=== PATIENT | male | born 1960 | race Caucasian/White ===

== ENCOUNTER 2018-09-23 07:35 | Emergency (ER) | payer OTHER ==
[2018-09-23 07:51] VITALS: BP 189/83
--- NOTE | 2018-09-23 08:10 | EDM.PDOC ---
ED HPI GENERAL MEDICAL PROBLEM - General Chief Complaint: General Stated Complaint: withdrawl s/s Time Seen by Provider: 09/23/18 08:00 - History of Present Illness INITIAL COMMENTS - FREE TEXT/NARRATIVE: Jose is a 57 year old male who presents to the ED with c/o malfunctioning pain pump. He has had an implanted pain pump for a number of years. He reports this is followed by [facility]. He reports normally he goes there every 3 months to have it refilled. He is due for this middle of September he believes. He does report that he knows the battery is due to be changed in the next future, but he is hoping to have it removed before then. He reports that around 3 am it started beeping. He reports that they have advised him that when it starts beeping, he has 1 hour to get to his nearest facility. He reports that as the night went on he started to feel more anxious and wonders if he is "withdrawing." He denies any increase in his pain, but just reports he feels "lousy." Lower Back Pain Score (Numeric/FACES): 4 - Related Data Allergies Allergy/AdvReac Type Severity Reaction Status Date / Time penicillin Allergy Other Verified 09/23/18 08:06 shellfish derived Allergy Swelling Verified 09/23/18 08:06 Home Meds: Home Meds Tamsulosin HCl 0.4 mg PO DAILY 06/07/15 [History] oxyCODONE HCl [Oxycontin] 40 mg PO TID 08/30/15 [History] oxyCODONE 10 mg PO TID PRN 09/23/18 [History] Past Medical History Respiratory History: Reports: Pneumonia, Recurrent Gastrointestinal History: Reports: None Genitourinary History: Reports: None Musculoskeletal History: Reports: Back Pain, Chronic - Past Surgical History Other Musculoskeletal Surgeries/Procedures:: original back injury 07-07-06. Lifting accident at work. disc removed. 5 total back surgeries. rods, screws, pins in back, fusions. Social & Family History - Family History Family Medical History: Noncontributory - Tobacco Use Smoking Status *Q: Current Every Day Smoker Years of Tobacco use: 45 Packs/Tins Daily: 2 ED ROS GENERAL - Review of Systems Review Of Systems: ROS reveals no pertinent complaints other than HPI. ED EXAM, GENERAL - Physical Exam Exam: See Below Exam Limited By: No Limitations General Appearance: Alert, WD/WN, Anxious Eye Exam: Bilateral Eye: EOMI, Normal Fundi, Normal Inspection, PERRL Throat/Mouth: Normal Inspection, Normal Lips, Normal Teeth, Normal Gums, Normal Oropharynx, Normal Voice, No Airway Compromise Head: Atraumatic, Normocephalic Neck: Normal Inspection, Supple, Non-Tender, Full Range of Motion Respiratory/Chest: No Respiratory Distress, Lungs Clear, Normal Breath Sounds, No Accessory Muscle Use, Chest Non-Tender Cardiovascular: Normal Peripheral Pulses, Regular Rate, Rhythm, No Edema, No Gallop, No JVD, No Murmur, No Rub GI/Abdominal: Normal Bowel Sounds, Soft, Non-Tender, No Organomegaly, No Distention, No Abnormal Bruit, No Mass Back Exam: Normal Inspection, Decreased Range of Motion Extremities: Normal Inspection, Normal Range of Motion, Non-Tender, Normal Capillary Refill, No Pedal Edema Neurological: Alert, Oriented, CN II-XII Intact, Normal Cognition, Normal Gait, Normal Reflexes, No Motor/Sensory Deficits Psychiatric: Anxious Skin Exam: Warm, Dry, Intact, Normal Color, No Rash Course - Vital Signs Last Recorded V/S: Last Vital Signs Temp 98.9 F 09/23/18 07:38 Pulse 81 09/23/18 07:38 Resp 18 09/23/18 07:38 BP 189/83 H 09/23/18 07:38 Pulse Ox 98 09/23/18 07:38 - Orders/Labs/Meds Meds: Medications Discontinued Medications Generic Name Dose Route Start Last Admin Trade Name Yolande PRN Reason Stop Dose Admin Morphine Sulfate 20 mg 09/23/18 09:20 09/23/18 09:53 Morphine 20 Mg/Ml Soln PO 09/23/18 09:21 1 ml ONETIME ONE Administration - Re-Assessments/Exams Free Text/Narrative Re-Assessment/Exam: 09/23/2018 08:34 Consulted with patient pain management [employer] who reports he only receives 1 mg/24 hours through the pump. He does take Oxycontin as well so reassured that he is not withdrawing. She wishes him to come to [place], as this is the only way they can assess what is malfunctioning with his pump. This was discussed with patient. 09/23/18 08:57 Patient reports he's "pissed off and just wants to go home." Offered to attempt to arrange a ride to [facility], but he refuses. He is scheduled to f/u with pain management on Wednesday at 11:30 am. Patient voiced understanding and said he will go there Wednesday. Did discuss that the pump will likely continue to beep every 10 minutes throughout the weekend. Patient reports he will just stay home all weekend and does not care as he refuses to go to [facility] today. Departure - Departure Time of Disposition: 08:57 Disposition: Home, Self-Care 01 Condition: Good Clinical Impression: Anxiety Chronic pain Qualifiers: Chronic pain type: chronic pain syndrome Qualified Code(s): G89.4 - Chronic pain syndrome - Discharge Information *PRESCRIPTION DRUG MONITORING PROGRAM REVIEWED*: Not Applicable *COPY OF PRESCRIPTION DRUG MONITORING REPORT IN PATIENT REEMA: Not Applicable Instructions: Chronic Pain, Adult Referrals: Speedy Sidhu PA-C [Primary Care Provider] - Forms: ED Department Discharge Additional Instructions: Recommend follow up with Pain Clinic on Wednesday Continue oral oxycontin as directed. Will give patient PO morphine to use as needed for breakthrough pain. 0.25 mL every 24 hours as needed for breakthrough pain. Follow up for any emergent needs
[2018-09-23] MEDS ORDERED: Morphine Oral Concentrate 20 MG/ML 30 ML Bottle PO ONE (09:20)
== END 2018-09-23 09:54 | disposition home or self-care (01) ==
LOC: CC.ED 07:35
DX: G89.4 Chronic pain syndrome (principal); F41.9 Anxiety disorder, unspecified; F17.210 Nicotine dependence, cigarettes, uncomplicated; Z88.0 Allergy status to penicillin; Z91.013 Allergy to seafood; Z79.899 Other long term (current) drug therapy
CPT/HCPCS: 99282; A9270

== ENCOUNTER 2020-02-19 18:03 | Emergency (ER) | payer OTHER ==
[2020-02-19 18:05] VITALS: BP 140/86; PULSE 118
[2020-02-19] MEDS ORDERED: Apixaban 5 MG Tab PO ONE (18:56)
--- NOTE | 2020-02-19 18:58 | EDM.PDOC ---
ED HPI GENERAL MEDICAL PROBLEM - General Chief Complaint: General Stated Complaint: L leg swelling Time Seen by Provider: 02/19/20 18:24 Source of Information: Reports: Patient History Limitations: Reports: No Limitations - History of Present Illness INITIAL COMMENTS - FREE TEXT/NARRATIVE: Patient presents to ER with complaints of left leg discomfort and swelling. Was down to [place] today for immunotherapy and on the way home, leg started to feel tight. He notes pain in his calf, feels it is mildly swollen. History lung cancer in remission. No history of blood clots. Has not had any open sores, no fevers. Onset: Today, Gradual Duration: Hour(s): Location: Reports: Lower Extremity, Left Quality: Reports: Ache Severity: Mild Associated Symptoms: Reports: Cough. Denies: Chest Pain, Fever/Chills, Nausea/ Vomiting, Shortness of Breath Left Leg Pain Score (Numeric/FACES): 6 - Related Data Allergies Allergy/AdvReac Type Severity Reaction Status Date / Time penicillin Allergy Other Verified 02/19/20 18:22 shellfish derived Allergy Swelling Verified 02/19/20 18:22 Home Meds: Home Meds Tamsulosin HCl 0.4 mg PO DAILY 06/07/15 [History] Buprenorphine HCl/Naloxone HCl [Buprenorphin-Naloxon 8-2 mg Sl] 8 mg PO DAILY [History] Past Medical History Respiratory History: Reports: Pneumonia, Recurrent Gastrointestinal History: Reports: None Genitourinary History: Reports: None Musculoskeletal History: Reports: Back Pain, Chronic Neurological History: Reports: Neuropathy, Peripheral Oncologic (Cancer) History: Reports: Lung - Past Surgical History HEENT Surgical History: Reports: Tonsillectomy GI Surgical History: Reports: Appendectomy Other Musculoskeletal Surgeries/Procedures:: original back injury 07-07-06. Lifting accident at work. disc removed. 5 total back surgeries. rods, screws, pins in back, fusions. Social & Family History - Family History Family Medical History: Noncontributory - Tobacco Use Smoking Status *Q: Current Every Day Smoker Years of Tobacco use: 40 Packs/Tins Daily: 1 - Caffeine Use Caffeine Use: Reports: None - Recreational Drug Use Recreational Drug Use: No ED ROS GENERAL - Review of Systems Review Of Systems: See Below Constitutional: Reports: Weakness, Fatigue. Denies: Fever, Chills, Malaise, Decreased Appetite HEENT: Reports: No Symptoms Respiratory: Reports: Cough. Denies: Shortness of Breath Cardiovascular: Reports: Edema. Denies: Chest Pain, Lightheadedness Endocrine: Reports: Fatigue GI/Abdominal: Denies: Abdominal Pain, Constipation, Diarrhea, Nausea, Vomiting : Reports: No Symptoms Musculoskeletal: Reports: Leg Pain Skin: Denies: Erythema ED EXAM, GENERAL - Physical Exam Exam: See Below Exam Limited By: No Limitations General Appearance: Alert, WD/WN, No Apparent Distress Ears: Normal External Exam, Normal TMs Nose: Normal Inspection, Normal Mucosa, No Blood Throat/Mouth: Normal Inspection, Normal Oropharynx Head: Normocephalic Neck: Normal Inspection, Supple, Non-Tender Respiratory/Chest: Lungs Clear, Decreased Breath Sounds Cardiovascular: Regular Rate, Rhythm GI/Abdominal: Normal Bowel Sounds, Soft, Non-Tender Extremities: Pedal Edema (1+ edema in left lower leg, tender in calf to palpation. Positive Asim's sign), Asim's Sign, Leg Pain Neurological: Alert, Oriented Skin Exam: Warm, Dry Course - Vital Signs Last Recorded V/S: Last Vital Signs Temp 97.1 F 02/19/20 18:03 Pulse 118 H 02/19/20 18:03 Resp 18 02/19/20 18:03 BP 140/86 02/19/20 18:03 Pulse Ox 96 02/19/20 18:03 - Orders/Labs/Meds Orders: Active Orders 24 hr Category Date Time Status D Dimer [D-DIMER QUANTITATIVE] [COAG] Stat Lab 02/19/20 18:09 Ordered Labs: Laboratory Tests 02/19/20 02/19/20 Range/Units 18:09 18:09 WBC 6.8 (5.0-10.0) 10^3/uL RBC 4.22 L (4.50-6.00) 10^6/uL Hgb 13.8 L (14.0-18.0) g/dL Hct 40.8 (40.0-54.0) % MCV 96.7 H (82.0-94.0) fL MCH 32.7 H (27.0-32.0) pg MCHC 33.8 (33.0-38.0) g/dL RDW Coeff of Marquis 13.8 (11.0-15.0) % Plt Count 212 (150-400) 10^3/uL Neut % (Auto) 69.0 (35-85) % Lymph % (Auto) 20.9 (10-55) % Randall % (Auto) 8.8 (0-16) % Eos % (Auto) 1.0 (0-5) % Baso % (Auto) 0.3 (0-3) % Neut # (Auto) 4.72 (1.80-7.00) 10^3/uL Lymph # (Auto) 1.43 (1.00-4.80) 10^3/uL Randall # (Auto) 0.60 (0.00-0.80) 10^3/uL Eos # (Auto) 0.07 (0.00-0.45) 10^3/uL Baso # (Auto) 0.02 10^3/uL C-Reactive Protein 1.4 H (0.2-0.8) mg/dL - Re-Assessments/Exams Free Text/Narrative Re-Assessment/Exam: 02/19/20 19:01 d-dimer is positive. Discussed use of Eliquis with patient tonight and tomorrow until able to obtain ultrasound of leg for confirmation. He is agreeable to coming to [facility] for ultrasound. Departure - Departure Time of Disposition: 19:02 Disposition: Home, Self-Care 01 Condition: Fair Clinical Impression: DVT (deep venous thrombosis) - Discharge Information *PRESCRIPTION DRUG MONITORING PROGRAM REVIEWED*: No *COPY OF PRESCRIPTION DRUG MONITORING REPORT IN PATIENT REEMA: No Referrals: Speedy Sidhu PA-C [Primary Care Provider] - Additional Instructions: 1. Rest 2. Elevate leg tonight 3. Eliquis 10 mg twice a day for 7 days then start 5 mg twice a day thereafter. 4. Please present to [facility] for ultrasound. They will call you with a time. This will confirm if diagnosis of blood clot. 5. Call with any questions Sepsis Event Note - Evaluation Sepsis Screening Result: No Definite Risk - Focused Exam Vital Signs: Vital Signs Temp Pulse Resp BP Pulse Ox 02/19/20 18:03 97.1 F 118 H 18 140/86 96 Date Exam was Performed: 02/19/20 Time Exam was Performed: 18:52 - My Orders Last 24 Hours: My Active Orders 02/19/20 18:09 D Dimer [D-DIMER QUANTITATIVE] [COAG] Stat - Assessment/Plan Last 24 Hours: My Active Orders 02/19/20 18:09 D Dimer [D-DIMER QUANTITATIVE] [COAG] Stat
== END 2020-02-19 19:10 | disposition home or self-care (01) ==
LOC: CC.ED 18:03
DX: I82.402 Acute embolism and thrombosis of unspecified deep veins of left lower extremity (principal); F17.210 Nicotine dependence, cigarettes, uncomplicated; Z88.0 Allergy status to penicillin; Z91.013 Allergy to seafood
CPT/HCPCS: 36415; 85025; 85379; 86140; 99283; A9270

== ENCOUNTER 2021-01-01 07:01 | Inpatient (IN) | payer OTHER ==
[2021-01-01 07:45] LABS: CHLORIDE,CL 82 mEq/L (98-106)
[2021-01-01 07:56] LABS: SODIUM,NA 122 mEq/L (136-145)
[2021-01-01] MEDS ORDERED: Iopamidol 755 Mg/ML 100 ML Bottle IVPUSH ONE (08:15)
[2021-01-01] MEDS ORDERED: Sodium Chloride 0.9% 1,000 ML IV SCH (09:52)
[2021-01-01] MEDS: Sodium Chloride 0.9% 1,000 ML IV SCH ×3 (10:00→23:51)
[2021-01-01] MEDS ORDERED: Levofloxacin/Dextrose 5%-Water 500 MG in Premix Bag 1 BAG IV SCH (10:30)
[2021-01-01] MEDS ORDERED: Cefepime 2 GM Vial IVPUSH SCH (10:45)
[2021-01-01] MEDS ORDERED: metroNIDAZOLE/Normal Saline 500 MG in Premix Bag 1 BAG IV ONE (11:00)
[2021-01-01] MEDS: Acetaminophen 325 MG Tab PO PRN (11:10)
[2021-01-01] MEDS: Apixaban 5 MG Tab PO SCH ×2 (11:10→19:23)
[2021-01-01] MEDS: Ondansetron 4 MG/2 ML SDV IV PRN (14:55)
[2021-01-01] MEDS: metroNIDAZOLE/Normal Saline 500 MG in Premix Bag 1 BAG IV SCH ×2 (16:39→23:55)
[2021-01-01] MEDS: Cefepime 2 GM Vial IVPUSH SCH ×2 (16:39→23:55)
[2021-01-01] MEDS: BUPRENORPHINE HCL PO SCH (19:22)
[2021-01-01] MEDS: NALOXONE HCL PO SCH (19:22)
[2021-01-01] MEDS: Nicotine 14 MG/24 Hr Patch TRDERM SCH (19:43)
--- NOTE | 2021-01-01 21:51 | EDM.PDOC ---
ED HPI GENERAL MEDICAL PROBLEM - General Chief Complaint: General Stated Complaint: sob Time Seen by Provider: 01/01/21 07:25 Source of Information: Reports: Patient History Limitations: Reports: No Limitations - History of Present Illness INITIAL COMMENTS - FREE TEXT/NARRATIVE: Jose is a 60 yo male who presents to the ED via [facility] with complaints of not feeling well. Has multiple complaints. Admits to shortness of breath, which has been ongoing since last chemotherapy treatment. Patient has history of lung cancer and recently started a new round of chemotherapy. He feels he hasn't been getting better. Has been really weak. States he started vomiting the last few days and hasn't' been able to eat. States he has been trying to drink fluids. Patient has history of DVT and currently on Eliquis. He admits he hasn't been exposed to Covid and was tested a little over a week ago and was negative. Has received both Covid vaccines. He does admit to discomfort in his rib cage when he takes in a deep breath. Bilateral Chest Pain Score (Numeric/FACES): 7 - Related Data Allergies Allergy/AdvReac Type Severity Reaction Status Date / Time penicillin Allergy Other Verified 01/01/21 07:10 shellfish derived Allergy Swelling Verified 01/01/21 07:10 Home Meds: Home Meds Tamsulosin HCl 0.4 mg PO DAILY 06/07/15 [History] Buprenorphine HCl/Naloxone HCl [Buprenorphin-Naloxon 8-2 mg Sl] 8 mg PO DAILY 02/19/20 [History] Apixaban [Eliquis] 5 mg PO DAILY 01/01/21 [History] Past Medical History Respiratory History: Reports: Pneumonia, Recurrent Gastrointestinal History: Reports: None Genitourinary History: Reports: None Musculoskeletal History: Reports: Back Pain, Chronic Neurological History: Reports: Neuropathy, Peripheral Oncologic (Cancer) History: Reports: Lung - Past Surgical History HEENT Surgical History: Reports: Tonsillectomy GI Surgical History: Reports: Appendectomy Other Musculoskeletal Surgeries/Procedures:: original back injury 07-07-06. Lifting accident at work. disc removed. 5 total back surgeries. rods, screws, pins in back, fusions. Social & Family History - Family History Family Medical History: No Pertinent Family History - Tobacco Use Tobacco Use Status *Q: Current Every Day Tobacco User Years of Tobacco use: 47 Packs/Tins Daily: 0.3 - Caffeine Use Caffeine Use: Reports: None - Recreational Drug Use Recreational Drug Use: No ED ROS GENERAL - Review of Systems Review Of Systems: See Below Constitutional: Reports: Weakness, Fatigue, Decreased Appetite. Denies: Fever HEENT: Reports: No Symptoms Respiratory: Reports: Shortness of Breath, Pleuritic Chest Pain, Cough. Denies: Hemoptysis Cardiovascular: Reports: Dyspnea on Exertion. Denies: Chest Pain, Palpitations GI/Abdominal: Reports: Abdominal Pain, Nausea, Vomiting. Denies: Black Stool, Bloody Stool, Constipation, Diarrhea, Hematemesis, Hematochezia, Melena : Reports: No Symptoms Musculoskeletal: Reports: Back Pain (chronic) Skin: Reports: No Symptoms Neurological: Reports: No Symptoms ED EXAM, GENERAL - Physical Exam Exam: See Below Exam Limited By: No Limitations General Appearance: Alert, Mild Distress, Thin Ears: Normal External Exam, Hearing Grossly Normal Nose: Normal Inspection, No Blood Throat/Mouth: Normal Inspection, Normal Voice, No Airway Compromise Head: Atraumatic, Normocephalic Neck: Normal Inspection, Supple Respiratory/Chest: No Respiratory Distress, No Accessory Muscle Use, Decreased Breath Sounds, Rhonchi. No: Crackles, Stridor Cardiovascular: Regular Rate, Rhythm, No Edema, No Murmur GI/Abdominal: Normal Bowel Sounds, Soft, No Organomegaly, No Mass, Tender Extremities: Normal Inspection, No Pedal Edema Neurological: Alert, Oriented, Normal Cognition Psychiatric: Normal Affect, Normal Mood Skin Exam: Warm, Dry, Intact, Normal Color, No Rash Course - Vital Signs Last Recorded V/S: Last Vital Signs Temp 97.7 F 01/01/21 19:29 Pulse 99 01/01/21 19:29 Resp 18 01/01/21 19:29 BP 113/75 01/01/21 19:29 Pulse Ox 95 01/01/21 19:29 - Orders/Labs/Meds Orders: Active Orders 24 hr Category Date Time Status Abdomen Pelvis w Cont [CT] Stat Exams 01/01/21 07:39 Taken Chest w Cont [CT] Stat Exams 01/01/21 07:39 Taken Medication Orders Acetaminophen (Tylenol) 650 mg PO Q4H PRN PRN Reason: Pain (Mild 1-3)/fever Last Admin: 01/01/21 11:10 Dose: 650 mg Documented by: BELIMIC Apixaban (Eliquis) 5 mg PO BID [facility] Last Admin: 01/01/21 19:23 Dose: 5 mg Documented by: Admin: 01/01/21 11:10 Dose: 5 mg Documented by: LAUREL Cefepime HCl (Maxipime) 2 gm IVPUSH Q8H [facility] Last Admin: 01/01/21 16:39 Dose: 2 gm Documented by: LAUREL Sodium Chloride (Normal Saline) 1,000 mls @ 150 mls/hr IV ASDIRECTED [facility] Last Admin: 01/01/21 16:39 Dose: 150 mls/hr Documented by: Infusion: 01/01/21 16:39 Dose: 150 mls/hr Documented by: Admin: 01/01/21 10:00 Dose: 150 mls/hr Documented by: LAUREL Metronidazole 500 mg/ Premix 100 mls @ 100 mls/hr IV Q8H [facility] Last Admin: 01/01/21 16:39 Dose: 100 mls/hr Documented by: LAUREL Nicotine (Habitrol) 14 mg TRDERM DAILY [facility] Last Admin: 01/01/21 19:43 Dose: 14 mg Documented by: GENO Buprenorphine Hcl/Naloxone Hcl 8-2mg * *Ptom 0 mg PO DAILY@1999 [facility] Last Admin: 01/01/21 19:22 Dose: 8 mg Documented by: LAUREL Ondansetron HCl (Zofran) 4 mg IV Q4H PRN PRN Reason: Nausea/Vomiting Last Admin: 01/01/21 14:55 Dose: 4 mg Documented by: LAUREL Tamsulosin HCl (Flomax) 0.4 mg PO DAILY [facility] Labs: Laboratory Tests 01/01/21 01/01/21 01/01/21 Range/Units 07:25 07:25 07:44 WBC 0.6 L* (5.0-10.0) 10^3/uL RBC 4.42 L (4.50-6.00) 10^6/uL Hgb 13.7 L (14.0-18.0) g/dL Hct 38.3 L (40.0-54.0) % MCV 86.7 (82.0-94.0) fL MCH 31.0 (27.0-32.0) pg MCHC 35.8 (33.0-38.0) g/dL RDW Coeff of Marquis 13.0 (11.0-15.0) % Plt Count 97 L (150-400) 10^3/uL Add Manual Diff Yes Neutrophils % (Manual) 10 L (35-85) % Band Neutrophils % 4 (0-5) % Lymphocytes % (Manual) 40 (21-55) % Monocytes % (Manual) 46 H (2-12) % Absolute Neutrophils 0.08 L (1.80-7.00) 10^3/uL Lymphocytes # (Manual) 0.24 L (1.00-4.80) 10^3/uL Monocytes # (Manual) 0.28 (0.00-0.80) 10^3/uL Sodium 122 L* (136-145) mEq/L Potassium 3.5 D (3.5-5.0) mEq/L Chloride 82 L (98-106) mEq/L Carbon Dioxide 28 (21-32) mmol/L BUN 27 H D (7-18) mg/dL Creatinine 1.4 H D (0.7-1.3) mg/dL Est Cr Clr Drug Dosing 50.40 mL/min Estimated GFR (MDRD) 52 L (>=60) mL/min Glucose 459 H* D (75-99) mg/dL Calcium 9.8 (8.4-10.1) mg/dL Total Bilirubin 1.1 H (0.0-1.0) mg/dL AST 18 (15-37) U/L ALT 33 (12-78) U/L Alkaline Phosphatase 116 (46-116) U/L Creatine Kinase 22 L (35-232) U/L Troponin I < 0.017 (0.00-0.06) ng/mL C-Reactive Protein 43.4 H (0.2-0.8) mg/dL Total Protein 7.0 (6.4-8.2) g/dL Albumin 2.3 L (3.4-5.0) g/dL Amylase 19 L (25-115) U/L Lipase 67 L (73-393) U/L SARS-CoV-2 RNA (SHUN) (NEGATIVE) 01/01/21 Range/Units 08:09 WBC (5.0-10.0) 10^3/uL RBC (4.50-6.00) 10^6/uL Hgb (14.0-18.0) g/dL Hct (40.0-54.0) % MCV (82.0-94.0) fL MCH (27.0-32.0) pg MCHC (33.0-38.0) g/dL RDW Coeff of Marquis (11.0-15.0) % Plt Count (150-400) 10^3/uL Add Manual Diff Neutrophils % (Manual) (35-85) % Band Neutrophils % (0-5) % Lymphocytes % (Manual) (21-55) % Monocytes % (Manual) (2-12) % Absolute Neutrophils (1.80-7.00) 10^3/uL Lymphocytes # (Manual) (1.00-4.80) 10^3/uL Monocytes # (Manual) (0.00-0.80) 10^3/uL Sodium (136-145) mEq/L Potassium (3.5-5.0) mEq/L Chloride (98-106) mEq/L Carbon Dioxide (21-32) mmol/L BUN (7-18) mg/dL Creatinine (0.7-1.3) mg/dL Est Cr Clr Drug Dosing mL/min Estimated GFR (MDRD) (>=60) mL/min Glucose (75-99) mg/dL Calcium (8.4-10.1) mg/dL Total Bilirubin (0.0-1.0) mg/dL AST (15-37) U/L ALT (12-78) U/L Alkaline Phosphatase (46-116) U/L Creatine Kinase (35-232) U/L Troponin I (0.00-0.06) ng/mL C-Reactive Protein (0.2-0.8) mg/dL Total Protein (6.4-8.2) g/dL Albumin (3.4-5.0) g/dL Amylase (25-115) U/L Lipase (73-393) U/L SARS-CoV-2 RNA (SHUN) Negative (NEGATIVE) Meds: Medications Generic Name Dose Route Start Last Admin Trade Name Freq PRN Reason Stop Dose Admin Acetaminophen 650 mg 01/01/21 09:52 01/01/21 11:10 Tylenol PO 650 mg Q4H PRN Administration Pain (Mild 1-3)/fever Apixaban 5 mg 01/01/21 10:30 01/01/21 19:23 Eliquis PO 5 mg BID LEIF Administration Cefepime HCl 2 gm 01/01/21 16:00 01/01/21 16:39 Maxipime IVPUSH 2 gm Q8H LEIF Administration Sodium Chloride 1,000 mls @ 150 mls/hr 01/01/21 09:30 01/01/21 16:39 Normal Saline IV 150 mls/hr ASDIRECTED LEIF Administration Metronidazole 500 mg/ Premix 100 mls @ 100 mls/hr 01/01/21 16:00 01/01/21 16:39 IV 100 mls/hr Q8H LEIF Administration Nicotine 14 mg 01/01/21 19:30 01/01/21 19:43 Habitrol TRDERM 14 mg DAILY LEIF Administration Buprenorphine Hcl/ 0 mg 01/01/21 20:00 01/01/21 19:22 Naloxone Hcl 8-2mg * PO 8 mg *Ptom DAILY@1999 LEIF Administration Ondansetron HCl 4 mg 01/01/21 09:52 01/01/21 14:55 Zofran IV 4 mg Q4H PRN Administration Nausea/Vomiting Tamsulosin HCl 0.4 mg 01/02/21 08:00 Flomax PO DAILY [facility] Discontinued Medications Generic Name Dose Route Start Last Admin Trade Name Freq PRN Reason Stop Dose Admin Cefepime HCl 2 gm 01/01/21 10:45 01/01/21 11:09 Maxipime IVPUSH 2 gm Q8H LEIF Administration Sodium Chloride 1,000 mls @ 150 mls/hr 01/01/21 09:52 Normal Saline IV ASDIRECTED LEIF Levofloxacin/Dextrose 500 mg/ 100 mls @ 100 mls/hr 01/01/21 10:30 01/01/21 17:24 Premix IV Not Given Q24H LEIF Metronidazole 500 mg/ Premix 100 mls @ 100 mls/hr 01/01/21 11:00 01/01/21 11:09 IV 01/01/21 11:59 100 mls/hr ONETIME ONE Administration Iopamidol 100 ml 01/01/21 08:15 01/01/21 08:38 Isovue-370 (76%) IVPUSH 01/01/21 08:16 100 ml ONETIME ONE Administration Departure - Departure Time of Disposition: 09:00 Disposition: Admitted As Inpatient 66 Condition: Serious Clinical Impression: Hyponatremia, Neutropenic colitis, Dehydration Neutropenia Qualifiers: Neutropenia type: secondary to cancer chemotherapy Qualified Code(s): D70.1 - Agranulocytosis secondary to cancer chemotherapy; T45.1X5A - Adverse effect of antineoplastic and immunosuppressive drugs, initial encounter - Discharge Information Sepsis Event Note (ED) - Evaluation Sepsis Screening Result: No Definite Risk - Problem List & Annotations (1) Dehydration SNOMED Code(s): 11700238 Code(s): E86.0 - DEHYDRATION Status: Acute Current Visit: Yes (2) Hyponatremia SNOMED Code(s): 22063612 Code(s): E87.1 - HYPO-OSMOLALITY AND HYPONATREMIA Status: Acute Current Visit: Yes (3) Neutropenia SNOMED Code(s): 148711877 Code(s): D70.9 - NEUTROPENIA, UNSPECIFIED Status: Acute Current Visit: Yes Qualifiers: Neutropenia type: secondary to cancer chemotherapy Qualified Code(s): D70.1 - Agranulocytosis secondary to cancer chemotherapy; T45.1X5A - Adverse effect of antineoplastic and immunosuppressive drugs, initial encounter (4) Neutropenic colitis SNOMED Code(s): 828907644 Code(s): D70.9 - NEUTROPENIA, UNSPECIFIED; K52.89 - OTHER SPECIFIED NONINFECTIVE GASTROENTERITIS AND COLITIS Status: Acute Current Visit: Yes - My Orders Last 24 Hours: My Active Orders 01/01/21 07:39 Abdomen Pelvis w Cont [CT] Stat Chest w Cont [CT] Stat - Assessment/Plan Admission H&P: Please use this note as an admission H&P Last 24 Hours: My Active Orders 01/01/21 07:39 Abdomen Pelvis w Cont [CT] Stat Chest w Cont [CT] Stat Plan: Patient's laboratory work did show hyponatremia, neutropenia and significantly elevated CRP. CT of the chest/abdomen/pelvis completed. CT scan discussed with radiologist who felt there was a gastroenteritis. CT chest was negative for any acute findings, did feel lung masses had increased in size since prior with mass noted in rib cage as well. Consulted with Dr. Richmond, oncologist, at [facility]. Advised giving Neupogen and continuing until WBC is > 100, which we do not have available and will not be able to get till tomorrow. Dr. Richmond aware and felt was acceptable. Advised starting IV antibiotics with concerns of neutropenic colitis. Patient will be direct admit for acute care. Blood cultures obtained. Will give IV fluids. Telemetry and closely monitor.
[2021-01-02 07:19] LABS: CHLORIDE,CL 95 mEq/L (98-106); SODIUM,NA 128 mEq/L (136-145)
[2021-01-02] MEDS: metroNIDAZOLE/Normal Saline 500 MG in Premix Bag 1 BAG IV SCH ×3 (07:38→23:50)
[2021-01-02] MEDS: Tamsulosin 0.4 MG Cap.ER PO SCH (07:38)
[2021-01-02] MEDS: Apixaban 5 MG Tab PO SCH ×2 (07:38→19:51)
[2021-01-02] MEDS: Nicotine 14 MG/24 Hr Patch TRDERM SCH (07:38)
[2021-01-02] MEDS: Sodium Chloride 0.9% 1,000 ML IV SCH ×3 (07:39→23:43)
[2021-01-02] MEDS: Cefepime 2 GM Vial IVPUSH SCH ×3 (07:40→23:44)
[2021-01-02] MEDS ORDERED: Potassium Chloride Riders 40 MEQ in Premix Bag 1 BAG IV ONE (07:51)
[2021-01-02] MEDS ORDERED: Docusate Sodium 100 MG Cap PO PRN (08:11)
[2021-01-02] MEDS: Docusate Sodium 100 MG Cap PO SCH (08:59)
[2021-01-02] MEDS ORDERED: Pantoprazole 40 MG Vial IVPUSH ONE (12:00)
[2021-01-02 16:02] LABS: CHLORIDE,CL 98 mEq/L (98-106); SODIUM,NA 130 mEq/L (136-145)
[2021-01-02] MEDS: BUPRENORPHINE HCL PO SCH (19:51)
[2021-01-02] MEDS: NALOXONE HCL PO SCH (19:51)
[2021-01-02] MEDS: Ondansetron 4 MG/2 ML SDV IV PRN (19:53)
--- NOTE | 2021-01-02 22:20 | PCM.PN ---
- General Info Date of Service: 01/02/21 Subjective Update: Te is a 60 yo male who was admitted to the hospital yesterday with hyponatremia, weakness, dehydration and neutropenia. Patient recently started new chemotherapy in regards to lung cancer. He started to have vomiting the last few days and was unable keep anything down. Appetite has been poor and failure to thrive. Significant amount of weight loss since restarting new chemotherapy. Ct scan did show gastroenteritis. Consulted with Dr. Richmond who felt he needed treatment for neutropenic colitis via antibiotics and Neupogen to improve WBC >1000. Today he states he is feeling a lot better. Denies any vomiting since admission. Continues to feel weak. No fevers through out the night. States he on admission he was short of breath but has subsided. - Review of Systems General: Reports: Weakness, Fatigue. Denies: Fever, Appetite HEENT: Reports: No Symptoms Pulmonary: Reports: Cough. Denies: Shortness of Breath, Hemoptysis Cardiovascular: Reports: No Symptoms. Denies: Chest Pain Gastrointestinal: Reports: Abdominal Pain, Decreased Appetite. Denies: Melena, Nausea, Vomiting Genitourinary: Reports: No Symptoms Musculoskeletal: Reports: Back Pain (chronic) Skin: Reports: No Symptoms Neurological: Reports: No Symptoms - Patient Data Vitals - Most Recent: Last Vital Signs Temp 98 F 01/02/21 20:00 Pulse 88 01/02/21 20:00 Resp 18 01/02/21 20:00 BP 112/61 01/02/21 20:00 Pulse Ox 96 01/02/21 21:22 Weight - Most Recent: 129 lb 11.2 oz I&O - Last 24 Hours: Intake & Output 01/02/21 01/02/21 01/02/21 06:59 14:59 22:59 Intake Total 2100 1190 Balance 2100 1190 Lab Results Last 24 Hours: Laboratory Results - last 24 hr 01/02/21 01/02/21 01/02/21 Range/Units 07:05 07:05 11:51 WBC 1.5 L* (5.0-10.0) 10^3/uL RBC 3.39 L (4.50-6.00) 10^6/uL Hgb 10.6 L (14.0-18.0) g/dL Hct 29.9 L (40.0-54.0) % MCV 88.2 (82.0-94.0) fL MCH 31.3 (27.0-32.0) pg MCHC 35.5 (33.0-38.0) g/dL RDW Coeff of Marquis 12.8 (11.0-15.0) % Plt Count 91 L (150-400) 10^3/uL Add Manual Diff Yes Neutrophils % (Manual) 42 (35-85) % Band Neutrophils % 3 (0-5) % Lymphocytes % (Manual) 25 (21-55) % Monocytes % (Manual) 25 H (2-12) % Eosinophils % (Manual) 5 (0-5) % Sodium 128 L (136-145) mEq/L Potassium 2.5 L* D (3.5-5.0) mEq/L Chloride 95 L (98-106) mEq/L Carbon Dioxide 25 (21-32) mmol/L BUN 21 H (7-18) mg/dL Creatinine 0.9 (0.7-1.3) mg/dL Est Cr Clr Drug Dosing 72.63 mL/min Estimated GFR (MDRD) > 60 (>=60) mL/min Glucose 283 H D (75-99) mg/dL POC Glucose 289 H (75-105) mg/dl Calcium 8.2 L (8.4-10.1) mg/dL Magnesium 1.5 L (1.8-2.4) mg/dL C-Reactive Protein 26.7 H (0.2-0.8) mg/dL 01/02/21 01/02/21 Range/Units 15:52 21:00 WBC (5.0-10.0) 10^3/uL RBC (4.50-6.00) 10^6/uL Hgb (14.0-18.0) g/dL Hct (40.0-54.0) % MCV (82.0-94.0) fL MCH (27.0-32.0) pg MCHC (33.0-38.0) g/dL RDW Coeff of Marquis (11.0-15.0) % Plt Count (150-400) 10^3/uL Add Manual Diff Neutrophils % (Manual) (35-85) % Band Neutrophils % (0-5) % Lymphocytes % (Manual) (21-55) % Monocytes % (Manual) (2-12) % Eosinophils % (Manual) (0-5) % Sodium 130 L (136-145) mEq/L Potassium 3.9 D (3.5-5.0) mEq/L Chloride 98 (98-106) mEq/L Carbon Dioxide 28 (21-32) mmol/L BUN 19 H (7-18) mg/dL Creatinine 0.9 (0.7-1.3) mg/dL Est Cr Clr Drug Dosing 72.63 mL/min Estimated GFR (MDRD) > 60 (>=60) mL/min Glucose 282 H (75-99) mg/dL POC Glucose 236 H (75-105) mg/dl Calcium 8.6 (8.4-10.1) mg/dL Magnesium (1.8-2.4) mg/dL C-Reactive Protein (0.2-0.8) mg/dL [facility] Results Last 24 Hours: Microbiology 01/01/21 10:40 Aerobic Blood Culture - Preliminary Blood - Venous - Lab Draw NO GROWTH AFTER 1 DAY Anaerobic Blood Culture - Preliminary NO GROWTH AFTER 1 DAY 01/01/21 10:40 Aerobic Blood Culture - Preliminary Blood - Venous NO GROWTH AFTER 1 DAY Anaerobic Blood Culture - Preliminary NO GROWTH AFTER 1 DAY Med Orders - Current: Current Medications Acetaminophen (Tylenol) 650 mg PO Q4H PRN PRN Reason: Pain (Mild 1-3)/fever Last Admin: 01/01/21 11:10 Dose: 650 mg Documented by: Apixaban (Eliquis) 5 mg PO BID [facility] Last Admin: 01/02/21 19:51 Dose: 5 mg Documented by: Cefepime HCl (Maxipime) 2 gm IVPUSH Q8H [facility] Last Admin: 01/02/21 16:11 Dose: 2 gm Documented by: Docusate Sodium (Colace) 100 mg PO DAILY [facility] Last Admin: 01/02/21 08:59 Dose: 100 mg Documented by: Metronidazole 500 mg/ Premix 100 mls @ 100 mls/hr IV Q8H [facility] Last Admin: 01/02/21 16:11 Dose: 100 mls/hr Documented by: Sodium Chloride (Normal Saline) 1,000 mls @ 100 mls/hr IV ASDIRECTED [facility] Nicotine (Habitrol) 14 mg TRDERM DAILY [facility] Last Admin: 01/02/21 07:38 Dose: 14 mg Documented by: Buprenorphine Hcl/Naloxone Hcl 8-2mg * *Ptom 0 mg PO DAILY@1999 [facility] Last Admin: 01/02/21 19:51 Dose: 8 mg Documented by: Ondansetron HCl (Zofran) 4 mg IV Q4H PRN PRN Reason: Nausea/Vomiting Last Admin: 01/02/21 19:53 Dose: 4 mg Documented by: Pantoprazole Sodium (Protonix Iv) 40 mg IVPUSH Q24H [facility] Tamsulosin HCl (Flomax) 0.4 mg PO DAILY [facility] Last Admin: 01/02/21 07:38 Dose: 0.4 mg Documented by: Discontinued Medications Cefepime HCl (Maxipime) 2 gm IVPUSH Q8H [facility] Last Admin: 01/01/21 11:09 Dose: 2 gm Documented by: Docusate Sodium (Colace) 100 mg PO DAILY PRN PRN Reason: Constipation Sodium Chloride (Normal Saline) 1,000 mls @ 150 mls/hr IV ASDIRECTED [facility] Last Admin: 01/02/21 12:12 Dose: 100 mls/hr Documented by: Sodium Chloride (Normal Saline) 1,000 mls @ 150 mls/hr IV ASDIRECTED [facility] Levofloxacin/Dextrose 500 mg/ (Premix) 100 mls @ 100 mls/hr IV Q24H [facility] Last Admin: 01/01/21 17:24 Dose: Not Given Documented by: Metronidazole 500 mg/ Premix 100 mls @ 100 mls/hr IV ONETIME ONE Stop: 01/01/21 11:59 Last Admin: 01/01/21 11:09 Dose: 100 mls/hr Documented by: Magnesium Sulfate/Dextrose 1 (gm/ Premix) 100 mls @ 100 mls/hr IV Q1H [facility] Stop: 01/02/21 09:44 Last Admin: 01/02/21 08:59 Dose: 100 mls/hr Documented by: Potassium Chloride 40 meq/ (Premix) 100 mls @ 25 mls/hr IV ONETIME ONE Stop: 01/02/21 11:50 Last Admin: 01/02/21 08:05 Dose: 25 mls/hr Documented by: Iopamidol (Isovue-370 (76%)) 100 ml IVPUSH ONETIME ONE Stop: 01/01/21 08:16 Last Admin: 01/01/21 08:38 Dose: 100 ml Documented by: Pantoprazole Sodium (Protonix Iv) 40 mg IVPUSH ONETIME ONE Stop: 01/02/21 12:01 Last Admin: 01/02/21 12:12 Dose: 40 mg Documented by: - Exam General: Alert, Oriented, Cooperative, No Acute Distress Lungs: Decreased Breath Sounds, Rhonchi Cardiovascular: Regular Rate, Regular Rhythm, No Murmurs GI/Abdominal Exam: Normal Bowel Sounds, Soft, Non-Tender Extremities: Normal Inspection, No Pedal Edema Skin: Warm, Dry, Intact Psy/Mental Status: Alert, Normal Affect, Normal Mood Sepsis Event Note - Evaluation Sepsis Screening Result: No Definite Risk - Focused Exam Vital Signs: Vital Signs Temp Pulse Resp BP Pulse Ox 01/02/21 21:22 96 01/02/21 20:00 98 F 88 18 112/61 92 L 01/02/21 16:00 96.3 F L 89 18 126/70 96 01/02/21 11:57 96.4 F L 86 18 103/67 95 - Problem List & Annotations (1) Dehydration SNOMED Code(s): 43163413 Code(s): E86.0 - DEHYDRATION Status: Acute Current Visit: Yes (2) Hyponatremia SNOMED Code(s): 55057451 Code(s): E87.1 - HYPO-OSMOLALITY AND HYPONATREMIA Status: Acute Current Visit: Yes (3) Neutropenia SNOMED Code(s): 341795191 Code(s): D70.9 - NEUTROPENIA, UNSPECIFIED Status: Acute Current Visit: Yes Qualifiers: Neutropenia type: secondary to cancer chemotherapy Qualified Code(s): D70.1 - Agranulocytosis secondary to cancer chemotherapy; T45.1X5A - Adverse effect of antineoplastic and immunosuppressive drugs, initial encounter (4) Neutropenic colitis SNOMED Code(s): 928436808 Code(s): D70.9 - NEUTROPENIA, UNSPECIFIED; K52.89 - OTHER SPECIFIED NONINFECTIVE GASTROENTERITIS AND COLITIS Status: Acute Current Visit: Yes (5) Hypokalemia SNOMED Code(s): 42042746 Code(s): E87.6 - HYPOKALEMIA Status: Acute Current Visit: Yes - Problem List Review Problem List Initiated/Reviewed/Updated: Yes - My Orders Last 24 Hours: My Active Orders 01/02/21 08:00 Tamsulosin [Flomax] 0.4 mg PO DAILY 01/02/21 08:10 MARYSOL Hose [Antiembolic Hose] [OM.PC] Routine 01/02/21 08:45 Docusate Sodium [Colace] 100 mg PO DAILY 01/02/21 10:00 Antiembolic Devices [RC] 1000,2200 01/02/21 12:12 Sodium Chloride 0.9% [Normal Saline] 1,000 ml IV ASDIRECTED 01/03/21 05:11 BASIC METABOLIC PANEL,BMP [CHEM] AM C-REACTIVE PROTEIN [CHEM] AM CBC WITH AUTO DIFF [HEME] AM GLYCOSYLATED HEMOGLOBIN,HGBA1C [CHEM] AM MAGNESIUM [CHEM] AM 01/03/21 08:00 Pantoprazole [ProTONIX IV] 40 mg IVPUSH Q24H 01/04/21 05:11 BASIC METABOLIC PANEL,BMP [CHEM] AM C-REACTIVE PROTEIN [CHEM] AM CBC WITH AUTO DIFF [HEME] AM MAGNESIUM [CHEM] AM 01/08/21 08:00 Communication Order [RC] Q7D - Plan Plan:: 01/02/2021 Bill has shown significant improvement since admission. Laboratory work reviewed and sodium is now 128 from 122. Potassium did drop to 2.5. Magnesium low at 1.4. Will initiate 40mEq of Potassium and 2 grams of Magnesium intravenously. Repeat Potassium this afternoon was 3.9. Will repeat BMP and magnesium in am. Patient has continued to be afebrile. Will continue IV fluids until am after repeating labs. Continue IV antibiotics. WBC has improved to 1500 today from 600 yesterday, which will not require Neupogen at this time. Will continue close cardiac monitoring.
[2021-01-03 07:34] LABS: CHLORIDE,CL 101 mEq/L (98-106); SODIUM,NA 133 mEq/L (136-145)
[2021-01-03 07:38] LABS: HEMOGLOBIN A1C 9.5 % (4.8-5.6)
[2021-01-03] MEDS: Tamsulosin 0.4 MG Cap.ER PO SCH (07:49)
[2021-01-03] MEDS: Apixaban 5 MG Tab PO SCH ×2 (07:49→20:47)
[2021-01-03] MEDS: Docusate Sodium 100 MG Cap PO SCH (07:51)
[2021-01-03] MEDS: Pantoprazole 40 MG Vial IVPUSH SCH (07:54)
[2021-01-03] MEDS: Nicotine 14 MG/24 Hr Patch TRDERM SCH (08:06)
[2021-01-03] MEDS: metroNIDAZOLE/Normal Saline 500 MG in Premix Bag 1 BAG IV SCH ×2 (08:08→17:02)
[2021-01-03] MEDS: Cefepime 2 GM Vial IVPUSH SCH ×2 (08:11→17:13)
[2021-01-03] MEDS ORDERED: Magnesium Sulfate/D5W 2 GM in Premix Bag 1 BAG IV ONE (09:00)
[2021-01-03] MEDS ORDERED: Potassium Chloride Riders 40 MEQ in Premix Bag 1 BAG IV ONE (11:00)
--- NOTE | 2021-01-03 13:46 | PCM.PN ---
- General Info Date of Service: 01/03/21 Subjective Update: Te is a 60 yo male who was admitted to the hospital yesterday with hyponatremia, weakness, dehydration and neutropenia. Patient recently started new chemotherapy in regards to lung cancer. He started to have vomiting the last few days and was unable keep anything down. Appetite has been poor and failure to thrive. Significant amount of weight loss since restarting new chemotherapy. Ct scan did show gastroenteritis. Consulted with Dr. Richmond who felt he needed treatment for neutropenic colitis via antibiotics and Neupogen to improve WBC >1000. 01/02/2021 Today he states he is feeling a lot better. Denies any vomiting since admission. Continues to feel weak. No fevers through out the night. States he on admission he was short of breath but has subsided. 01/03/2021 Te continues to improve daily and states he is 150% better than when he was admitted. No further vomiting. Admits he would like to get home by Wednesday as he has his children coming who he hasn't seen in awhile. Functional Status: Reports: Pain Controlled, Tolerating Diet, Ambulating. Denies: New Symptoms - Review of Systems General: Reports: Weakness, Fatigue. Denies: Fever, Appetite HEENT: Reports: No Symptoms Pulmonary: Reports: Cough, Sputum. Denies: Shortness of Breath Cardiovascular: Denies: Chest Pain, Palpitations Gastrointestinal: Reports: Constipation, Flatus. Denies: Decreased Appetite, Nausea, Vomiting Genitourinary: Reports: No Symptoms Musculoskeletal: Reports: Back Pain (chronic) Skin: Reports: No Symptoms Neurological: Reports: No Symptoms Psychiatric: Reports: No Symptoms - Patient Data Vitals - Most Recent: Last Vital Signs Temp 97.4 F 01/03/21 12:00 Pulse 95 01/03/21 12:00 Resp 18 01/03/21 12:00 BP 116/55 L 01/03/21 12:00 Pulse Ox 94 L 01/03/21 12:00 Weight - Most Recent: 129 lb 11.2 oz I&O - Last 24 Hours: Intake & Output 01/02/21 01/03/21 01/03/21 22:59 06:59 14:59 Intake Total 100 100 Balance 100 100 Lab Results Last 24 Hours: Laboratory Results - last 24 hr 01/02/21 01/02/21 01/03/21 Range/Units 15:52 21:00 05:11 WBC 3.4 L (5.0-10.0) 10^3/uL RBC 3.28 L (4.50-6.00) 10^6/uL Hgb 10.2 L (14.0-18.0) g/dL Hct 29.3 L (40.0-54.0) % MCV 89.3 (82.0-94.0) fL MCH 31.1 (27.0-32.0) pg MCHC 34.8 (33.0-38.0) g/dL RDW Coeff of Marquis 13.0 (11.0-15.0) % Plt Count 98 L (150-400) 10^3/uL Add Manual Diff Yes Neutrophils % (Manual) 38 (35-85) % Band Neutrophils % 4 (0-5) % Lymphocytes % (Manual) 32 (21-55) % Monocytes % (Manual) 24 H (2-12) % Eosinophils % (Manual) 2 (0-5) % Absolute Neutrophils 1.43 L (1.80-7.00) 10^3/uL Lymphocytes # (Manual) 1.09 (1.00-4.80) 10^3/uL Monocytes # (Manual) 0.82 H (0.00-0.80) 10^3/uL Eosinophils # (Manual) 0.07 (0.00-0.45) 10^3/uL Nucleated RBCs 1 (0-5) /100WBC Sodium 130 L (136-145) mEq/L Potassium 3.9 D (3.5-5.0) mEq/L Chloride 98 (98-106) mEq/L Carbon Dioxide 28 (21-32) mmol/L BUN 19 H (7-18) mg/dL Creatinine 0.9 (0.7-1.3) mg/dL Est Cr Clr Drug Dosing 72.63 mL/min Estimated GFR (MDRD) > 60 (>=60) mL/min Glucose 282 H (75-99) mg/dL POC Glucose 236 H (75-105) mg/dl Hemoglobin A1c (4.8-5.6) % Calcium 8.6 (8.4-10.1) mg/dL Magnesium (1.8-2.4) mg/dL C-Reactive Protein (0.2-0.8) mg/dL 01/03/21 01/03/21 01/03/21 Range/Units 05:11 05:11 08:16 WBC (5.0-10.0) 10^3/uL RBC (4.50-6.00) 10^6/uL Hgb (14.0-18.0) g/dL Hct (40.0-54.0) % MCV (82.0-94.0) fL MCH (27.0-32.0) pg MCHC (33.0-38.0) g/dL RDW Coeff of Marquis (11.0-15.0) % Plt Count (150-400) 10^3/uL Add Manual Diff Neutrophils % (Manual) (35-85) % Band Neutrophils % (0-5) % Lymphocytes % (Manual) (21-55) % Monocytes % (Manual) (2-12) % Eosinophils % (Manual) (0-5) % Absolute Neutrophils (1.80-7.00) 10^3/uL Lymphocytes # (Manual) (1.00-4.80) 10^3/uL Monocytes # (Manual) (0.00-0.80) 10^3/uL Eosinophils # (Manual) (0.00-0.45) 10^3/uL Nucleated RBCs (0-5) /100WBC Sodium 133 L (136-145) mEq/L Potassium 2.4 L* D (3.5-5.0) mEq/L Chloride 101 (98-106) mEq/L Carbon Dioxide 24 (21-32) mmol/L BUN 14 (7-18) mg/dL Creatinine 0.8 (0.7-1.3) mg/dL Est Cr Clr Drug Dosing 81.71 mL/min Estimated GFR (MDRD) > 60 (>=60) mL/min Glucose 185 H D (75-99) mg/dL POC Glucose 170 H (75-105) mg/dl Hemoglobin A1c 9.5 H (4.8-5.6) % Calcium 8.1 L (8.4-10.1) mg/dL Magnesium 1.5 L (1.8-2.4) mg/dL C-Reactive Protein 12.7 H (0.2-0.8) mg/dL [facility] Results Last 24 Hours: Microbiology 01/01/21 10:40 Aerobic Blood Culture - Preliminary Blood - Venous - Lab Draw NO GROWTH AFTER 2 DAYS Anaerobic Blood Culture - Preliminary NO GROWTH AFTER 2 DAYS 01/01/21 10:40 Aerobic Blood Culture - Preliminary Blood - Venous NO GROWTH AFTER 2 DAYS Anaerobic Blood Culture - Preliminary NO GROWTH AFTER 2 DAYS Med Orders - Current: Current Medications Acetaminophen (Tylenol) 650 mg PO Q4H PRN PRN Reason: Pain (Mild 1-3)/fever Last Admin: 01/01/21 11:10 Dose: 650 mg Documented by: Apixaban (Eliquis) 5 mg PO BID [facility] Last Admin: 01/03/21 07:49 Dose: 5 mg Documented by: Cefepime HCl (Maxipime) 2 gm IVPUSH Q8H [facility] Last Admin: 01/03/21 08:11 Dose: 2 gm Documented by: Docusate Sodium (Colace) 100 mg PO DAILY [facility] Last Admin: 01/03/21 07:51 Dose: 100 mg Documented by: Metronidazole 500 mg/ Premix 100 mls @ 100 mls/hr IV Q8H [facility] Last Admin: 01/03/21 08:08 Dose: 100 mls/hr Documented by: Sodium Chloride (Normal Saline) 1,000 mls @ 100 mls/hr IV ASDIRECTED [facility] Last Admin: 01/02/21 23:43 Dose: 100 mls/hr Documented by: Potassium Chloride 40 meq/ (Premix) 100 mls @ 25 mls/hr IV ONETIME ONE Stop: 01/03/21 14:59 Last Admin: 01/03/21 12:13 Dose: 25 mls/hr Documented by: Magnesium Chloride (Mag-64) 64 mg PO BIDMEALS [facility] Nicotine (Habitrol) 14 mg TRDERM DAILY [facility] Last Admin: 01/03/21 08:06 Dose: 14 mg Documented by: Buprenorphine Hcl/Naloxone Hcl 8-2mg * *Ptom 0 mg PO DAILY@1999 [facility] Last Admin: 01/02/21 19:51 Dose: 8 mg Documented by: Ondansetron HCl (Zofran) 4 mg IV Q4H PRN PRN Reason: Nausea/Vomiting Last Admin: 01/02/21 19:53 Dose: 4 mg Documented by: Pantoprazole Sodium (Protonix Iv) 40 mg IVPUSH Q24H [facility] Last Admin: 01/03/21 07:54 Dose: 40 mg Documented by: Potassium Chloride (Klor-Con 10) 20 meq PO BIDMEALS [facility] Tamsulosin HCl (Flomax) 0.4 mg PO DAILY [facility] Last Admin: 01/03/21 07:49 Dose: 0.4 mg Documented by: Discontinued Medications Cefepime HCl (Maxipime) 2 gm IVPUSH Q8H [facility] Last Admin: 01/01/21 11:09 Dose: 2 gm Documented by: Docusate Sodium (Colace) 100 mg PO DAILY PRN PRN Reason: Constipation Sodium Chloride (Normal Saline) 1,000 mls @ 150 mls/hr IV ASDIRECTED [facility] Last Admin: 01/02/21 12:12 Dose: 100 mls/hr Documented by: Sodium Chloride (Normal Saline) 1,000 mls @ 150 mls/hr IV ASDIRECTED [facility] Levofloxacin/Dextrose 500 mg/ (Premix) 100 mls @ 100 mls/hr IV Q24H [facility] Last Admin: 01/01/21 17:24 Dose: Not Given Documented by: Metronidazole 500 mg/ Premix 100 mls @ 100 mls/hr IV ONETIME ONE Stop: 01/01/21 11:59 Last Admin: 01/01/21 11:09 Dose: 100 mls/hr Documented by: Magnesium Sulfate/Dextrose 1 (gm/ Premix) 100 mls @ 100 mls/hr IV Q1H [facility] Stop: 01/02/21 09:44 Last Admin: 01/02/21 08:59 Dose: 100 mls/hr Documented by: Potassium Chloride 40 meq/ (Premix) 100 mls @ 25 mls/hr IV ONETIME ONE Stop: 01/02/21 11:50 Last Admin: 01/02/21 08:05 Dose: 25 mls/hr Documented by: Magnesium Sulfate/Dextrose 2 (gm/ Premix) 200 mls @ 100 mls/hr IV ONETIME ONE Stop: 01/03/21 10:59 Last Admin: 01/03/21 09:59 Dose: 100 mls/hr Documented by: Iopamidol (Isovue-370 (76%)) 100 ml IVPUSH ONETIME ONE Stop: 01/01/21 08:16 Last Admin: 01/01/21 08:38 Dose: 100 ml Documented by: Pantoprazole Sodium (Protonix Iv) 40 mg IVPUSH ONETIME ONE Stop: 01/02/21 12:01 Last Admin: 01/02/21 12:12 Dose: 40 mg Documented by: - Exam General: Alert, Oriented, Cooperative, No Acute Distress Neck: Supple Lungs: Normal Respiratory Effort, Decreased Breath Sounds Cardiovascular: Regular Rate, Regular Rhythm, No Murmurs GI/Abdominal Exam: Normal Bowel Sounds, Soft, Non-Tender, No Distention Extremities: Normal Inspection, No Pedal Edema Peripheral Pulses: 2+: Dorsalis Pedis (L), Dorsalis Pedis (R) Skin: Warm, Dry, Intact Psy/Mental Status: Alert, Normal Affect, Normal Mood Sepsis Event Note - Evaluation Sepsis Screening Result: No Definite Risk - Focused Exam Vital Signs: Vital Signs Temp Pulse Resp BP Pulse Ox 01/03/21 12:00 97.4 F 95 18 116/55 L 94 L 01/03/21 08:00 97.2 F 75 18 98/45 L 94 L 01/03/21 04:00 97.1 F 86 15 108/64 95 - Problem List & Annotations (1) Dehydration SNOMED Code(s): 17313771 Code(s): E86.0 - DEHYDRATION Status: Acute Current Visit: Yes (2) Hyponatremia SNOMED Code(s): 71880881 Code(s): E87.1 - HYPO-OSMOLALITY AND HYPONATREMIA Status: Acute Current Visit: Yes (3) Neutropenia SNOMED Code(s): 599812414 Code(s): D70.9 - NEUTROPENIA, UNSPECIFIED Status: Acute Current Visit: Yes Qualifiers: Neutropenia type: secondary to cancer chemotherapy Qualified Code(s): D70.1 - Agranulocytosis secondary to cancer chemotherapy; T45.1X5A - Adverse effect of antineoplastic and immunosuppressive drugs, initial encounter (4) Neutropenic colitis SNOMED Code(s): 191861411 Code(s): D70.9 - NEUTROPENIA, UNSPECIFIED; K52.89 - OTHER SPECIFIED NONINFECTIVE GASTROENTERITIS AND COLITIS Status: Acute Current Visit: Yes (5) Hypokalemia SNOMED Code(s): 29858340 Code(s): E87.6 - HYPOKALEMIA Status: Acute Current Visit: Yes - Problem List Review Problem List Initiated/Reviewed/Updated: Yes - My Orders Last 24 Hours: My Active Orders 01/03/21 08:00 Pantoprazole [ProTONIX IV] 40 mg IVPUSH Q24H 01/03/21 11:00 Potassium Chloride Riders [KCL in Water 40 MEQ/100 ML] 40 meq Premix Bag 1 bag IV ONETIME 01/03/21 17:30 Magnesium Chloride [Mag-64] 64 mg PO BIDMEALS Potassium Chloride [Klor-Con 10] 20 meq PO BIDMEALS 01/04/21 05:11 BASIC METABOLIC PANEL,BMP [CHEM] AM C-REACTIVE PROTEIN [CHEM] AM CBC WITH AUTO DIFF [HEME] AM MAGNESIUM [CHEM] AM 01/08/21 08:00 Communication Order [RC] Q7D - Plan Plan:: 01/02/2021 Bill has shown significant improvement since admission. Laboratory work reviewed and sodium is now 128 from 122. Potassium did drop to 2.5. Magnesium low at 1.4. Will initiate 40mEq of Potassium and 2 grams of Magnesium intravenously. Repeat Potassium this afternoon was 3.9. Will repeat BMP and magnesium in am. Patient has continued to be afebrile. Will continue IV fluids until am after repeating labs. Continue IV antibiotics. WBC has improved to 1500 today from 600 yesterday, which will not require Neupogen at this time. Will continue close cardiac monitoring. 01/03/2021 Laboratory work this morning does show decrease in potassium and magnesium again today. Will give IV KCl and magnesium again today and start oral replacement therapy. IV fluids currently running at 100ml/hr. WBC has significantly improved to 3500 today. Continue cardiac monitoring. If labs stable, may discharge in am.
[2021-01-03] MEDS: Sodium Chloride 0.9% 1,000 ML IV SCH (14:20)
[2021-01-03] MEDS: Potassium Chloride 10 MEQ Tab.ER PO SCH (17:11)
[2021-01-03] MEDS: Magnesium Chloride 64 MG Tab.ER PO SCH (17:12)
[2021-01-03] MEDS: BUPRENORPHINE HCL PO SCH (20:49)
[2021-01-03] MEDS: NALOXONE HCL PO SCH (20:49)
[2021-01-04] MEDS: Cefepime 2 GM Vial IVPUSH SCH ×3 (00:16→15:53)
[2021-01-04] MEDS: metroNIDAZOLE/Normal Saline 500 MG in Premix Bag 1 BAG IV SCH ×3 (00:16→15:52)
[2021-01-04] MEDS: Sodium Chloride 0.9% 1,000 ML IV SCH ×2 (01:39→12:09)
[2021-01-04 07:14] LABS: CHLORIDE,CL 102 mEq/L (98-106); SODIUM,NA 133 mEq/L (136-145)
[2021-01-04] MEDS: Apixaban 5 MG Tab PO SCH ×2 (07:42→20:42)
[2021-01-04] MEDS: Tamsulosin 0.4 MG Cap.ER PO SCH (07:42)
[2021-01-04] MEDS: Pantoprazole 40 MG Vial IVPUSH SCH (07:42)
[2021-01-04] MEDS: Docusate Sodium 100 MG Cap PO SCH (07:42)
[2021-01-04] MEDS: Potassium Chloride 10 MEQ Tab.ER PO SCH ×2 (07:42→16:57)
[2021-01-04] MEDS: Magnesium Chloride 64 MG Tab.ER PO SCH ×2 (07:42→16:57)
[2021-01-04] MEDS: Nicotine 14 MG/24 Hr Patch TRDERM SCH (07:43)
[2021-01-04] MEDS ORDERED: Glucagon,Human Recombinant 1 MG Vial IM PRN (10:17)
[2021-01-04] MEDS ORDERED: 50% Dextrose in Water 50 ML Syringe IV PRN (10:17)
[2021-01-04] MEDS ORDERED: Potassium Chloride 20 MEQ in Premix Bag 1 BAG IV ONE ×2 (10:30→14:30)
--- NOTE | 2021-01-04 10:44 | PCM.PN ---
- General Info Date of Service: 01/04/21 Admission Dx/Problem (Free Text): Hyponatremia Neutropenia Subjective Update: Te is a 60 yo male who was admitted to the hospital yesterday with hyponatremia, weakness, dehydration and neutropenia. Patient recently started new chemotherapy in regards to lung cancer. He started to have vomiting the last few days and was unable keep anything down. Appetite has been poor and failure to thrive. Significant amount of weight loss since restarting new chemotherapy. Ct scan did show gastroenteritis. Consulted with Dr. Richmond who felt he needed treatment for neutropenic colitis via antibiotics and Neupogen to improve WBC >1000. 01/02/2021 Today he states he is feeling a lot better. Denies any vomiting since admission. Continues to feel weak. No fevers through out the night. States he on admission he was short of breath but has subsided. 01/03/2021 Te continues to improve daily and states he is 150% better than when he was admitted. No further vomiting. Admits he would like to get home by Wednesday as he has his children coming who he hasn't seen in awhile. 01-04-2021 Patient admits to feeling better. Does still have twinges of abdominal pain at times, feels weak. No further diarrhea or vomiting. Appetite poor. Remains afebrile. Denies shortness of breath. Functional Status: Reports: Pain Controlled, Ambulating, Urinating. Denies: Tolerating Diet - Review of Systems General: Reports: Weakness, Fatigue, Malaise. Denies: Fever HEENT: Denies: Headaches, Sinus Congestion, Sore Throat Pulmonary: Reports: Cough. Denies: Shortness of Breath Cardiovascular: Denies: Chest Pain, Edema, Lightheadedness Gastrointestinal: Reports: Abdominal Pain. Denies: Diarrhea, Nausea, Vomiting Genitourinary: Reports: No Symptoms Musculoskeletal: Reports: No Symptoms Skin: Reports: No Symptoms Neurological: Reports: Weakness - Patient Data Vitals - Most Recent: Last Vital Signs Temp 97.2 F 01/04/21 07:45 Pulse 74 01/04/21 07:45 Resp 20 01/04/21 07:45 BP 112/65 01/04/21 07:45 Pulse Ox 95 01/04/21 07:45 Weight - Most Recent: 129 lb 11.2 oz I&O - Last 24 Hours: Intake & Output 01/03/21 01/04/21 01/04/21 22:59 06:59 14:59 Intake Total 100 1100 Balance 100 1100 Lab Results Last 24 Hours: Laboratory Results - last 24 hr 01/03/21 01/03/21 01/04/21 Range/Units 17:15 20:43 06:55 WBC 3.7 L (5.0-10.0) 10^3/uL RBC 3.06 L (4.50-6.00) 10^6/uL Hgb 9.5 L (14.0-18.0) g/dL Hct 27.0 L (40.0-54.0) % MCV 88.2 (82.0-94.0) fL MCH 31.0 (27.0-32.0) pg MCHC 35.2 (33.0-38.0) g/dL RDW Coeff of Marquis 13.0 (11.0-15.0) % Plt Count 98 L (150-400) 10^3/uL Neut % (Auto) 65.5 (35-85) % Lymph % (Auto) 14.8 (10-55) % Gaines % (Auto) 16.7 H (0-16) % Eos % (Auto) 3.0 (0-5) % Baso % (Auto) 0 (0-3) % Neut # (Auto) 2.43 (1.80-7.00) 10^3/uL Lymph # (Auto) 0.55 L (1.00-4.80) 10^3/uL Gaines # (Auto) 0.62 (0.00-0.80) 10^3/uL Eos # (Auto) 0.11 (0.00-0.45) 10^3/uL Baso # (Auto) 0.00 10^3/uL Sodium (136-145) mEq/L Potassium (3.5-5.0) mEq/L Chloride (98-106) mEq/L Carbon Dioxide (21-32) mmol/L BUN (7-18) mg/dL Creatinine (0.7-1.3) mg/dL Est Cr Clr Drug Dosing mL/min Estimated GFR (MDRD) (>=60) mL/min Glucose (75-99) mg/dL POC Glucose 341 H 364 H (75-105) mg/dl Calcium (8.4-10.1) mg/dL Magnesium (1.8-2.4) mg/dL C-Reactive Protein (0.2-0.8) mg/dL 01/04/21 Range/Units 06:55 WBC (5.0-10.0) 10^3/uL RBC (4.50-6.00) 10^6/uL Hgb (14.0-18.0) g/dL Hct (40.0-54.0) % MCV (82.0-94.0) fL MCH (27.0-32.0) pg MCHC (33.0-38.0) g/dL RDW Coeff of Marquis (11.0-15.0) % Plt Count (150-400) 10^3/uL Neut % (Auto) (35-85) % Lymph % (Auto) (10-55) % Gaines % (Auto) (0-16) % Eos % (Auto) (0-5) % Baso % (Auto) (0-3) % Neut # (Auto) (1.80-7.00) 10^3/uL Lymph # (Auto) (1.00-4.80) 10^3/uL Gaines # (Auto) (0.00-0.80) 10^3/uL Eos # (Auto) (0.00-0.45) 10^3/uL Baso # (Auto) 10^3/uL Sodium 133 L (136-145) mEq/L Potassium 2.2 L* (3.5-5.0) mEq/L Chloride 102 (98-106) mEq/L Carbon Dioxide 24 (21-32) mmol/L BUN 10 (7-18) mg/dL Creatinine 0.8 (0.7-1.3) mg/dL Est Cr Clr Drug Dosing 81.71 mL/min Estimated GFR (MDRD) > 60 (>=60) mL/min Glucose 249 H D (75-99) mg/dL POC Glucose (75-105) mg/dl Calcium 7.5 L (8.4-10.1) mg/dL Magnesium 1.5 L (1.8-2.4) mg/dL C-Reactive Protein 7.2 H (0.2-0.8) mg/dL [place]reras Results Last 24 Hours: Microbiology 01/01/21 10:40 Aerobic Blood Culture - Preliminary Blood - Venous - Lab Draw NO GROWTH AFTER 2 DAYS Anaerobic Blood Culture - Preliminary NO GROWTH AFTER 2 DAYS 01/01/21 10:40 Aerobic Blood Culture - Preliminary Blood - Venous NO GROWTH AFTER 2 DAYS Anaerobic Blood Culture - Preliminary NO GROWTH AFTER 2 DAYS Med Orders - Current: Current Medications Acetaminophen (Tylenol) 650 mg PO Q4H PRN PRN Reason: Pain (Mild 1-3)/fever Last Admin: 01/01/21 11:10 Dose: 650 mg Documented by: Apixaban (Eliquis) 5 mg PO BID [facility] Last Admin: 01/04/21 07:42 Dose: 5 mg Documented by: Cefepime HCl (Maxipime) 2 gm IVPUSH Q8H [facility] Last Admin: 01/04/21 07:42 Dose: 2 gm Documented by: Dextrose/Water (Dextrose 50% In Water) 50 ml IV ASDIRECTED PRN PRN Reason: Hypoglycemia Docusate Sodium (Colace) 100 mg PO DAILY [facility] Last Admin: 01/04/21 07:42 Dose: 100 mg Documented by: Glucagon (Glucagen) 1 mg IM ASDIRECTED PRN PRN Reason: Hypoglycemia Metronidazole 500 mg/ Premix 100 mls @ 100 mls/hr IV Q8H [facility] Last Admin: 01/04/21 07:42 Dose: 100 mls/hr Documented by: Sodium Chloride (Normal Saline) 1,000 mls @ 100 mls/hr IV ASDIRECTED [facility] Last Admin: 01/04/21 01:39 Dose: 100 mls/hr Documented by: Magnesium Sulfate/Dextrose 1 (gm/ Premix) 100 mls @ 100 mls/hr IV Q1H [facility] Stop: 01/04/21 12:29 Potassium Chloride 20 meq/ (Premix) 100 mls @ 25 mls/hr IV ONETIME ONE Stop: 01/04/21 14:29 Potassium Chloride 20 meq/ (Premix) 100 mls @ 25 mls/hr IV ONETIME ONE Stop: 01/04/21 18:29 Insulin Glargine (Lantus) 10 unit SUBCUT BEDTIME [facility] Insulin Human Lispro (Humalog) 0 unit SUBCUT WITHMEALSANDBED [facility]; Protocol Magnesium Chloride (Mag-64) 64 mg PO BIDMEALS [facility] Last Admin: 01/04/21 07:42 Dose: 64 mg Documented by: Nicotine (Habitrol) 14 mg TRDERM DAILY [facility] Last Admin: 01/04/21 07:43 Dose: 14 mg Documented by: Buprenorphine Hcl/Naloxone Hcl 8-2mg * *Ptom 0 mg PO DAILY@1999 [facility] Last Admin: 01/03/21 20:49 Dose: 2 mg Documented by: Ondansetron HCl (Zofran) 4 mg IV Q4H PRN PRN Reason: Nausea/Vomiting Last Admin: 01/02/21 19:53 Dose: 4 mg Documented by: Pantoprazole Sodium (Protonix Iv) 40 mg IVPUSH Q24H [facility] Last Admin: 01/04/21 07:42 Dose: 40 mg Documented by: Potassium Chloride (Klor-Con 10) 20 meq PO BIDMEALS [facility] Last Admin: 01/04/21 07:42 Dose: 20 meq Documented by: Tamsulosin HCl (Flomax) 0.4 mg PO DAILY [facility] Last Admin: 01/04/21 07:42 Dose: 0.4 mg Documented by: Discontinued Medications Cefepime HCl (Maxipime) 2 gm IVPUSH Q8H [facility] Last Admin: 01/01/21 11:09 Dose: 2 gm Documented by: Docusate Sodium (Colace) 100 mg PO DAILY PRN PRN Reason: Constipation Sodium Chloride (Normal Saline) 1,000 mls @ 150 mls/hr IV ASDIRECTED [facility] Last Admin: 01/02/21 12:12 Dose: 100 mls/hr Documented by: Sodium Chloride (Normal Saline) 1,000 mls @ 150 [facility]ls[facility] [place] Levofloxacin/Dextrose 500 mg/ (Premix) 100 mls @ 100 mls/hr IV Q24H [facility] Last Admin: 01/01/21 17:24 Dose: Not Given Documented by: Metronidazole 500 mg/ Premix 100 mls @ 100 mls/hr IV ONETIME ONE Stop: 01/01/21 11:59 Last Admin: 01/01/21 11:09 Dose: 100 mls/hr Documented by: Magnesium Sulfate/Dextrose 1 (gm/ Premix) 100 mls @ 100 mls/hr IV Q1H [facility] Stop: 01/02/21 09:44 Last Admin: 01/02/21 08:59 Dose: 100 mls/hr Documented by: Potassium Chloride 40 meq/ (Premix) 100 mls @ 25 mls/hr IV ONETIME ONE Stop: 01/02/21 11:50 Last Admin: 01/02/21 08:05 Dose: 25 mls/hr Documented by: Magnesium Sulfate/Dextrose 2 (gm/ Premix) 200 mls @ 100 mls/hr IV ONETIME ONE Stop: 01/03/21 10:59 Last Admin: 01/03/21 09:59 Dose: 100 mls/hr Documented by: Potassium Chloride 40 meq/ (Premix) 100 mls @ 25 mls/hr IV ONETIME ONE Stop: 01/03/21 14:59 Last Admin: 01/03/21 12:13 Dose: 25 mls/hr Documented by: Iopamidol (Isovue-370 (76%)) 100 ml IVPUSH ONETIME ONE Stop: 01/01/21 08:16 Last Admin: 01/01/21 08:38 Dose: 100 ml Documented by: Pantoprazole Sodium (Protonix Iv) 40 mg IVPUSH ONETIME ONE Stop: 01/02/21 12:01 Last Admin: 01/02/21 12:12 Dose: 40 mg Documented by: - Exam General: Alert, Oriented HEENT: Mucous Membr. Moist/[place] Neck: Supple Lungs: Decreased Breath Sounds Cardiovascular: Regular Rate, Regular Rhythm GI/Abdominal Exam: Normal Bowel Sounds, Soft, Non-Tender Extremities: Normal Inspection, No Pedal Edema Skin: Warm, Dry Neurological: No New Focal Deficit Sepsis Event Note - Evaluation Sepsis Screening Result: No Definite Risk - Focused Exam Vital Signs: Vital Signs Temp Pulse Resp BP Pulse Ox 01/04/21 07:45 97.2 F 74 20 112/65 95 01/04/21 04:00 97.2 F 71 18 102/76 98 01/04/21 00:00 98 F 94 18 111/73 96 - Problem List & Annotations (1) Dehydration SNOMED Code(s): 43846489 Code(s): E86.0 - DEHYDRATION Status: Acute Priority: High Current Visit: Yes (2) Hypokalemia SNOMED Code(s): 61929776 Code(s): E87.6 - HYPOKALEMIA Status: Acute Priority: High Current Visit: Yes (3) Hyponatremia SNOMED Code(s): 55129729 Code(s): E87.1 - HYPO-OSMOLALITY AND HYPONATREMIA Status: Acute Priority: High Current Visit: Yes (4) Hyperglycemia SNOMED Code(s): 64499840 Code(s): R73.9 - HYPERGLYCEMIA, UNSPECIFIED Status: Acute Priority: High Current Visit: Yes (5) Medication reaction SNOMED Code(s): 31104027 Code(s): T50.905A - ADVERSE EFFECT OF UNSP DRUG/MEDS/BIOL SUBST, INIT Status: Acute Priority: High Current Visit: Yes Qualifiers: Encounter type: initial encounter Qualified Code(s): T50.905A - Adverse effect of unspecified drugs, medicaments and biological substances, initial encounter - Problem List Review Problem List Initiated/Reviewed/Updated: Yes - My Orders Last 24 Hours: My Active Orders 01/04/21 10:15 AMYLASE [CHEM] Routine LIPASE [CHEM] Routine UA RFX CONTRERAS AND CULT IF INDIC [URIN] Routine 01/04/21 10:17 Blood Glucose Check, Bedside [RC] QIDACANDBED LACTIC ACID [CHEM] Routine WBC, STOOL [OP] Routine Dextrose 50% in Water 50 ml IV ASDIRECTED PRN Glucagon,Human Recombinant [GlucaGen] 1 mg IM ASDIRECTED PRN Magnesium Sulfate/D5W [Magnesium Sulfate in D5W 1 GM/100 ML] 2 gm Premix Bag 1 bag IV ONETIME Potassium Chloride [KCL in Water 20 MEQ/100 ML] 20 meq Premix Bag 1 bag IV ONETIME 01/04/21 10:21 Potassium Chloride [KCL in Water 20 MEQ/100 ML] 20 meq Premix Bag 1 bag IV ONETIME 01/04/21 12:00 Insulin Lispro [HumaLOG] See Protocol SUBCUT WITHMEALSANDBED 01/04/21 20:00 Insulin Glarg,Human.Rec.Analog [LantUS] 10 unit SUBCUT BEDTIME - Assessment Assessment:: Hypokalemia Hyponatremia Hyperglycemia Reaction to immune modulator - Plan Plan:: 01/02/2021 Bill has shown significant improvement since admission. Laboratory work reviewed and sodium is now 128 from 122. Potassium did drop to 2.5. Magnesium low at 1.4. Will initiate 40mEq of Potassium and 2 grams of Magnesium intravenously. Repeat Potassium this afternoon was 3.9. Will repeat BMP and magnesium in am. Patient has continued to be afebrile. Will continue IV fluids until am after repeating labs. Continue IV antibiotics. WBC has improved to 1500 today from 600 yesterday, which will not require Neupogen at this time. Will continue close cardiac monitoring. 01/03/2021 Laboratory work this morning does show decrease in potassium and magnesium again today. Will give IV KCl and magnesium again today and start oral replacement therapy. IV fluids currently running at 100ml/hr. WBC has significantly improved to 3500 today. Continue cardiac monitoring. If labs stable, may discharge in am. 01-04-2021 Lab work is again a concern, magnesium 1.5, potassium 2.2 despite IV and oral replacement. Dr. Scott here, did contact Dr. Lomas, oncologist at [facility] who has also been involved in his care. Advised that all issues that patient is having is likely response to a Keytruda immune modulator he received on the 24 of December. Relates medicine can cause "organ shut down". Advised to repeat UA, amylase, lipase and lactic acid as well as stool studies. Advised to treat each abnormality accordingly. Magnesium, potassium IV replacements ordered. Will start Lantus and sliding scale insulin. Discussed steroids if does not respond. Lipase and amylase are significantly higher than on the 3rd. Will switch back to clear liquids. Start IV NS with potassium. Repeat labs in am. Patient aware of plan.
[2021-01-04] MEDS ORDERED: Potassium Chloride Riders 40 MEQ in Premix Bag 1 BAG IV ONE (11:01)
[2021-01-04] MEDS ORDERED: NS + KCl 20mEq/L 1,000 ML IV SCH (11:15)
[2021-01-04] MEDS: Insulin Lispro 100 Units/ML 3 ML Vial SUBCUT SCH ×3 (11:53→20:41)
[2021-01-04] MEDS: NS + KCl 20mEq/L 1,000 ML IV SCH (16:57)
[2021-01-04] MEDS: Insulin Glarg,Human.Rec.Analog 100 Unit/ML SUBCUT SCH (20:47)
[2021-01-04] MEDS: NALOXONE HCL PO SCH (20:47)
[2021-01-04] MEDS: BUPRENORPHINE HCL PO SCH (20:47)
[2021-01-05] MEDS: metroNIDAZOLE/Normal Saline 500 MG in Premix Bag 1 BAG IV SCH ×3 (00:04→15:29)
[2021-01-05] MEDS: Cefepime 2 GM Vial IVPUSH SCH ×3 (00:04→15:29)
[2021-01-05] MEDS: NS + KCl 20mEq/L 1,000 ML IV SCH ×3 (00:05→18:35)
[2021-01-05 07:19] LABS: CHLORIDE,CL 105 mEq/L (98-106); SODIUM,NA 137 mEq/L (136-145)
[2021-01-05] MEDS: Potassium Chloride 10 MEQ Tab.ER PO SCH ×2 (07:55→18:22)
[2021-01-05] MEDS: Pantoprazole 40 MG Vial IVPUSH SCH (07:55)
[2021-01-05] MEDS: Docusate Sodium 100 MG Cap PO SCH (07:55)
[2021-01-05] MEDS: Apixaban 5 MG Tab PO SCH ×2 (07:56→20:36)
[2021-01-05] MEDS: Magnesium Chloride 64 MG Tab.ER PO SCH ×2 (07:56→18:22)
[2021-01-05] MEDS: Tamsulosin 0.4 MG Cap.ER PO SCH (07:56)
[2021-01-05] MEDS: Insulin Lispro 100 Units/ML 3 ML Vial SUBCUT SCH ×4 (08:01→20:36)
[2021-01-05] MEDS: Nicotine 14 MG/24 Hr Patch TRDERM SCH (08:11)
--- NOTE | 2021-01-05 10:30 | PCM.PN ---
- General Info Date of Service: 01/05/21 Admission Dx/Problem (Free Text): Hyponatremia Neutropenia Subjective Update: Te is a 60 yo male who was admitted to the hospital yesterday with hyponatremia, weakness, dehydration and neutropenia. Patient recently started new chemotherapy in regards to lung cancer. He started to have vomiting the last few days and was unable keep anything down. Appetite has been poor and failure to thrive. Significant amount of weight loss since restarting new chemotherapy. Ct scan did show gastroenteritis. Consulted with Dr. Richmond who felt he needed treatment for neutropenic colitis via antibiotics and Neupogen to improve WBC >1000. 01/02/2021 Today he states he is feeling a lot better. Denies any vomiting since admission. Continues to feel weak. No fevers through out the night. States he on admission he was short of breath but has subsided. 01/03/2021 Bill continues to improve daily and states he is 150% better than when he was admitted. No further vomiting. Admits he would like to get home by Wednesday as he has his children coming who he hasn't seen in awhile. 01-04-2021 Patient admits to feeling better. Does still have twinges of abdominal pain at times, feels weak. No further diarrhea or vomiting. Appetite poor. Remains afebrile. Denies shortness of breath. 01-05-2021 Patient is feeling good today. States abdominal pain is gone now, likely since switching back to clear liquids. Does still have issues with activity intolerance and short spells of shortness of breath. No further nausea or vomiting. Afebrile. Functional Status: Reports: Pain Controlled, Tolerating Diet (clear liquids), Ambulating, Urinating - Review of Systems General: Reports: Weakness, Fatigue, Malaise. Denies: Fever HEENT: Denies: Ear Pain, Sinus Congestion, Rhinitis Pulmonary: Denies: Shortness of Breath, Cough Cardiovascular: Denies: Chest Pain, Edema, Lightheadedness Gastrointestinal: Denies: Abdominal Pain, Nausea, Vomiting Genitourinary: Reports: No Symptoms Musculoskeletal: Reports: No Symptoms Skin: Reports: No Symptoms Neurological: Reports: No Symptoms - Patient Data Vitals - Most Recent: Last Vital Signs Temp 97.7 F 01/05/21 08:00 Pulse 83 01/05/21 08:00 Resp 18 01/05/21 08:00 BP 126/75 01/05/21 08:00 Pulse Ox 96 01/05/21 08:00 Weight - Most Recent: 129 lb 11.2 oz I&O - Last 24 Hours: Intake & Output 01/04/21 01/05/21 01/05/21 22:59 06:59 14:59 Intake Total 1575 1100 Balance 1575 1100 Lab Results Last 24 Hours: Laboratory Results - last 24 hr 01/04/21 01/04/21 01/04/21 Range/Units 10:15 10:30 10:30 WBC (5.0-10.0) 10^3/uL RBC (4.50-6.00) 10^6/uL Hgb (14.0-18.0) g/dL Hct (40.0-54.0) % MCV (82.0-94.0) fL MCH (27.0-32.0) pg MCHC (33.0-38.0) g/dL RDW Coeff of [place] (11.0-15.0) % Plt Count (150-400) 10^3/uL Neut % (Auto) (35-85) % Lymph % (Auto) (10-55) % [place] % (Auto) (0-16) % Eos % (Auto) (0-5) % Baso % (Auto) (0-3) % Neut # (Auto) (1.80-7.00) 10^3/uL Lymph # (Auto) (1.00-4.80) 10^3/uL [place] # (Auto) (0.00-0.80) 10^3/uL Eos # (Auto) (0.00-0.45) 10^3/uL Baso # (Auto) 10^3/uL Sodium (136-145) mEq/L Potassium (3.5-5.0) mEq/L Chloride (98-106) mEq/L Carbon Dioxide (21-32) mmol/L BUN (7-18) mg/dL Creatinine (0.7-1.3) mg/dL Est Cr Clr Drug Dosing mL/min Estimated GFR (MDRD) (>=60) mL/min Glucose (75-99) mg/dL POC Glucose (75-105) mg/dl Lactic Acid 1.1 (0.4-2.0) mmol/L Calcium (8.4-10.1) mg/dL Magnesium (1.8-2.4) mg/dL Total Bilirubin (0.0-1.0) mg/dL AST (15-37) U/L ALT (12-78) U/L Alkaline Phosphatase (46-116) U/L Total Protein (6.4-8.2) g/dL Albumin (3.4-5.0) g/dL Amylase 172 H (25-115) U/L Lipase 1457 H (73-393) U/L Urine Color Yellow (YELLOW) Urine Appearance Clear (CLEAR) Urine pH 5.5 (4.5-8.0) Ur Specific [place] 1.015 (1.003-1.020) Urine Protein Negative (NEGATIVE) mg/dL Urine Glucose (UA) 500 H (NEGATIVE) mg/dL Urine Ketones Negative (NEGATIVE) mg/dL Urine Occult Blood Moderate H (NEGATIVE) Urine Nitrite Negative (NEGATIVE) Urine Bilirubin Negative (NEGATIVE) Urine Urobilinogen 0.2 (0.2-1.0) EU/dL Ur Leukocyte Esterase Negative (NEGATIVE) Urine RBC 5-10 H (0-5) /HPF Urine WBC Not seen (0-5) /HPF Ur Epithelial Cells Occasional H (NOT SEEN) /HPF 01/04/21 01/04/21 01/04/21 Range/Units 11:51 17:00 20:39 WBC (5.0-10.0) 10^3/uL RBC (4.50-6.00) 10^6/uL Hgb (14.0-18.0) g/dL Hct (40.0-54.0) % MCV (82.0-94.0) fL MCH (27.0-32.0) pg MCHC (33.0-38.0) g/dL RDW Coeff of [place] (11.0-15.0) % Plt Count (150-400) 10^3/uL Neut % (Auto) (35-85) % Lymph % (Auto) (10-55) % [place] % (Auto) (0-16) % Eos % (Auto) (0-5) % Baso % (Auto) (0-3) % Neut # (Auto) (1.80-7.00) 10^3/uL Lymph # (Auto) (1.00-4.80) 10^3/uL [place] # (Auto) (0.00-0.80) 10^3/uL Eos # (Auto) (0.00-0.45) 10^3/uL Baso # (Auto) 10^3/uL Sodium (136-145) mEq/L Potassium (3.5-5.0) mEq/L Chloride (98-106) mEq/L Carbon Dioxide (21-32) mmol/L BUN (7-18) mg/dL Creatinine (0.7-1.3) mg/dL Est Cr Clr Drug Dosing mL/min Estimated GFR (MDRD) (>=60) mL/min Glucose (75-99) mg/dL POC Glucose 320 H 164 H 147 H (75-105) mg/dl Lactic Acid (0.4-2.0) mmol/L Calcium (8.4-10.1) mg/dL Magnesium (1.8-2.4) mg/dL Total Bilirubin (0.0-1.0) mg/dL AST (15-37) U/L ALT (12-78) U/L Alkaline Phosphatase (46-116) U/L Total Protein (6.4-8.2) g/dL Albumin (3.4-5.0) g/dL Amylase (25-115) U/L Lipase (73-393) U/L Urine Color (YELLOW) Urine Appearance (CLEAR) Urine pH (4.5-8.0) Ur Specific [place] (1.003-1.020) Urine Protein (NEGATIVE) mg/dL Urine Glucose (UA) (NEGATIVE) mg/dL Urine Ketones (NEGATIVE) mg/dL Urine Occult Blood (NEGATIVE) Urine Nitrite (NEGATIVE) Urine Bilirubin (NEGATIVE) Urine Urobilinogen (0.2-1.0) EU/dL Ur Leukocyte Esterase (NEGATIVE) Urine RBC (0-5) /HPF Urine WBC (0-5) /HPF Ur Epithelial Cells (NOT SEEN) /HPF 01/05/21 01/05/21 Range/Units 06:45 06:45 WBC 4.3 L (5.0-10.0) 10^3/uL RBC 2.97 L (4.50-6.00) 10^6/uL Hgb 9.3 L (14.0-18.0) g/dL Hct 26.6 L (40.0-54.0) % MCV 89.6 (82.0-94.0) fL MCH 31.3 (27.0-32.0) pg MCHC 35.0 (33.0-38.0) g/dL RDW Coeff of [place] 13.6 (11.0-15.0) % Plt Count 95 L (150-400) 10^3/uL Neut % (Auto) 71.7 (35-85) % Lymph % (Auto) 13.4 (10-55) % [place] % (Auto) 13.1 (0-16) % Eos % (Auto) 1.6 (0-5) % Baso % (Auto) 0.2 (0-3) % Neut # (Auto) 3.11 (1.80-7.00) 10^3/uL Lymph # (Auto) 0.58 L (1.00-4.80) 10^3/uL [place] # (Auto) 0.57 (0.00-0.80) 10^3/uL Eos # (Auto) 0.07 (0.00-0.45) 10^3/uL Baso # (Auto) 0.01 10^3/uL Sodium 137 (136-145) mEq/L Potassium 3.1 L D (3.5-5.0) mEq/L Chloride 105 (98-106) mEq/L Carbon Dioxide 25 (21-32) mmol/L BUN 6 L (7-18) mg/dL Creatinine 0.8 (0.7-1.3) mg/dL Est Cr Clr Drug Dosing 81.71 mL/min Estimated GFR (MDRD) > 60 (>=60) mL/min Glucose 165 H D (75-99) mg/dL POC Glucose (75-105) mg/dl Lactic Acid (0.4-2.0) mmol/L Calcium 7.4 L (8.4-10.1) mg/dL Magnesium 1.5 L (1.8-2.4) mg/dL Total Bilirubin 0.3 (0.0-1.0) mg/dL AST 48 H (15-37) U/L ALT 47 (12-78) U/L Alkaline Phosphatase 136 H (46-116) U/L Total Protein 4.6 L (6.4-8.2) g/dL Albumin 1.5 L (3.4-5.0) g/dL Amylase 130 H (25-115) U/L Lipase 748 H (73-393) U/L Urine Color (YELLOW) Urine Appearance (CLEAR) Urine pH (4.5-8.0) Ur Specific [place] (1.003-1.020) Urine Protein (NEGATIVE) mg/dL Urine Glucose (UA) (NEGATIVE) mg/dL Urine Ketones (NEGATIVE) mg/dL Urine Occult Blood (NEGATIVE) Urine Nitrite (NEGATIVE) Urine Bilirubin (NEGATIVE) Urine Urobilinogen (0.2-1.0) EU/dL Ur Leukocyte Esterase (NEGATIVE) Urine RBC (0-5) /HPF Urine WBC (0-5) /HPF Ur Epithelial Cells (NOT SEEN) /HPF [facility] Results Last 24 Hours: Microbiology 01/04/21 10:17 Stool for WBCs - Final Stool / Feces NO WBC SEEN REFERENCE RANGE: NO WBC SEEN 01/01/21 10:40 Aerobic Blood Culture - Preliminary Blood - Venous - Lab Draw NO GROWTH AFTER 3 DAYS Anaerobic Blood Culture - Preliminary NO GROWTH AFTER 3 DAYS 01/01/21 10:40 Aerobic Blood Culture - Preliminary Blood - Venous NO GROWTH AFTER 3 DAYS Anaerobic Blood Culture - Preliminary NO GROWTH AFTER 3 DAYS Med Orders - Current: Current Medications Acetaminophen (Tylenol) 650 mg PO Q4H PRN PRN Reason: Pain (Mild 1-3)/fever Last Admin: 01/01/21 11:10 Dose: 650 mg Documented by: Apixaban (Eliquis) 5 mg PO BID [facility] Last Admin: 01/05/21 07:56 Dose: 5 mg Documented by: Cefepime HCl (Maxipime) 2 gm IVPUSH Q8H [facility] Last Admin: 01/05/21 07:55 Dose: 2 gm Documented by: Dextrose/Water (Dextrose 50% In Water) 50 ml IV ASDIRECTED PRN PRN Reason: Hypoglycemia Docusate Sodium (Colace) 100 mg PO DAILY [facility] Last Admin: 01/05/21 07:55 Dose: 100 mg Documented by: Glucagon (Glucagen) 1 mg IM ASDIRECTED PRN PRN Reason: Hypoglycemia Metronidazole 500 mg/ Premix 100 mls @ 100 mls/hr IV Q8H [facility] Last Admin: 01/05/21 07:55 Dose: 100 mls/hr Documented by: Potassium Chloride/Sodium Chloride (Normal Saline With 20 Meq Kcl) 1,000 mls @ 150 mls/hr IV ASDIRECTED [facility] Last Admin: 01/05/21 00:05 Dose: 150 mls/hr Documented by: Magnesium Sulfate/Dextrose 1 (gm/ Premix) 100 mls @ 100 mls/hr IV Q1H [facility] Stop: 01/05/21 11:38 Last Admin: 01/05/21 10:20 Dose: 100 mls/hr Documented by: Insulin Glargine (Lantus) 10 unit SUBCUT BEDTIME [facility] Last Admin: 01/04/21 20:47 Dose: 10 units Documented by: Insulin Human Lispro (Humalog) 0 unit SUBCUT WITHMEALSANDBED [facility]; Protocol Last Admin: 01/05/21 08:01 Dose: 2 units Documented by: Magnesium Chloride (Mag-64) 64 mg PO BIDMEALS [facility] Last Admin: 01/05/21 07:56 Dose: 64 mg Documented by: Nicotine (Habitrol) 14 mg TRDERM DAILY [facility] Last Admin: 01/05/21 08:11 Dose: 14 mg Documented by: Buprenorphine Hcl/Naloxone Hcl 8-2mg * *Ptom 0 mg PO DAILY@1999 [facility] Last Admin: 01/04/21 20:47 Dose: 8 mg Documented by: Ondansetron HCl (Zofran) 4 mg IV Q4H PRN PRN Reason: Nausea/Vomiting Last Admin: 01/02/21 19:53 Dose: 4 mg Documented by: Pantoprazole Sodium (Protonix Iv) 40 mg IVPUSH Q24H [facility] Last Admin: 01/05/21 07:55 Dose: 40 mg Documented by: Potassium Chloride (Klor-Con 10) 20 meq PO BIDMEALS [facility] Last Admin: 01/05/21 07:55 Dose: 20 meq Documented by: Tamsulosin HCl (Flomax) 0.4 mg PO DAILY [facility] Last Admin: 01/05/21 07:56 Dose: 0.4 mg Documented by: Discontinued Medications Cefepime HCl (Maxipime) 2 gm IVPUSH Q8H [facility] Last Admin: 01/01/21 11:09 Dose: 2 gm Documented by: Docusate Sodium (Colace) 100 mg PO DAILY PRN PRN Reason: Constipation Sodium Chloride (Normal Saline) 1,000 mls @ 150 mls/hr IV ASDIRECTED [facility] Last Admin: 01/02/21 12:12 Dose: 100 mls/hr Documented by: Sodium Chloride (Normal Saline) 1,000 mls @ 150 mls/hr IV ASDIRECTED [facility] Levofloxacin/Dextrose 500 mg/ (Premix) 100 mls @ 100 mls/hr IV Q24H [facility] Last Admin: 01/01/21 17:24 Dose: Not Given Documented by: Metronidazole 500 mg/ Premix 100 mls @ 100 mls/hr IV ONETIME ONE Stop: 01/01/21 11:59 Last Admin: 01/01/21 11:09 Dose: 100 mls/hr Documented by: Magnesium Sulfate/Dextrose 1 (gm/ Premix) 100 mls @ 100 mls/hr IV Q1H [facility] Stop: 01/02/21 09:44 Last Admin: 01/02/21 08:59 Dose: 100 mls/hr Documented by: Potassium Chloride 40 meq/ (Premix) 100 mls @ 25 mls/hr IV ONETIME ONE Stop: 01/02/21 11:50 Last Admin: 01/02/21 08:05 Dose: 25 mls/hr Documented by: Sodium Chloride (Normal Saline) 1,000 mls [facility]: 01/04/21 15:15 Dose: 100 mls/hr Documented by: Magnesium Sulfate/Dextrose 2 (gm/ Premix) 200 mls @ 100 mls/hr IV ONETIME ONE Stop: 01/03/21 10:59 Last Admin: 01/03/21 09:59 Dose: 100 mls/hr Documented by: Potassium Chloride 40 meq/ (Premix) 100 mls @ 25 mls/hr IV ONETIME ONE Stop: 01/03/21 14:59 Last Admin: 01/03/21 12:13 Dose: 25 mls/hr Documented by: Magnesium Sulfate/Dextrose 1 (gm/ Premix) 100 mls @ 100 mls/hr IV Q1H [facility] Stop: 01/04/21 12:29 Last Admin: 01/04/21 11:55 Dose: 100 mls/hr Documented by: Potassium Chloride 20 meq/ (Premix) 100 mls @ 25 mls/hr IV ONETIME ONE Stop: 01/04/21 14:29 Last Admin: 01/04/21 11:06 Dose: Not Given Documented by: Potassium Chloride 20 meq/ (Premix) 100 mls @ 25 mls/hr IV ONETIME ONE Stop: 01/04/21 18:29 Potassium Chloride 40 meq/ (Premix) 100 mls @ 25 mls/hr IV ONETIME ONE Stop: 01/04/21 15:00 Last Admin: 01/04/21 11:14 Dose: 25 mls/hr Documented by: Potassium Chloride/Sodium Chloride (Normal Saline With 20 Meq Kcl) 1,000 mls @ 150 mls/hr IV ASDIRECTED [facility] Iopamidol (Isovue-370 (76%)) 100 ml IVPUSH ONETIME ONE Stop: 01/01/21 08:16 Last Admin: 01/01/21 08:38 Dose: 100 ml Documented by: Pantoprazole Sodium (Protonix Iv) 40 mg IVPUSH ONETIME ONE Stop: 01/02/21 12:01 Last Admin: 01/02/21 12:12 Dose: 40 mg Documented by: - Exam General: Alert, Oriented, Cooperative HEENT: Mucous Membr. Moist/[place] Neck: Supple Lungs: Decreased Breath Sounds Cardiovascular: Regular Rate, Regular Rhythm GI/Abdominal Exam: Normal Bowel Sounds, Soft, Non-Tender Extremities: Normal Inspection, No Pedal Edema Skin: Warm, Dry Neurological: No New Focal Deficit Sepsis Event Note - Evaluation Sepsis Screening Result: No Definite Risk - Focused Exam Vital Signs: Vital Signs Temp Pulse Resp BP Pulse Ox 01/05/21 08:00 97.7 F 83 18 126/75 96 01/05/21 04:00 97.1 F 88 18 137/72 97 01/05/21 00:00 98 F 81 18 123/67 95 - Problem List & Annotations (1) Dehydration SNOMED Code(s): 32789220 Code(s): E86.0 - DEHYDRATION Status: Acute Priority: High Current Visit: Yes (2) Hypokalemia SNOMED Code(s): 14245285 Code(s): E87.6 - HYPOKALEMIA Status: Acute Priority: High Current Visit: Yes (3) Hyponatremia SNOMED Code(s): 29047869 Code(s): E87.1 - HYPO-OSMOLALITY AND HYPONATREMIA Status: Acute Priority: High Current Visit: Yes (4) Hyperglycemia SNOMED Code(s): 74803779 Code(s): R73.9 - HYPERGLYCEMIA, UNSPECIFIED Status: Acute Priority: High Current Visit: Yes (5) Medication reaction SNOMED Code(s): 32565706 Code(s): T50.905A - ADVERSE EFFECT OF UNSP DRUG/MEDS/BIOL SUBST, INIT Status: Acute Priority: High Current Visit: Yes Qualifiers: Encounter type: initial encounter Qualified Code(s): T50.905A - Adverse effect of unspecified drugs, medicaments and biological substances, initial encounter - Problem List Review Problem List Initiated/Reviewed/Updated: Yes - My Orders Last 24 Hours: My Active Orders 01/04/21 10:17 Dextrose 50% in Water 50 ml IV ASDIRECTED PRN Glucagon,Human Recombinant [GlucaGen] 1 mg IM ASDIRECTED PRN 01/04/21 12:00 Insulin Lispro [HumaLOG] See Protocol SUBCUT WITHMEALSANDBED 01/04/21 17:00 NS + KCl 20mEq/L [Normal Saline with 20 mEq KCl] 1,000 ml IV ASDIRECTED 01/04/21 20:00 Insulin Glarg,Human.Rec.Analog [LantUS] 10 unit SUBCUT BEDTIME 01/05/21 09:39 Magnesium Sulfate/D5W [Magnesium Sulfate in D5W 1 GM/100 ML] 1 gm Premix Bag 1 bag IV Q1H 01/06/21 05:11 AMYLASE [CHEM] AM C-REACTIVE PROTEIN [CHEM] AM CBC WITH AUTO DIFF [HEME] AM COMPREHENSIVE METABOLIC PN,CMP [CHEM] AM LIPASE [CHEM] AM MAGNESIUM [CHEM] AM - Assessment Assessment:: Hypokalemia Hyponatremia Hyperglycemia Reaction to immune modulator - Plan Plan:: 01/02/2021 Bill has shown significant improvement since admission. Laboratory work reviewed and sodium is now 128 from 122. Potassium did drop to 2.5. Magnesium low at 1.4. Will initiate 40mEq of Potassium and 2 grams of Magnesium intravenously. Repeat Potassium this afternoon was 3.9. Will repeat BMP and magnesium in am. Patient has continued to be afebrile. Will continue IV fluids until am after repeating labs. Continue IV antibiotics. WBC has improved to 1500 today from 600 yesterday, which will not require Neupogen at this time. Will continue close cardiac monitoring. 01/03/2021 Laboratory work this morning does show decrease in potassium and magnesium again today. Will give IV KCl and magnesium again today and start oral replacement therapy. IV fluids currently running at 100ml/hr. WBC has significantly improved to 3500 today. Continue cardiac monitoring. If labs stable, may discharge in am. 01-04-2021 Lab work is again a concern, magnesium 1.5, potassium 2.2 despite IV and oral replacement. Dr. Scott here, did contact Dr. Lomas, oncologist at [facility] who has also been involved in his care. Advised that all issues that patient is having is likely response to a Keytruda immune modulator he received on the 24 of December. Relates medicine can cause "organ shut down". Advised to repeat UA, amylase, lipase and lactic acid as well as stool studies. Advised to treat each abnormality accordingly. Magnesium, potassium IV replacements ordered. Will start Lantus and sliding scale insulin. Discussed steroids if does not respond. Lipase and amylase are significantly higher than on the 3rd. Will switch back to clear liquids. Start IV NS with potassium. Repeat labs in am. Patient aware of plan. 01-05-2021 Lab work does show improvement today, potassium is 3.1, WBC 4.3, hemoglobin 9.3. Magnesium is still low at 1.5. Amylase and lipase have improved to 130 and 748. Blood sugars high but much better control. Stool yesterday negative for WBC. Will need to follow this until stabilized. Vitals are normal. Will given magnesium 2 gm again IV today, repeat labs again tomorrow. Hopefully if stable, can advance diet. Inappropriate for swing bed admit due to high acuity, interventions and close following of electrolytes/labs.
[2021-01-05] MEDS: NALOXONE HCL PO SCH (20:35)
[2021-01-05] MEDS: BUPRENORPHINE HCL PO SCH (20:35)
[2021-01-05] MEDS: Insulin Glarg,Human.Rec.Analog 100 Unit/ML SUBCUT SCH (20:36)
[2021-01-06] MEDS: metroNIDAZOLE/Normal Saline 500 MG in Premix Bag 1 BAG IV SCH ×4 (00:12→23:27)
[2021-01-06] MEDS: Cefepime 2 GM Vial IVPUSH SCH ×4 (00:12→23:27)
[2021-01-06 07:33] LABS: CHLORIDE,CL 104 mEq/L (98-106); SODIUM,NA 136 mEq/L (136-145)
[2021-01-06] MEDS: Nicotine 14 MG/24 Hr Patch TRDERM SCH (07:44)
[2021-01-06] MEDS: Pantoprazole 40 MG Vial IVPUSH SCH (07:45)
[2021-01-06] MEDS: Tamsulosin 0.4 MG Cap.ER PO SCH (07:46)
[2021-01-06] MEDS: Potassium Chloride 10 MEQ Tab.ER PO SCH ×2 (07:46→17:11)
[2021-01-06] MEDS: Magnesium Chloride 64 MG Tab.ER PO SCH ×2 (07:46→17:11)
[2021-01-06] MEDS: Apixaban 5 MG Tab PO SCH ×2 (07:46→20:07)
[2021-01-06] MEDS: Docusate Sodium 100 MG Cap PO SCH (07:53)
[2021-01-06] MEDS: Insulin Lispro 100 Units/ML 3 ML Vial SUBCUT SCH ×4 (07:54→20:34)
[2021-01-06] MEDS: NS + KCl 20mEq/L 1,000 ML IV SCH ×2 (08:01→20:08)
[2021-01-06] MEDS ORDERED: Magnesium Sulfate/D5W 2 GM in Premix Bag 1 BAG IV ONE (08:27)
--- NOTE | 2021-01-06 08:34 | PCM.PN ---
- General Info Date of Service: 01/06/21 Admission Dx/Problem (Free Text): Hyponatremia Neutropenia Subjective Update: Te is a 60 yo male who was admitted to the hospital yesterday with hyponatremia, weakness, dehydration and neutropenia. Patient recently started new chemotherapy in regards to lung cancer. He started to have vomiting the last few days and was unable keep anything down. Appetite has been poor and failure to thrive. Significant amount of weight loss since restarting new chemotherapy. Ct scan did show gastroenteritis. Consulted with Dr. Richmond who felt he needed treatment for neutropenic colitis via antibiotics and Neupogen to improve WBC >1000. 01/02/2021 Today he states he is feeling a lot better. Denies any vomiting since admission. Continues to feel weak. No fevers through out the night. States he on admission he was short of breath but has subsided. 01/03/2021 Bill continues to improve daily and states he is 150% better than when he was admitted. No further vomiting. Admits he would like to get home by Wednesday as he has his children coming who he hasn't seen in awhile. 01-04-2021 Patient admits to feeling better. Does still have twinges of abdominal pain at times, feels weak. No further diarrhea or vomiting. Appetite poor. Remains afebrile. Denies shortness of breath. 01-05-2021 Patient is feeling good today. States abdominal pain is gone now, likely since switching back to clear liquids. Does still have issues with activity intolerance and short spells of shortness of breath. No further nausea or vomiting. Afebrile. 01-06-2021 Patient continues to feel a lot better today. Intermittent abdominal discomfort and loose stools. Denies any significant discomfort. Admits shortness of breath at times seems to be a lot better. Has been up ambulating over the weekend and states is able to walk around the nurses station. Patient is frustrated as he is unable to leave; however, wants to make sure he doesn't get sick like he was ever again. States he never wants that chemotherapy again. Patient has not had any nausea or vomiting. Functional Status: Reports: Pain Controlled, Ambulating, Urinating. Denies: New Symptoms - Review of Systems General: Reports: Weakness, Appetite. Denies: Fever HEENT: Reports: No Symptoms Pulmonary: Reports: No Symptoms Cardiovascular: Reports: No Symptoms Gastrointestinal: Reports: Abdominal Pain (intermittent, minimal), Flatus. Denies: Constipation, Decreased Appetite, Hematochezia, Melena, Nausea, Vomiting Genitourinary: Reports: No Symptoms Musculoskeletal: Reports: Back Pain (chronic) Skin: Reports: No Symptoms Neurological: Reports: No Symptoms Psychiatric: Reports: No Symptoms - Patient Data Vitals - Most Recent: Last Vital Signs Temp 97.8 F 01/06/21 07:41 Pulse 89 01/06/21 07:41 Resp 18 01/06/21 07:41 BP 123/79 01/06/21 07:41 Pulse Ox 95 01/06/21 07:41 Weight - Most Recent: 129 lb 11.2 oz I&O - Last 24 Hours: Intake & Output 01/05/21 01/06/21 01/06/21 22:59 06:59 14:59 Intake Total 1258 1100 Balance 1258 1100 Lab Results Last 24 Hours: Laboratory Results - last 24 hr 01/05/21 01/05/21 01/05/21 Range/Units 12:20 17:44 20:33 WBC (5.0-10.0) 10^3/uL RBC (4.50-6.00) 10^6/uL Hgb (14.0-18.0) g/dL Hct (40.0-54.0) % MCV (82.0-94.0) fL MCH (27.0-32.0) pg MCHC (33.0-38.0) g/dL RDW Coeff of [place]quis (11.0-15.0) % Plt Count (150-400) 10^3/uL Neut % (Auto) (35-85) % Lymph % (Auto) (10-55) % [place] % (Auto) (0-16) % Eos % (Auto) (0-5) % Baso % (Auto) (0-3) % Neut # (Auto) (1.80-7.00) 10^3/uL Lymph # (Auto) (1.00-4.80) 10^3/uL [place] # (Auto) (0.00-0.80) 10^3/uL Eos # (Auto) (0.00-0.45) 10^3/uL Baso # (Auto) 10^3/uL Sodium (136-145) mEq/L Potassium (3.5-5.0) mEq/L Chloride (98-106) mEq/L Carbon Dioxide (21-32) mmol/L BUN (7-18) mg/dL Creatinine (0.7-1.3) mg/dL Est Cr Clr Drug Dosing mL/min Estimated GFR (MDRD) (>=60) mL/min Glucose (75-99) mg/dL POC Glucose 106 H 198 H 190 H (75-105) mg/dl Calcium (8.4-10.1) mg/dL Magnesium (1.8-2.4) mg/dL Total Bilirubin (0.0-1.0) mg/dL AST (15-37) U/L ALT (12-78) U/L Alkaline Phosphatase (46-116) U/L C-Reactive Protein (0.2-0.8) mg/dL Total Protein (6.4-8.2) g/dL Albumin (3.4-5.0) g/dL Amylase (25-115) U/L Lipase (73-393) U/L 01/06/21 01/06/21 Range/Units 06:55 06:55 WBC 5.5 (5.0-10.0) 10^3/uL RBC 2.95 L (4.50-6.00) 10^6/uL Hgb 9.1 L (14.0-18.0) g/dL Hct 26.3 L (40.0-54.0) % MCV 89.2 (82.0-94.0) fL MCH 30.8 (27.0-32.0) pg MCHC 34.6 (33.0-38.0) g/dL RDW Coeff of [place]quis 13.7 (11.0-15.0) % Plt Count 112 L (150-400) 10^3/uL Neut % (Auto) 70.2 (35-85) % Lymph % (Auto) 16.9 (10-55) % [place] % (Auto) 11.2 (0-16) % Eos % (Auto) 1.3 (0-5) % Baso % (Auto) 0.4 (0-3) % Neut # (Auto) 3.83 (1.80-7.00) 10^3/uL Lymph # (Auto) 0.92 L (1.00-4.80) 10^3/uL [place] # (Auto) 0.61 (0.00-0.80) 10^3/uL Eos # (Auto) 0.07 (0.00-0.45) 10^3/uL Baso # (Auto) 0.02 10^3/uL Sodium 136 (136-145) mEq/L Potassium 2.7 L* (3.5-5.0) mEq/L Chloride 104 (98-106) mEq/L Carbon Dioxide 24 (21-32) mmol/L BUN 4 L (7-18) mg/dL Creatinine 0.7 (0.7-1.3) mg/dL Est Cr Clr Drug Dosing 93.38 mL/min Estimated GFR (MDRD) > 60 (>=60) mL/min Glucose 119 H D (75-99) mg/dL POC Glucose (75-105) mg/dl Calcium 7.4 L (8.4-10.1) mg/dL Magnesium 1.4 L (1.8-2.4) mg/dL Total Bilirubin 0.4 (0.0-1.0) mg/dL AST 49 H (15-37) U/L ALT 48 (12-78) U/L Alkaline Phosphatase 134 H (46-116) U/L C-Reactive Protein 5.3 H (0.2-0.8) mg/dL Total Protein 4.5 L (6.4-8.2) g/dL Albumin 1.5 L (3.4-5.0) g/dL Amylase 103 (25-115) U/L Lipase 459 H (73-393) U/L Contreras Results Last 24 Hours: Microbiology 01/01/21 10:40 Aerobic Blood Culture - Preliminary Blood - Venous - Lab Draw NO GROWTH AFTER 4 DAYS Anaerobic Blood Culture - Preliminary NO GROWTH AFTER 4 DAYS 01/01/21 10:40 Aerobic Blood Culture - Preliminary Blood - Venous NO GROWTH AFTER 4 DAYS Anaerobic Blood Culture - Preliminary NO GROWTH AFTER 4 DAYS Med Orders - Current: Current Medications Acetaminophen (Tylenol) 650 mg PO Q4H PRN PRN Reason: Pain (Mild 1-3)/fever Last Admin: 01/01/21 11:10 Dose: 650 mg Documented by: Apixaban (Eliquis) 5 mg PO BID [facility] Last Admin: 01/06/21 07:46 Dose: 5 mg Documented by: Cefepime HCl (Maxipime) 2 gm IVPUSH Q8H [facility] Last Admin: 01/06/21 07:46 Dose: 2 gm Documented by: Dextrose/Water (Dextrose 50% In Water) 50 ml IV ASDIRECTED PRN PRN Reason: Hypoglycemia Docusate Sodium (Colace) 100 mg PO DAILY [facility] Last Admin: 01/06/21 07:53 Dose: 100 mg Documented by: Glucagon (Glucagen) 1 mg IM ASDIRECTED PRN PRN Reason: Hypoglycemia Metronidazole 500 mg/ Premix 100 mls @ 100 mls/hr IV Q8H [facility] Last Admin: 01/06/21 07:47 Dose: 100 mls/hr Documented by: Potassium Chloride/Sodium Chloride (Normal Saline With 20 Meq Kcl) 1,000 mls @ 100 mls/hr IV ASDIRECTED [facility] Last Admin: 01/06/21 08:01 Dose: 100 mls/hr Documented by: Magnesium Sulfate/Dextrose 2 (gm/ Premix) 200 mls @ 100 mls/hr IV ONETIME ONE Stop: 01/06/21 10:26 Insulin Glargine (Lantus) 10 unit SUBCUT BEDTIME [facility] Last Admin: 01/05/21 20:36 Dose: 10 units Documented by: Insulin Human Lispro (Humalog) [facility] Last Admin: 01/06/21 07:54 Dose: Not Given Documented by: Magnesium Chloride (Mag-64) 128 mg PO BIDMEALS [facility] Nicotine (Habitrol) 14 mg TRDERM DAILY [facility] Last Admin: 01/06/21 07:44 Dose: 14 mg Documented by: Buprenorphine Hcl/Naloxone Hcl 8-2mg * *Ptom 0 mg PO DAILY@1999 [facility] Last Admin: 01/05/21 20:35 Dose: 8 mg Documented by: Ondansetron HCl (Zofran) 4 mg IV Q4H PRN PRN Reason: Nausea/Vomiting Last Admin: 01/02/21 19:53 Dose: 4 mg Documented by: Pantoprazole Sodium (Protonix Iv) 40 mg IVPUSH Q24H [facility] Last Admin: 01/06/21 07:45 Dose: 40 mg Documented by: Potassium Chloride (Klor-Con 10) 40 meq PO BIDMEALS [facility] Tamsulosin HCl (Flomax) 0.4 mg PO DAILY [facility] Last Admin: 01/06/21 07:46 Dose: 0.4 mg Documented by: Discontinued Medications Cefepime HCl (Maxipime) 2 gm IVPUSH Q8H [facility] Last Admin: 01/01/21 11:09 Dose: 2 gm Documented by: Docusate Sodium (Colace) 100 mg PO DAILY PRN PRN Reason: Constipation Sodium Chloride (Normal Saline) 1,000 mls @ 150 mls/hr IV ASDIRECTED [facility] Last Admin: 01/02/21 12:12 Dose: 100 mls/hr Documented by: Sodium Chloride (Normal Saline) 1,000 mls @ 150 mls/hr IV ASDIRECTED [facility] Levofloxacin/Dextrose 500 mg/ (Premix) 100 mls @ 100 mls/hr IV Q24H [facility] Last Admin: 01/01/21 17:24 Dose: Not Given Documented by: Metronidazole 500 mg/ Premix 100 mls @ 100 mls/hr IV ONETIME ONE Stop: 01/01/21 11:59 Last Admin: 01/01/21 11:09 Dose: 100 mls/hr Documented by: Magnesium Sulfate/Dextrose 1 (gm/ Premix) 100 mls @ 100 mls/hr IV Q1H [facility] Stop: 01/02/21 09:44 Last Admin: 01/02/21 08:59 Dose: 100 mls/hr Documented by: Potassium Chloride 40 meq/ (Premix) 100 mls @ 25 mls/hr IV ONETIME ONE Stop: 01/02/21 11:50 Last Admin: 01/02/21 08:05 Dose: 25 mls/hr Documented by: Sodium Chloride (Normal Saline) 1,000 mls @ 100 mls/hr IV ASDIRECTED [facility] Last Infusion: 01/04/21 15:15 Dose: 100 mls/hr Documented by: Magnesium Sulfate/Dextrose 2 (gm/ Premix) 200 mls @ 100 mls/hr IV ONETIME ONE Stop: 01/03/21 10:59 Last Admin: 01/03/21 09:59 Dose: 100 mls/hr Documented by: Potassium Chloride 40 meq/ (Premix) 100 mls @ 25 mls/hr IV ONETIME ONE Stop: 01/03/21 14:59 Last Admin: 01/03/21 12:13 Dose: 25 mls/hr Documented by: Magnesium Sulfate/Dextrose 1 (gm/ Premix) 100 mls @ 100 mls/hr IV Q1H [facility] Stop: 01/04/21 12:29 Last Admin: 01/04/21 11:55 Dose: 100 mls/hr Documented by: Potassium Chloride 20 meq/ (Premix) 100 mls @ 25 mls/hr IV ONETIME ONE Stop: 01/04/21 14:29 Last Admin: 01/04/21 11:06 Dose: Not Given Documented by: Potassium Chloride 20 meq/ (Premix) 100 mls @ 25 mls/hr IV ONETIME ONE Stop: 01/04/21 18:29 Potassium Chloride 40 meq/ (Premix) 100 mls @ 25 mls/hr IV ONETIME ONE Stop: 01/04/21 15:00 Last Admin: 01/04/21 11:14 Dose: 25 mls/hr Documented by: Potassium Chloride/Sodium Chloride (Normal Saline With 20 Meq Kcl) 1,000 mls @ 150 mls/hr IV ASDIRECTED [facility] Magnesium Sulfate/Dextrose 1 (gm/ Premix) 100 mls @ 100 mls/hr IV Q1H [facility] Stop: 01/05/21 11:38 Last Admin: 01/05/21 11:14 Dose: 100 mls/hr Documented by: Iopamidol (Isovue-370 (76%)) 100 ml IVPUSH ONETIME ONE Stop: 01/01/21 08:16 Last Admin: 01/01/21 08:38 Dose: 100 ml Documented by: Magnesium Chloride (Mag-64) 64 mg PO BIDMEALS [facility] Last Admin: 01/06/21 07:46 Dose: 64 mg Documented by: Pantoprazole Sodium (Protonix Iv) 40 mg IVPUSH ONETIME ONE Stop: 01/02/21 12:01 Last Admin: 01/02/21 12:12 Dose: 40 mg Documented by: Potassium Chloride (Klor-Con 10) 20 meq PO BIDMEALS [facility] Last Admin: 01/06/21 07:46 Dose: 20 meq Documented by: - Exam General: Alert, Oriented, Cooperative, No Acute Distress Neck: Supple Lungs: Normal Respiratory Effort, Decreased Breath Sounds, Rhonchi (left base) Cardiovascular: Regular Rate, Regular Rhythm, No Murmurs Extremities: Normal Inspection, Non-Tender, No Pedal Edema Skin: Warm, Dry, Intact Psy/Mental Status: Alert, Normal Affect, Normal Mood Sepsis Event Note - Evaluation Sepsis Screening Result: No Definite Risk - Focused Exam Vital Signs: Vital Signs Temp Pulse Resp BP Pulse Ox 01/06/21 07:41 97.8 F 89 18 123/79 95 01/06/21 00:35 98.1 F 100 18 131/71 96 01/06/21 00:00 98.8 F 95 18 138/76 97 - Problem List & Annotations (1) Dehydration SNOMED Code(s): 58733362 Code(s): E86.0 - DEHYDRATION Status: Acute Priority: High Current Vis it: Yes (2) Hyponatremia SNOMED Code(s): 24439793 Code(s): E87.1 - HYPO-OSMOLALITY AND HYPONATREMIA Status: Acute Priority: High Current Visit: Yes (3) Neutropenia SNOMED Code(s): 263082356 Code(s): D70.9 - NEUTROPENIA, UNSPECIFIED Status: Resolved Current Visit: Yes Qualifiers: Neutropenia type: secondary to cancer chemotherapy Qualified Code(s): D70.1 - Agranulocytosis secondary to cancer chemotherapy; T45.1X5A - Adverse effect of antineoplastic and immunosuppressive drugs, initial encounter (4) Neutropenic colitis SNOMED Code(s): 045646128 Code(s): D70.9 - NEUTROPENIA, UNSPECIFIED; K52.89 - OTHER SPECIFIED NONINFECTIVE GASTROENTERITIS AND COLITIS Status: Resolved Current Visit: Yes (5) Hypokalemia SNOMED Code(s): 58881520 Code(s): E87.6 - HYPOKALEMIA Status: Acute Priority: High Current Visit: Yes (6) Pancreatitis SNOMED Code(s): 75381948 Code(s): K85.90 - ACUTE PANCREATITIS WITHOUT NECROSIS OR INFECTION, UNSP Status: Acute Current Visit: Yes Qualifiers: Pancreatitis type: drug induced Acute pancreatitis complication: unspecified (7) Hyperglycemia SNOMED Code(s): 01878831 Code(s): R73.9 - HYPERGLYCEMIA, UNSPECIFIED Status: Acute Priority: High Current Visit: Yes - Problem List Review Problem List Initiated/Reviewed/Updated: Yes - My Orders Last 24 Hours: My Active Orders 01/06/21 08:27 Magnesium Sulfate/D5W [Magnesium Sulfate in D5W 1 GM/100 ML] 2 gm Premix Bag 1 bag IV ONETIME 01/06/21 17:30 Magnesium Chloride [Mag-64] 128 mg PO BIDMEALS Potassium Chloride [Klor-Con 10] 40 meq PO BIDMEALS 01/07/21 05:11 AMYLASE [CHEM] AM C-REACTIVE PROTEIN [CHEM] AM CBC WITH AUTO DIFF [HEME] AM COMPREHENSIVE METABOLIC PN,CMP [CHEM] AM LIPASE [CHEM] AM 01/08/21 08:00 Communication Order [RC] Q7D - Assessment Assessment:: Hypokalemia Hyponatremia Hyperglycemia Reaction to immune modulator - Plan Plan:: 01/02/2021 Bill has shown significant improvement since admission. Laboratory work reviewed and sodium is now 128 from 122. Potassium did drop to 2.5. Magnesium low at 1.4. Will initiate 40mEq of Potassium and 2 grams of Magnesium intravenously. Repeat Potassium this afternoon was 3.9. Will repeat BMP and magnesium in am. Patient has continued to be afebrile. Will continue IV fluids until am after repeating labs. Continue IV antibiotics. WBC has improved to 1500 today from 600 yesterday, which will not require Neupogen at this time. Will continue close cardiac monitoring. 01/03/2021 Laboratory work this morning does show decrease in potassium and magnesium again today. Will give IV KCl and magnesium again today and start oral replacement therapy. IV fluids currently running at 100ml/hr. WBC has significantly improved to 3500 today. Continue cardiac monitoring. If labs stable, may discharge in am. 01-04-2021 Lab work is again a concern, magnesium 1.5, potassium 2.2 despite IV and oral replacement. Dr. Scott here, did contact Dr. Lomas, oncologist at [facility] who has also been involved in his care. Advised that all issues that patient is having is likely response to a Keytruda immune modulator he received on the 24 of December. Relates medicine can cause "organ shut down". Advised to repeat UA, amylase, lipase and lactic acid as well as stool studies. Advised to treat each abnormality accordingly. Magnesium, potassium IV replacements ordered. Will start Lantus and sliding scale insulin. Discussed steroids if does not respond. Lipase and amylase are significantly higher than on the 3rd. Will switch back t o clear liquids. Start IV NS with potassium. Repeat labs in am. Patient aware of plan. 01-05-2021 Lab work does show improvement today, potassium is 3.1, WBC 4.3, hemoglobin 9.3. Magnesium is still low at 1.5. Amylase and lipase have improved to 130 and 748. Blood sugars high but much better control. Stool yesterday negative for WBC. Will need to follow this until stabilized. Vitals are normal. Will given magnesium 2 gm again IV today, repeat labs again tomorrow. Hopefully if stable, can advance diet. Inappropriate for swing bed admit due to high acuity, interventions and close following of electrolytes/labs. 01-06-2021 WBC has improved to normal limits to 5500. Potassium 2.7, Magnesium 1.4, Hgb 9.1 continue to be low. Amylase back to normal limits. Lipase slightly elevated at 459 but much improved from yesterday. Blood sugars stable. Discussed with Bill will need to continue to monitor until electrolytes have corrected. Patient continues to need acute care for close monitoring.
[2021-01-06] MEDS ORDERED: Magnesium Sulfate/Water 2 GM/50 ML BAG IV ONE (09:15)
[2021-01-06] MEDS: NALOXONE HCL PO SCH (20:07)
[2021-01-06] MEDS: BUPRENORPHINE HCL PO SCH (20:07)
[2021-01-06] MEDS: Insulin Glarg,Human.Rec.Analog 100 Unit/ML SUBCUT SCH (20:33)
[2021-01-07] MEDS: NS + KCl 20mEq/L 1,000 ML IV SCH (07:39)
[2021-01-07] MEDS: Magnesium Chloride 64 MG Tab.ER PO SCH ×2 (07:40→18:03)
[2021-01-07] MEDS: Docusate Sodium 100 MG Cap PO SCH (07:40)
[2021-01-07] MEDS: Apixaban 5 MG Tab PO SCH ×2 (07:41→19:25)
[2021-01-07] MEDS: Tamsulosin 0.4 MG Cap.ER PO SCH (07:41)
[2021-01-07] MEDS: Potassium Chloride 10 MEQ Tab.ER PO SCH ×2 (07:41→18:03)
[2021-01-07] MEDS: Nicotine 14 MG/24 Hr Patch TRDERM SCH (07:41)
[2021-01-07 07:46] LABS: CHLORIDE,CL 105 mEq/L (98-106); SODIUM,NA 136 mEq/L (136-145)
[2021-01-07] MEDS: Pantoprazole 40 MG Vial IVPUSH SCH (07:46)
[2021-01-07] MEDS: Insulin Lispro 100 Units/ML 3 ML Vial SUBCUT SCH ×4 (07:46→20:35)
[2021-01-07] MEDS: Cefepime 2 GM Vial IVPUSH SCH ×2 (07:51→16:27)
[2021-01-07] MEDS: metroNIDAZOLE/Normal Saline 500 MG in Premix Bag 1 BAG IV SCH ×2 (07:55→16:33)
[2021-01-07] MEDS ORDERED: Magnesium Sulfate/Water 50 ML IV ONE (09:30)
[2021-01-07] MEDS ORDERED: NS + KCl 20mEq/L 1,000 ML IV SCH (09:30)
--- NOTE | 2021-01-07 09:32 | PCM.PN ---
- General Info Date of Service: 01/07/21 Admission Dx/Problem (Free Text): Hyponatremia Neutropenia Subjective Update: Te is a 60 yo male who was admitted to the hospital yesterday with hyponatremia, weakness, dehydration and neutropenia. Patient recently started new chemotherapy in regards to lung cancer. He started to have vomiting the last few days and was unable keep anything down. Appetite has been poor and failure to thrive. Significant amount of weight loss since restarting new chemotherapy. Ct scan did show gastroenteritis. Consulted with Dr. Richmond who felt he needed treatment for neutropenic colitis via antibiotics and Neupogen to improve WBC >1000. 01/02/2021 Today he states he is feeling a lot better. Denies any vomiting since admission. Continues to feel weak. No fevers through out the night. States he on admission he was short of breath but has subsided. 01/03/2021 Bill continues to improve daily and states he is 150% better than when he was admitted. No further vomiting. Admits he would like to get home by Wednesday as he has his children coming who he hasn't seen in awhile. 01-04-2021 Patient admits to feeling better. Does still have twinges of abdominal pain at times, feels weak. No further diarrhea or vomiting. Appetite poor. Remains afebrile. Denies shortness of breath. 01-05-2021 Patient is feeling good today. States abdominal pain is gone now, likely since switching back to clear liquids. Does still have issues with activity intolerance and short spells of shortness of breath. No further nausea or vomiting. Afebrile. 01-06-2021 Patient continues to feel a lot better today. Intermittent abdominal discomfort and loose stools. Denies any significant discomfort. Admits shortness of breath at times seems to be a lot better. Has been up ambulating over the weekend and states is able to walk around the nurses station. Patient is frustrated as he is unable to leave; however, wants to make sure he doesn't get sick like he was ever again. States he never wants that chemotherapy again. Patient has not had any nausea or vomiting. 01-07-2021 Patient admits to diarrhea all night and now has a sore bottom. Declines anything for it though this morning. Patient Denies any abdominal pain. Upset as he didn't get much sleep as he was up d/t the diarrhea. He otherwise denies any new onset of symptoms. Functional Status: Reports: Pain Controlled. Denies: Tolerating Diet - Review of Systems General: Reports: No Symptoms HEENT: Reports: No Symptoms Pulmonary: Reports: No Symptoms Cardiovascular: Reports: No Symptoms Gastrointestinal: Reports: Diarrhea. Denies: Abdominal Pain, Hematochezia, Melena, Nausea, Vomiting Genitourinary: Reports: No Symptoms Musculoskeletal: Reports: Back Pain (chronic) Skin: Reports: No Symptoms Neurological: Reports: No Symptoms - Patient Data Vitals - Most Recent: Last Vital Signs Temp 98.5 F 01/07/21 08:00 Pulse 81 01/07/21 08:00 Resp 20 01/07/21 08:00 BP 100/55 L 01/07/21 08:00 Pulse Ox 94 L 01/07/21 08:00 Weight - Most Recent: 129 lb 11.2 oz I&O - Last 24 Hours: Intake & Output 01/06/21 01/07/21 01/07/21 22:59 06:59 14:59 Intake Total 1100 1100 Balance 1100 1100 Lab Results Last 24 Hours: Laboratory Results - last 24 hr 01/07/21 01/07/21 Range/Units 07:18 07:18 WBC 5.0 (5.0-10.0) 10^3/uL RBC 2.85 L (4.50-6.00) 10^6/uL Hgb 8.9 L (14.0-18.0) g/dL Hct 25.5 L (40.0-54.0) % MCV 89.5 (82.0-94.0) fL MCH 31.2 (27.0-32.0) pg MCHC 34.9 (33.0-38.0) g/dL RDW Coeff of Marquis 13.9 (11.0-15.0) % Plt Count 118 L (150-400) 10^3/uL Add Manual Diff Yes Neutrophils % (Manual) 76 (35-85) % Lymphocytes % (Manual) 17 L (21-55) % Monocytes % (Manual) 7 (2-12) % Absolute Neutrophils 3.80 (1.80-7.00) 10^3/uL Lymphocytes # (Manual) 0.85 L (1.00-4.80) 10^3/uL Monocytes # (Manual) 0.35 (0.00-0.80) 10^3/uL Sodium 136 (136-145) mEq/L Potassium 3.4 L D (3.5-5.0) mEq/L Chloride 105 (98-106) mEq/L Carbon Dioxide 25 (21-32) mmol/L BUN 4 L (7-18) mg/dL Creatinine 0.8 (0.7-1.3) mg/dL Est Cr Clr Drug Dosing 81.71 mL/min Estimated GFR (MDRD) > 60 (>=60) mL/min Glucose 146 H (75-99) mg/dL Calcium 7.5 L (8.4-10.1) mg/dL Magnesium 1.3 L (1.8-2.4) mg/dL Total Bilirubin 0.5 (0.0-1.0) mg/dL AST 42 H (15-37) U/L ALT 49 (12-78) U/L Alkaline Phosphatase 131 H (46-116) U/L C-Reactive Protein 5.9 H (0.2-0.8) mg/dL Total Protein 4.8 L (6.4-8.2) g/dL Albumin 1.6 L (3.4-5.0) g/dL Amylase 89 (25-115) U/L Lipase 490 H (73-393) U/L Contreras Results Last 24 Hours: Microbiology 01/01/21 10:40 Aerobic Blood Culture - Final Blood - Venous - Lab Draw NO GROWTH AFTER 5 DAYS Anaerobic Blood Culture - Final NO GROWTH AFTER 5 DAYS 01/01/21 10:40 Aerobic Blood Culture - Final Blood - Venous NO GROWTH AFTER 5 DAYS Anaerobic Blood Culture - Final NO GROWTH AFTER 5 DAYS Med Orders - Current: Current Medications Acetaminophen (Tylenol) 650 mg PO Q4H PRN PRN Reason: Pain (Mild 1-3)/fever Last Admin: 01/01/21 11:10 Dose: 650 mg Documented by: Apixaban (Eliquis) 5 mg PO BID [facility] Last Admin: 01/07/21 07:41 Dose: 5 mg Documented by: Cefepime HCl (Maxipime) 2 gm IVPUSH Q8H [facility] Last Admin: 01/07/21 07:51 Dose: 2 gm Documented by: Dextrose/Water (Dextrose 50% In Water) 50 ml IV ASDIRECTED PRN PRN Reason: Hypoglycemia Docusate Sodium (Colace) 100 mg PO DAILY [facility] Last Admin: 01/07/21 07:40 Dose: 100 mg Documented by: Glucagon (Glucagen) 1 mg IM ASDIRECTED PRN PRN Reason: Hypoglycemia Metronidazole 500 mg/ Premix 100 mls @ 100 mls/hr IV Q8H [facility] Last Admin: 01/07/21 07:55 Dose: 100 mls/hr Documented by: Potassium Chloride/Sodium Chloride (Normal Saline With 20 Meq Kcl) 1,000 mls @ 100 mls/hr IV ASDIRECTED [facility] Last Admin: 01/07/21 07:39 Dose: 100 mls/hr Documented by: Magnesium Sulfate (Magnesium Sulfate In Water 2 Gm/50 Ml) 50 mls @ 50 mls/hr IV ONETIME ONE Stop: 01/07/21 10:29 Potassium Chloride/Sodium Chloride (Normal Saline With 20 Meq Kcl) 1,000 mls @ 75 mls/hr IV ASDIRECTED [facility] Insulin Glargine (Lantus) 10 unit SUBCUT BEDTIME [facility] Last Admin: 01/06/21 20:33 Dose: Not Given Documented by: Insulin Human Lispro (Humalog) 0 unit SUBCUT WITHMEALSANDBED [facility]; Protocol Last Admin: 01/07/21 07:46 Dose: Not Given Documented by: Magnesium Chloride (Mag-64) 128 mg PO BIDMEALS [facility] Last Admin: 01/07/21 07:40 Dose: 128 mg Documented by: Nicotine (Habitrol) 14 mg TRDERM DAILY [facility] Last Admin: 01/07/21 07:41 Dose: 14 mg Documented by: Buprenorphine Hcl/Naloxone Hcl 8-2mg * *Ptom 0 mg PO DAILY@1999 [facility] Last Admin: 01/06/21 20:07 Dose: 8 mg Documented by: Ondansetron HCl (Zofran) 4 mg IV Q4H PRN PRN Reason: Nausea/Vomiting Last Admin: 01/02/21 19:53 Dose: 4 mg Documented by: Pantoprazole Sodium (Protonix Iv) 40 mg IVPUSH Q24H [facility] Last Admin: 01/07/21 07:46 Dose: 40 mg Documented by: Potassium Chloride (Klor-Con 10) 40 meq PO BIDMEALS [facility] Last Admin: 01/07/21 07:41 Dose: 40 meq Documented by: Tamsulosin HCl (Flomax) 0.4 mg PO DAILY [facility] Last Admin: 01/07/21 07:41 Dose: 0.4 mg Documented by: Discontinued Medications Cefepime HCl (Maxipime) 2 gm IVPUSH Q8H [facility] Last Admin: 01/01/21 11:09 Dose: 2 gm Documented by: Docusate Sodium (Colace) 100 mg PO DAILY PRN PRN Reason: Constipation Sodium Chloride (Normal Saline) 1,000 mls @ 150 mls/hr IV ASDIRECTED [facility] Last Admin: 01/02/21 12:12 Dose: 100 mls/hr Documented by: Sodium Chloride (Normal Saline) 1,000 mls @ 150 mls/hr IV ASDIRECTED [facility] Levofloxacin/Dextrose 500 mg/ (Premix) 100 mls @ 100 mls/hr IV Q24H [facility] Last Admin: 01/01/21 17:24 Dose: Not Given Documented by: Metronidazole 500 mg/ Premix 100 mls @ 100 mls/hr IV ONETIME ONE Stop: 01/01/21 11:59 Last Admin: 01/01/21 11:09 Dose: 100 mls/hr Documented by: Magnesium Sulfate/Dextrose 1 (gm/ Premix) 100 mls @ 100 mls/hr IV Q1H [facility] Stop: 01/02/21 09:44 Last Admin: 01/02/21 08:59 Dose: 100 mls/hr Documented by: Potassium Chloride 40 meq/ (Premix) 100 mls @ 25 mls/hr IV ONETIME ONE Stop: 01/02/21 11:50 Last Admin: 01/02/21 08:05 Dose: 25 mls/hr Documented by: Sodium Chloride (Normal Saline) 1,000 mls @ 100 mls/hr IV ASDIRECTED [facility] Last Infusion: 01/04/21 15:15 Dose: 100 mls/hr Documented by: Magnesium Sulfate/Dextrose 2 (gm/ Premix) 200 mls @ 100 mls/hr IV ONETIME ONE Stop: 01/03/21 10:59 Last Admin: 01/03/21 09:59 Dose: 100 mls/hr Documented by: Potassium Chloride 40 meq/ (Premix) 100 mls @ 25 mls/hr IV ONETIME ONE Stop: 01/03/21 14:59 Last Admin: 01/03/21 12:13 Dose: 25 mls/hr Documented by: Magnesium Sulfate/Dextrose 1 (gm/ Premix) 100 mls @ 100 mls/hr IV Q1H [facility] Stop: 01/04/21 12:29 Last Admin: 01/04/21 11:55 Dose: 100 mls/hr Documented by: Potassium Chloride 20 meq/ (Premix) 100 mls @ 25 mls/hr IV ONETIME ONE Stop: 01/04/21 14:29 Last Admin: 01/04/21 11:06 Dose: Not Given Documented by: Potassium Chloride 20 meq/ (Premix) 100 mls @ 25 mls/hr IV ONETIME ONE Stop: 01/04/21 18:29 Potassium Chloride 40 meq/ (Premix) 100 mls @ 25 mls/hr IV ONETIME ONE Stop: 01/04/21 15:00 Last Admin: 01/04/21 11:14 Dose: 25 mls/hr Documented by: Potassium Chloride/Sodium Chloride (Normal Saline With 20 Meq Kcl) 1,000 mls @ 150 mls/hr IV ASDIRECTED [facility] Magnesium Sulfate/Dextrose 1 (gm/ Premix) 100 mls @ 100 mls/hr IV Q1H [facility] Stop: 01/05/21 11:38 Last Admin: 01/05/21 11:14 Dose: 100 mls/hr Documented by: Magnesium Sulfate (Magnesium Sulfate In Water 2 Gm/50 Ml) 2 gm in 50 mls @ 50 mls/hr IV ONETIME ONE Stop: 01/06/21 10:14 Last Admin: 01/06/21 09:00 Dose: 50 mls/hr Documented by: Iopamidol (Isovue-370 (76%)) 100 ml IVPUSH ONETIME ONE Stop: 01/01/21 08:16 Last Admin: 01/01/21 08:38 Dose: 100 ml Documented by: Magnesium Chloride (Mag-64) 64 mg PO BIDMEALS [facility] Last Admin: 01/06/21 07:46 Dose: 64 mg Documented by: Pantoprazole Sodium (Protonix Iv) 40 mg IVPUSH ONETIME ONE Stop: 01/02/21 12:01 Last Admin: 01/02/21 12:12 Dose: 40 mg Documented by: Potassium Chloride (Klor-Con 10) 20 meq PO BIDMEALS [facility] Last Admin: 01/06/21 07:46 Dose: 20 meq Documented by: - Exam General: Alert, Oriented, Cooperative Lungs: Clear to Auscultation, Normal Respiratory Effort Cardiovascular: Regular Rate, Regular Rhythm, No Murmurs GI/Abdominal Exam: Normal Bowel Sounds, Soft, Non-Tender, No Distention Extremities: Normal Inspection, No Pedal Edema Skin: Warm, Dry, Intact Neurological: No New Focal Deficit Psy/Mental Status: Alert, Normal Affect, Normal Mood Sepsis Event Note - Evaluation Sepsis Screening Result: No Definite Risk - Focused Exam Vital Signs: Vital Signs Temp Pulse Resp BP Pulse Ox 01/07/21 08:00 98.5 F 81 20 100/55 L 94 L 01/07/21 04:00 97.2 F 82 18 127/62 96 01/06/21 23:26 99.3 F 104 H 18 114/61 95 - Problem List & Annotations (1) Dehydration SNOMED Code(s): 88652957 Code(s): E86.0 - DEHYDRATION Status: Acute Priority: High Current Visit: Yes (2) Hyponatremia SNOMED Code(s): 67616923 Code(s): E87.1 - HYPO-OSMOLALITY AND HYPONATREMIA Status: Resolved Priority: High Current Visit: Yes (3) Neutropenic colitis SNOMED Code(s): 701369177 Code(s): D70.9 - NEUTROPENIA, UNSPECIFIED; K52.89 - OTHER SPECIFIED NONINFECTIVE GASTROENTERITIS AND COLITIS Status: Resolved Current Visit: Yes (4) Hypokalemia SNOMED Code(s): 30312164 Code(s): E87.6 - HYPOKALEMIA Status: Acute Priority: High Current Visit: Yes (5) Pancreatitis SNOMED Code(s): 37412886 Code(s): K85.90 - ACUTE PANCREATITIS WITHOUT NECROSIS OR INFECTION, UNSP Status: Acute Current Visit: Yes Qualifiers: Pancreatitis type: drug induced Acute pancreatitis complication: unspecified (6) Hyperglycemia SNOMED Code(s): 66762435 Code(s): R73.9 - HYPERGLYCEMIA, UNSPECIFIED Status: Acute Priority: High Current Visit: Yes - Problem List Review Problem List Initiated/Reviewed/Updated: Yes - My Orders Last 24 Hours: My Active Orders 01/06/21 17:30 Magnesium Chloride [Mag-64] 128 mg PO BIDMEALS Potassium Chloride [Klor-Con 10] 40 meq PO BIDMEALS 01/07/21 09:30 Magnesium Sulfate/Water [Magnesium Sulfate in Water 2 GM/50 ML] 50 ml IV ONETIME Sodium Chloride 0.9% with KCl 20 mEq @ 75 mL/Hr (1000 mL) NS + KCl 20mEq/L [Normal Saline with 20 mEq KCl] 1,000 ml IV ASDIRECTED 01/07/21 Lunch Clear Liquid Diet [DIET] 01/08/21 05:11 MAGNESIUM [CHEM] AM 01/08/21 08:00 Communication Order [RC] Q7D - Assessment Assessment:: Hypokalemia Hyponatremia Hyperglycemia Reaction to immune modulator - Plan Plan:: 01/02/2021 Bill has shown significant improvement since admission. Laboratory work reviewed and sodium is now 128 from 122. Potassium did drop to 2.5. Magnesium low at 1.4. Will initiate 40mEq of Potassium and 2 grams of Magnesium intravenously. Repeat Potassium this afternoon was 3.9. Will repeat BMP and magnesium in am. Patient has continued to be afebrile. Will continue IV fluids until am after repeating labs. Continue IV antibiotics. WBC has improved to 1500 today from 600 yesterday, which will not require Neupogen at this time. Will continue close cardiac monitoring. 01/03/2021 Laboratory work this morning does show decrease in potassium and magnesium again today. Will give IV KCl and magnesium again today and start oral replacement therapy. IV fluids currently running at 100ml/hr. WBC has significantly improved to 3500 today. Continue cardiac monitoring. If labs stable, may discharge in am. 01-04-2021 Lab work is again a concern, magnesium 1.5, potassium 2.2 despite IV and oral replacement. Dr. Scott here, did contact Dr. Lomas, oncologist at [facility] who has also been involved in his care. Advised that all issues that patient is having is likely response to a Keytruda immune modulator he received on the November. Relates medicine can cause "organ shut down". Advised to repeat UA, amylase, lipase and lactic acid as well as stool studies. Advised to treat each abnormality accordingly. Magnesium, potassium IV replacements ordered. Will start Lantus and sliding scale insulin. Discussed steroids if does not respond. Lipase and amylase are significantly higher than on the 3rd. Will switch back to clear liquids. Start IV NS with potassium. Repeat labs in am. Patient aware of plan. 01-05-2021 Lab work does show improvement today, potassium is 3.1, WBC 4.3, hemoglobin 9.3. Magnesium is still low at 1.5. Amylase and lipase have improved to 130 and 748. Blood sugars high but much better control. Stool yesterday negative for WBC. Will need to follow this until stabilized. Vitals are normal. Will given magnesium 2 gm again IV today, repeat labs again tomorrow. Hopefully if stable, can advance diet. Inappropriate for swing bed admit due to high acuity, interventions and close following of electrolytes/labs. 01-06-2021 WBC has improved to normal limits to 5500. Potassium 2.7, Magnesium 1.4, Hgb 9.1 continue to be low. Amylase back to normal limits. Lipase slightly elevated at 459 but much improved from yesterday. Blood sugars stable. Discussed with Bill will need to continue to monitor until electrolytes have corrected. Patient continues to need acute care for close monitoring. 01-07-2021 Patient's WBC is currently 5000, which has been stable now. Potassium improved to 3.4 today. Magnesium is 1.3 which patient has been up all night with diarrhea. Repeat 2gm magnesium this morning. Hgb continues to be low at 8.9, which is likely secondary to ongoing IV fluids. Amylase continues to improve but lipase is slightly elevated again from yesterday. Attempted to consult with Dr. Rihcmond, which she was out of the office today. Will discuss with Dr. Scott whether starting steroids would be of benefit for colitis. Patient will remain clear liquid as this is the second time we have tried advancing diet.
[2021-01-07] MEDS ORDERED: Zolpidem 5 MG Tab PO PRN (17:28)
[2021-01-07] MEDS: BUPRENORPHINE HCL PO SCH (19:35)
[2021-01-07] MEDS: NALOXONE HCL PO SCH (19:35)
[2021-01-07] MEDS: Insulin Glarg,Human.Rec.Analog 100 Unit/ML SUBCUT SCH (20:33)
[2021-01-08] MEDS: metroNIDAZOLE/Normal Saline 500 MG in Premix Bag 1 BAG IV SCH ×3 (00:40→15:52)
[2021-01-08] MEDS: Cefepime 2 GM Vial IVPUSH SCH ×3 (00:41→15:49)
[2021-01-08] MEDS: Nicotine 14 MG/24 Hr Patch TRDERM SCH (07:46)
[2021-01-08 07:47] LABS: CHLORIDE,CL 104 mEq/L (98-106); SODIUM,NA 135 mEq/L (136-145)
[2021-01-08] MEDS: Pantoprazole 40 MG Vial IVPUSH SCH (07:47)
[2021-01-08] MEDS: Apixaban 5 MG Tab PO SCH ×2 (07:56→19:39)
[2021-01-08] MEDS: Potassium Chloride 10 MEQ Tab.ER PO SCH ×2 (07:56→17:06)
[2021-01-08] MEDS: Magnesium Chloride 64 MG Tab.ER PO SCH ×2 (07:56→17:04)
[2021-01-08] MEDS: Tamsulosin 0.4 MG Cap.ER PO SCH (07:56)
[2021-01-08] MEDS: Docusate Sodium 100 MG Cap PO SCH (07:57)
[2021-01-08] MEDS: Insulin Lispro 100 Units/ML 3 ML Vial SUBCUT SCH ×4 (07:58→21:04)
--- NOTE | 2021-01-08 09:14 | PCM.PN ---
- General Info Date of Service: 01/08/21 Admission Dx/Problem (Free Text): Hyponatremia Neutropenia Subjective Update: Te is a 60 yo male who was admitted to the hospital yesterday with hyponatremia, weakness, dehydration and neutropenia. Patient recently started new chemotherapy in regards to lung cancer. He started to have vomiting the last few days and was unable keep anything down. Appetite has been poor and failure to thrive. Significant amount of weight loss since restarting new chemotherapy. Ct scan did show gastroenteritis. Consulted with Dr. Richmond who felt he needed treatment for neutropenic colitis via antibiotics and Neupogen to improve WBC >1000. 01/02/2021 Today he states he is feeling a lot better. Denies any vomiting since admission. Continues to feel weak. No fevers through out the night. States he on admission he was short of breath but has subsided. 01/03/2021 Bill continues to improve daily and states he is 150% better than when he was admitted. No further vomiting. Admits he would like to get home by Wednesday as he has his children coming who he hasn't seen in awhile. 01-04-2021 Patient admits to feeling better. Does still have twinges of abdominal pain at times, feels weak. No further diarrhea or vomiting. Appetite poor. Remains afebrile. Denies shortness of breath. 01-05-2021 Patient is feeling good today. States abdominal pain is gone now, likely since switching back to clear liquids. Does still have issues with activity intolerance and short spells of shortness of breath. No further nausea or vomiting. Afebrile. 01-06-2021 Patient continues to feel a lot better today. Intermittent abdominal discomfort and loose stools. Denies any significant discomfort. Admits shortness of breath at times seems to be a lot better. Has been up ambulating over the weekend and states is able to walk around the nurses station. Patient is frustrated as he is unable to leave; however, wants to make sure he doesn't get sick like he was ever again. States he never wants that chemotherapy again. Patient has not had any nausea or vomiting. 01-07-2021 Patient admits to diarrhea all night and now has a sore bottom. Declines anything for it though this morning. Patient Denies any abdominal pain. Upset as he didn't get much sleep as he was up d/t the diarrhea. He otherwise denies any new onset of symptoms. 01/08/2021 Patient continues to have diarrhea stating roughly 4 episodes in 24 hrs. Denies any significant abdominal pain. States he feels he is ready to try and eat something. Denies any further shortness of breath. Admits his hair has started to fall out. States he continues to feel weak. Functional Status: Reports: Pain Controlled, Tolerating Diet, Ambulating - Review of Systems General: Reports: Weakness, Fatigue HEENT: Reports: No Symptoms Pulmonary: Reports: No Symptoms Cardiovascular: Reports: No Symptoms Gastrointestinal: Reports: Diarrhea. Denies: Abdominal Pain, Constipation, Hematochezia, Melena, Nausea, Vomiting Genitourinary: Reports: No Symptoms Musculoskeletal: Reports: No Symptoms Skin: Reports: No Symptoms Neurological: Reports: No Symptoms - Patient Data Vitals - Most Recent: Last Vital Signs Temp 97.3 F 01/08/21 08:00 Pulse 80 01/08/21 08:00 Resp 18 01/08/21 08:00 BP 125/67 01/08/21 08:00 Pulse Ox 97 01/08/21 08:00 Weight - Most Recent: 134 lb 12.8 oz I&O - Last 24 Hours: Intake & Output 01/07/21 01/08/21 01/08/21 22:59 06:59 14:59 Intake Total 100 100 Balance 100 100 Lab Results Last 24 Hours: Laboratory Results - last 24 hr 01/06/21 01/06/21 01/06/21 Range/Units 12:00 16:37 20:15 WBC (5.0-10.0) 10^3/uL RBC (4.50-6.00) 10^6/uL Hgb (14.0-18.0) g/dL Hct (40.0-54.0) % MCV (82.0-94.0) fL MCH (27.0-32.0) pg MCHC (33.0-38.0) g/dL RDW Coeff of Marquis (11.0-15.0) % Plt Count (150-400) 10^3/uL Neut % (Auto) (35-85) % Lymph % (Auto) (10-55) % [place] % (Auto) (0-16) % Eos % (Auto) (0-5) % Baso % (Auto) (0-3) % Neut # (Auto) (1.80-7.00) 10^3/uL Lymph # (Auto) (1.00-4.80) 10^3/uL [place] # (Auto) (0.00-0.80) 10^3/uL Eos # (Auto) (0.00-0.45) 10^3/uL Baso # (Auto) 10^3/uL Sodium (136-145) mEq/L Potassium (3.5-5.0) mEq/L Chloride (98-106) mEq/L Carbon Dioxide (21-32) mmol/L BUN (7-18) mg/dL Creatinine (0.7-1.3) mg/dL Est Cr Clr Drug Dosing mL/min Estimated GFR (MDRD) (>=60) mL/min Glucose (75-99) mg/dL POC Glucose 146 H 238 H 120 H (75-105) mg/dl Lactic Acid (0.4-2.0) mmol/L Calcium (8.4-10.1) mg/dL Magnesium (1.8-2.4) mg/dL Total Bilirubin (0.0-1.0) mg/dL AST (15-37) U/L ALT (12-78) U/L Alkaline Phosphatase (46-116) U/L C-Reactive Protein (0.2-0.8) mg/dL Total Protein (6.4-8.2) g/dL Albumin (3.4-5.0) g/dL Lipase (73-393) U/L 01/07/21 01/07/21 01/07/21 Range/Units 07:45 11:35 17:22 WBC (5.0-10.0) 10^3/uL RBC (4.50-6.00) 10^6/uL Hgb (14.0-18.0) g/dL Hct (40.0-54.0) % MCV (82.0-94.0) fL MCH (27.0-32.0) pg MCHC (33.0-38.0) g/dL RDW Coeff of Marquis (11.0-15.0) % Plt Count (150-400) 10^3/uL Neut % (Auto) (35-85) % Lymph % (Auto) (10-55) % [place] % (Auto) (0-16) % Eos % (Auto) (0-5) % Baso % (Auto) (0-3) % Neut # (Auto) (1.80-7.00) 10^3/uL Lymph # (Auto) (1.00-4.80) 10^3/uL [place] # (Auto) (0.00-0.80) 10^3/uL Eos # (Auto) (0.00-0.45) 10^3/uL Baso # (Auto) 10^3/uL Sodium (136-145) mEq/L Potassium (3.5-5.0) mEq/L Chloride (98-106) mEq/L Carbon Dioxide (21-32) mmol/L BUN (7-18) mg/dL Creatinine (0.7-1.3) mg/dL Est Cr Clr Drug Dosing mL/min Estimated GFR (MDRD) (>=60) mL/min Glucose (75-99) mg/dL POC Glucose 127 H 129 H 119 H (75-105) mg/dl Lactic Acid (0.4-2.0) mmol/L Calcium (8.4-10.1) mg/dL Magnesium (1.8-2.4) mg/dL Total Bilirubin (0.0-1.0) mg/dL AST (15-37) U/L ALT (12-78) U/L Alkaline Phosphatase (46-116) U/L C-Reactive Protein (0.2-0.8) mg/dL Total Protein (6.4-8.2) g/dL Albumin (3.4-5.0) g/dL Lipase (73-393) U/L 01/07/21 01/08/21 01/08/21 Range/Units 20:28 05:11 05:11 WBC 5.2 (5.0-10.0) 10^3/uL RBC 2.93 L (4.50-6.00) 10^6/uL Hgb 9.0 L (14.0-18.0) g/dL Hct 26.5 L (40.0-54.0) % MCV 90.4 (82.0-94.0) fL MCH 30.7 (27.0-32.0) pg MCHC 34.0 (33.0-38.0) g/dL RDW Coeff of Marquis 14.1 (11.0-15.0) % Plt Count 142 L (150-400) 10^3/uL Neut % (Auto) 69.1 (35-85) % Lymph % (Auto) 17.9 (10-55) % [place] % (Auto) 11.3 (0-16) % Eos % (Auto) 1.1 (0-5) % Baso % (Auto) 0.6 (0-3) % Neut # (Auto) 3.62 (1.80-7.00) 10^3/uL Lymph # (Auto) 0.94 L (1.00-4.80) 10^3/uL [place] # (Auto) 0.59 (0.00-0.80) 10^3/uL Eos # (Auto) 0.06 (0.00-0.45) 10^3/uL Baso # (Auto) 0.03 10^3/uL Sodium 135 L (136-145) mEq/L Potassium 4.0 (3.5-5.0) mEq/L Chloride 104 (98-106) mEq/L Carbon Dioxide 25 (21-32) mmol/L BUN 4 L (7-18) mg/dL Creatinine 0.8 (0.7-1.3) mg/dL Est Cr Clr Drug Dosing 81.71 mL/min Estimated GFR (MDRD) > 60 (>=60) mL/min Glucose 86 D (75-99) mg/dL POC Glucose 210 H (75-105) mg/dl Lactic Acid (0.4-2.0) mmol/L Calcium 8.1 L (8.4-10.1) mg/dL Magnesium 1.4 L (1.8-2.4) mg/dL Total Bilirubin 0.6 (0.0-1.0) mg/dL AST 39 H (15-37) U/L ALT 43 (12-78) U/L Alkaline Phosphatase 128 H (46-116) U/L C-Reactive Protein 5.8 H (0.2-0.8) mg/dL Total Protein 5.0 L (6.4-8.2) g/dL Albumin 1.7 L (3.4-5.0) g/dL Lipase (73-393) U/L 01/08/21 01/08/21 01/08/21 Range/Units 05:11 07:34 07:59 WBC (5.0-10.0) 10^3/uL RBC (4.50-6.00) 10^6/uL Hgb (14.0-18.0) g/dL Hct (40.0-54.0) % MCV (82.0-94.0) fL MCH (27.0-32.0) pg MCHC (33.0-38.0) g/dL RDW Coeff of Marquis (11.0-15.0) % Plt Count (150-400) 10^3/uL Neut % (Auto) (35-85) % Lymph % (Auto) (10-55) % [place] % (Auto) (0-16) % Eos % (Auto) (0-5) % Baso % (Auto) (0-3) % Neut # (Auto) (1.80-7.00) 10^3/uL Lymph # (Auto) (1.00-4.80) 10^3/uL [place] # (Auto) (0.00-0.80) 10^3/uL Eos # (Auto) (0.00-0.45) 10^3/uL Baso # (Auto) 10^3/uL Sodium (136-145) mEq/L Potassium (3.5-5.0) mEq/L Chloride (98-106) mEq/L Carbon Dioxide (21-32) mmol/L BUN (7-18) mg/dL Creatinine (0.7-1.3) mg/dL Est Cr Clr Drug Dosing mL/min Estimated GFR (MDRD) (>=60) mL/min Glucose (75-99) mg/dL POC Glucose 79 (75-105) mg/dl Lactic Acid 0.6 (0.4-2.0) mmol/L Calcium (8.4-10.1) mg/dL Magnesium (1.8-2.4) mg/dL Total Bilirubin (0.0-1.0) mg/dL AST (15-37) U/L ALT (12-78) U/L Alkaline Phosphatase (46-116) U/L C-Reactive Protein (0.2-0.8) mg/dL Total Protein (6.4-8.2) g/dL Albumin (3.4-5.0) g/dL Lipase 513 H (73-393) U/L Med Orders - Current: Current Medications Acetaminophen (Tylenol) 650 mg PO Q4H PRN PRN Reason: Pain (Mild 1-3)/fever Last Admin: 01/01/21 11:10 Dose: 650 mg Documented by: Apixaban (Eliquis) 5 mg PO BID [facility] Last Admin: 01/08/21 07:56 Dose: 5 mg Documented by: Cefepime HCl (Maxipime) 2 gm IVPUSH Q8H [facility] Last Admin: 01/08/21 07:55 Dose: 2 gm Documented by: Dextrose/Water (Dextrose 50% In Water) 50 ml IV ASDIRECTED PRN PRN Reason: Hypoglycemia Docusate Sodium (Colace) 100 mg PO DAILY [facility] Last Admin: 01/08/21 07:57 Dose: Not Given Documented by: Glucagon (Glucagen) 1 mg IM ASDIRECTED PRN PRN Reason: Hypoglycemia Metronidazole 500 mg/ Premix 100 mls @ 100 mls/hr IV Q8H [facility] Last Admin: 01/08/21 08:00 Dose: 100 mls/hr Documented by: Magnesium Sulfate (Magnesium Sulfate In Water 2 Gm/50 Ml) 4 gm in 100 mls @ 50 mls/hr IV ONETIME ONE Stop: 01/08/21 11:01 Insulin Glargine (Lantus) 10 unit SUBCUT BEDTIME [facility] Last Admin: 01/07/21 20:33 Dose: 10 units Documented by: Insulin Human Lispro (Humalog) 0 unit SUBCUT WITHMEALSANDBED [facility]; Protocol Last Admin: 01/08/21 07:58 Dose: Not Given Documented by: Magnesium Chloride (Mag-64) 128 mg PO BIDMEALS [facility] Last Admin: 01/08/21 07:56 Dose: 128 mg Documented by: Nicotine (Habitrol) 14 mg TRDERM DAILY [facility] Last Admin: 01/08/21 07:46 Dose: 14 mg Documented by: Buprenorphine Hcl/Naloxone Hcl 8-2mg * *Ptom 0 mg PO DAILY@1999 [facility] Last Admin: 01/07/21 19:35 Dose: 8 mg Documented by: Ondansetron HCl (Zofran) 4 mg IV Q4H PRN PRN Reason: Nausea/Vomiting Last Admin: 01/02/21 19:53 Dose: 4 mg Documented by: Pantoprazole Sodium (Protonix Iv) 40 mg IVPUSH Q24H [facility] Last Admin: 01/08/21 07:47 Dose: 40 mg Documented by: Potassium Chloride (Klor-Con 10) 40 meq PO BIDMEALS [facility] Last Admin: 01/08/21 07:56 Dose: 40 meq Documented by: Tamsulosin HCl (Flomax) 0.4 mg PO DAILY [facility] Last Admin: 01/08/21 07:56 Dose: 0.4 mg Documented by: Zolpidem Tartrate (Ambien) 10 mg PO BEDTIME PRN PRN Reason: Insomnia Last Admin: 01/07/21 19:25 Dose: 10 mg Documented by: Discontinued Medications Cefepime HCl (Maxipime) 2 gm IVPUSH Q8H [facility] Last Admin: 01/01/21 11:09 Dose: 2 gm Documented by: Docusate Sodium (Colace) 100 mg PO DAILY PRN PRN Reason: Constipation Sodium Chloride (Normal Saline) 1,000 mls @ 150 mls/hr IV ASDIRECTED [facility] Last Admin: 01/02/21 12:12 Dose: 100 mls/hr Documented by: Sodium Chloride (Normal Saline) 1,000 mls @ 150 mls/hr IV ASDIRECTED [facility] Levofloxacin/Dextrose 500 mg/ (Premix) 100 mls @ 100 mls/hr IV Q24H [facility] Last Admin: 01/01/21 17:24 Dose: Not Given Documented by: Metronidazole 500 mg/ Premix 100 mls @ 100 mls/hr IV ONETIME ONE Stop: 01/01/21 11:59 Last Admin: 01/01/21 11:09 Dose: 100 mls/hr Documented by: Magnesium Sulfate/Dextrose 1 (gm/ Premix) 100 mls @ 100 mls/hr IV Q1H [facility] Stop: 01/02/21 09:44 Last Admin: 01/02/21 08:59 Dose: 100 mls/hr Documented by: Potassium Chloride 40 meq/ (Premix) 100 mls @ 25 mls/hr IV ONETIME ONE Stop: 01/02/21 11:50 Last Admin: 01/02/21 08:05 Dose: 25 mls/hr Documented by: Sodium Chloride (Normal Saline) 1,000 mls @ 100 mls/hr IV ASDIRECTED [facility] Last Infusion: 01/04/21 15:15 Dose: 100 mls/hr Documented by: Magnesium Sulfate/Dextrose 2 (gm/ Premix) 200 mls @ 100 mls/hr IV ONETIME ONE Stop: 01/03/21 10:59 Last Admin: 01/03/21 09:59 Dose: 100 mls/hr Documented by: Potassium Chloride 40 meq/ (Premix) 100 mls @ 25 mls/hr IV ONETIME ONE Stop: 01/03/21 14:59 Last Admin: 01/03/21 12:13 Dose: 25 mls/hr Documented by: Magnesium Sulfate/Dextrose 1 (gm/ Premix) 100 mls @ 100 mls/hr IV Q1H [facility] Stop: 01/04/21 12:29 Last Admin: 01/04/21 11:55 Dose: 100 mls/hr Documented by: Potassium Chloride 20 meq/ (Premix) 100 mls @ 25 mls/hr IV ONETIME ONE Stop: 01/04/21 14:29 Last Admin: 01/04/21 11:06 Dose: Not Given Documented by: Potassium Chloride 20 meq/ (Premix) 100 mls @ 25 mls/hr IV ONETIME ONE Stop: 01/04/21 18:29 Potassium Chloride 40 meq/ (Premix) 100 mls @ 25 mls/hr IV ONETIME ONE Stop: 01/04/21 15:00 Last Admin: 01/04/21 11:14 Dose: 25 mls/hr Documented by: Potassium Chloride/Sodium Chloride (Normal Saline With 20 Meq Kcl) 1,000 mls @ 150 mls/hr IV ASDIRECTED [facility] Potassium Chloride/Sodium Chloride (Normal Saline With 20 Meq Kcl) 1,000 mls @ 100 mls/hr IV ASDIRECTED [facility] Last Infusion: 01/07/21 09:30 Dose: 75 mls/hr Documented by: Magnesium Sulfate/Dextrose 1 (gm/ Premix) 100 mls @ 100 mls/hr IV Q1H [facility] Stop: 01/05/21 11:38 Last Admin: 01/05/21 11:14 Dose: 100 mls/hr Documented by: Magnesium Sulfate (Magnesium Sulfate In Water 2 Gm/50 Ml) 2 gm in 50 mls @ 50 mls/hr IV ONETIME ONE Stop: 01/06/21 10:14 Last Admin: 01/06/21 09:00 Dose: 50 mls/hr Documented by: Magnesium Sulfate (Magnesium Sulfate In Water 2 Gm/50 Ml) 50 mls @ 50 mls/hr IV ONETIME ONE Stop: 01/07/21 10:29 Last Admin: 01/07/21 10:34 Dose: 50 mls/hr Documented by: Potassium Chloride/Sodium Chloride (Normal Saline With 20 Meq Kcl) 1,000 mls @ 75 mls/hr IV ASDIRECTED [facility] Last Admin: 01/07/21 22:08 Dose: 75 mls/hr Documented by: Iopamidol (Isovue-370 (76%)) 100 ml IVPUSH ONETIME ONE Stop: 01/01/21 08:16 Last Admin: 01/01/21 08:38 Dose: 100 ml Documented by: Magnesium Chloride (Mag-64) 64 mg PO BIDMEALS [facility] Last Admin: 01/06/21 07:46 Dose: 64 mg Documented by: Pantoprazole Sodium (Protonix Iv) 40 mg IVPUSH ONETIME ONE Stop: 01/02/21 12:01 Last Admin: 01/02/21 12:12 Dose: 40 mg Documented by: Potassium Chloride (Klor-Con 10) 20 meq PO BIDMEALS [facility] Last Admin: 01/06/21 07:46 Dose: 20 meq Documented by: - Exam General: Alert, Oriented, Cooperative Lungs: Normal Respiratory Effort, Decreased Breath Sounds Cardiovascular: Regular Rate, Regular Rhythm, No Murmurs GI/Abdominal Exam: Normal Bowel Sounds, Soft, Non-Tender, No Distention Extremities: Normal Inspection, No Pedal Edema Peripheral Pulses: 2+: Dorsalis Pedis (L), Dorsalis Pedis (R) Skin: Warm, Dry, Intact Psy/Mental Status: Alert, Normal Mood Sepsis Event Note - Evaluation Sepsis Screening Result: No Definite Risk - Focused Exam Vital Signs: Vital Signs Temp Pulse Resp BP Pulse Ox 01/08/21 08:00 97.3 F 80 18 125/67 97 01/08/21 04:00 97.8 F 95 18 107/69 96 01/07/21 23:53 98.7 F 97 20 105/67 96 - Problem List & Annotations (1) Dehydration SNOMED Code(s): 69143732 Code(s): E86.0 - DEHYDRATION Status: Resolved Priority: High Current Visit: Yes (2) Hyponatremia SNOMED Code(s): 25962535 Code(s): E87.1 - HYPO-OSMOLALITY AND HYPONATREMIA Status: Resolved Priority: High Current Visit: Yes (3) Neutropenic colitis SNOMED Code(s): 090041110 Code(s): D70.9 - NEUTROPENIA, UNSPECIFIED; K52.89 - OTHER SPECIFIED NONINFECTIVE GASTROENTERITIS AND COLITIS Status: Resolved Current Visit: Yes (4) Hypokalemia SNOMED Code(s): 74073382 Code(s): E87.6 - HYPOKALEMIA Status: Acute Priority: High Current Visit: Yes (5) Pancreatitis SNOMED Code(s): 33614224 Code(s): K85.90 - ACUTE PANCREATITIS WITHOUT NECROSIS OR INFECTION, UNSP Status: Acute Current Visit: Yes Qualifiers: Pancreatitis type: drug induced Acute pancreatitis complication: unspecified (6) Hyperglycemia SNOMED Code(s): 62336828 Code(s): R73.9 - HYPERGLYCEMIA, UNSPECIFIED Status: Resolved Priority: High Current Visit: Yes (7) Hypomagnesemia SNOMED Code(s): 758149108 Code(s): E83.42 - HYPOMAGNESEMIA Status: Acute Current Visit: Yes (8) Diarrhea SNOMED Code(s): 85774273 Code(s): R19.7 - DIARRHEA, UNSPECIFIED Status: Acute Current Visit: Yes Qualifiers: Diarrhea type: presumed infectious Qualified Code(s): R19.7 - Diarrhea, unspecified - Problem List Review Problem List Initiated/Reviewed/Updated: Yes - My Orders Last 24 Hours: My Active Orders 01/07/21 Lunch Clear Liquid Diet [DIET] 01/07/21 17:28 Zolpidem [Ambien] 10 mg PO BEDTIME PRN 01/08/21 08:00 Communication Order [RC] Q7D 01/08/21 09:00 C DIFFICILE BY DNA [RM] Routine STOOL CULTURE [MREF] Routine Isolation [COMM] Stat 01/08/21 09:02 Magnesium Sulfate/Water 4 GM @ 50 MLS/HR (100ml) Magnesium Sulfate/Water [Magnesium Sulfate in Water 2 GM/50 ML] 4 gm in 100 ml IV ONETIME 01/08/21 Lunch Soft Diet [DIET] 01/09/21 05:11 AMYLASE [CHEM] AM CBC WITH AUTO DIFF [HEME] AM COMPREHENSIVE METABOLIC PN,CMP [CHEM] AM CRP [C-REACTIVE PROTEIN] [CHEM] AM LIPASE [CHEM] AM - Assessment Assessment:: Hypokalemia - corrected Hyponatremia - corrected Hyperglycemia - corrected Reaction to immune modulator Hypomagnesemia - acute Colitis - acute - Plan Plan:: 01/02/2021 Bill has shown significant improvement since admission. Laboratory work reviewed and sodium is now 128 from 122. Potassium did drop to 2.5. Magnesium low at 1.4. Will initiate 40mEq of Potassium and 2 grams of Magnesium intravenously. Repeat Potassium this afternoon was 3.9. Will repeat BMP and magnesium in am. Patient has continued to be afebrile. Will continue IV fluids until am after repeating labs. Continue IV antibiotics. WBC has improved to 1500 today from 600 yesterday, which will not require Neupogen at this time. Will continue close cardiac monitoring. 01/03/2021 Laboratory work this morning does show decrease in potassium and magnesium again today. Will give IV KCl and magnesium again today and start oral replacement therapy. IV fluids currently running at 100ml/hr. WBC has significantly improved to 3500 today. Continue cardiac monitoring. If labs stable, may discharge in am. 01-04-2021 Lab work is again a concern, magnesium 1.5, potassium 2.2 despite IV and oral replacement. Dr. Scott here, did contact Dr. Lomas, oncologist at [facility] who has also been involved in his care. Advised that all issues that patient is having is likely response to a Keytruda immune modulator he received on the 24 of December. Relates medicine can cause "organ shut down". Advised to repeat UA, amylase, lipase and lactic acid as well as stool studies. Advised to treat each abnormality accordingly. Magnesium, potassium IV replacements ordered. Will start Lantus and sliding scale insulin. Discussed steroids if does not respond. Lipase and amylase are significantly higher than on the 3rd. Will switch back to clear liquids. Start IV NS with potassium. Repeat labs in am. Patient aware of plan. 01-05-2021 Lab work does show improvement today, potassium is 3.1, WBC 4.3, hemoglobin 9.3. Magnesium is still low at 1.5. Amylase and lipase have improved to 130 and 748. Blood sugars high but much better control. Stool yesterday negative for WBC. Will need to follow this until stabilized. Vitals are normal. Will given magnesium 2 gm again IV today, repeat labs again tomorrow. Hopefully if stable, can advance diet. Inappropriate for swing bed admit due to high acuity, interventions and close following of electrolytes/labs. 01-06-2021 WBC has improved to normal limits to 5500. Potassium 2.7, Magnesium 1.4, Hgb 9.1 continue to be low. Amylase back to normal limits. Lipase slightly elevated at 459 but much improved from yesterday. Blood sugars stable. Discussed with Te will need to continue to monitor until electrolytes have corrected. Patient continues to need acute care for close monitoring. 01-07-2021 Patient's WBC is currently 5000, which has been stable now. Potassium improved to 3.4 today. Magnesium is 1.3 which patient has been up all night with diarrhea. Repeat 2gm magnesium this morning. Hgb continues to be low at 8.9, which is likely secondary to ongoing IV fluids. Amylase continues to improve but lipase is slightly elevated again from yesterday. Attempted to consult with Dr. Richmond, which she was out of the office today. Will discuss with Dr. Scott whether starting steroids would be of benefit for colitis. Patient will remain clear liquid as this is the second time we have tried advancing diet. 01-08-2021 Laboratory work shows today stable Hgb, WBC, Potassium and sodium. Magnesium continues to be low at will give 4gm IV today. Will d/c IV fluids. Stool culture and C-diff ordered. Lipase stable but still slightly elevated. Will advance diet to soft today and see how he tolerates it. Physical therapy for strengthening. Discussed with Te plan is for discharge tomorrow or possibly Wednesday if patient is eating, diarrhea subsides and labs are stable. Patient has multiple complications likely secondary to Keytruda but gradually slowing improvement. If any further setbacks will discuss with Dr. Lomas or Dr. Garduno further treatment options.
[2021-01-08] MEDS ORDERED: Magnesium Sulfate/Water 4 GM/100 ML BAG IV ONE (09:30)
[2021-01-08] MEDS ORDERED: Sodium Chloride 0.9% 20 ML SDV FLUSH PRN (11:28)
[2021-01-08] MEDS: Sodium Chloride 0.9% 10 ML Syringe FLUSH PRN ×2 (11:36→15:52)
[2021-01-08] MEDS: Acetaminophen 325 MG Tab PO PRN (19:39)
[2021-01-08] MEDS: BUPRENORPHINE HCL PO SCH (19:40)
[2021-01-08] MEDS: NALOXONE HCL PO SCH (19:40)
[2021-01-08 20:35] LABS: CHLORIDE,CL 101 mEq/L (98-106); SODIUM,NA 134 mEq/L (136-145)
[2021-01-08] MEDS: Sodium Chloride 0.9% 1,000 ML IV SCH (21:01)
[2021-01-08] MEDS: Insulin Glarg,Human.Rec.Analog 100 Unit/ML SUBCUT SCH (21:03)
[2021-01-09] MEDS: Cefepime 2 GM Vial IVPUSH SCH ×2 (00:55→07:34)
[2021-01-09] MEDS: metroNIDAZOLE/Normal Saline 500 MG in Premix Bag 1 BAG IV SCH ×2 (00:55→07:34)
[2021-01-09] MEDS: Sodium Chloride 0.9% 1,000 ML IV SCH ×2 (06:06→17:14)
[2021-01-09 07:28] LABS: CHLORIDE,CL 104 mEq/L (98-106); SODIUM,NA 135 mEq/L (136-145)
[2021-01-09] MEDS: Apixaban 5 MG Tab PO SCH ×2 (07:34→19:52)
[2021-01-09] MEDS: Magnesium Chloride 64 MG Tab.ER PO SCH ×2 (07:34→17:14)
[2021-01-09] MEDS: Potassium Chloride 10 MEQ Tab.ER PO SCH ×2 (07:34→17:14)
[2021-01-09] MEDS: Tamsulosin 0.4 MG Cap.ER PO SCH (07:34)
[2021-01-09] MEDS: Docusate Sodium 100 MG Cap PO SCH (07:34)
[2021-01-09] MEDS: Pantoprazole 40 MG Vial IVPUSH SCH (07:34)
[2021-01-09] MEDS: Nicotine 14 MG/24 Hr Patch TRDERM SCH (07:40)
[2021-01-09] MEDS: Insulin Lispro 100 Units/ML 3 ML Vial SUBCUT SCH ×4 (07:43→20:02)
[2021-01-09] MEDS ORDERED: Magnesium Sulfate/Water 2 GM/50 ML BAG IV ONE ×2 (13:30→18:00)
[2021-01-09] MEDS: Acetaminophen 325 MG Tab PO PRN (17:17)
--- NOTE | 2021-01-09 18:32 | PCM.PN ---
- General Info Date of Service: 01/09/21 Admission Dx/Problem (Free Text): Hyponatremia Neutropenia Subjective Update: Te is a 60 yo male who was admitted to the hospital yesterday with hyponatremia, weakness, dehydration and neutropenia. Patient recently started new chemotherapy in regards to lung cancer. He started to have vomiting the last few days and was unable keep anything down. Appetite has been poor and failure to thrive. Significant amount of weight loss since restarting new chemotherapy. Ct scan did show gastroenteritis. Consulted with Dr. Richmond who felt he needed treatment for neutropenic colitis via antibiotics and Neupogen to improve WBC >1000. 01/02/2021 Today he states he is feeling a lot better. Denies any vomiting since admission. Continues to feel weak. No fevers through out the night. States he on admission he was short of breath but has subsided. 01/03/2021 Bill continues to improve daily and states he is 150% better than when he was admitted. No further vomiting. Admits he would like to get home by Wednesday as he has his children coming who he hasn't seen in awhile. 01-04-2021 Patient admits to feeling better. Does still have twinges of abdominal pain at times, feels weak. No further diarrhea or vomiting. Appetite poor. Remains afebrile. Denies shortness of breath. 01-05-2021 Patient is feeling good today. States abdominal pain is gone now, likely since switching back to clear liquids. Does still have issues with activity intolerance and short spells of shortness of breath. No further nausea or vomiting. Afebrile. 01-06-2021 Patient continues to feel a lot better today. Intermittent abdominal discomfort and loose stools. Denies any significant discomfort. Admits shortness of breath at times seems to be a lot better. Has been up ambulating over the weekend and states is able to walk around the nurses station. Patient is frustrated as he is unable to leave; however, wants to make sure he doesn't get sick like he was ever again. States he never wants that chemotherapy again. Patient has not had any nausea or vomiting. 01-07-2021 Patient admits to diarrhea all night and now has a sore bottom. Declines anything for it though this morning. Patient Denies any abdominal pain. Upset as he didn't get much sleep as he was up d/t the diarrhea. He otherwise denies any new onset of symptoms. 01/08/2021 Patient continues to have diarrhea stating roughly 4 episodes in 24 hrs. Denies any significant abdominal pain. States he feels he is ready to try and eat something. Denies any further shortness of breath. Admits his hair has started to fall out. States he continues to feel weak. 01/09/2021 Patient is in better spirits this morning and states he is feeling a lot better. Denies any diarrhea since yesterday. No abdominal pain. Had been switched to clear liquid diet yesterday as when his diet was advanced Lipase did elevate. He requests a haircut today as his hair keeps falling out. He admits he continues to feel weak though but does state this morning is better than yesterday. Denies any new onset of symptoms. - Patient Data Vitals - Most Recent: Last Vital Signs Temp 99.9 F 01/09/21 17:20 Pulse 95 01/09/21 11:55 Resp 18 01/09/21 16:00 BP 127/60 01/09/21 16:00 Pulse Ox 97 01/09/21 16:00 Weight - Most Recent: 134 lb 12.8 oz I&O - Last 24 Hours: Intake & Output 01/09/21 01/09/21 01/09/21 06:59 14:59 22:59 Intake Total 1100 1000 Balance 1100 1000 Lab Results Last 24 Hours: Laboratory Results - last 24 hr 01/08/21 01/08/21 01/08/21 Range/Units 20:18 20:18 20:18 WBC 5.4 (5.0-10.0) 10^3/uL RBC 3.20 L (4.50-6.00) 10^6/uL Hgb 9.9 L (14.0-18.0) g/dL Hct 28.5 L (40.0-54.0) % MCV 89.1 (82.0-94.0) fL MCH 30.9 (27.0-32.0) pg MCHC 34.7 (33.0-38.0) g/dL RDW Coeff of Marquis 14.5 (11.0-15.0) % Plt Count 171 (150-400) 10^3/uL Neut % (Auto) 75.1 (35-85) % Lymph % (Auto) 14.0 (10-55) % Waldo % (Auto) 9.9 (0-16) % Eos % (Auto) 0.6 (0-5) % Baso % (Auto) 0.4 (0-3) % Neut # (Auto) 4.09 (1.80-7.00) 10^3/uL Lymph # (Auto) 0.76 L (1.00-4.80) 10^3/uL Waldo # (Auto) 0.54 (0.00-0.80) 10^3/uL Eos # (Auto) 0.03 (0.00-0.45) 10^3/uL Baso # (Auto) 0.02 10^3/uL Sodium 134 L (136-145) mEq/L Potassium 4.6 (3.5-5.0) mEq/L Chloride 101 (98-106) mEq/L Carbon Dioxide 23 (21-32) mmol/L BUN 5 L (7-18) mg/dL Creatinine 0.7 (0.7-1.3) mg/dL Est Cr Clr Drug Dosing 97.05 mL/min Estimated GFR (MDRD) > 60 (>=60) mL/min Glucose 163 H D (75-99) mg/dL POC Glucose (75-105) mg/dl Lactic Acid 0.7 (0.4-2.0) mmol/L Calcium 8.0 L (8.4-10.1) mg/dL Magnesium (1.8-2.4) mg/dL Total Bilirubin 0.5 (0.0-1.0) mg/dL AST 42 H (15-37) U/L ALT 44 (12-78) U/L Alkaline Phosphatase 153 H (46-116) U/L C-Reactive Protein 6.1 H (0.2-0.8) mg/dL Total Protein 5.5 L (6.4-8.2) g/dL Albumin 1.8 L (3.4-5.0) g/dL Amylase 116 H (25-115) U/L Lipase 834 H (73-393) U/L 01/08/21 01/08/21 01/09/21 Range/Units 20:18 20:52 07:00 WBC 4.9 L (5.0-10.0) 10^3/uL RBC 2.93 L (4.50-6.00) 10^6/uL Hgb 8.9 L (14.0-18.0) g/dL Hct 26.9 L (40.0-54.0) % MCV 91.8 (82.0-94.0) fL MCH 30.4 (27.0-32.0) pg MCHC 33.1 (33.0-38.0) g/dL RDW Coeff of Marquis 14.8 (11.0-15.0) % Plt Count 182 (150-400) 10^3/uL Neut % (Auto) 73.3 (35-85) % Lymph % (Auto) 14.7 (10-55) % Waldo % (Auto) 9.8 (0-16) % Eos % (Auto) 1.2 (0-5) % Baso % (Auto) 1.0 (0-3) % Neut # (Auto) 3.59 (1.80-7.00) 10^3/uL Lymph # (Auto) 0.72 L (1.00-4.80) 10^3/uL Waldo # (Auto) 0.48 (0.00-0.80) 10^3/uL Eos # (Auto) 0.06 (0.00-0.45) 10^3/uL Baso # (Auto) 0.05 10^3/uL Sodium (136-145) mEq/L Potassium (3.5-5.0) mEq/L Chloride (98-106) mEq/L Carbon Dioxide (21-32) mmol/L BUN (7-18) mg/dL Creatinine (0.7-1.3) mg/dL Est Cr Clr Drug Dosing mL/min Estimated GFR (MDRD) (>=60) mL/min Glucose (75-99) mg/dL POC Glucose 162 H (75-105) mg/dl Lactic Acid (0.4-2.0) mmol/L Calcium (8.4-10.1) mg/dL Magnesium 1.8 (1.8-2.4) mg/dL Total Bilirubin (0.0-1.0) mg/dL AST (15-37) U/L ALT (12-78) U/L Alkaline Phosphatase (46-116) U/L C-Reactive Protein (0.2-0.8) mg/dL Total Protein (6.4-8.2) g/dL Albumin (3.4-5.0) g/dL Amylase (25-115) U/L Lipase (73-393) U/L 01/09/21 01/09/21 01/09/21 Range/Units 07:00 11:55 17:13 WBC (5.0-10.0) 10^3/uL RBC (4.50-6.00) 10^6/uL Hgb (14.0-18.0) g/dL Hct (40.0-54.0) % MCV (82.0-94.0) fL MCH (27.0-32.0) pg MCHC (33.0-38.0) g/dL RDW Coeff of Marquis (11.0-15.0) % Plt Count (150-400) 10^3/uL Neut % (Auto) (35-85) % Lymph % (Auto) (10-55) % Waldo % (Auto) (0-16) % Eos % (Auto) (0-5) % Baso % (Auto) (0-3) % Neut # (Auto) (1.80-7.00) 10^3/uL Lymph # (Auto) (1.00-4.80) 10^3/uL Waldo # (Auto) (0.00-0.80) 10^3/uL Eos # (Auto) (0.00-0.45) 10^3/uL Baso # (Auto) 10^3/uL Sodium 135 L (136-145) mEq/L Potassium 4.3 (3.5-5.0) mEq/L Chloride 104 (98-106) mEq/L Carbon Dioxide 25 (21-32) mmol/L BUN 5 L (7-18) mg/dL Creatinine 0.7 (0.7-1.3) mg/dL Est Cr Clr Drug Dosing 97.05 mL/min Estimated GFR (MDRD) > 60 (>=60) mL/min Glucose 130 H (75-99) mg/dL POC Glucose 147 H 160 H (75-105) mg/dl Lactic Acid (0.4-2.0) mmol/L Calcium 8.1 L (8.4-10.1) mg/dL Magnesium 1.5 L (1.8-2.4) mg/dL Total Bilirubin 0.5 (0.0-1.0) mg/dL AST 37 (15-37) U/L ALT 38 (12-78) U/L Alkaline Phosphatase 133 H (46-116) U/L C-Reactive Protein 5.3 H (0.2-0.8) mg/dL Total Protein 5.1 L (6.4-8.2) g/dL Albumin 1.6 L (3.4-5.0) g/dL Amylase 108 (25-115) U/L Lipase 609 H (73-393) U/L Contreras Results Last 24 Hours: Microbiology 01/08/21 11:00 Stool Aerobic Culture - Preliminary Stool / Feces 01/08/21 09:00 C. difficile DNA Amplification - Final Stool / Feces NEGATIVE CDIFF BY DNA REFERENCE RANGE: NEGATIVE Med Orders - Current: Current Medications Acetaminophen (Tylenol) 650 mg PO Q4H PRN PRN Reason: Pain (Mild 1-3)/fever Last Admin: 01/09/21 17:17 Dose: 650 mg Documented by: Apixaban (Eliquis) 5 mg PO BID [facility] Last Admin: 01/09/21 07:34 Dose: 5 mg Documented by: Dextrose/Water (Dextrose 50% In Water) 50 ml IV ASDIRECTED PRN PRN Reason: Hypoglycemia Docusate Sodium (Colace) 100 mg PO DAILY [facility] Last Admin: 01/09/21 07:34 Dose: 100 mg Documented by: Glucagon (Glucagen) 1 mg IM ASDIRECTED PRN PRN Reason: Hypoglycemia Heparin Sodium (Porcine) (Heparin Lock Flush 100 Units/Ml) 500 units FLUSH ASDIRECTED PRN PRN Reason: Keep Vein Open Last Admin: 01/08/21 15:52 Dose: 500 units Documented by: Sodium Chloride (Normal Saline) 1,000 mls @ 125 mls/hr IV ASDIRECTED [facility] Last Admin: 01/09/21 17:14 Dose: 125 mls/hr Documented by: Magnesium Sulfate (Magnesium Sulfate In Water 2 Gm/50 Ml) 2 gm in 50 mls @ 50 mls/hr IV ONETIME ONE Stop: 01/09/21 18:59 Last Admin: 01/09/21 17:17 Dose: 50 mls/hr Documented by: Insulin Glargine (Lantus) 10 unit SUBCUT BEDTIME [facility] Last Admin: 01/08/21 21:03 Dose: Not Given Documented by: Insulin Human Lispro (Humalog) 0 unit SUBCUT WITHMEALSANDBED [facility]; Protocol Last Admin: 01/09/21 17:14 Dose: 2 units Documented by: Magnesium Chloride (Mag-64) 128 mg PO BIDMEALS [facility] Last Admin: 01/09/21 17:14 Dose: 128 mg Documented by: Nicotine (Habitrol) 14 mg TRDERM DAILY [facility] Last Admin: 01/09/21 07:40 Dose: 14 mg Documented by: Buprenorphine Hcl/Naloxone Hcl 8-2mg * *Ptom 0 mg PO DAILY@1999 [facility] Last Admin: 01/08/21 19:40 Dose: 8 mg Documented by: Ondansetron HCl (Zofran) 4 mg IV Q4H PRN PRN Reason: Nausea/Vomiting Last Admin: 01/02/21 19:53 Dose: 4 mg Documented by: Pantoprazole Sodium (Protonix Iv) 40 mg IVPUSH Q24H [facility] Last Admin: 01/09/21 07:34 Dose: 40 mg Documented by: Potassium Chloride (Klor-Con 10) 20 meq PO BIDMEALS [facility] Last Admin: 01/09/21 17:14 Dose: 20 meq Documented by: Sodium Chloride (Saline Flush) 20 ml FLUSH ASDIRECTED PRN PRN Reason: Keep Vein Open Last Admin: 01/08/21 15:52 Dose: 20 ml Documented by: Tamsulosin HCl (Flomax) 0.4 mg PO DAILY [facility] Last Admin: 01/09/21 07:34 Dose: 0.4 mg Documented by: Zolpidem Tartrate (Ambien) 10 mg PO BEDTIME PRN PRN Reason: Insomnia Last Admin: 01/07/21 19:25 Dose: 10 mg Documented by: Discontinued Medications Cefepime HCl (Maxipime) 2 gm IVPUSH Q8H [facility] Last Admin: 01/01/21 11:09 Dose: 2 gm Documented by: Cefepime HCl (Maxipime) 2 gm IVPUSH Q8H [facility] Last Admin: 01/09/21 07:34 Dose: 2 gm Documented by: Docusate Sodium (Colace) 100 mg PO DAILY PRN PRN Reason: Constipation Sodium Chloride (Normal Saline) 1,000 mls @ 150 mls/hr IV ASDIRECTED [facility] Last Admin: 01/02/21 12:12 Dose: 100 mls/hr Documented by: Sodium Chloride (Normal Saline) 1,000 mls @ 150 mls/hr IV ASDIRECTED [facility] Levofloxacin/Dextrose 500 mg/ (Premix) 100 mls @ 100 mls/hr IV Q24H [facility] Last Admin: 01/01/21 17:24 Dose: Not Given Documented by: Metronidazole 500 mg/ Premix 100 mls @ 100 mls/hr IV ONETIME ONE Stop: 01/01/21 11:59 Last Admin: 01/01/21 11:09 Dose: 100 mls/hr Documented by: Metronidazole 500 mg/ Premix 100 mls @ 100 mls/hr IV Q8H [facility] Last Admin: 01/09/21 07:34 Dose: 100 mls/hr Documented by: Magnesium Sulfate/Dextrose 1 (gm/ Premix) 100 mls @ 100 mls/hr IV Q1H [facility] Stop: 01/02/21 09:44 Last Admin: 01/02/21 08:59 Dose: 100 mls/hr Documented by: Potassium Chloride 40 meq/ (Premix) 100 mls @ 25 mls/hr IV ONETIME ONE Stop: 01/02/21 11:50 Last Admin: 01/02/21 08:05 Dose: 25 mls/hr Documented by: Sodium Chloride (Normal Saline) 1,000 [facility]ls [facility]: 01/04/21 15:15 Dose: 100 mls/hr Documented by: Magnesium Sulfate/Dextrose 2 (gm/ Premix) 200 mls @ 100 mls/hr IV ONETIME ONE Stop: 01/03/21 10:59 Last Admin: 01/03/21 09:59 Dose: 100 mls/hr Documented by: Potassium Chloride 40 meq/ (Premix) 100 mls @ 25 mls/hr IV ONETIME ONE Stop: 01/03/21 14:59 Last Admin: 01/03/21 12:13 Dose: 25 mls/hr Documented by: Magnesium Sulfate/Dextrose 1 (gm/ Premix) 100 mls @ 100 mls/hr IV Q1H [facility] Stop: 01/04/21 12:29 Last Admin: 01/04/21 11:55 Dose: 100 mls/hr Documented by: Potassium Chloride 20 meq/ (Premix) 100 mls @ 25 mls/hr IV ONETIME ONE Stop: 01/04/21 14:29 Last Admin: 01/04/21 11:06 Dose: Not Given Documented by: Potassium Chloride 20 meq/ (Premix) 100 mls @ 25 mls/hr IV ONETIME ONE Stop: 01/04/21 18:29 Potassium Chloride 40 meq/ (Premix) 100 mls @ 25 mls/hr IV ONETIME ONE Stop: 01/04/21 15:00 Last Admin: 01/04/21 11:14 Dose: 25 mls/hr Documented by: Potassium Chloride/Sodium Chloride (Normal Saline With 20 Meq Kcl) 1,000 mls @ 150 mls/hr IV ASDIRECTED [facility] Potassium Chloride/Sodium Chloride (Normal Saline With 20 Meq Kcl) 1,000 mls @ 100 mls/hr IV ASDIRECTED [facility] Last Infusion: 01/07/21 09:30 Dose: 75 mls/hr Documented by: Magnesium Sulfate/Dextrose 1 (gm/ Premix) 100 mls @ 100 mls/hr IV Q1H [facility] Stop: 01/05/21 11:38 Last Admin: 01/05/21 11:14 Dose: 100 mls/hr Documented by: Magnesium Sulfate (Magnesium Sulfate In Water 2 Gm/50 Ml) 2 gm in 50 mls @ 50 mls/hr IV ONETIME ONE Stop: 01/06/21 10:14 Last Admin: 01/06/21 09:00 Dose: 50 mls/hr Documented by: Magnesium Sulfate (Magnesium Sulfate In Water 2 Gm/50 Ml) 50 mls @ 50 mls/hr IV ONETIME ONE Stop: 01/07/21 10:29 Last Admin: 01/07/21 10:34 Dose: 50 mls/hr Documented by: Potassium Chloride/Sodium Chloride (Normal Saline With 20 Meq Kcl) 1,000 mls @ 75 mls/hr IV ASDIRECTED [facility] Last Admin: 01/07/21 22:08 Dose: 75 mls/hr Documented by: Magnesium Sulfate (Magnesium Sulfate In Water 2 Gm/50 Ml) 4 gm in 100 mls @ 50 mls/hr IV ONETIME ONE Stop: 01/08/21 11:29 Last Admin: 01/08/21 09:40 Dose: 50 mls/hr Documented by: Magnesium Sulfate (Magnesium Sulfate In Water 2 Gm/50 Ml) 2 gm in 50 mls @ 50 mls/hr IV ONETIME ONE Stop: 01/09/21 14:29 Last Admin: 01/09/21 13:48 Dose: 50 mls/hr Documented by: Iopamidol (Isovue-370 (76%)) 100 ml IVPUSH ONETIME ONE Stop: 01/01/21 08:16 Last Admin: 01/01/21 08:38 Dose: 100 ml Documented by: Magnesium Chloride (Mag-64) 64 mg PO BIDMEALS [facility] Last Admin: 01/06/21 07:46 Dose: 64 mg Documented by: Pantoprazole Sodium (Protonix Iv) 40 mg IVPUSH ONETIME ONE Stop: 01/02/21 12:01 Last Admin: 01/02/21 12:12 Dose: 40 mg Documented by: Potassium Chloride (Klor-Con 10) 20 meq PO BIDMEALS [facility] Last Admin: 01/06/21 07:46 Dose: 20 meq Documented by: Potassium Chloride (Klor-Con 10) 40 meq PO BIDMEALS [facility] Last Admin: 01/08/21 17:06 Dose: 40 meq Documented by: - Exam General: Alert, Oriented, Cooperative, No Acute Distress Lungs: Clear to Auscultation, Normal Respiratory Effort Cardiovascular: Regular Rate, Regular Rhythm, No Murmurs GI/Abdominal Exam: Normal Bowel Sounds, Soft, Non-Tender, No Distention, No Mass Extremities: Normal Inspection, No Pedal Edema Skin: Warm, Dry, Intact, Other (hair is falling out) Psy/Mental Status: Alert, Normal Affect, Normal Mood Sepsis Event Note - Evaluation Sepsis Screening Result: No Definite Risk - Focused Exam Vital Signs: Vital Signs Temp Pulse Resp BP BP Pulse Ox 01/09/21 17:20 99.9 F 01/09/21 16:00 99.3 F 18 127/60 97 01/09/21 11:55 99.3 F 95 18 109/71 95 01/09/21 07:36 98.5 F 92 18 116/63 95 - Problem List & Annotations (1) Dehydration SNOMED Code(s): 27561086 Code(s): E86.0 - DEHYDRATION Status: Resolved Priority: High Current Visit: Yes (2) Hyponatremia SNOMED Code(s): 44895003 Code(s): E87.1 - HYPO-OSMOLALITY AND HYPONATREMIA Status: Resolved Priority: High Current Visit: Yes (3) Neutropenic colitis SNOMED Code(s): 965969505 Code(s): D70.9 - NEUTROPENIA, UNSPECIFIED; K52.89 - OTHER SPECIFIED NONINFECTIVE GASTROENTERITIS AND COLITIS Status: Resolved Current Visit: Yes (4) Hypokalemia SNOMED Code(s): 52371771 Code(s): E87.6 - HYPOKALEMIA Status: Resolved Priority: High Current Visit: Yes (5) Pancreatitis SNOMED Code(s): 74448021 Code(s): K85.90 - ACUTE PANCREATITIS WITHOUT NECROSIS OR INFECTION, UNSP Status: Acute Current Visit: Yes Qualifiers: Pancreatitis type: drug induced Acute pancreatitis complication: unspecified (6) Hyperglycemia SNOMED Code(s): 52600044 Code(s): R73.9 - HYPERGLYCEMIA, UNSPECIFIED Status: Resolved Priority: High Current Visit: Yes (7) Hypomagnesemia SNOMED Code(s): 717210070 Code(s): E83.42 - HYPOMAGNESEMIA Status: Acute Current Visit: Yes (8) Diarrhea SNOMED Code(s): 67025373 Code(s): R19.7 - DIARRHEA, UNSPECIFIED Status: Resolved Current Visit: Yes Qualifiers: Diarrhea type: presumed infectious Qualified Code(s): R19.7 - Diarrhea, unspecified - Problem List Review Problem List Initiated/Reviewed/Updated: Yes - My Orders Last 24 Hours: My Active Orders 01/08/21 20:45 Sodium Chloride 0.9% [Normal Saline] 1,000 ml IV ASDIRECTED 01/09/21 08:00 Potassium Chloride [Klor-Con 10] 20 meq PO BIDMEALS 01/09/21 Dinner Full Liquid Diet [DIET] Magnesium Sulfate/Water [Magnesium Sulfate in Water 2 GM/50 ML] 2 gm in 50 ml IV ONETIME 01/10/21 05:11 AMYLASE [CHEM] AM C-REACTIVE PROTEIN [CHEM] AM CBC WITH AUTO DIFF [HEME] AM COMPREHENSIVE METABOLIC PN,CMP [CHEM] AM LIPASE [CHEM] AM MAGNESIUM [CHEM] AM - Assessment Assessment:: Hypokalemia - corrected Hyponatremia - corrected Hyperglycemia - corrected Reaction to immune modulator Hypomagnesemia - acute Colitis - acute - Plan Plan:: 01/02/2021 Bill has shown significant improvement since admission. Laboratory work reviewed and sodium is now 128 from 122. Potassium did drop to 2.5. Magnesium low at 1.4. Will initiate 40mEq of Potassium and 2 grams of Magnesium intravenously. Repeat Potassium this afternoon was 3.9. Will repeat BMP and magnesium in am. Patient has continued to be afebrile. Will continue IV fluids until am after repeating labs. Continue IV antibiotics. WBC has improved to 1500 today from 600 yesterday, which will not require Neupogen at this time. Will continue close cardiac monitoring. 01/03/2021 Laboratory work this morning does show decrease in potassium and magnesium again today. Will give IV KCl and magnesium again today and start oral replacement therapy. IV fluids currently running at 100ml/hr. WBC has significantly improved to 3500 today. Continue cardiac monitoring. If labs stable, may discharge in am. 01-04-2021 Lab work is again a concern, magnesium 1.5, potassium 2.2 despite IV and oral replacement. Dr. Scott here, did contact Dr. Lomas, oncologist at [facility] who has also been involved in his care. Advised that all issues that patient is having is likely response to a Keytruda immune modulator he received on the 24 of December. Relates medicine can cause "organ shut down". Advised to repeat UA, amylase, lipase and lactic acid as well as stool studies. Advised to treat each abnormality accordingly. Magnesium, potassium IV replacements ordered. Will start Lantus and sliding scale insulin. Discussed steroids if does not respond. Lipase and amylase are significantly higher than on the 3rd. Will switch back to clear liquids. Start IV NS with potassium. Repeat labs in am. Patient aware of plan. 01-05-2021 Lab work does show improvement today, potassium is 3.1, WBC 4.3, hemoglobin 9.3. Magnesium is still low at 1.5. Amylase and lipase have improved to 130 and 748. Blood sugars high but much better control. Stool yesterday negative for WBC. Will need to follow this until stabilized. Vitals are normal. Will given magnesium 2 gm again IV today, repeat labs again tomorrow. Hopefully if stable, can advance diet. Inappropriate for swing bed admit due to high acuity, interventions and close following of electrolytes/labs. 01-06-2021 WBC has improved to normal limits to 5500. Potassium 2.7, Magnesium 1.4, Hgb 9.1 continue to be low. Amylase back to normal limits. Lipase slightly elevated at 459 but much improved from yesterday. Blood sugars stable. Discussed with Te will need to continue to monitor until electrolytes have corrected. Patient continues to need acute care for close monitoring. 01-07-2021 Patient's WBC is currently 5000, which has been stable now. Potassium improved to 3.4 today. Magnesium is 1.3 which patient has been up all night with diarrhea. Repeat 2gm magnesium this morning. Hgb continues to be low at 8.9, which is likely secondary to ongoing IV fluids. Amylase continues to improve but lipase is slightly elevated again from yesterday. Attempted to consult with Dr. Richmond, which she was out of the office today. Will discuss with Dr. Scott whether starting steroids would be of benefit for colitis. Patient will remain clear liquid as this is the second time we have tried advancing diet. 01-08-2021 Laboratory work shows today stable Hgb, WBC, Potassium and sodium. Magnesium continues to be low at will give 4gm IV today. Will d/c IV fluids. Stool culture and C-diff ordered. Lipase stable but still slightly elevated. Will advance diet to soft today and see how he tolerates it. Physical therapy for strengthening. Discussed with Te plan is for discharge tomorrow or possibly Wednesday if patient is eating, diarrhea subsides and labs are stable. Patient has multiple complications likely secondary to Keytruda but gradually slowing improvement. If any further setbacks will discuss with Dr. Lomas or Dr. Garduno further treatment options. 01/09/2021 Patient appears to be doing a lot better this morning. Laboratory work does show Lipase to decrease. Will plan to advance diet to full liquids. Magnesium continues to be low and will give 2gm magnesium BID IV today. Repeat labs in am. Reached out to Dr. Lomas's office today and unable to speak with him as he was out of the office. Dr. Richmond has been on vacation. Will speak with Dr. Lomas in am. Discussed with Te we will help him shave his hair today per his request. Repeat labs tomorrow as we need to be able to advance his diet prior to discharge. Lipase needs to remain stable. Consulted with Dr. Scott and he is in agreement with current plan.
[2021-01-09] MEDS: Insulin Glarg,Human.Rec.Analog 100 Unit/ML SUBCUT SCH (19:54)
[2021-01-09] MEDS: NALOXONE HCL PO SCH (20:01)
[2021-01-09] MEDS: BUPRENORPHINE HCL PO SCH (20:01)
[2021-01-10] MEDS: Sodium Chloride 0.9% 1,000 ML IV SCH ×2 (02:37→10:38)
[2021-01-10 07:38] LABS: CHLORIDE,CL 102 mEq/L (98-106); SODIUM,NA 136 mEq/L (136-145)
[2021-01-10] MEDS: Tamsulosin 0.4 MG Cap.ER PO SCH (08:04)
[2021-01-10] MEDS: Apixaban 5 MG Tab PO SCH ×2 (08:04→20:00)
[2021-01-10] MEDS: Potassium Chloride 10 MEQ Tab.ER PO SCH ×2 (08:04→17:09)
[2021-01-10] MEDS: Magnesium Chloride 64 MG Tab.ER PO SCH ×2 (08:04→17:09)
[2021-01-10] MEDS: Pantoprazole 40 MG Vial IVPUSH SCH (08:04)
[2021-01-10] MEDS: Docusate Sodium 100 MG Cap PO SCH (08:04)
[2021-01-10] MEDS: Nicotine 14 MG/24 Hr Patch TRDERM SCH (08:04)
[2021-01-10] MEDS: Insulin Lispro 100 Units/ML 3 ML Vial SUBCUT SCH ×4 (08:07→20:18)
[2021-01-10] MEDS ORDERED: Magnesium Sulfate/Water 2 GM/50 ML BAG IV ONE (09:00)
--- NOTE | 2021-01-10 09:41 | PCM.PN ---
- General Info Date of Service: 01/10/21 Admission Dx/Problem (Free Text): Hyponatremia Neutropenia Subjective Update: Te is a 60 yo male who was admitted to the hospital yesterday with hyponatremia, weakness, dehydration and neutropenia. Patient recently started new chemotherapy in regards to lung cancer. He started to have vomiting the last few days and was unable keep anything down. Appetite has been poor and failure to thrive. Significant amount of weight loss since restarting new chemotherapy. Ct scan did show gastroenteritis. Consulted with Dr. Richmond who felt he needed treatment for neutropenic colitis via antibiotics and Neupogen to improve WBC >1000. 01/02/2021 Today he states he is feeling a lot better. Denies any vomiting since admission. Continues to feel weak. No fevers through out the night. States he on admission he was short of breath but has subsided. 01/03/2021 Bill continues to improve daily and states he is 150% better than when he was admitted. No further vomiting. Admits he would like to get home by Wednesday as he has his children coming who he hasn't seen in awhile. 01-04-2021 Patient admits to feeling better. Does still have twinges of abdominal pain at times, feels weak. No further diarrhea or vomiting. Appetite poor. Remains afebrile. Denies shortness of breath. 01-05-2021 Patient is feeling good today. States abdominal pain is gone now, likely since switching back to clear liquids. Does still have issues with activity intolerance and short spells of shortness of breath. No further nausea or vomiting. Afebrile. 01-06-2021 Patient continues to feel a lot better today. Intermittent abdominal discomfort and loose stools. Denies any significant discomfort. Admits shortness of breath at times seems to be a lot better. Has been up ambulating over the weekend and states is able to walk around the nurses station. Patient is frustrated as he is unable to leave; however, wants to make sure he doesn't get sick like he was ever again. States he never wants that chemotherapy again. Patient has not had any nausea or vomiting. 01-07-2021 Patient admits to diarrhea all night and now has a sore bottom. Declines anything for it though this morning. Patient Denies any abdominal pain. Upset as he didn't get much sleep as he was up d/t the diarrhea. He otherwise denies any new onset of symptoms. 01/08/2021 Patient continues to have diarrhea stating roughly 4 episodes in 24 hrs. Denies any significant abdominal pain. States he feels he is ready to try and eat something. Denies any further shortness of breath. Admits his hair has started to fall out. States he continues to feel weak. 01/09/2021 Patient is in better spirits this morning and states he is feeling a lot better. Denies any diarrhea since yesterday. No abdominal pain. Had been switched to clear liquid diet yesterday as when his diet was advanced Lipase did elevate. He requests a haircut today as his hair keeps falling out. He admits he continues to feel weak though but does state this morning is better than yesterday. Denies any new onset of symptoms. 01/10/2021 Bill continues to feel a lot better over the last 24 hours. Has not had any further episodes of abdominal discomfort, diarrhea or nausea. Tolerated full liquid diet yesterday. States he continues to feel weak but is able to get back and forth to the bathroom with no difficulty. Denies any shortness of breath. States he was suppose to follow up in clinic on Wednesday in [place] but doesn't know why and when they called he canceled his appointment as he isn't due for chemotherapy until later. States he isn't sure if he will still be in the hospital at that time. - Review of Systems General: Reports: Weakness, Appetite. Denies: Fever, Chills HEENT: Reports: No Symptoms Pulmonary: Reports: No Symptoms Cardiovascular: Reports: No Symptoms Gastrointestinal: Reports: No Symptoms. Denies: Abdominal Pain, Diarrhea, Nausea, Vomiting Genitourinary: Reports: No Symptoms Musculoskeletal: Reports: Back Pain (chronic) Neurological: Reports: No Symptoms Psychiatric: Reports: No Symptoms - Patient Data Vitals - Most Recent: Last Vital Signs Temp 97.3 F 01/10/21 08:00 Pulse 95 01/10/21 08:00 Resp 18 01/10/21 08:00 BP 125/69 01/10/21 08:00 Pulse Ox 98 01/10/21 08:00 Weight - Most Recent: 134 lb 12.8 oz I&O - Last 24 Hours: Intake & Output 01/09/21 01/10/21 01/10/21 22:59 06:59 14:59 Intake Total 1000 Balance 1000 Lab Results Last 24 Hours: Laboratory Results - last 24 hr 01/09/21 01/09/21 01/09/21 Range/Units 11:55 17:13 19:52 WBC (5.0-10.0) 10^3/uL RBC (4.50-6.00) 10^6/uL Hgb (14.0-18.0) g/dL Hct (40.0-54.0) % MCV (82.0-94.0) fL MCH (27.0-32.0) pg MCHC (33.0-38.0) g/dL RDW Coeff of Marquis (11.0-15.0) % Plt Count (150-400) 10^3/uL Neut % (Auto) (35-85) % Lymph % (Auto) (10-55) % [place] % (Auto) (0-16) % Eos % (Auto) (0-5) % Baso % (Auto) (0-3) % Neut # (Auto) (1.80-7.00) 10^3/uL Lymph # (Auto) (1.00-4.80) 10^3/uL [place] # (Auto) (0.00-0.80) 10^3/uL Eos # (Auto) (0.00-0.45) 10^3/uL Baso # (Auto) 10^3/uL Sodium (136-145) mEq/L Potassium (3.5-5.0) mEq/L Chloride (98-106) mEq/L Carbon Dioxide (21-32) mmol/L BUN (7-18) mg/dL Creatinine (0.7-1.3) mg/dL Est Cr Clr Drug Dosing mL/min Estimated GFR (MDRD) (>=60) mL/min Glucose (75-99) mg/dL POC Glucose 147 H 160 H 171 H (75-105) mg/dl Calcium (8.4-10.1) mg/dL Magnesium (1.8-2.4) mg/dL Total Bilirubin (0.0-1.0) mg/dL AST (15-37) U/L ALT (12-78) U/L Alkaline Phosphatase (46-116) U/L C-Reactive Protein (0.2-0.8) mg/dL Total Protein (6.4-8.2) g/dL Albumin (3.4-5.0) g/dL Amylase (25-115) U/L Lipase (73-393) U/L 01/10/21 01/10/21 Range/Units 07:00 07:00 WBC 4.2 L (5.0-10.0) 10^3/uL RBC 2.84 L (4.50-6.00) 10^6/uL Hgb 8.7 L (14.0-18.0) g/dL Hct 25.9 L (40.0-54.0) % MCV 91.2 (82.0-94.0) fL MCH 30.6 (27.0-32.0) pg MCHC 33.6 (33.0-38.0) g/dL RDW Coeff of Marquis 14.4 (11.0-15.0) % Plt Count 218 (150-400) 10^3/uL Neut % (Auto) 70.8 (35-85) % Lymph % (Auto) 15.3 (10-55) % [place] % (Auto) 11.0 (0-16) % Eos % (Auto) 1.7 (0-5) % Baso % (Auto) 1.2 (0-3) % Neut # (Auto) 2.96 (1.80-7.00) 10^3/uL Lymph # (Auto) 0.64 L (1.00-4.80) 10^3/uL [place] # (Auto) 0.46 (0.00-0.80) 10^3/uL Eos # (Auto) 0.07 (0.00-0.45) 10^3/uL Baso # (Auto) 0.05 10^3/uL Sodium 136 (136-145) mEq/L Potassium 3.9 (3.5-5.0) mEq/L Chloride 102 (98-106) mEq/L Carbon Dioxide 24 (21-32) mmol/L BUN 5 L (7-18) mg/dL Creatinine 0.7 (0.7-1.3) mg/dL Est Cr Clr Drug Dosing 97.05 mL/min Estimated GFR (MDRD) > 60 (>=60) mL/min Glucose 175 H D (75-99) mg/dL POC Glucose (75-105) mg/dl Calcium 7.7 L (8.4-10.1) mg/dL Magnesium 1.6 L (1.8-2.4) mg/dL Total Bilirubin 0.4 (0.0-1.0) mg/dL AST 39 H (15-37) U/L ALT 36 (12-78) U/L Alkaline Phosphatase 130 H (46-116) U/L C-Reactive Protein 4.2 H (0.2-0.8) mg/dL Total Protein 5.0 L (6.4-8.2) g/dL Albumin 1.6 L (3.4-5.0) g/dL Amylase 101 (25-115) U/L Lipase 602 H (73-393) U/L Contreras Results Last 24 Hours: Microbiology 01/08/21 11:00 Stool Aerobic Culture - Preliminary Stool / Feces Med Orders - Current: Current Medications Acetaminophen (Tylenol) 650 mg PO Q4H PRN PRN Reason: Pain (Mild 1-3)/fever Last Admin: 01/09/21 17:17 Dose: 650 mg Documented by: Apixaban (Eliquis) 5 mg PO BID [facility] Last Admin: 01/10/21 08:04 Dose: 5 mg Documented by: Dextrose/Water (Dextrose 50% In Water) 50 ml IV ASDIRECTED PRN PRN Reason: Hypoglycemia Docusate Sodium (Colace) 100 mg PO DAILY [facility] Last Admin: 01/10/21 08:04 Dose: 100 mg Documented by: Glucagon (Glucagen) 1 mg IM ASDIRECTED PRN PRN Reason: Hypoglycemia Heparin Sodium (Porcine) (Heparin Lock Flush 100 Units/Ml) 500 units FLUSH ASDIRECTED PRN PRN Reason: Keep Vein Open Last Admin: 01/08/21 15:52 Dose: 500 units Documented by: Sodium Chloride (Normal Saline) 1,000 mls @ 75 mls/hr IV ASDIRECTED [facility] Last Admin: 01/10/21 02:37 Dose: 125 mls/hr Documented by: Magnesium Sulfate (Magnesium Sulfate In Water 2 Gm/50 Ml) 2 gm in 50 mls @ 50 mls/hr IV ONETIME ONE Stop: 01/10/21 09:59 Insulin Glargine (Lantus) 10 unit SUBCUT BEDTIME [facility] Last Admin: 01/09/21 19:54 Dose: 10 units Documented by: Insulin Human Lispro (Humalog) 0 unit SUBCUT WITHMEALSANDBED [facility]; Protocol Last Admin: 01/10/21 08:07 Dose: Not Given Documented by: Magnesium Chloride (Mag-64) 128 mg PO BIDMEALS [facility] Last Admin: 01/10/21 08:04 Dose: 128 mg Documented by: Nicotine (Habitrol) 14 mg TRDERM DAILY [facility] Last Admin: 01/10/21 08:04 Dose: 14 mg Documented by: Buprenorphine Hcl/Naloxone Hcl 8-2mg * *Ptom 0 mg PO DAILY@1999 [facility] Last Admin: 01/09/21 20:01 Dose: 8 mg Documented by: Ondansetron HCl (Zofran) 4 mg IV Q4H PRN PRN Reason: Nausea/Vomiting Last Admin: 01/02/21 19:53 Dose: 4 mg Documented by: Pantoprazole Sodium (Protonix Iv) 40 mg IVPUSH Q24H [facility] Last Admin: 01/10/21 08:04 Dose: 40 mg Documented by: Potassium Chloride (Klor-Con 10) 20 meq PO BIDMEALS [facility] Last Admin: 01/10/21 08:04 Dose: 20 meq Documented by: Sodium Chloride (Saline Flush) 20 ml FLUSH ASDIRECTED PRN PRN Reason: Keep Vein Open Last Admin: 01/08/21 15:52 Dose: 20 ml Documented by: Tamsulosin HCl (Flomax) 0.4 mg PO DAILY [facility] Last Admin: 01/10/21 08:04 Dose: 0.4 mg Documented by: Zolpidem Tartrate (Ambien) 10 mg PO BEDTIME PRN PRN Reason: Insomnia Last Admin: 01/07/21 19:25 Dose: 10 mg Documented by: Discontinued Medications Cefepime HCl (Maxipime) 2 gm IVPUSH Q8H [facility] Last Admin: 01/01/21 11:09 Dose: 2 gm Documented by: Cefepime HCl (Maxipime) 2 gm IVPUSH Q8H [facility] Last Admin: 01/09/21 07:34 Dose: 2 gm Documented by: Docusate Sodium (Colace) 100 mg PO DAILY PRN PRN Reason: Constipation Sodium Chloride (Normal Saline) 1,000 mls @ 150 mls/hr IV ASDIRECTED [facility] Last Admin: 01/02/21 12:12 Dose: 100 mls/hr Documented by: Sodium Chloride (Normal Saline) 1,000 mls @ 150 mls/hr IV ASDIRECTED [facility] Levofloxacin/Dextrose 500 mg/ (Premix) 100 mls @ 100 mls/hr IV Q24H [facility] Last Admin: 01/01/21 17:24 Dose: Not Given Documented by: Metronidazole 500 mg/ Premix 100 mls @ 100 mls/hr IV ONETIME ONE Stop: 01/01/21 11:59 Last Admin: 01/01/21 11:09 Dose: 100 mls/hr Documented by: Metronidazole 500 mg/ Premix 100 mls @ 100 mls/hr IV Q8H [facility] Last Admin: 01/09/21 07:34 Dose: 100 mls/hr Documented by: Magnesium Sulfate/Dextrose 1 (gm/ Premix) 100 mls @ 100 mls/hr IV Q1H [facility] Stop: 01/02/21 09:44 Last Admin: 01/02/21 08:59 Dose: 100 mls/hr Documented by: Potassium Chloride 40 meq/ (Premix) 100 mls @ 25 mls/hr IV ONETIME ONE Stop: 01/02/21 11:50 Last Admin: 01/02/21 08:05 Dose: 25 mls/hr Documented by: Sodium Chloride (Normal Saline) 1,000 mls @ 100 mls/hr IV ASDIRECTED [facility] Last Infusion: 01/04/21 15:15 Dose: 100 mls/hr Documented by: Magnesium Sulfate/Dextrose 2 (gm/ Premix) 200 mls @ 100 mls/hr IV ONETIME ONE Stop: 01/03/21 10:59 Last Admin: 01/03/21 09:59 Dose: 100 mls/hr Documented by: Potassium Chloride 40 meq/ (Premix) 100 mls @ 25 mls/hr IV ONETIME ONE Stop: 01/03/21 14:59 Last Admin: 01/03/21 12:13 Dose: 25 mls/hr Documented by: Magnesium Sulfate/Dextrose 1 (gm/ Premix) 100 mls @ 100 mls/hr IV Q1H [facility] Stop: 01/04/21 12:29 Last Admin: 01/04/21 11:55 Dose: 100 mls/hr Documented by: Potassium Chloride 20 meq/ (Premix) 100 mls @ 25 mls/hr IV ONETIME ONE Stop: 01/04/21 14:29 Last Admin: 01/04/21 11:06 Dose: Not Given Documented by: Potassium Chloride 20 meq/ (Premix) 100 mls @ 25 mls/hr IV ONETIME ONE Stop: 01/04/21 18:29 Potassium Chloride 40 meq/ (Premix) 100 mls @ 25 mls/hr IV ONETIME ONE Stop: 01/04/21 15:00 Last Admin: 01/04/21 11:14 Dose: 25 mls/hr Documented by: Potassium Chloride/Sodium Chloride (Normal Saline With 20 Meq Kcl) 1,000 mls @ 150 mls/hr IV ASDIRECTED LEIF Potassium Chloride/Sodium Chloride (Normal Saline With 20 Meq Kcl) 1,000 mls @ 100 mls/hr IV ASDIRECTED [facility] Last Infusion: 01/07/21 09:30 Dose: 75 mls/hr Documented by: Magnesium Sulfate/Dextrose 1 (gm/ Premix) 100 mls @ 100 mls/hr IV Q1H [facility] Stop: 01/05/21 11:38 Last Admin: 01/05/21 11:14 Dose: 100 mls/hr Documented by: Magnesium Sulfate (Magnesium Sulfate In Water 2 Gm/50 Ml) 2 gm in 50 mls @ 50 mls/hr IV ONETIME ONE Stop: 01/06/21 10:14 Last Admin: 01/06/21 09:00 Dose: 50 mls/hr Documented by: Magnesium Sulfate (Magnesium Sulfate In Water 2 Gm/50 Ml) 50 mls @ 50 mls/hr IV ONETIME ONE Stop: 01/07/21 10:29 Last Admin: 01/07/21 10:34 Dose: 50 mls/hr Documented by: Potassium Chloride/Sodium Chloride (Normal Saline With 20 Meq Kcl) 1,000 mls @ 75 mls/hr IV ASDIRECTED [facility] Last Admin: 01/07/21 22:08 Dose: 75 mls/hr Documented by: Magnesium Sulfate (Magnesium Sulfate In Water 2 Gm/50 Ml) 4 gm in 100 mls @ 50 mls/hr IV ONETIME ONE Stop: 01/08/21 11:29 Last Admin: 01/08/21 09:40 Dose: 50 mls/hr Documented by: Magnesium Sulfate (Magnesium Sulfate In Water 2 Gm/50 Ml) 2 gm in 50 mls @ 50 mls/hr IV ONETIME ONE Stop: 01/09/21 14:29 Last Admin: 01/09/21 13:48 Dose: 50 mls/hr Documented by: Magnesium Sulfate (Magnesium Sulfate In Water 2 Gm/50 Ml) 2 gm in 50 mls @ 50 mls/hr IV ONETIME ONE Stop: 01/09/21 18:59 Last Admin: 01/09/21 17:17 Dose: 50 mls/hr Documented by: Iopamidol (Isovue-370 (76%)) 100 ml IVPUSH ONETIME ONE Stop: 01/01/21 08:16 Last Admin: 01/01/21 08:38 Dose: 100 ml Documented by: Magnesium Chloride (Mag-64) 64 mg PO BIDMEALS [facility] Last Admin: 01/06/21 07:46 Dose: 64 mg Documented by: Pantoprazole Sodium (Protonix Iv) 40 mg IVPUSH ONETIME ONE Stop: 01/02/21 12:01 Last Admin: 01/02/21 12:12 Dose: 40 mg Documented by: Potassium Chloride (Klor-Con 10) 20 meq PO BIDMEALS [facility] Last Admin: 01/06/21 07:46 Dose: 20 meq Documented by: Potassium Chloride (Klor-Con 10) 40 meq PO BIDMEALS [facility] Last Admin: 01/08/21 17:06 Dose: 40 meq Documented by: - Exam General: Alert, Oriented, Cooperative, No Acute Distress Lungs: Decreased Breath Sounds (bases, slight wheezing in bases) Cardiovascular: Regular Rate, Regular Rhythm, No Murmurs GI/Abdominal Exam: Normal Bowel Sounds, Soft, No Distention Extremities: Normal Inspection, No Pedal Edema Skin: Warm, Dry, Intact Neurological: No New Focal Deficit Psy/Mental Status: Alert, Normal Affect, Normal Mood Sepsis Event Note - Evaluation Sepsis Screening Result: No Definite Risk - Focused Exam Vital Signs: Vital Signs Temp Pulse Resp BP Pulse Ox 01/10/21 08:00 97.3 F 95 18 125/69 98 01/10/21 04:00 98.5 F 83 18 141/76 H 96 01/10/21 00:00 99 F 93 18 126/71 97 - Problem List & Annotations (1) Dehydration SNOMED Code(s): 62917395 Code(s): E86.0 - DEHYDRATION Status: Resolved Priority: High Current Visit: Yes (2) Hyponatremia SNOMED Code(s): 72917050 Code(s): E87.1 - HYPO-OSMOLALITY AND HYPONATREMIA Status: Resolved Priority: High Current Visit: Yes (3) Neutropenic colitis SNOMED Code(s): 979796609 Code(s): D70.9 - NEUTROPENIA, UNSPECIFIED; K52.89 - OTHER SPECIFIED NONINF ECTIVE GASTROENTERITIS AND COLITIS Status: Resolved Current Visit: Yes (4) Hypokalemia SNOMED Code(s): 75677975 Code(s): E87.6 - HYPOKALEMIA Status: Resolved Priority: High Current Visit: Yes (5) Pancreatitis SNOMED Code(s): 31181858 Code(s): K85.90 - ACUTE PANCREATITIS WITHOUT NECROSIS OR INFECTION, UNSP Status: Acute Current Visit: Yes Qualifiers: Pancreatitis type: drug induced Acute pancreatitis complication: unspecified (6) Hyperglycemia SNOMED Code(s): 84693371 Code(s): R73.9 - HYPERGLYCEMIA, UNSPECIFIED Status: Resolved Priority: High Current Visit: Yes (7) Hypomagnesemia SNOMED Code(s): 488805663 Code(s): E83.42 - HYPOMAGNESEMIA Status: Acute Current Visit: Yes (8) Diarrhea SNOMED Code(s): 68397287 Code(s): R19.7 - DIARRHEA, UNSPECIFIED Status: Resolved Current Visit: Yes Qualifiers: Diarrhea type: presumed infectious Qualified Code(s): R19.7 - Diarrhea, unspecified - Problem List Review Problem List Initiated/Reviewed/Updated: Yes - My Orders Last 24 Hours: My Active Orders 01/10/21 Breakfast Mechanical Soft Diet [DIET] 01/10/21 09:00 Magnesium Sulfate/Water [Magnesium Sulfate in Water 2 GM/50 ML] 2 gm in 50 ml IV ONETIME 01/10/21 09:32 AMYLASE [CHEM] Routine 01/11/21 05:11 C-REACTIVE PROTEIN [CHEM] AM CBC WITH AUTO DIFF [HEME] AM COMPREHENSIVE METABOLIC PN,CMP [CHEM] AM LIPASE [CHEM] AM MAGNESIUM [CHEM] AM 01/12/21 05:11 C-REACTIVE PROTEIN [CHEM] AM CBC WITH AUTO DIFF [HEME] AM COMPREHENSIVE METABOLIC PN,CMP [CHEM] AM LIPASE [CHEM] AM MAGNESIUM [CHEM] AM - Assessment Assessment:: Hypokalemia - corrected Hyponatremia - corrected Hyperglycemia - corrected Reaction to immune modulator Hypomagnesemia - acute Colitis - resolved Pancreatitis - acute - Plan Plan:: 01/02/2021 Bill has shown significant improvement since admission. Laboratory work reviewed and sodium is now 128 from 122. Potassium did drop to 2.5. Magnesium low at 1.4. Will initiate 40mEq of Potassium and 2 grams of Magnesium intravenously. Repeat Potassium this afternoon was 3.9. Will repeat BMP and magnesium in am. Patient has continued to be afebrile. Will continue IV fluids until am after repeating labs. Continue IV antibiotics. WBC has improved to 1500 today from 600 yesterday, which will not require Neupogen at this time. Will continue close cardiac monitoring. 01/03/2021 Laboratory work this morning does show decrease in potassium and magnesium again today. Will give IV KCl and magnesium again today and start oral replacement therapy. IV fluids currently running at 100ml/hr. WBC has significantly improved to 3500 today. Continue cardiac monitoring. If labs stable, may discharge in am. 01-04-2021 Lab work is again a concern, magnesium 1.5, potassium 2.2 despite IV and oral replacement. Dr. Scott here, did contact Dr. Lomas, oncologist at [facility] who has also been involved in his care. Advised that all issues that patient is having is likely response to a Keytruda immune modulator he received on the 24 of December. Relates medicine can cause "organ shut down". Advised to repeat UA, amylase, lipase and lactic acid as well as stool studies. Advised to treat each abnormality accordingly. Magnesium, potassium IV replacements ordered. Will start Lantus and sliding scale insulin. Discussed steroids if does not respond. Lipase and amylase are significantly higher than on the 3rd. Will switch back to clear liquids. Start IV NS with potassium. Repeat labs in am. Patient aware of plan. 01-05-2021 Lab work does show improvement today, potassium is 3.1, WBC 4.3, hemoglobin 9.3. Magnesium is still low at 1.5. Amylase and lipase have improved to 130 and 748. Blood sugars high but much better control. Stool yesterday negative for WBC. Will need to follow this until stabilized. Vitals are normal. Will given magnesium 2 gm again IV today, repeat labs again tomorrow. Hopefully if stable, can advance diet. Inappropriate for swing bed admit due to high acuity, interventions and close following of electrolytes/labs. 01-06-2021 WBC has improved to normal limits to 5500. Potassium 2.7, Magnesium 1.4, Hgb 9.1 continue to be low. Amylase back to normal limits. Lipase slightly elevated at 459 but much improved from yesterday. Blood sugars stable. Discussed with Te will need to continue to monitor until electrolytes have corrected. Patient continues to need acute care for close monitoring. 01-07-2021 Patient's WBC is currently 5000, which has been stable now. Potassium improved to 3.4 today. Magnesium is 1.3 which patient has been up all night with diarrhea. Repeat 2gm magnesium this morning. Hgb continues to be low at 8.9, which is likely secondary to ongoing IV fluids. Amylase continues to improve but lipase is slightly elevated again from yesterday. Attempted to consult with Dr. Richmond, which she was out of the office today. Will discuss with Dr. Scott whether starting steroids would be of benefit for colitis. Patient will remain clear liquid as this is the second time we have tried advancing diet. 01-08-2021 Laboratory work shows today stable Hgb, WBC, Potassium and sodium. Magnesium continues to be low at will give 4gm IV today. Will d/c IV fluids. Stool culture and C-diff ordered. Lipase stable but still slightly elevated. Will advance diet to soft today and see how he tolerates it. Physical therapy for strengthening. Discussed with Te plan is for discharge tomorrow or possibly Wednesday if patient is eating, diarrhea subsides and labs are stable. Patient has multiple complications likely secondary to Keytruda but gradually slowing improvement. If any further setbacks will discuss with Dr. Lomas or Dr. Garduno further treatment options. 01/09/2021 Patient appears to be doing a lot better this morning. Laboratory work does show Lipase to decrease. Will plan to advance diet to full liquids. Magnesium continues to be low and will give 2gm magnesium BID IV today. Repeat labs in am. Reached out to Dr. Lomas's office today and unable to speak with him as he was out of the office. Dr. Richmond has been on vacation. Will speak with Dr. Lomas in am. Discussed with Bill we will help him shave his hair today per his request. Repeat labs tomorrow as we need to be able to advance his diet prior to discharge. Lipase needs to remain stable. Consulted with Dr. Scott and he is in agreement with current plan. 01/10/2021 Te continues to be in good spirits this morning and feels ready to try and advance diet again. Will switch to mechanically soft today. IV fluids decreased to 75ml's/hr. Magnesium is improved this morning but continues to be low at 1.6. Will given 2gm via IV today as well. Potassium is stable. Lipase is still high but consistent with yesterdays value. Plan to hear from Dr. Lomas today as well. Overall, discussed with patient as long as we can continue to advance his diet and laboratory work continues to improve may be able to discharge this weekend. Patient verbalized understanding. Discussed laboratory work with Dr. Scott this morning as well and in agreement.
[2021-01-10] MEDS: Acetaminophen 325 MG Tab PO PRN (12:51)
[2021-01-10] MEDS ORDERED: Fluconazole 100 MG Tab PO SCH (17:00)
[2021-01-10] MEDS: NALOXONE HCL PO SCH (19:59)
[2021-01-10] MEDS: BUPRENORPHINE HCL PO SCH (19:59)
[2021-01-10] MEDS: Insulin Glarg,Human.Rec.Analog 100 Unit/ML SUBCUT SCH (20:16)
[2021-01-11] MEDS: Acetaminophen 325 MG Tab PO PRN (00:07)
[2021-01-11] MEDS: Sodium Chloride 0.9% 1,000 ML IV SCH (00:32)
[2021-01-11 07:40] LABS: CHLORIDE,CL 104 mEq/L (98-106); SODIUM,NA 139 mEq/L (136-145)
[2021-01-11] MEDS: Magnesium Chloride 64 MG Tab.ER PO SCH (07:51)
[2021-01-11 07:52] VITALS: BP 109/72; PULSE 87
[2021-01-11] MEDS: Apixaban 5 MG Tab PO SCH (07:52)
[2021-01-11] MEDS: Tamsulosin 0.4 MG Cap.ER PO SCH (07:52)
[2021-01-11] MEDS: Docusate Sodium 100 MG Cap PO SCH (07:52)
[2021-01-11] MEDS: Nicotine 14 MG/24 Hr Patch TRDERM SCH (07:52)
[2021-01-11] MEDS: Potassium Chloride 10 MEQ Tab.ER PO SCH (07:52)
[2021-01-11] MEDS: Insulin Lispro 100 Units/ML 3 ML Vial SUBCUT SCH (07:53)
[2021-01-11] MEDS: Pantoprazole 40 MG Vial IVPUSH SCH (07:53)
--- NOTE | 2021-01-11 10:59 | PCM.DCSUM1 ---
Discharge Summary - Hospital Course HPI Initial Comments: This patient is a 60 year old male that was admitted to the hospital and has been here for nearly 10 days. Patient has cancer and undergone chemo tx and new medication. Patient during his admit had pancreatitis, hypokalemia, hypomagnesium. 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 His lipase levels have been decreasing. Patient reports he has no pain, n, v, d, abd pain, jaundice. Patient potassium level is wnl. Yesterday labs wbc 4.2, glucose 175, magnesium 1.6, AST 39, CRP 4.2, Lipase 602. Labs today are wbc 3.8, glucose 114, magnesium 1.6, AST 70, CRP 3.2, Lipase 444. THe patient last night was frustrated and being argumentative with the nursing staff per staff. Staff reported to me the patient was telling staff he is leaving today no matter what. I spoke to patient today. He reports he is pissed off and frustrated. He states "I am ready to get the Fuc*, out of this place." He reports he has been here to long and just wants to go home. The patient reports he has no headache, n, v, d, f, abd pain, chest pain, or any pain complaints. No dizzy, lightheadedness, weaknesses. He has been ambulating the halls in hospital. He reports he is ready to go home. I called and spoke to his oncologist Dr. Lopez about this patient. She reports to discharge the patient home, continue his PO Magnesium. She will send orders for lab to be done on Wednesday. Patient reports he is now very happy and ready to go home. - Discharge Data Discharge Date: 01/11/21 Discharge Disposition: Home, Self-Care 01 Condition: Fair - Referral to Home Health Primary Care Physician: Speedy Sidhu PA-C - Patient Instructions Diet: Mechanical Soft (May advance diet as tolerate. If abdominal pain, nausea, vomiting; regress diet to clear liquid. May return to PCP for Lipase lab levels. ) Activity: As Tolerated Showering/Bathing: May Shower Notify Provider of: Fever, Increased Pain, Nausea and/or Vomiting Other/Special Instructions: Followup with your primary care provider/Clinic this week for recheck. Have labs drawn Wednesday, being ordered by Dr. Lopez. Followup with Dr. Lopez. Mechanical Soft diet, advance as tolerated, but if abdominal pain, nausea, vomiting, diarrhea then regress to clear liquid, see PCP for recheck. Return to ER for fever, abdominal pain, vomiting, or other concerns. Medications as prescribed sent to pharmacy - Discharge Plan *PRESCRIPTION DRUG MONITORING PROGRAM REVIEWED*: Not Applicable *COPY OF PRESCRIPTION DRUG MONITORING REPORT IN PATIENT REEMA: Not Applicable Prescriptions/Med Rec: Fluconazole [Diflucan] 150 mg PO DAILY 14 Days #14 tablet Nicotine [Habitrol] 14 mg TRDERM DAILY #30 patch Potassium Chloride [Klor-Con 10] 20 meq PO BIDMEALS #60 tab.er Magnesium Chloride [Mag-64] 128 mg PO BIDMEALS #60 tab.er Tobacco Cessation Medication: Prescription Given Home Medications: Home Meds Tamsulosin HCl 0.4 mg PO DAILY 06/07/15 [History] Buprenorphine HCl/Naloxone HCl [Buprenorphin-Naloxon 8-2 mg Sl] 8 mg PO DAILY 02/19/20 [History] Apixaban [Eliquis] 5 mg PO DAILY 01/01/21 [History] Fluconazole [Diflucan] 150 mg PO DAILY 14 Days #14 tablet 01/11/21 [Rx] Magnesium Chloride [Mag-64] 128 mg PO BIDMEALS #60 tab.er 01/11/21 [Rx] Nicotine [Habitrol] 14 mg TRDERM DAILY #30 patch 01/11/21 [Rx] Potassium Chloride [Klor-Con 10] 20 meq PO BIDMEALS #60 tab.er 01/11/21 [Rx] Patient Handouts: Hypomagnesemia, Acute Pancreatitis, [id number]-py-Ndym, Chronic Pancreatitis, Pancreatitis Eating Plan, Hypokalemia Forms: ED Department Discharge Referrals: Speedy Sidhu PA-C [Primary Care Provider] - - Discharge Summary/Plan Comment DC Time >30 min.: No - General Info Date of Service: 01/11/21 Functional Status: Reports: Pain Controlled, Tolerating Diet, Ambulating, Urinating - Review of Systems General: Reports: No Symptoms. Denies: Fever HEENT: Reports: No Symptoms Pulmonary: Reports: No Symptoms. Denies: Shortness of Breath, Hemoptysis Cardiovascular: Reports: No Symptoms. Denies: Chest Pain, Palpitations, Dyspnea on Exertion, Lightheadedness Gastrointestinal: Reports: No Symptoms. Denies: Abdominal Pain, Diarrhea, Nausea, Vomiting Genitourinary: Reports: No Symptoms Musculoskeletal: Reports: No Symptoms Skin: Reports: No Symptoms Neurological: Reports: No Symptoms Psychiatric: Reports: No Symptoms - Patient Data Vitals - Most Recent: Last Vital Signs Temp 98.8 F 01/11/21 07:51 Pulse 87 01/11/21 07:51 Resp 18 01/11/21 07:51 BP 109/72 01/11/21 07:51 Pulse Ox 96 01/11/21 07:51 Weight - Most Recent: 134 lb 12.8 oz I&O - Last 24 hours: Intake & Output 01/10/21 01/11/21 01/11/21 22:59 06:59 14:59 Intake Total 996 Balance 996 Lab Results - Last 24 hrs: Laboratory Results - last 24 hr 01/11/21 01/11/21 Range/Units 07:17 07:17 WBC 3.8 L (5.0-10.0) 10^3/uL RBC 2.84 L (4.50-6.00) 10^6/uL Hgb 8.7 L (14.0-18.0) g/dL Hct 26.2 L (40.0-54.0) % MCV 92.3 (82.0-94.0) fL MCH 30.6 (27.0-32.0) pg MCHC 33.2 (33.0-38.0) g/dL RDW Coeff of Marquis 14.8 (11.0-15.0) % Plt Count 299 (150-400) 10^3/uL Neut % (Auto) 64.4 (35-85) % Lymph % (Auto) 19.2 (10-55) % [place] % (Auto) 13.2 (0-16) % Eos % (Auto) 1.6 (0-5) % Baso % (Auto) 1.6 (0-3) % Neut # (Auto) 2.45 (1.80-7.00) 10^3/uL Lymph # (Auto) 0.73 L (1.00-4.80) 10^3/uL [place] # (Auto) 0.50 (0.00-0.80) 10^3/uL Eos # (Auto) 0.06 (0.00-0.45) 10^3/uL Baso # (Auto) 0.06 10^3/uL Sodium 139 (136-145) mEq/L Potassium 4.3 (3.5-5.0) mEq/L Chloride 104 (98-106) mEq/L Carbon Dioxide 26 (21-32) mmol/L BUN 4 L (7-18) mg/dL Creatinine 0.6 L (0.7-1.3) mg/dL Est Cr Clr Drug Dosing 113.23 mL/min Estimated GFR (MDRD) > 60 (>=60) mL/min Glucose 114 H D (75-99) mg/dL Calcium 8.4 (8.4-10.1) mg/dL Magnesium 1.6 L (1.8-2.4) mg/dL Total Bilirubin 0.4 (0.0-1.0) mg/dL AST 70 H (15-37) U/L ALT 52 (12-78) U/L Alkaline Phosphatase 158 H (46-116) U/L C-Reactive Protein 3.2 H (0.2-0.8) mg/dL Total Protein 5.3 L (6.4-8.2) g/dL Albumin 1.7 L (3.4-5.0) g/dL Lipase 444 H (73-393) U/L RICH Results - Last 24 hrs: Microbiology 01/08/21 11:00 Stool Aerobic Culture - Preliminary Stool / Feces YEAST Med Orders - Current: Current Medications Acetaminophen (Tylenol) 650 mg PO Q4H PRN PRN Reason: Pain (Mild 1-3)/fever Last Admin: 01/11/21 00:07 Dose: 650 mg Documented by: Apixaban (Eliquis) 5 mg PO BID [facility] Last Admin: 01/11/21 07:52 Dose: 5 mg Documented by: Dextrose/Water (Dextrose 50% In Water) 50 ml IV ASDIRECTED PRN PRN Reason: Hypoglycemia Docusate Sodium (Colace) 100 mg PO DAILY [facility] Last Admin: 01/11/21 07:52 Dose: 100 mg Documented by: Fluconazole (Diflucan) 150 mg PO DAILY@1700 [facility] Stop: 01/16/21 17:01 Last Admin: 01/10/21 17:08 Dose: 150 mg Documented by: Glucagon (Glucagen) 1 mg IM ASDIRECTED PRN PRN Reason: Hypoglycemia Heparin Sodium (Porcine) (Heparin Lock Flush 100 Units/Ml) 500 units FLUSH ASDIRECTED PRN PRN Reason: Keep Vein Open Last Admin: 01/08/21 15:52 Dose: 500 units Documented by: Sodium Chloride (Normal Saline) 1,000 mls @ 75 mls/hr IV ASDIRECTED [facility] Last Admin: 01/11/21 00:32 Dose: 75 mls/hr Documented by: Insulin Glargine (Lantus) 10 unit SUBCUT BEDTIME [facility] Last Admin: 01/10/21 20:16 Dose: Not Given Documented by: Insulin Human Lispro (Humalog) 0 unit SUBCUT WITHMEALSANDBED [facility]; Protocol Last Admin: 01/11/21 07:53 Dose: Not Given Documented by: Magnesium Chloride (Mag-64) 128 mg PO BIDMEALS [facility] Last Admin: 01/11/21 07:51 Dose: 128 mg Documented by: Nicotine (Habitrol) 14 mg TRDERM DAILY [facility] Last Admin: 01/11/21 07:52 Dose: 14 mg Documented by: Buprenorphine Hcl/Naloxone Hcl 8-2mg * *Ptom 0 mg PO DAILY@1999 [facility] Last Admin: 01/10/21 19:59 Dose: 8 mg Documented by: Ondansetron HCl (Zofran) 4 mg IV Q4H PRN PRN Reason: Nausea/Vomiting Last Admin: 01/02/21 19:53 Dose: 4 mg Documented by: Pantoprazole Sodium (Protonix Iv) 40 mg IVPUSH Q24H [facility] Last Admin: 01/11/21 07:53 Dose: 40 mg Documented by: Potassium Chloride (Klor-Con 10) 20 meq PO BIDMEALS [facility] Last Admin: 01/11/21 07:52 Dose: 20 meq Documented by: Sodium Chloride (Saline Flush) 20 ml FLUSH ASDIRECTED PRN PRN Reason: Keep Vein Open Last Admin: 01/08/21 15:52 Dose: 20 ml Documented by: Tamsulosin HCl (Flomax) 0.4 mg PO DAILY [facility] Last Admin: 01/11/21 07:52 Dose: 0.4 mg Documented by: Zolpidem Tartrate (Ambien) 10 mg PO BEDTIME PRN PRN Reason: Insomnia Last Admin: 01/07/21 19:25 Dose: 10 mg Documented by: Discontinued Medications Cefepime HCl (Maxipime) 2 gm IVPUSH Q8H [facility] Last Admin: 01/01/21 11:09 Dose: 2 gm Documented by: Cefepime HCl (Maxipime) 2 gm IVPUSH Q8H [facility] Last Admin: 01/09/21 07:34 Dose: 2 gm Documented by: Docusate Sodium (Colace) 100 mg PO DAILY PRN PRN Reason: Constipation Sodium Chloride (Normal Saline) 1,000 mls @ 150 mls/hr IV ASDIRECTED [facility] Last Admin: 01/02/21 12:12 Dose: 100 mls/hr Documented by: Sodium Chloride (Normal Saline) 1,000 mls @ 150 mls/hr IV ASDIRECTED [facility] Levofloxacin/Dextrose 500 mg/ (Premix) 100 mls @ 100 mls/hr IV Q24H [facility] Last Admin: 01/01/21 17:24 Dose: Not Given Documented by: Metronidazole 500 mg/ Premix 100 mls @ 100 mls/hr IV ONETIME ONE Stop: 01/01/21 11:59 Last Admin: 01/01/21 11:09 Dose: 100 mls/hr Documented by: Metronidazole 500 mg/ Premix 100 mls @ 100 mls/hr IV Q8H [facility] Last Admin: 01/09/21 07:34 Dose: 100 mls/hr Documented by: Magnesium Sulfate/Dextrose 1 (gm/ Premix) 100 mls @ 100 mls/hr IV Q1H [facility] Stop: 01/02/21 09:44 Last Admin: 01/02/21 08:59 Dose: 100 mls/hr Documented by: Potassium Chloride 40 meq/ (Premix) 100 mls @ 25 mls/hr IV ONETIME ONE Stop: 01/02/21 11:50 Last Admin: 01/02/21 08:05 Dose: 25 mls/hr Documented by: Sodium Chloride (Normal Saline) 1,000 mls @ 100 mls/hr IV ASDIRECTED [facility] Last Infusion: 01/04/21 15:15 Dose: 100 mls/hr Documented by: Magnesium Sulfate/Dextrose 2 (gm/ Premix) 200 mls @ 100 mls/hr IV ONETIME ONE Stop: 01/03/21 10:59 Last Admin: 01/03/21 09:59 Dose: 100 mls/hr Documented by: Potassium Chloride 40 meq/ (Premix) 100 mls @ 25 mls/hr IV ONETIME ONE Stop: 01/03/21 14:59 Last Admin: 01/03/21 12:13 Dose: 25 mls/hr Documented by: Magnesium Sulfate/Dextrose 1 (gm/ Premix) 100 mls @ 100 mls/hr IV Q1H [facility] Stop: 01/04/21 12:29 Last Admin: 01/04/21 11:55 Dose: 100 mls/hr Documented by: Potassium Chloride 20 meq/ (Premix) 100 mls @ 25 mls/hr IV ONETIME ONE Stop: 01/04/21 14:29 Last Admin: 01/04/21 11:06 Dose: Not Given Documented by: Potassium Chloride 20 meq/ (Premix) 100 mls @ 25 mls/hr IV ONETIME ONE Stop: 01/04/21 18:29 Potassium Chloride 40 meq/ (Premix) 100 mls @ 25 mls/hr IV ONETIME ONE Stop: 01/04/21 15:00 Last Admin: 01/04/21 11:14 Dose: 25 mls/hr Documented by: Potassium Chloride/Sodium Chloride (Normal Saline With 20 Meq Kcl) 1,000 mls @ 150 mls/hr IV ASDIRECTED [facility] Potassium Chloride/Sodium Chloride (Normal Saline With 20 Meq Kcl) 1,000 mls @ 100 mls/hr IV ASDIRECTED [facility] Last Infusion: 01/07/21 09:30 Dose: 75 mls/hr Documented by: Magnesium Sulfate/Dextrose 1 (gm/ Premix) 100 mls @ 100 mls/hr IV Q1H [facility] Stop: 01/05/21 11:38 Last Admin: 01/05/21 11:14 Dose: 100 mls/hr Documented by: Magnesium Sulfate (Magnesium Sulfate In Water 2 Gm/50 Ml) 2 gm in 50 mls @ 50 mls/hr IV ONETIME ONE Stop: 01/06/21 10:14 Last Admin: 01/06/21 09:00 Dose: 50 mls/hr Documented by: Magnesium Sulfate (Magnesium Sulfate In Water 2 Gm/50 Ml) 50 mls @ 50 mls/hr IV ONETIME ONE Stop: 01/07/21 10:29 Last Admin: 01/07/21 10:34 Dose: 50 mls/hr Documented by: Potassium Chloride/Sodium Chloride (Normal Saline With 20 Meq Kcl) 1,000 mls @ 75 mls/hr IV ASDIRECTED [facility] Last Admin: 01/07/21 22:08 Dose: 75 mls/hr Documented by: Magnesium Sulfate (Magnesium Sulfate In Water 2 Gm/50 Ml) 4 gm in 100 mls @ 50 mls/hr IV ONETIME ONE Stop: 01/08/21 11:29 Last Admin: 01/08/21 09:40 Dose: 50 mls/hr Documented by: Magnesium Sulfate (Magnesium Sulfate In Water 2 Gm/50 Ml) 2 gm in 50 mls @ 50 mls/hr IV ONETIME ONE Stop: 01/09/21 14:29 Last Admin: 01/09/21 13:48 Dose: 50 mls/hr Documented by: Magnesium Sulfate (Magnesium Sulfate In Water 2 Gm/50 Ml) 2 gm in 50 mls @ 50 mls/hr IV ONETIME ONE Stop: 01/09/21 18:59 Last Admin: 01/09/21 17:17 Dose: 50 mls/hr Documented by: Magnesium Sulfate (Magnesium Sulfate In Water 2 Gm/50 Ml) 2 gm in 50 mls @ 50 mls/hr IV ONETIME ONE Stop: 01/10/21 09:59 Last Admin: 01/10/21 10:52 Dose: 50 mls/hr Documented by: Iopamidol (Isovue-370 (76%)) 100 ml IVPUSH ONETIME ONE Stop: 01/01/21 08:16 Last Admin: 01/01/21 08:38 Dose: 100 ml Documented by: Magnesium Chloride (Mag-64) 64 mg PO BIDMEALS [facility] Last Admin: 01/06/21 07:46 Dose: 64 mg Documented by: Pantoprazole Sodium (Protonix Iv) 40 mg IVPUSH ONETIME ONE Stop: 01/02/21 12:01 Last Admin: 01/02/21 12:12 Dose: 40 mg Documented by: Potassium Chloride (Klor-Con 10) 20 meq PO BIDMEALS [facility] Last Admin: 01/06/21 07:46 Dose: 20 meq Documented by: Potassium Chloride (Klor-Con 10) 40 meq PO BIDMEALS [facility] Last Admin: 01/08/21 17:06 Dose: 40 meq Documented by: - Exam General: Reports: Alert, Oriented, Cooperative Neck: Reports: Supple, Trachea Midline Lungs: Reports: Clear to Auscultation, Normal Respiratory Effort Cardiovascular: Reports: Regular Rate, Regular Rhythm GI/Abdominal Exam: Normal Bowel Sounds, Soft, Non-Tender, No Organomegaly, No Distention, No Abnormal Bruit, No Mass, Pelvis Stable Back Exam: Reports: Normal Inspection, Full Range of Motion Extremities: Normal Inspection, Normal Range of Motion, Non-Tender, No Pedal Edema, Normal Capillary Refill Skin: Reports: Warm, Dry, Intact, Other (mildly pallor. ) Neurological: Reports: No New Focal Deficit, Normal Gait, Normal Speech Psy/Mental Status: Reports: Alert, Normal Affect, Normal Mood
== END 2021-01-11 12:59 | disposition home or self-care (01) | DRG 808 ==
LOC: CC.ED 07:01 → UNDOADMIN 08:44 → CC.MS 08:44
PROVIDERS: ADMIT Physician Assistant Medical; ATTEND Family Medicine
DX: D70.1 Agranulocytosis secondary to cancer chemotherapy (principal); K85.30 Drug induced acute pancreatitis without necrosis or infection; E87.1 Hypo-osmolality and hyponatremia; C34.90 Malignant neoplasm of unspecified part of unspecified bronchus or lung; T45.1X5A Adverse effect of antineoplastic and immunosuppressive drugs, initial encounter; E86.0 Dehydration; K52.89 Other specified noninfective gastroenteritis and colitis; D70.2 Other drug-induced agranulocytosis; K52.9 Noninfective gastroenteritis and colitis, unspecified; E83.42 Hypomagnesemia; R73.9 Hyperglycemia, unspecified; E87.6 Hypokalemia; F17.200 Nicotine dependence, unspecified, uncomplicated; M54.9 Dorsalgia, unspecified; G89.29 Other chronic pain; G62.9 Polyneuropathy, unspecified; R53.1 Weakness; Z20.822 Contact with and (suspected) exposure to COVID-19; Z88.0 Allergy status to penicillin; Z91.013 Allergy to seafood; Z87.01 Personal history of pneumonia (recurrent); Z90.49 Acquired absence of other specified parts of digestive tract
CPT/HCPCS: 36415; 71260; 74177; 80048; 80053; 81001; 82150; 82550; 82962; 83036; 83605; 83690; 83735; 84484; 85025; 86140; 87040; 87045; 87046; 87493; 89055; 93005; 96374; 99285-25; A9270-GY; C9113; J0692; J1642; J1815-GY; J2405; J3475; J3480; J3490; J7030; Q9967; U0002

== ENCOUNTER 2021-02-24 10:37 | Inpatient (IN) | payer OTHER ==
[2021-02-24 12:22] LABS: CHLORIDE,CL 89 mEq/L (98-106); SODIUM,NA 130 mEq/L (136-145)
[2021-02-24] MEDS ORDERED: Sodium Chloride 0.9% 10 ML Syringe FLUSH PRN (15:44)
[2021-02-24] MEDS ORDERED: Ondansetron 4 MG/2 ML SDV IVPUSH PRN (15:44)
[2021-02-24] MEDS ORDERED: Sodium Chloride 0.9% 1,000 ML IV SCH ×2 (17:00→17:15)
[2021-02-24] MEDS ORDERED: POTASSIUM CHLORIDE RIDERS IV ONE (17:00)
[2021-02-24] MEDS ORDERED: Magnesium Sulfate/Water 4 GM/100 ML BAG IV ONE (17:15)
[2021-02-24] MEDS ORDERED: Ondansetron 4 MG Tab.DIS PO PRN (17:31)
[2021-02-24] MEDS ORDERED: Temazepam 15 MG Cap PO PRN (20:00)
[2021-02-24] MEDS: Insulin Glarg,Human.Rec.Analog 100 Unit/ML SUBCUT SCH (21:18)
[2021-02-24] MEDS: APIXABAN 5 MG PO SCH (21:18)
[2021-02-24] MEDS ORDERED: Potassium Chloride Riders 100 ML ONE (21:40)
[2021-02-25] MEDS: APIXABAN 5 MG PO SCH ×2 (07:45→20:20)
[2021-02-25 07:47] LABS: CHLORIDE,CL 92 mEq/L (98-106); SODIUM,NA 128 mEq/L (136-145)
[2021-02-25] MEDS: Magnesium Chloride 64 MG Tab.ER PO SCH ×2 (08:51→17:36)
[2021-02-25] MEDS: Nicotine 14 MG/24 Hr Patch TRDERM SCH (08:51)
[2021-02-25] MEDS: Potassium Gluconate (99 MG) 2 MEQ Tab PO SCH ×2 (08:51→20:19)
[2021-02-25] MEDS ORDERED: Acetaminophen 325 MG Tab PO PRN (10:21)
[2021-02-25] MEDS ORDERED: Sodium Chloride 0.9% 250 ML ONE (11:09)
[2021-02-25] MEDS: Sodium Chloride 0.9% 250 ML IV SCH (11:43)
[2021-02-25] MEDS: Potassium Chloride Riders 40 MEQ in Premix Bag 1 BAG IV SCH ×2 (11:44→20:20)
[2021-02-25] MEDS: Acetaminophen 325 MG Tab PO PRN (17:42)
[2021-02-25] MEDS: Insulin Glarg,Human.Rec.Analog 100 Unit/ML SUBCUT SCH (20:20)
--- NOTE | 2021-02-25 20:27 | PCM.PN ---
- General Info Date of Service: 02/25/21 Admission Dx/Problem (Free Text): Anemia Hypokalemia Hypomagnesemia Subjective Update: Jose is a 60 yo male who was admitted to the hospital via direct admit from the clinic. Patient has known lung cancer and has been getting chemotherapy. Last chemo infusion was last week and up until about 3 days ago he was doing okay. States he started to get really weak and had difficulty with ambulation. States every time he has chemotherapy it seems to really set him back. Laboratory work showed Te to be anemic with a Hgb of 7. Potassium and magnesium were also quite low. He states today he is feeling a little bit better but has a long way to go. Noreen ent received 1 unit of pRBC's yesterday. He had a large bowel movement today. Occult stool X 3 was ordered yesterday, results are still pending. Te admits he hasn't had much of an appetite. States he can't have this type of chemo anymore. Functional Status: Reports: Pain Controlled - Review of Systems General: Reports: Weakness, Fatigue. Denies: Appetite HEENT: Reports: No Symptoms Pulmonary: Reports: Cough. Denies: Pleuritic Chest Pain, Sputum, Hemoptysis, Wheezing Cardiovascular: Reports: No Symptoms Gastrointestinal: Reports: Decreased Appetite, Diarrhea, Hematochezia, Nausea. Denies: Abdominal Pain, Melena, Vomiting Genitourinary: Reports: No Symptoms Musculoskeletal: Reports: No Symptoms Skin: Reports: No Symptoms Neurological: Reports: Headache - Patient Data Vitals - Most Recent: Last Vital Signs Temp 97.7 F 02/25/21 20:00 Pulse 94 02/25/21 20:00 Resp 18 02/25/21 20:00 BP 100/56 L 02/25/21 20:00 Pulse Ox 98 02/25/21 20:00 Weight - Most Recent: 123 lb I&O - Last 24 Hours: Intake & Output 02/25/21 02/25/21 02/25/21 06:59 14:59 22:59 Intake Total 200 0 600 Balance 200 0 600 Lab Results Last 24 Hours: Laboratory Results - last 24 hr 02/24/21 02/25/21 02/25/21 Range/Units 12:06 06:59 06:59 WBC 3.4 L (5.0-10.0) 10^3/uL RBC 2.59 L (4.50-6.00) 10^6/uL Hgb 7.5 L* (14.0-18.0) g/dL Hct 22.2 L (40.0-54.0) % MCV 85.7 (82.0-94.0) fL MCH 29.0 (27.0-32.0) pg MCHC 33.8 (33.0-38.0) g/dL RDW Coeff of Marquis 15.1 H (11.0-15.0) % Plt Count 192 (150-400) 10^3/uL Neut % (Auto) 73.6 (35-85) % Lymph % (Auto) 10.7 (10-55) % Maverick % (Auto) 14.8 (0-16) % Eos % (Auto) 0.6 (0-5) % Baso % (Auto) 0.3 (0-3) % Neut # (Auto) 2.49 (1.80-7.00) 10^3/uL Lymph # (Auto) 0.36 L (1.00-4.80) 10^3/uL Maverick # (Auto) 0.50 (0.00-0.80) 10^3/uL Eos # (Auto) 0.02 (0.00-0.45) 10^3/uL Baso # (Auto) 0.01 10^3/uL Sodium 128 L (136-145) mEq/L Potassium 2.6 L* (3.5-5.0) mEq/L Chloride 92 L (98-106) mEq/L Carbon Dioxide 28 (21-32) mmol/L BUN 12 (7-18) mg/dL Creatinine 0.8 (0.7-1.3) mg/dL Est Cr Clr Drug Dosing 77.49 mL/min Estimated GFR (MDRD) > 60 (>=60) mL/min Glucose 217 H (75-99) mg/dL POC Glucose (75-105) mg/dl Calcium 8.8 (8.4-10.1) mg/dL Magnesium 2.1 (1.8-2.4) mg/dL Crossmatch See Detail 02/25/21 02/25/21 Range/Units 07:45 17:36 WBC (5.0-10.0) 10^3/uL RBC (4.50-6.00) 10^6/uL Hgb (14.0-18.0) g/dL Hct (40.0-54.0) % MCV (82.0-94.0) fL MCH (27.0-32.0) pg MCHC (33.0-38.0) g/dL RDW Coeff of Marquis (11.0-15.0) % Plt Count (150-400) 10^3/uL Neut % (Auto) (35-85) % Lymph % (Auto) (10-55) % Maverick % (Auto) (0-16) % Eos % (Auto) (0-5) % Baso % (Auto) (0-3) % Neut # (Auto) (1.80-7.00) 10^3/uL Lymph # (Auto) (1.00-4.80) 10^3/uL Maverick # (Auto) (0.00-0.80) 10^3/uL Eos # (Auto) (0.00-0.45) 10^3/uL Baso # (Auto) 10^3/uL Sodium (136-145) mEq/L Potassium (3.5-5.0) mEq/L Chloride (98-106) mEq/L Carbon Dioxide (21-32) mmol/L BUN (7-18) mg/dL Creatinine (0.7-1.3) mg/dL Est Cr Clr Drug Dosing mL/min Estimated GFR (MDRD) (>=60) mL/min Glucose (75-99) mg/dL POC Glucose 220 H 167 H (75-105) mg/dl Calcium (8.4-10.1) mg/dL Magnesium (1.8-2.4) mg/dL Crossmatch [facility] Results Last 24 Hours: Microbiology 02/24/21 16:11 Occult Blood - Preliminary Stool / Feces Med Orders - Current: Current Medications Acetaminophen (Acetaminophen 325 Mg Tab) 650 mg PO Q4H PRN PRN Reason: Fever Last Admin: 02/25/21 17:42 Dose: 650 mg Documented by: Apixaban (Apixaban 5 Mg Tab Pt Own) 5 mg PO BID LEIF Last Admin: 02/25/21 20:20 Dose: 5 mg Documented by: Heparin Sodium (Porcine) (Heparin Sodium 100 Units/Ml 5 Ml Syringe) 500 units FLUSH ASDIRECTED PRN PRN Reason: Other Last Admin: 02/25/21 17:36 Dose: 500 units Documented by: Sodium Chloride (Normal Saline) 250 mls @ 50 mls/hr IV ASDIRECTED [facility] Last Admin: 02/25/21 11:43 Dose: 50 mls/hr Documented by: Potassium Chloride 40 meq/ (Premix) 100 mls @ 25 mls/hr IV BID [facility] Last Admin: 02/25/21 20:20 Dose: 25 mls/hr Documented by: Insulin Glargine (Insulin Glarg,Human.Rec.Analog 100 Unit/Ml) 15 unit SUBCUT BEDTIME [facility] Last Admin: 02/25/21 20:20 Dose: 15 units Documented by: Magnesium Chloride (Magnesium Chloride 64 Mg Tab.Er) 128 mg PO BIDMEALS [facility] Last Admin: 02/25/21 17:36 Dose: 128 mg Documented by: Nicotine (Nicotine 14 Mg/24 Hr Patch) 14 mg TRDERM DAILY [facility] Last Admin: 02/25/21 08:51 Dose: 14 mg Documented by: Ondansetron HCl (Ondansetron 4 Mg/2 Ml Sdv) 4 mg IVPUSH Q6H PRN PRN Reason: Nausea/Vomiting Ondansetron HCl (Ondansetron 4 Mg Tab.Dis) 8 mg PO Q8H PRN PRN Reason: Nausea Potassium (Potassium Gluconate (99 Mg) 2 Meq Tab) 2 meq PO BID [facility] Last Admin: 02/25/21 20:19 Dose: 2 meq Documented by: Sodium Chloride (Sodium Chloride 0.9% 10 Ml Syringe) 10 ml FLUSH ASDIRECTED PRN PRN Reason: Keep Vein Open Tamsulosin HCl (Tamsulosin 0.4 Mg Cap.Er Pt Own) 0.4 mg PO BEDTIME [facility] Temazepam (Temazepam 15 Mg Cap) 15 mg PO BEDTIME PRN PRN Reason: Sleep Discontinued Medications Acetaminophen (Acetaminophen 325 Mg Tab) 350 mg PO Q4H PRN PRN Reason: Fever Magnesium Sulfate (Magnesium Sulfate In Water 2 Gm/50 Ml) 4 gm in 100 mls @ 25 mls/hr IV ONETIME ONE Stop: 02/24/21 21:14 Last Admin: 02/24/21 17:26 Dose: 25 mls/hr Documented by: Potassium Chloride 40 meq/ (Premix) 0 mls @ 25 mls/hr IV ONETIME ONE Stop: 02/24/21 17:01 Last Admin: 02/24/21 21:24 Dose: 25 mls/hr Documented by: Sodium Chloride (Normal Saline) 1,000 mls @ 250 mls/hr IV ASDIRECTED [facility] Stop: 02/24/21 20:59 Sodium Chloride (Normal Saline) 1,000 mls @ 50 mls/hr IV ASDIRECTED [facility] Stop: 02/25/21 13:14 Last Admin: 02/24/21 17:20 Dose: 50 mls/hr Documented by: Potassium Chloride (Kcl In Water 40 Meq/100 Ml) Confirm Administered Dose 100 mls @ as directed .ROUTE .STK-MED ONE Stop: 02/24/21 21:41 Last Admin: 02/24/21 21:24 Dose: Not Given Documented by: Sodium Chloride (Normal Saline) Confirm Administered Dose 250 mls @ as directed .ROUTE .STK-MED ONE Stop: 02/25/21 11:10 Last Admin: 02/25/21 11:39 Dose: Not Given Documented by: - Exam General: Alert, Oriented, Other (chronically ill) Neck: Supple Lungs: Clear to Auscultation, Normal Respiratory Effort Cardiovascular: Regular Rate, Regular Rhythm, No Murmurs GI/Abdominal Exam: Normal Bowel Sounds, Soft, Non-Tender, No Organomegaly, No Mass Extremities: Normal Inspection, Non-Tender, No Pedal Edema Peripheral Pulses: 1+: Dorsalis Pedis (L), Dorsalis Pedis (R) Skin: Warm, Dry, Intact Neurological: No New Focal Deficit Psy/Mental Status: Alert, Normal Affect, Normal Mood - Patient Data Lab Results Last 24 hrs: Laboratory Results - last 24 hr 02/24/21 02/25/21 02/25/21 Range/Units 12:06 06:59 06:59 WBC 3.4 L (5.0-10.0) 10^3/uL RBC 2.59 L (4.50-6.00) 10^6/uL Hgb 7.5 L* (14.0-18.0) g/dL Hct 22.2 L (40.0-54.0) % MCV 85.7 (82.0-94.0) fL MCH 29.0 (27.0-32.0) pg MCHC 33.8 (33.0-38.0) g/dL RDW Coeff of Marquis 15.1 H (11.0-15.0) % Plt Count 192 (150-400) 10^3/uL Neut % (Auto) 73.6 (35-85) % Lymph % (Auto) 10.7 (10-55) % Maverick % (Auto) 14.8 (0-16) % Eos % (Auto) 0.6 (0-5) % Baso % (Auto) 0.3 (0-3) % Neut # (Auto) 2.49 (1.80-7.00) 10^3/uL Lymph # (Auto) 0.36 L (1.00-4.80) 10^3/uL Maverick # (Auto) 0.50 (0.00-0.80) 10^3/uL Eos # (Auto) 0.02 (0.00-0.45) 10^3/uL Baso # (Auto) 0.01 10^3/uL Sodium 128 L (136-145) mEq/L Potassium 2.6 L* (3.5-5.0) mEq/L Chloride 92 L (98-106) mEq/L Carbon Dioxide 28 (21-32) mmol/L BUN 12 (7-18) mg/dL Creatinine 0.8 (0.7-1.3) mg/dL Est Cr Clr Drug Dosing 77.49 mL/min Estimated GFR (MDRD) > 60 (>=60) mL/min Glucose 217 H (75-99) mg/dL POC Glucose (75-105) mg/dl Calcium 8.8 (8.4-10.1) mg/dL Magnesium 2.1 (1.8-2.4) mg/dL Crossmatch See Detail 02/25/21 02/25/21 Range/Units 07:45 17:36 WBC (5.0-10.0) 10^3/uL RBC (4.50-6.00) 10^6/uL Hgb (14.0-18.0) g/dL Hct (40.0-54.0) % MCV (82.0-94.0) fL MCH (27.0-32.0) pg MCHC (33.0-38.0) g/dL RDW Coeff of Marquis (11.0-15.0) % Plt Count (150-400) 10^3/uL Neut % (Auto) (35-85) % Lymph % (Auto) (10-55) % Maverick % (Auto) (0-16) % Eos % (Auto) (0-5) % Baso % (Auto) (0-3) % Neut # (Auto) (1.80-7.00) 10^3/uL Lymph # (Auto) (1.00-4.80) 10^3/uL Maverick # (Auto) (0.00-0.80) 10^3/uL Eos # (Auto) (0.00-0.45) 10^3/uL Baso # (Auto) 10^3/uL Sodium (136-145) mEq/L Potassium (3.5-5.0) mEq/L Chloride (98-106) mEq/L Carbon Dioxide (21-32) mmol/L BUN (7-18) mg/dL Creatinine (0.7-1.3) mg/dL Est Cr Clr Drug Dosing mL/min Estimated GFR (MDRD) (>=60) mL/min Glucose (75-99) mg/dL POC Glucose 220 H 167 H (75-105) mg/dl Calcium (8.4-10.1) mg/dL Magnesium (1.8-2.4) mg/dL Crossmatch Result Diagrams: 02/25/21 06:59 02/25/21 06:59 [facility] Results Last 24 hrs: Microbiology 02/24/21 16:11 Occult Blood - Preliminary Stool / Feces Sepsis Event Note - Evaluation Sepsis Screening Result: No Definite Risk - Focused Exam Vital Signs: Vital Signs Temp Temp Pulse Resp BP Pulse Ox 02/25/21 20:00 97.7 F 94 18 100/56 L 98 02/25/21 16:00 100.0 F 99 20 105/57 L 96 02/25/21 14:19 97.9 F 102 H 18 104/61 02/25/21 13:30 97.7 F 104 H 20 117/67 98 02/25/21 12:30 97.5 F 103 H 18 111/68 99 02/25/21 12:00 97.5 F 103 H 18 111/68 99 02/25/21 11:30 97.8 F 98 20 102/66 97 02/25/21 11:15 97.8 F 99 20 108/62 02/25/21 11:00 98.0 F 101 H 18 103/64 98 - Problem List & Annotations (1) Anemia SNOMED Code(s): 561988794 Code(s): D64.9 - ANEMIA, UNSPECIFIED Status: Acute Current Visit: Yes Qualifiers: Anemia type: other cause Other causes of anemia: antineoplastic chemotherapy Qualified Code(s): D64.81 - Anemia due to antineoplastic chemotherapy; T45.1X5A - Adverse effect of antineoplastic and immunosuppressive drugs, initial encounter (2) Hypomagnesemia SNOMED Code(s): 333724776 Code(s): E83.42 - HYPOMAGNESEMIA Status: Resolved Current Visit: No (3) Hypokalemia SNOMED Code(s): 26412412 Code(s): E87.6 - HYPOKALEMIA Status: Acute Priority: High Current Visit: No - Problem List Review Problem List Initiated/Reviewed/Updated: Yes - My Orders Last 24 Hours: My Active Orders 02/25/21 11:24 Acetaminophen [TylenoL] 650 mg PO Q4H PRN 02/25/21 11:40 Potassium Chloride Riders [KCL in Water 40 MEQ/100 ML] 40 meq Premix Bag 1 bag IV BID 02/26/21 05:11 AMYLASE [CHEM] AM CBC WITH AUTO DIFF [HEME] AM COMPREHENSIVE METABOLIC PN,CMP [CHEM] AM LIPASE [CHEM] AM MAGNESIUM [CHEM] AM 02/27/21 05:11 CBC WITH AUTO DIFF [HEME] AM COMPREHENSIVE METABOLIC PN,CMP [CHEM] AM MAGNESIUM [CHEM] AM - Assessment Assessment:: Anemia secondary to chemotherapy Hypokalemia Hypomagnesemia - corrected - Plan Plan:: Hgb has slightly improved to 7.5 today from 7 yesterday. Potassium continues to be quite low at 2.6 today, down from 2.9 yesterday. Magnesium is normal. Consulted with Dr. Scott who did evaluate Bill as well. O neg blood was ordered as only 1 available yesterday. 1 unit available today, which we will initiate. Plan to order 2 more units, which should be here tomorrow. Potassium supplementation 40mEq to be given IV BID today. Repeat labs in am. Dr. Scott did discuss current chemotherapy treatment and patient's worsening condition.
[2021-02-26 07:28] LABS: CHLORIDE,CL 96 mEq/L (98-106); SODIUM,NA 132 mEq/L (136-145)
[2021-02-26] MEDS: Nicotine 14 MG/24 Hr Patch TRDERM SCH (07:52)
[2021-02-26] MEDS: Potassium Gluconate (99 MG) 2 MEQ Tab PO SCH ×2 (07:52→19:39)
[2021-02-26] MEDS: Magnesium Chloride 64 MG Tab.ER PO SCH ×2 (07:52→17:17)
[2021-02-26] MEDS: APIXABAN 5 MG PO SCH (07:53)
[2021-02-26] MEDS ORDERED: Magnesium Sulfate/Water 4 GM/100 ML BAG IV ONE (09:30)
--- NOTE | 2021-02-26 09:41 | PCM.PN ---
- General Info Date of Service: 02/26/21 Admission Dx/Problem (Free Text): Anemia Hypokalemia Hypomagnesemia Subjective Update: Jose is a 60 yo male who was admitted to the hospital via direct admit from the clinic. Patient has known lung cancer and has been getting chemotherapy. Last chemo infusion was last week and up until about 3 days ago he was doing okay. States he started to get really weak and had difficulty with ambulation. States every time he has chemotherapy it seems to really set him back. Laboratory work showed Te to be anemic with a Hgb of 7. Potassium and magnesium were also quite low. He states today he is feeling a little bit better but has a long way to go. Noreen ent received 1 unit of pRBC's yesterday. He had a large bowel movement today. Occult stool X 3 was ordered yesterday, results are still pending. Te admits he hasn't had much of an appetite. States he can't have this type of chemo anymore. 02/26/2021 Jose continues to be in guarded condition but states he is feeling about 40% better since admit. He did receive another 1 unit of pRBC's yesterday. No bowel movements since yesterday. States his appetite is about the same. Denies any new onset of symptoms. - Review of Systems General: Reports: Weakness, Fatigue HEENT: Reports: No Symptoms Pulmonary: Reports: No Symptoms Cardiovascular: Reports: No Symptoms Gastrointestinal: Reports: No Symptoms Genitourinary: Reports: No Symptoms Musculoskeletal: Reports: No Symptoms Skin: Reports: No Symptoms Neurological: Reports: No Symptoms - Patient Data Vitals - Most Recent: Last Vital Signs Temp 98.9 F 02/26/21 07:51 Pulse 114 H 02/26/21 07:51 Resp 18 02/26/21 07:51 BP 98/54 L 02/26/21 07:51 Pulse Ox 94 L 02/26/21 07:51 Weight - Most Recent: 123 lb I&O - Last 24 Hours: Intake & Output 02/25/21 02/26/21 02/26/21 22:59 06:59 14:59 Intake Total 600 200 Output Total 600 Balance 600 -400 Lab Results Last 24 Hours: Laboratory Results - last 24 hr 02/24/21 02/25/21 02/26/21 Range/Units 12:06 17:36 07:08 WBC 2.2 L (5.0-10.0) 10^3/uL RBC 3.20 L (4.50-6.00) 10^6/uL Hgb 9.4 L (14.0-18.0) g/dL Hct 27.9 L (40.0-54.0) % MCV 87.2 (82.0-94.0) fL MCH 29.4 (27.0-32.0) pg MCHC 33.7 (33.0-38.0) g/dL RDW Coeff of Marquis 15.1 H (11.0-15.0) % Plt Count 204 (150-400) 10^3/uL Add Manual Diff Yes Neutrophils % (Manual) 56 (35-85) % Band Neutrophils % 3 (0-5) % Lymphocytes % (Manual) 22 (21-55) % Monocytes % (Manual) 18 H (2-12) % Eosinophils % (Manual) 1 (0-5) % Sodium (136-145) mEq/L Potassium (3.5-5.0) mEq/L Chloride (98-106) mEq/L Carbon Dioxide (21-32) mmol/L BUN (7-18) mg/dL Creatinine (0.7-1.3) mg/dL Est Cr Clr Drug Dosing mL/min Estimated GFR (MDRD) (>=60) mL/min Glucose (75-99) mg/dL POC Glucose 167 H (75-105) mg/dl Calcium (8.4-10.1) mg/dL Magnesium (1.8-2.4) mg/dL Total Bilirubin (0.0-1.0) mg/dL AST (15-37) U/L ALT (12-78) U/L Alkaline Phosphatase (46-116) U/L Total Protein (6.4-8.2) g/dL Albumin (3.4-5.0) g/dL Amylase (25-115) U/L Lipase (73-393) U/L Crossmatch See Detail 02/26/21 Range/Units 07:08 WBC (5.0-10.0) 10^3/uL RBC (4.50-6.00) 10^6/uL Hgb (14.0-18.0) g/dL Hct (40.0-54.0) % MCV (82.0-94.0) fL MCH (27.0-32.0) pg MCHC (33.0-38.0) g/dL RDW Coeff of Marquis (11.0-15.0) % Plt Count (150-400) 10^3/uL Add Manual Diff Neutrophils % (Manual) (35-85) % Band Neutrophils % (0-5) % Lymphocytes % (Manual) (21-55) % Monocytes % (Manual) (2-12) % Eosinophils % (Manual) (0-5) % Sodium 132 L (136-145) mEq/L Potassium 3.3 L D (3.5-5.0) mEq/L Chloride 96 L (98-106) mEq/L Carbon Dioxide 27 (21-32) mmol/L BUN 9 (7-18) mg/dL Creatinine 0.7 (0.7-1.3) mg/dL Est Cr Clr Drug Dosing 88.56 mL/min Estimated GFR (MDRD) > 60 (>=60) mL/min Glucose 190 H (75-99) mg/dL POC Glucose (75-105) mg/dl Calcium 9.4 (8.4-10.1) mg/dL Magnesium 1.4 L (1.8-2.4) mg/dL Total Bilirubin 1.1 H (0.0-1.0) mg/dL AST 117 H (15-37) U/L ALT 128 H (12-78) U/L Alkaline Phosphatase 343 H (46-116) U/L Total Protein 6.3 L (6.4-8.2) g/dL Albumin 1.9 L (3.4-5.0) g/dL Amylase 23 L (25-115) U/L Lipase 78 (73-393) U/L Crossmatch [facility] Results Last 24 Hours: Microbiology 02/24/21 16:11 Occult Blood - Preliminary Stool / Feces Med Orders - Current: Current Medications Acetaminophen (Acetaminophen 325 Mg Tab) 650 mg PO Q4H PRN PRN Reason: Fever Last Admin: 02/25/21 17:42 Dose: 650 mg Documented by: Apixaban (Apixaban 5 Mg Tab Pt Own) 5 mg PO BID [facility] Last Admin: 02/26/21 07:53 Dose: 5 mg Documented by: Heparin Sodium (Porcine) (Heparin Sodium 100 Units/Ml 5 Ml Syringe) 500 units FLUSH ASDIRECTED PRN PRN Reason: Other Last Admin: 02/25/21 17:36 Dose: 500 units Documented by: Sodium Chloride (Normal Saline) 250 mls @ 50 mls/hr IV ASDIRECTED [facility] Last Admin: 02/25/21 11:43 Dose: 50 mls/hr Documented by: Potassium Chloride 40 meq/ (Premix) 100 mls @ 25 mls/hr IV BID [facility] Last Admin: 02/25/21 20:20 Dose: 25 mls/hr Documented by: Magnesium Sulfate (Magnesium Sulfate In Water 2 Gm/50 Ml) 4 gm in 100 mls @ 50 mls/hr IV ONETIME ONE Stop: 02/26/21 10:59 Insulin Glargine (Insulin Glarg,Human.Rec.Analog 100 Unit/Ml) 15 unit SUBCUT BEDTIME [facility] Last Admin: 02/25/21 20:20 Dose: 15 units Documented by: Magnesium Chloride (Magnesium Chloride 64 Mg Tab.Er) 128 mg PO BIDMEALS [facility] Last Admin: 02/26/21 07:52 Dose: 128 mg Documented by: Nicotine (Nicotine 14 Mg/24 Hr Patch) 14 mg TRDERM DAILY [facility] Last Admin: 02/26/21 07:52 Dose: 14 mg Documented by: Ondansetron HCl (Ondansetron 4 Mg/2 Ml Sdv) 4 mg IVPUSH Q6H PRN PRN Reason: Nausea/Vomiting Ondansetron HCl (Ondansetron 4 Mg Tab.Dis) 8 mg PO Q8H PRN PRN Reason: Nausea Potassium (Potassium Gluconate (99 Mg) 2 Meq Tab) 2 meq PO BID [facility] Last Admin: 02/26/21 07:52 Dose: 2 meq Documented by: Sodium Chloride (Sodium Chloride 0.9% 10 Ml Syringe) 10 ml FLUSH ASDIRECTED PRN PRN Reason: Keep Vein Open Tamsulosin HCl (Tamsulosin 0.4 Mg Cap.Er Pt Own) 0.4 mg PO BEDTIME [facility] Temazepam (Temazepam 15 Mg Cap) 15 mg PO BEDTIME PRN PRN Reason: Sleep Discontinued Medications Acetaminophen (Acetaminophen 325 Mg Tab) 350 mg PO Q4H PRN PRN Reason: Fever Magnesium Sulfate (Magnesium Sulfate In Water 2 Gm/50 Ml) 4 gm in 100 mls @ 25 mls/hr IV ONETIME ONE Stop: 02/24/21 21:14 Last Admin: 02/24/21 17:26 Dose: 25 mls/hr Documented by: Potassium Chloride 40 meq/ (Premix) 0 mls @ 25 mls/hr IV ONETIME ONE Stop: 02/24/21 17:01 Last Admin: 02/24/21 21:24 Dose: 25 mls/hr Documented by: Sodium Chloride (Normal Saline) 1,000 mls @ 250 mls/hr IV ASDIRECTED [facility] Stop: 02/24/21 20:59 Sodium Chloride (Normal Saline) 1,000 mls @ 50 mls/hr IV ASDIRECTED [facility] Stop: 02/25/21 13:14 Last Admin: 02/24/21 17:20 Dose: 50 mls/hr Documented by: Potassium Chloride (Kcl In Water 40 Meq/100 Ml) Confirm Administered Dose 100 mls @ as directed .ROUTE .STK-MED ONE Stop: 02/24/21 21:41 Last Admin: 02/24/21 21:24 Dose: Not Given Documented by: Sodium Chloride (Normal Saline) Confirm Administered Dose 250 mls @ as directed .ROUTE .STK-MED ONE Stop: 02/25/21 11:10 Last Admin: 02/25/21 11:39 Dose: Not Given Documented by: - Exam General: Alert, Oriented, Cooperative, No Acute Distress Lungs: Clear to Auscultation, Normal Respiratory Effort Cardiovascular: Regular Rate, Regular Rhythm, No Murmurs GI/Abdominal Exam: Normal Bowel Sounds, Soft, Non-Tender, No Organomegaly, No D istention Extremities: Normal Inspection, No Pedal Edema Peripheral Pulses: 1+: Dorsalis Pedis (L), Dorsalis Pedis (R) Skin: Warm, Dry, Intact Neurological: No New Focal Deficit Psy/Mental Status: Alert, Normal Affect, Normal Mood - Patient Data Lab Results Last 24 hrs: Laboratory Results - last 24 hr 02/24/21 02/25/21 02/26/21 Range/Units 12:06 17:36 07:08 WBC 2.2 L (5.0-10.0) 10^3/uL RBC 3.20 L (4.50-6.00) 10^6/uL Hgb 9.4 L (14.0-18.0) g/dL Hct 27.9 L (40.0-54.0) % MCV 87.2 (82.0-94.0) fL MCH 29.4 (27.0-32.0) pg MCHC 33.7 (33.0-38.0) g/dL RDW Coeff of Marquis 15.1 H (11.0-15.0) % Plt Count 204 (150-400) 10^3/uL Add Manual Diff Yes Neutrophils % (Manual) 56 (35-85) % Band Neutrophils % 3 (0-5) % Lymphocytes % (Manual) 22 (21-55) % Monocytes % (Manual) 18 H (2-12) % Eosinophils % (Manual) 1 (0-5) % Sodium (136-145) mEq/L Potassium (3.5-5.0) mEq/L Chloride (98-106) mEq/L Carbon Dioxide (21-32) mmol/L BUN (7-18) mg/dL Creatinine (0.7-1.3) mg/dL Est Cr Clr Drug Dosing mL/min Estimated GFR (MDRD) (>=60) mL/min Glucose (75-99) mg/dL POC Glucose 167 H (75-105) mg/dl Calcium (8.4-10.1) mg/dL Magnesium (1.8-2.4) mg/dL Total Bilirubin (0.0-1.0) mg/dL AST (15-37) U/L ALT (12-78) U/L Alkaline Phosphatase (46-116) U/L Total Protein (6.4-8.2) g/dL Albumin (3.4-5.0) g/dL Amylase (25-115) U/L Lipase (73-393) U/L Crossmatch See Detail 02/26/21 Range/Units 07:08 WBC (5.0-10.0) 10^3/uL RBC (4.50-6.00) 10^6/uL Hgb (14.0-18.0) g/dL Hct (40.0-54.0) % MCV (82.0-94.0) fL MCH (27.0-32.0) pg MCHC (33.0-38.0) g/dL RDW Coeff of Marquis (11.0-15.0) % Plt Count (150-400) 10^3/uL Add Manual Diff Neutrophils % (Manual) (35-85) % Band Neutrophils % (0-5) % Lymphocytes % (Manual) (21-55) % Monocytes % (Manual) (2-12) % Eosinophils % (Manual) (0-5) % Sodium 132 L (136-145) mEq/L Potassium 3.3 L D (3.5-5.0) mEq/L Chloride 96 L (98-106) mEq/L Carbon Dioxide 27 (21-32) mmol/L BUN 9 (7-18) mg/dL Creatinine 0.7 (0.7-1.3) mg/dL Est Cr Clr Drug Dosing 88.56 mL/min Estimated GFR (MDRD) > 60 (>=60) mL/min Glucose 190 H (75-99) mg/dL POC Glucose (75-105) mg/dl Calcium 9.4 (8.4-10.1) mg/dL Magnesium 1.4 L (1.8-2.4) mg/dL Total Bilirubin 1.1 H (0.0-1.0) mg/dL AST 117 H (15-37) U/L ALT 128 H (12-78) U/L Alkaline Phosphatase 343 H (46-116) U/L Total Protein 6.3 L (6.4-8.2) g/dL Albumin 1.9 L (3.4-5.0) g/dL Amylase 23 L (25-115) U/L Lipase 78 (73-393) U/L Crossmatch Result Diagrams: 02/26/21 07:08 02/26/21 07:08 [place]ras Results Last 24 hrs: Microbiology 02/24/21 16:11 Occult Blood - Preliminary Stool / Feces Sepsis Event Note - Evaluation Sepsis Screening Result: No Definite Risk - Focused Exam Vital Signs: Vital Signs Temp Pulse Resp BP Pulse Ox 02/26/21 07:51 98.9 F 114 H 18 98/54 L 94 L 02/26/21 00:00 99.9 F 98 18 111/58 L 99 - Problem List & Annotations (1) Anemia SNOMED Code(s): 938488491 Code(s): D64.9 - ANEMIA, UNSPECIFIED Status: Acute Current Visit: Yes Qualifiers: Anemia type: other cause Other causes of anemia: antineoplastic chemotherapy Qualified Code(s): D64.81 - Anemia due to antineoplastic chemotherapy; T45.1X5A - Adverse effect of antineoplastic and immunosuppressive drugs, initial encounter (2) Hypomagnesemia SNOMED Code(s): 334222759 Code(s): E83.42 - HYPOMAGNESEMIA Status: Acute Current Visit: No (3) Hypokalemia SNOMED Code(s): 61082081 Code(s): E87.6 - HYPOKALEMIA Status: Acute Priority: High Current Visit: No - Problem List Review Problem List Initiated/Reviewed/Updated: Yes - My Orders Last 24 Hours: My Active Orders 02/25/21 11:24 Acetaminophen [TylenoL] 650 mg PO Q4H PRN 02/25/21 11:40 Potassium Chloride Riders [KCL in Water 40 MEQ/100 ML] 40 meq Premix Bag 1 bag IV BID 02/26/21 09:00 Magnesium Sulfate/Water [Magnesium Sulfate in Water 2 GM/50 ML] 4 gm in 100 ml IV ONETIME 02/26/21 09:16 Telemetry Monitoring [Cardiac Monitoring] [RC] . DIRECTED 02/26/21 09:19 Patient Status [ADT] Routine 02/27/21 05:11 CBC WITH AUTO DIFF [HEME] AM COMPREHENSIVE METABOLIC PN,CMP [CHEM] AM MAGNESIUM [CHEM] AM - Assessment Assessment:: Anemia secondary to chemotherapy Hypokalemia Hypomagnesemia - corrected - Plan Plan:: Hgb has slightly improved to 7.5 today from 7 yesterday. Potassium continues to be quite low at 2.6 today, down from 2.9 yesterday. Magnesium is normal. Consulted with Dr. Scott who did evaluate Te as well. O neg blood was ordered as only 1 available yesterday. 1 unit available today, which we will initiate. Plan to order 2 more units, which should be here tomorrow. Potassium supplementation 40mEq to be given IV BID today. Repeat labs in am. Dr. Scott did discuss current chemotherapy treatment and patient's worsening condition. Te is in somewhat good spirits this morning. states he is tired of feeling this way. Hgb has improved after second unit of pRBC's yesterday to 9.5 today. Potassium has improved to 3.3. Magnesium is slightly low again today and will give Magnesium 4gm IV today. WBC is continuing to slightly decline. If continues to drop will consult with oncology. Patient transferred to acute care d/t guarded condition.
[2021-02-26] MEDS: Acetaminophen 325 MG Tab PO PRN ×2 (12:07→23:35)
[2021-02-26] MEDS: Potassium Chloride Riders 40 MEQ in Premix Bag 1 BAG IV SCH (13:40)
[2021-02-26] MEDS: Apixaban 5 MG Tab PO SCH (19:38)
[2021-02-26] MEDS: Insulin Glarg,Human.Rec.Analog 100 Unit/ML SUBCUT SCH (19:44)
[2021-02-26] MEDS ORDERED: Tamsulosin 0.4 MG Cap.ER PO SCH (20:00)
[2021-02-27 07:37] LABS: CHLORIDE,CL 95 mEq/L (98-106); SODIUM,NA 133 mEq/L (136-145)
[2021-02-27] MEDS ORDERED: Potassium Chloride Riders 40 MEQ in Premix Bag 1 BAG IV SCH (08:00)
[2021-02-27] MEDS: Magnesium Chloride 64 MG Tab.ER PO SCH (08:05)
[2021-02-27] MEDS: Nicotine 14 MG/24 Hr Patch TRDERM SCH (08:06)
[2021-02-27] MEDS: Potassium Gluconate (99 MG) 2 MEQ Tab PO SCH (08:06)
[2021-02-27] MEDS: Sodium Chloride 0.9% 250 ML IV SCH (08:16)
[2021-02-27] MEDS: Apixaban 5 MG Tab PO SCH (08:52)
[2021-02-27] MEDS ORDERED: NALOXONE HCL PO SCH (09:15)
[2021-02-27] MEDS ORDERED: BUPRENORPHINE HCL PO SCH (09:15)
[2021-02-27 12:56] VITALS: BP 95/69; PULSE 106
--- NOTE | 2021-02-28 07:45 | PCM.DCSUM1 ---
Discharge Summary - Hospital Course HPI Initial Comments: See subjective update for HPI - Discharge Data Discharge Date: 02/27/21 Discharge Disposition: Home, Self-Care 01 Condition: Good - Referral to Home Health Primary Care Physician: Dahlia Ren NP - Discharge Diagnosis/Problem(s) (1) Anemia SNOMED Code(s): 221867286 ICD Code: D64.9 - ANEMIA, UNSPECIFIED Status: Acute Qualifiers: Anemia type: other cause Other causes of anemia: antineoplastic chemotherapy Qualified Code(s): D64.81 - Anemia due to antineoplastic chemotherapy; T45.1X5A - Adverse effect of antineoplastic and immunosuppressive drugs, initial encounter (2) Hypomagnesemia SNOMED Code(s): 837566253 ICD Code: E83.42 - HYPOMAGNESEMIA Status: Acute (3) Hypokalemia SNOMED Code(s): 98929050 ICD Code: E87.6 - HYPOKALEMIA Status: Acute Priority: High - Patient Instructions Diet: Usual Diet as Tolerated Activity: As Tolerated Showering/Bathing: May Shower Notify Provider of: Fever, Increased Pain, Nausea and/or Vomiting - Discharge Plan *PRESCRIPTION DRUG MONITORING PROGRAM REVIEWED*: Not Applicable *COPY OF PRESCRIPTION DRUG MONITORING REPORT IN PATIENT REEMA: Not Applicable Home Medications: Home Meds Tamsulosin HCl 0.4 mg PO DAILY 06/07/15 [History] Buprenorphine HCl/Naloxone HCl [Buprenorphin-Naloxon 8-2 mg Sl] 8 mg PO DAILY 02/19/20 [History] Apixaban [Eliquis] 5 mg PO BID 01/01/21 [History] Magnesium Chloride [Mag-64] 128 mg PO BIDMEALS #60 tab.er 01/11/21 [Rx] Nicotine [Habitrol] 14 mg TRDERM DAILY #30 patch 01/11/21 [Rx] Insulin Glargine,Hum.Rec.Anlog [Lantus Solostar] 15 units SQ BEDTIME 02/24/21 [History] ondansetron HCL [Ondansetron HCl] 8 mg PO Q8H PRN 02/24/21 [History] Potassium Chloride [Klor-Con M10] 20 meq PO TID #90 tab 02/27/21 [Rx] Oxygen Therapy Mode: Room Air Patient Handouts: Hypomagnesemia, Hypokalemia Referrals: Petr Scott MD [ED Physician] - (1 week, Needs CBC and BMP prior) - Discharge Summary/Plan Comment DC Time >30 min.: Yes Discharge Summary/Plan Comment: Patient will be discharged this morning. Follow up appointment next week for recheck with primary. Will need CBC and BMP prior to appointment. Increased Potassium to TID. Continue magnesium supplementation. Patient will follow up wit h oncology as well to discuss current chemo regimen. - General Info Date of Service: 02/27/21 Admission Dx/Problem (Free Text: Anemia Hypokalemia Hypomagnesemia Subjective Update: Jose is a 60 yo male who was admitted to the hospital via direct admit from the clinic. Patient has known lung cancer and has been getting chemotherapy. Last chemo infusion was last week and up until about 3 days ago he was doing okay. States he started to get really weak and had difficulty with ambulation. States every time he has chemotherapy it seems to really set him back. Laboratory work showed Te to be anemic with a Hgb of 7. Potassium and magnesium were also quite low. He states today he is feeling a little bit better but has a long way to go. Patient received 1 unit of pRBC's yesterday. He had a large bowel movement today. Occult stool X 3 was ordered yesterday, results are still pending. Te admits he hasn't had much of an appetite. States he can't have this type of chemo anymore. 02/26/2021 Jose continues to be in guarded condition but states he is feeling about 40% better since admit. He did receive another 1 unit of pRBC's yesterday. No bowel movements since yesterday. States his appetite is about the same. Denies any new onset of symptoms. 02/27/2021 Te is feeling better today and states he feels he is ready to go home. Hgb was stable this morning at 9.2. Denies any concerns today. Functional Status: Reports: Tolerating Diet, Ambulating, Urinating - Review of Systems General: Reports: Weakness, Fatigue HEENT: Reports: No Symptoms Pulmonary: Reports: No Symptoms Cardiovascular: Reports: No Symptoms Gastrointestinal: Reports: No Symptoms Genitourinary: Reports: No Symptoms Musculoskeletal: Reports: No Symptoms Neurological: Reports: No Symptoms Psychiatric: Reports: No Symptoms - Patient Data Vitals - Most Recent: Last Vital Signs Temp 100.3 F 02/27/21 12:00 Pulse 106 H 02/27/21 12:00 Resp 18 02/27/21 12:00 BP 95/69 02/27/21 12:00 Pulse Ox 96 02/27/21 12:00 Weight - Most Recent: 123 lb Lab Results - Last 24 hrs: Laboratory Results - last 24 hr 02/27/21 02/27/21 Range/Units 07:05 08:01 Sodium 133 L (136-145) mEq/L Potassium 3.2 L (3.5-5.0) mEq/L Chloride 95 L (98-106) mEq/L Carbon Dioxide 28 (21-32) mmol/L BUN 9 (7-18) mg/dL Creatinine 0.6 L (0.7-1.3) mg/dL Est Cr Clr Drug Dosing 103.32 mL/min Estimated GFR (MDRD) > 60 (>=60) mL/min Glucose 143 H (75-99) mg/dL POC Glucose 128 H (75-105) mg/dl Calcium 9.4 (8.4-10.1) mg/dL Magnesium 1.5 L (1.8-2.4) mg/dL Total Bilirubin 0.8 (0.0-1.0) mg/dL AST 73 H (15-37) U/L ALT 108 H (12-78) U/L Alkaline Phosphatase 331 H (46-116) U/L Total Protein 6.4 (6.4-8.2) g/dL Albumin 1.8 L (3.4-5.0) g/dL Med Orders - Current: Current Medications Discontinued Medications Acetaminophen (Acetaminophen 325 Mg Tab) 350 mg PO Q4H PRN PRN Reason: Fever Acetaminophen (Acetaminophen 325 Mg Tab) 650 mg PO Q4H PRN PRN Reason: Fever Last Admin: 02/26/21 23:35 Dose: 650 mg Documented by: Apixaban (Apixaban 5 Mg Tab Pt Own) 5 mg PO BID [facility] Last Admin: 02/26/21 07:53 Dose: 5 mg Documented by: Apixaban (Apixaban 5 Mg Tab) 5 mg PO BID [facility] Last Admin: 02/27/21 08:52 Dose: 5 mg Documented by: Heparin Sodium (Porcine) (Heparin Sodium 100 Units/Ml 5 Ml Syringe) 500 units FLUSH ASDIRECTED PRN PRN Reason: Other Last Admin: 02/27/21 13:24 Dose: 500 units Documented by: Magnesium Sulfate (Magnesium Sulfate In Water 2 Gm/50 Ml) 4 gm in 100 mls @ 25 mls/hr IV ONETIME ONE Stop: 02/24/21 21:14 Last Admin: 02/24/21 17:26 Dose: 25 mls/hr Documented by: Potassium Chloride 40 meq/ (Premix) 0 mls @ 25 mls/hr IV ONETIME ONE Stop: 02/24/21 17:01 Last Admin: 02/24/21 21:24 Dose: 25 mls/hr Documented by: Sodium Chloride (Normal Saline) 1,000 mls @ 250 mls/hr IV ASDIRECTED LEIF Stop: 02/24/21 20:59 Sodium Chloride (Normal Saline) 1,000 mls @ 50 mls/hr IV ASDIRECTED LEIF Stop: 02/25/21 13:14 Last Admin: 02/24/21 17:20 Dose: 50 mls/hr Documented by: Potassium Chloride (Kcl In Water 40 Meq/100 Ml) Confirm Administered Dose 100 mls @ as directed .ROUTE .STK-MED ONE Stop: 02/24/21 21:41 Last Admin: 02/24/21 21:24 Dose: Not Given Documented by: Sodium Chloride (Normal Saline) 250 mls @ 50 mls/hr IV ASDIRECTED [facility] Last Admin: 02/27/21 08:16 Dose: 50 mls/hr Documented by: Sodium Chloride (Normal Saline) Confirm Administered Dose 250 mls @ as directed .ROUTE .STK-MED ONE Stop: 02/25/21 11:10 Last Admin: 02/25/21 11:39 Dose: Not Given Documented by: Potassium Chloride 40 meq/ (Premix) 100 mls @ 25 mls/hr IV BID LEIF Stop: 02/26/21 20:00 Last Admin: 02/26/21 13:40 Dose: 25 mls/hr Documented by: Magnesium Sulfate (Magnesium Sulfate In Water 2 Gm/50 Ml) 4 gm in 100 mls @ 25 mls/hr IV ONETIME ONE Stop: 02/26/21 13:29 Last Admin: 02/26/21 10:27 Dose: 25 mls/hr Documented by: Potassium Chloride 40 meq/ (Premix) 100 mls @ 25 mls/hr IV DAILY [facility] Last Admin: 02/27/21 08:16 Dose: 25 mls/hr Documented by: Insulin Glargine (Insulin Glarg,Human.Rec.Analog 100 Unit/Ml) 15 unit SUBCUT BEDTIME [facility] Last Admin: 02/26/21 19:44 Dose: 15 units Documented by: Magnesium Chloride (Magnesium Chloride 64 Mg Tab.Er) 128 mg PO BIDMEALS [facility] Last Admin: 02/27/21 08:05 Dose: 128 mg Documented by: Nicotine (Nicotine 14 Mg/24 Hr Patch) 14 mg TRDERM DAILY [facility] Last Admin: 02/27/21 08:06 Dose: 14 mg Documented by: Buprenorphine Hcl/Naloxone Hcl [ Buprenorphin-Naloxon 8-2mg) 8 mg PO DAILY [facility] Last Admin: 02/27/21 09:20 Dose: 8 mg Documented by: Ondansetron HCl (Ondansetron 4 Mg/2 Ml Sdv) 4 mg IVPUSH Q6H PRN PRN Reason: Nausea/Vomiting Ondansetron HCl (Ondansetron 4 Mg Tab.Dis) 8 mg PO Q8H PRN PRN Reason: Nausea Potassium (Potassium Gluconate (99 Mg) 2 Meq Tab) 2 meq PO BID [facility] Last Admin: 02/27/21 08:06 Dose: 2 meq Documented by: Sodium Chloride (Sodium Chloride 0.9% 10 Ml Syringe) 10 ml FLUSH ASDIRECTED PRN PRN Reason: Keep Vein Open Tamsulosin HCl (Tamsulosin 0.4 Mg Cap.Er) 0.4 mg PO BEDTIME [facility] Last Admin: 02/26/21 19:38 Dose: 0.4 mg Documented by: Temazepam (Temazepam 15 Mg Cap) 15 mg PO BEDTIME PRN PRN Reason: Sleep - Exam General: Reports: Alert, Oriented, Cooperative, No Acute Distress Lungs: Reports: Clear to Auscultation, Normal Respiratory Effort Cardiovascular: Reports: Regular Rate, Regular Rhythm, No Murmurs GI/Abdominal Exam: Normal Bowel Sounds, Soft, Non-Tender, No Organomegaly Extremities: Normal Inspection, No Pedal Edema Skin: Reports: Warm, Dry, Intact Neurological: Reports: No New Focal Deficit Psy/Mental Status: Reports: Alert, Normal Affect, Normal Mood
== END 2021-02-27 13:55 | disposition home or self-care (01) | DRG 812 ==
LOC: CC.CHC 10:37 → CC.MS 10:37 → UNDOADMOB 14:11 → CC.MS 14:11 → OBSVTOIN 02-26 09:19
PROVIDERS: ADMIT Nurse Practitioner Family; ATTEND Family Medicine
PROC: 30233N1 Transfusion of Nonautologous Red Blood Cells into Peripheral Vein, Percutaneous Approach (ICD-10-PCS; principal; 2021-02-26)
DX: D64.81 Anemia due to antineoplastic chemotherapy (principal); C34.90 Malignant neoplasm of unspecified part of unspecified bronchus or lung; T45.1X5A Adverse effect of antineoplastic and immunosuppressive drugs, initial encounter; E83.42 Hypomagnesemia; E87.6 Hypokalemia; E11.9 Type 2 diabetes mellitus without complications; F11.99 Opioid use, unspecified with unspecified opioid-induced disorder; Z88.0 Allergy status to penicillin; Z91.013 Allergy to seafood; Z79.4 Long term (current) use of insulin; Z79.899 Other long term (current) drug therapy
CPT/HCPCS: 36415; 36430; 80048; 80053; 82150; 82270; 82962; 83690; 83735; 85025; 86850; 86900; 86901; 86920; 86922; 96365; 96366; 96367; A9270-GY; G0378; J1642; J1815-GY; J3475; J3480; J7030; J7050; P9016

== ENCOUNTER 2021-03-17 11:20 | Inpatient (IN) | payer OTHER ==
[2021-03-17 12:15] LABS: CHLORIDE,CL 91 mEq/L (98-106); SODIUM,NA 132 mEq/L (136-145)
--- NOTE | 2021-03-17 12:23 | EDM.PDOC ---
ED HPI GENERAL MEDICAL PROBLEM - General Chief Complaint: Respiratory Problem Stated Complaint: SOB Time Seen by Provider: 03/17/21 12:00 Source of Information: Reports: Patient, RN History Limitations: Reports: No Limitations - History of Present Illness INITIAL COMMENTS - FREE TEXT/NARRATIVE: Pt states that he had his last chemo about 2 weeks ago and is waiting for a call to start radiation. He hasn't been able to eat for several days. Not drinking well. He states that he is very weak and he is more SOB than normal and that yesterday was horrible. Coughing at times productive of yellow mucus. No vomiting noted. No edema. Sats when ambulance arrived was 80% and it improved with oxygen. Onset: Gradual Duration: Day(s):, Getting Worse Worsens with: Reports: Movement Chest Pain Score (Numeric/FACES): 3 - Related Data Allergies Allergy/AdvReac Type Severity Reaction Status Date / Time fish derived Allergy Cannot Verified 03/17/21 12:22 Remember penicillin Allergy Other Verified 03/17/21 12:22 shellfish derived Allergy Swelling Verified 03/17/21 12:22 Home Meds: Home Meds Tamsulosin HCl 0.4 mg PO DAILY PRN 06/07/15 [History] Buprenorphine HCl/Naloxone HCl [Buprenorphine-Nalox 8-2 mg Tab] 1 tab PO DAILY 02/19/20 [History] Apixaban [Eliquis] 5 mg PO BID 01/01/21 [History] Magnesium Chloride [Mag-64] 128 mg PO BIDMEALS #60 tab.er 01/11/21 [Rx] Nicotine [Habitrol] 14 mg TRDERM DAILY #30 patch 01/11/21 [Rx] Insulin Glargine,Hum.Rec.Anlog [Lantus Solostar] 15 units SQ BEDTIME 02/24/21 [History] ondansetron HCL [Ondansetron HCl] 8 mg PO TID PRN 02/24/21 [History] Potassium Chloride [Klor-Con M10] 20 meq PO TID #90 tab 02/27/21 [Rx] Past Medical History Respiratory History: Reports: Pneumonia, Recurrent Gastrointestinal History: Reports: None Genitourinary History: Reports: None Musculoskeletal History: Reports: Back Pain, Chronic Neurological History: Reports: Neuropathy, Peripheral Oncologic (Cancer) History: Reports: Lung - Past Surgical History HEENT Surgical History: Reports: Tonsillectomy GI Surgical History: Reports: Appendectomy Other Musculoskeletal Surgeries/Procedures:: original back injury 07-07-06. Lifting accident at work. disc removed. 5 total back surgeries. rods, screws, pins in back, fusions. Social & Family History - Family History Family Medical History: No Pertinent Family History - Caffeine Use Caffeine Use: Reports: None - Living Situation & Occupation Living situation: Reports: Single, Alone Occupation: Retired ED ROS GENERAL - Review of Systems Review Of Systems: See Below Constitutional: Reports: Chills, Weakness, Decreased Appetite HEENT: Reports: Other (nasal congestion.) Respiratory: Reports: Shortness of Breath, Cough, Sputum Cardiovascular: Denies: Chest Pain, Edema GI/Abdominal: Reports: Abdominal Pain (above the umbilicus.) : Reports: No Symptoms Skin: Reports: No Symptoms Neurological: Reports: Weakness. Denies: Confusion, Dizziness Psychiatric: Reports: No Symptoms ED EXAM, GENERAL - Physical Exam Exam: See Below Exam Limited By: No Limitations General Appearance: Alert, WD/WN, Mild Distress Eye Exam: Bilateral Eye: PERRL Ears: Normal External Exam, Normal Canal, Normal TMs Throat/Mouth: Normal Inspection, Normal Oropharynx Head: Atraumatic, Normocephalic Neck: Normal Inspection, Supple, Non-Tender, Full Range of Motion Respiratory/Chest: Decreased Breath Sounds, Rhonchi, Other (decreased on the right side. Occasional rhonchi heard bilaterally. NO rales). No: Rales Cardiovascular: Regular Rate, Rhythm, No Edema GI/Abdominal: Normal Bowel Sounds, Soft, Other (mild tenderness to the area above the umbilicus) Back Exam: Normal Inspection, Full Range of Motion Extremities: Normal Range of Motion, No Pedal Edema, Normal Capillary Refill Neurological: Alert, Oriented, Normal Cognition Psychiatric: Flat Affect Skin Exam: Warm, Dry, Intact, No Rash Course - Vital Signs Last Recorded V/S: Last Vital Signs Temp 100.2 F 03/18/21 19:03 Pulse 108 H 03/18/21 19:03 Resp 20 03/18/21 19:03 BP 107/59 L 03/18/21 19:03 Pulse Ox 98 03/18/21 19:03 - Orders/Labs/Meds Orders: Medication Orders Acetaminophen (Acetaminophen 325 Mg Tab) 650 mg PO Q4H PRN PRN Reason: Pain (Mild 1-3)/fever Last Admin: 03/18/21 18:54 Dose: 650 mg Documented by: Admin: 03/17/21 16:17 Dose: 650 mg Documented by: GEETA Albuterol (Albuterol 0.083% 2.5 Mg/3 Ml Neb Soln) 2.5 mg NEB Q4H PRN PRN Reason: Dyspnea Last Admin: 03/18/21 08:12 Dose: 2.5 mg Documented by: GEETA Apixaban (Apixaban 5 Mg Tab) 5 mg PO BID [facility] Last Admin: 03/18/21 07:21 Dose: 5 mg Documented by: Admin: 03/17/21 19:26 Dose: 5 mg Documented by: ADALBERTO Cyanocobalamin (Cyanocobalamin (Vitamin B12) 1,000 Mcg Tab) 1,000 mcg PO DAILY [facility] Last Admin: 03/18/21 15:48 Dose: 1,000 mcg Documented by: GEETA Folic Acid (Folic Acid 1 Mg Tab) 1 mg PO DAILY [facility] Last Admin: 03/18/21 15:48 Dose: 1 mg Documented by: GEETA Lactated Ringer's (Ringers, Lactated) 1,000 mls @ 75 mls/hr IV ASDIRECTED [facility] Last Infusion: 03/18/21 12:13 Dose: 250 mls/hr Documented by: Admin: 03/18/21 10:32 Dose: 75 mls/hr Documented by: Infusion: 03/18/21 09:16 Dose: 100 mls/hr Documented by: Admin: 03/17/21 23:16 Dose: 100 mls/hr Documented by: Infusion: 03/17/21 23:13 Dose: 100 mls/hr Documented by: Admin: 03/17/21 13:13 Dose: 100 mls/hr Documented by: JELLY Levofloxacin/Dextrose 500 mg/ (Premix) 100 mls @ 100 mls/hr IV DAILY@1600 [facility] Last Admin: 03/18/21 15:47 Dose: 100 mls/hr Documented by: GEETA Insulin Glargine (Insulin Glarg,Human.Rec.Analog 100 Unit/Ml) 15 unit SUBCUT BEDTIME [facility] Magnesium Chloride (Magnesium Chloride 64 Mg Tab.Er) 128 mg PO BIDMEALS [facility] Last Admin: 03/18/21 17:20 Dose: 128 mg Documented by: Admin: 03/18/21 07:21 Dose: 128 mg Documented by: Admin: 03/17/21 17:12 Dose: 128 mg Documented by: GEETA Nicotine (Nicotine 14 Mg/24 Hr Patch) 14 mg TRDERM DAILY [facility] Last Admin: 03/18/21 07:20 Dose: 14 mg Documented by: GEETA Buprenorphine/Naloxone 8-2mg Sl Tab Pt Own 0 tab SL DAILY [facility] Last Admin: 03/18/21 07:25 Dose: 1 tab Documented by: GEETA Ondansetron HCl (Ondansetron 4 Mg Tab.Dis) 8 mg PO TID PRN PRN Reason: Nausea Pantoprazole Sodium (Pantoprazole 40 Mg Vial) 40 mg IVPUSH BID [facility] Last Admin: 03/18/21 07:21 Dose: 40 mg Documented by: Admin: 03/17/21 19:26 Dose: 40 mg Documented by: Admin: 03/17/21 14:47 Dose: Not Given Documented by: GEETA Potassium Chloride (Potassium Chloride 10 Meq Tab.Er) 20 meq PO TIDMEALS [facility] Last Admin: 03/18/21 17:21 Dose: 20 meq Documented by: Admin: 03/18/21 12:19 Dose: 20 meq Documented by: Admin: 03/18/21 07:20 Dose: 20 meq Documented by: Admin: 03/17/21 17:12 Dose: 20 meq Documented by: GEETA Promethazine HCl/Codeine (Codeine/Promethazine 10-6.25 Mg/5 Ml Syrup 5 Ml Ud Cup) 5 - 10 ml PO Q4H PRN PRN Reason: Cough Labs: Laboratory Tests 03/17/21 03/17/21 03/17/21 Range/Units 11:48 11:48 11:48 WBC 9.5 (5.0-10.0) 10^3/uL RBC 3.52 L (4.50-6.00) 10^6/uL Hgb 9.9 L (14.0-18.0) g/dL Hct 30.2 L (40.0-54.0) % MCV 85.8 (82.0-94.0) fL MCH 28.1 (27.0-32.0) pg MCHC 32.8 L (33.0-38.0) g/dL RDW Coeff of Marquis 17.2 H (11.0-15.0) % Plt Count 432 H (150-400) 10^3/uL Neut % (Auto) 85.4 H (35-85) % Lymph % (Auto) 6.8 L (10-55) % Fergus % (Auto) 7.4 (0-16) % Eos % (Auto) 0.3 (0-5) % Baso % (Auto) 0.1 (0-3) % Neut # (Auto) 8.11 H (1.80-7.00) 10^3/uL Lymph # (Auto) 0.65 L (1.00-4.80) 10^3/uL Fergus # (Auto) 0.70 (0.00-0.80) 10^3/uL Eos # (Auto) 0.03 (0.00-0.45) 10^3/uL Baso # (Auto) 0.01 10^3/uL D-Dimer, Quantitative (0.00-0.50) Sodium 132 L (136-145) mEq/L Potassium 2.7 L* (3.5-5.0) mEq/L Chloride 91 L (98-106) mEq/L Carbon Dioxide 33 H (21-32) mmol/L BUN 8 (7-18) mg/dL Creatinine 0.7 (0.7-1.3) mg/dL Est Cr Clr Drug Dosing TNP Estimated GFR (MDRD) > 60 (>=60) mL/min Glucose 139 H D (75-99) mg/dL Lactic Acid 1.1 (0.4-2.0) mmol/L Calcium 8.8 (8.4-10.1) mg/dL Magnesium 1.0 L (1.8-2.4) mg/dL Total Bilirubin 1.1 H (0.0-1.0) mg/dL AST 70 H (15-37) U/L ALT 48 (12-78) U/L Alkaline Phosphatase 218 H (46-116) U/L Lactate Dehydrogenase 108 (100-190) U/L Creatine Kinase 6 L (35-232) U/L Troponin I < 0.017 (0.00-0.06) ng/mL Total Protein 6.0 L (6.4-8.2) g/dL Albumin 1.8 L (3.4-5.0) g/dL 03/17/21 Range/Units 11:51 WBC (5.0-10.0) 10^3/uL RBC (4.50-6.00) 10^6/uL Hgb (14.0-18.0) g/dL Hct (40.0-54.0) % MCV (82.0-94.0) fL MCH (27.0-32.0) pg MCHC (33.0-38.0) g/dL RDW Coeff of Marquis (11.0-15.0) % Plt Count (150-400) 10^3/uL Neut % (Auto) (35-85) % Lymph % (Auto) (10-55) % Fergus % (Auto) (0-16) % Eos % (Auto) (0-5) % Baso % (Auto) (0-3) % Neut # (Auto) (1.80-7.00) 10^3/uL Lymph # (Auto) (1.00-4.80) 10^3/uL Fergus # (Auto) (0.00-0.80) 10^3/uL Eos # (Auto) (0.00-0.45) 10^3/uL Baso # (Auto) 10^3/uL D-Dimer, Quantitative 2.23 H (0.00-0.50) Sodium (136-145) mEq/L Potassium (3.5-5.0) mEq/L Chloride (98-106) mEq/L Carbon Dioxide (21-32) mmol/L BUN (7-18) mg/dL Creatinine (0.7-1.3) mg/dL Est Cr Clr Drug Dosing Estimated GFR (MDRD) (>=60) mL/min Glucose (75-99) mg/dL Lactic Acid (0.4-2.0) mmol/L Calcium (8.4-10.1) mg/dL Magnesium (1.8-2.4) mg/dL Total Bilirubin (0.0-1.0) mg/dL AST (15-37) U/L ALT (12-78) U/L Alkaline Phosphatase (46-116) U/L Lactate Dehydrogenase (100-190) U/L Creatine Kinase (35-232) U/L Troponin I (0.00-0.06) ng/mL Total Protein (6.4-8.2) g/dL Albumin (3.4-5.0) g/dL Meds: Medications Generic Name Dose Route Start Last Admin Trade Name Freq PRN Reason Stop Dose Admin Acetaminophen 650 mg 03/17/21 13:41 03/18/21 18:54 Acetaminophen 325 Mg Tab PO 650 mg Q4H PRN Administration Pain (Mild 1-3)/fever Albuterol 2.5 mg 03/17/21 13:49 03/18/21 08:12 Albuterol 0.083% 2.5 Mg/3 Ml Neb Soln NEB 2.5 mg Q4H PRN Administration Dyspnea Apixaban 5 mg 03/17/21 20:00 03/18/21 07:21 Apixaban 5 Mg Tab PO 5 mg BID LEIF Administration Cyanocobalamin 1,000 mcg 03/18/21 15:30 03/18/21 15:48 Cyanocobalamin (Vitamin B12) 1,000 Mcg Tab PO 1,000 mcg DAILY LEIF Administration Folic Acid 1 mg 03/18/21 15:30 03/18/21 15:48 Folic Acid 1 Mg Tab PO 1 mg DAILY LEIF Administration Lactated Ringer's 1,000 mls @ 75 mls/hr 03/17/21 13:00 03/18/21 12:13 Ringers, Lactated IV 250 mls/hr ASDIRECTED LEIF Infusion Levofloxacin/Dextrose 500 mg/ 100 mls @ 100 mls/hr 03/18/21 16:00 03/18/21 15:47 Premix IV 100 mls/hr DAILY@1600 LEIF Administration Insulin Glargine 15 unit 03/17/21 20:00 Insulin Glarg,Human.Rec.Analog 100 Unit/Ml SUBCUT BEDTIME LEIF Magnesium Chloride 128 mg 03/17/21 17:30 03/18/21 17:20 Magnesium Chloride 64 Mg Tab.Er PO 128 mg BIDMEALS LEIF Administration Nicotine 14 mg 03/18/21 08:00 03/18/21 07:20 Nicotine 14 Mg/24 Hr Patch TRDERM 14 mg DAILY LEIF Administration Buprenorphine/ 0 tab 03/18/21 08:00 03/18/21 07:25 Naloxone 8-2mg Sl SL 1 tab Tab Pt Own DAILY LEIF Administration Ondansetron HCl 8 mg 03/17/21 14:25 Ondansetron 4 Mg Tab.Dis PO TID PRN Nausea Pantoprazole Sodium 40 mg 03/17/21 13:35 03/18/21 07:21 Pantoprazole 40 Mg Vial IVPUSH 40 mg BID LEIF Administration Potassium Chloride 20 meq 03/17/21 17:30 03/18/21 17:21 Potassium Chloride 10 Meq Tab.Er PO 20 meq TIDMEALS LEIF Administration Promethazine HCl/Codeine 5 - 10 ml 03/18/21 09:56 Codeine/Promethazine 10-6.25 Mg/5 Ml Syrup 5 Ml Ud Cup PO Q4H PRN Cough Discontinued Medications Generic Name Dose Route Start Last Admin Trade Name Freq PRN Reason Stop Dose Admin Potassium Chloride 40 meq/ 100 mls @ 25 mls/hr 03/17/21 12:47 03/17/21 13:13 Premix IV 03/17/21 16:46 25 mls/hr ONETIME ONE Administration Magnesium Sulfate 2 gm in 50 mls @ 50 mls/hr 03/17/21 12:48 03/17/21 13:37 Magnesium Sulfate In Water 2 Gm/50 Ml IV 03/17/21 13:47 Not Given ONETIME ONE Magnesium Sulfate 4 gm in 100 mls @ 50 mls/hr 03/17/21 12:49 03/17/21 13:30 Magnesium Sulfate In Water 2 Gm/50 Ml IV 03/17/21 14:48 50 mls/hr ONETIME ONE Administration Magnesium Sulfate 2 gm in 50 mls @ 25 mls/hr 03/18/21 10:30 03/18/21 10:32 Magnesium Sulfate In Water 2 Gm/50 Ml IV 03/18/21 12:29 25 mls/hr ONETIME ONE Administration Potassium Chloride 20 meq/ 100 mls @ 50 mls/hr 03/18/21 12:30 03/18/21 12:19 Premix IV 03/18/21 14:29 50 mls/hr ONETIME ONE Administration Departure - Departure Time of Disposition: 14:50 Disposition: Admitted As Inpatient 66 Condition: Poor Clinical Impression: Hypomagnesemia, Hypokalemia Cancer of right lung Qualifiers: Lung location: unspecified part of lung Qualified Code(s): C34.91 - Malignant neoplasm of unspecified part of right bronchus or lung - Discharge Information *PRESCRIPTION DRUG MONITORING PROGRAM REVIEWED*: Not Applicable *COPY OF PRESCRIPTION DRUG MONITORING REPORT IN PATIENT REEMA: Not Applicable - Problem List & Annotations (1) Cancer of right lung SNOMED Code(s): 202292005 Code(s): C34.91 - MALIGNANT NEOPLASM OF UNSP PART OF RIGHT BRONCHUS OR LUNG Status: Acute Priority: High Current Visit: Yes Qualifiers: Lung location: unspecified part of lung Qualified Code(s): C34.91 - Malignant neoplasm of unspecified part of right bronchus or lung (2) Hypokalemia SNOMED Code(s): 71783087 Code(s): E87.6 - HYPOKALEMIA Status: Acute Priority: High Current Visit: Yes (3) Hypomagnesemia SNOMED Code(s): 880258469 Code(s): E83.42 - HYPOMAGNESEMIA Status: Acute Priority: High Current Visit: Yes - Problem List Review Problem List Initiated/Reviewed/Updated: Yes - Assessment/Plan Admission H&P: Please use this note as an admission H&P Plan: Will admit to acute care with IV magnesium and Potassium replacement with IV fluids until he is able to tolerate oral fluids well enough to maintain hydration Pain control as needed Will have Tahmina Bush RN contact his oncologist Dr Dillon's office to get plan of care as pt is concerned about not being contacted to start radiation therapy. oxygen to wean off as his oxygen stabilizes
[2021-03-17] MEDS ORDERED: Potassium Chloride Riders 40 MEQ in Premix Bag 1 BAG IV ONE (12:47)
[2021-03-17] MEDS ORDERED: Magnesium Sulfate/Water 2 GM/50 ML BAG IV ONE (12:48)
[2021-03-17] MEDS ORDERED: Magnesium Sulfate/Water 4 GM/100 ML BAG IV ONE (12:49)
[2021-03-17] MEDS: Lactated Ringers 1,000 ML IV SCH ×2 (13:13→23:16)
[2021-03-17] MEDS ORDERED: Ondansetron 4 MG Tab.DIS PO PRN (14:25)
[2021-03-17] MEDS: Pantoprazole 40 MG Vial IVPUSH SCH ×2 (14:47→19:26)
[2021-03-17] MEDS: Acetaminophen 325 MG Tab PO PRN (16:17)
[2021-03-17] MEDS: Potassium Chloride 10 MEQ Tab.ER PO SCH (17:12)
[2021-03-17] MEDS: Magnesium Chloride 64 MG Tab.ER PO SCH (17:12)
[2021-03-17] MEDS: Apixaban 5 MG Tab PO SCH (19:26)
[2021-03-18] MEDS: Nicotine 14 MG/24 Hr Patch TRDERM SCH (07:20)
[2021-03-18] MEDS: Potassium Chloride 10 MEQ Tab.ER PO SCH ×3 (07:20→17:21)
[2021-03-18] MEDS: Apixaban 5 MG Tab PO SCH ×2 (07:21→20:01)
[2021-03-18] MEDS: Pantoprazole 40 MG Vial IVPUSH SCH ×2 (07:21→20:01)
[2021-03-18] MEDS: Magnesium Chloride 64 MG Tab.ER PO SCH ×2 (07:21→17:20)
[2021-03-18] MEDS: NALOXONE SL SCH (07:25)
[2021-03-18] MEDS: BUPRENORPHINE SL SCH (07:25)
[2021-03-18 07:38] LABS: CHLORIDE,CL 96 mEq/L (98-106); SODIUM,NA 136 mEq/L (136-145)
[2021-03-18] MEDS: Albuterol 0.083% 2.5 MG/3 ML Neb Soln NEB PRN (08:12)
--- NOTE | 2021-03-18 09:08 | PCM.PN ---
- General Info Date of Service: 03/18/21 Subjective Update: Te is a 60 yo male who was admitted from the hospital yesterday d/t weakness, hypokalemia, hypomagnesemia. Patient has metastatic lung cancer and unable to undergo further chemotherapy. Patient is waiting to hear back from Dr. Richmond's office in regards to whether radiation is an option. Patient requests full code and wants to know his options. He states he was gradually getting worse again and not feeling well. Has known history of electrolyte imbalances. Functional Status: Reports: Pain Controlled - Review of Systems General: Reports: Weakness, Fatigue, Malaise. Denies: Appetite HEENT: Reports: No Symptoms Pulmonary: Reports: Shortness of Breath, Pleuritic Chest Pain, Cough, Wheezing Cardiovascular: Reports: No Symptoms Gastrointestinal: Reports: Nausea. Denies: Abdominal Pain, Diarrhea, Vomiting Genitourinary: Reports: No Symptoms Musculoskeletal: Reports: No Symptoms Neurological: Reports: No Symptoms Psychiatric: Reports: No Symptoms - Patient Data Vitals - Most Recent: Last Vital Signs Temp 98.9 F 03/18/21 08:00 Pulse 93 03/18/21 08:00 Resp 22 H 03/18/21 08:00 BP 90/46 L 03/18/21 08:00 Pulse Ox 94 L 03/18/21 08:05 Weight - Most Recent: 112 lb I&O - Last 24 Hours: Intake & Output 03/17/21 03/18/21 03/18/21 22:59 06:59 14:59 Intake Total 1000 Balance 1000 Lab Results Last 24 Hours: Laboratory Results - last 24 hr 03/17/21 03/17/21 03/17/21 Range/Units 11:48 11:48 11:48 WBC 9.5 (5.0-10.0) 10^3/uL RBC 3.52 L (4.50-6.00) 10^6/uL Hgb 9.9 L (14.0-18.0) g/dL Hct 30.2 L (40.0-54.0) % MCV 85.8 (82.0-94.0) fL MCH 28.1 (27.0-32.0) pg MCHC 32.8 L (33.0-38.0) g/dL RDW Coeff of [place] 17.2 H (11.0-15.0) % Plt Count 432 H (150-400) 10^3/uL Neut % (Auto) 85.4 H (35-85) % Lymph % (Auto) 6.8 L (10-55) % [place] % (Auto) 7.4 (0-16) % Eos % (Auto) 0.3 (0-5) % Baso % (Auto) 0.1 (0-3) % Neut # (Auto) 8.11 H (1.80-7.00) 10^3/uL Lymph # (Auto) 0.65 L (1.00-4.80) 10^3/uL [place] # (Auto) 0.70 (0.00-0.80) 10^3/uL Eos # (Auto) 0.03 (0.00-0.45) 10^3/uL Baso # (Auto) 0.01 10^3/uL D-Dimer, Quantitative (0.00-0.50) Sodium 132 L (136-145) mEq/L Potassium 2.7 L* (3.5-5.0) mEq/L Chloride 91 L (98-106) mEq/L Carbon Dioxide 33 H (21-32) mmol/L BUN 8 (7-18) mg/dL Creatinine 0.7 (0.7-1.3) mg/dL Est Cr Clr Drug Dosing TNP Estimated GFR (MDRD) > 60 (>=60) mL/min Glucose 139 H D (75-99) mg/dL POC Glucose (75-105) mg/dL Lactic Acid 1.1 (0.4-2.0) mmol/L Calcium 8.8 (8.4-10.1) mg/dL Magnesium 1.0 L (1.8-2.4) mg/dL Total Bilirubin 1.1 H (0.0-1.0) mg/dL AST 70 H (15-37) U/L ALT 48 (12-78) U/L Alkaline Phosphatase 218 H (46-116) U/L Lactate Dehydrogenase 108 (100-190) U/L Creatine Kinase 6 L (35-232) U/L Troponin I < 0.017 (0.00-0.06) ng/mL Total Protein 6.0 L (6.4-8.2) g/dL Albumin 1.8 L (3.4-5.0) g/dL 03/17/21 03/17/21 03/18/21 Range/Units 11:51 21:16 06:00 WBC 8.8 (5.0-10.0) 10^3/uL RBC 3.18 L (4.50-6.00) 10^6/uL Hgb 8.9 L (14.0-18.0) g/dL Hct 27.8 L (40.0-54.0) % MCV 87.4 (82.0-94.0) fL MCH 28.0 (27.0-32.0) pg MCHC 32.0 L (33.0-38.0) g/dL RDW Coeff of [place] 17.2 H (11.0-15.0) % Plt Count 365 (150-400) 10^3/uL Neut % (Auto) 85.2 H (35-85) % Lymph % (Auto) 8.8 L (10-55) % [place] % (Auto) 5.2 (0-16) % Eos % (Auto) 0.7 (0-5) % Baso % (Auto) 0.1 (0-3) % Neut # (Auto) 7.47 H (1.80-7.00) 10^3/uL Lymph # (Auto) 0.77 L (1.00-4.80) 10^3/uL [place] # (Auto) 0.46 (0.00-0.80) 10^3/uL Eos # (Auto) 0.06 (0.00-0.45) 10^3/uL Baso # (Auto) 0.01 10^3/uL D-Dimer, Quantitative 2.23 H (0.00-0.50) Sodium (136-145) mEq/L Potassium (3.5-5.0) mEq/L Chloride (98-106) mEq/L Carbon Dioxide (21-32) mmol/L BUN (7-18) mg/dL Creatinine (0.7-1.3) mg/dL Est Cr Clr Drug Dosing Estimated GFR (MDRD) (>=60) mL/min Glucose (75-99) mg/dL POC Glucose 177 H (75-105) mg/dL Lactic Acid (0.4-2.0) mmol/L Calcium (8.4-10.1) mg/dL Magnesium (1.8-2.4) mg/dL Total Bilirubin (0.0-1.0) mg/dL AST (15-37) U/L ALT (12-78) U/L Alkaline Phosphatase (46-116) U/L Lactate Dehydrogenase (100-190) U/L Creatine Kinase (35-232) U/L Troponin I (0.00-0.06) ng/mL Total Protein (6.4-8.2) g/dL Albumin (3.4-5.0) g/dL 03/18/21 Range/Units 06:00 WBC (5.0-10.0) 10^3/uL RBC (4.50-6.00) 10^6/uL Hgb (14.0-18.0) g/dL Hct (40.0-54.0) % MCV (82.0-94.0) fL MCH (27.0-32.0) pg MCHC (33.0-38.0) g/dL RDW Coeff of [place] (11.0-15.0) % Plt Count (150-400) 10^3/uL Neut % (Auto) (35-85) % Lymph % (Auto) (10-55) % [place] % (Auto) (0-16) % Eos % (Auto) (0-5) % Baso % (Auto) (0-3) % Neut # (Auto) (1.80-7.00) 10^3/uL Lymph # (Auto) (1.00-4.80) 10^3/uL [place] # (Auto) (0.00-0.80) 10^3/uL Eos # (Auto) (0.00-0.45) 10^3/uL Baso # (Auto) 10^3/uL D-Dimer, Quantitative (0.00-0.50) Sodium 136 (136-145) mEq/L Potassium 3.4 L D (3.5-5.0) mEq/L Chloride 96 L (98-106) mEq/L Carbon Dioxide 33 H (21-32) mmol/L BUN 9 (7-18) mg/dL Creatinine 0.7 (0.7-1.3) mg/dL Est Cr Clr Drug Dosing 80.64 Estimated GFR (MDRD) > 60 (>=60) mL/min Glucose 162 H (75-99) mg/dL POC Glucose (75-105) mg/dL Lactic Acid (0.4-2.0) mmol/L Calcium 8.7 (8.4-10.1) mg/dL Magnesium 1.8 (1.8-2.4) mg/dL Total Bilirubin (0.0-1.0) mg/dL AST (15-37) U/L ALT (12-78) U/L Alkaline Phosphatase (46-116) U/L Lactate Dehydrogenase (100-190) U/L Creatine Kinase (35-232) U/L Troponin I (0.00-0.06) ng/mL Total Protein (6.4-8.2) g/dL Albumin (3.4-5.0) g/dL Med Orders - Current: Current Medications Acetaminophen (Acetaminophen 325 Mg Tab) 650 mg PO Q4H PRN PRN Reason: Pain (Mild 1-3)/fever Last Admin: 03/17/21 16:17 Dose: 650 mg Documented by: Albuterol (Albuterol 0.083% 2.5 Mg/3 Ml Neb Soln) 2.5 mg NEB Q4H PRN PRN Reason: Dyspnea Last Admin: 03/18/21 08:12 Dose: 2.5 mg Documented by: Apixaban (Apixaban 5 Mg Tab) 5 mg PO BID [facility] Last Admin: 03/18/21 07:21 Dose: 5 mg Documented by: Lactated Ringer's (Ringers, Lactated) 1,000 mls @ 100 mls/hr IV ASDIRECTED [facility] Last Admin: 03/17/21 23:16 Dose: 100 mls/hr Documented by: Insulin Glargine (Insulin Glarg,Human.Rec.Analog 100 Unit/Ml) 15 unit SUBCUT BEDTIME [facility] Magnesium Chloride (Magnesium Chloride 64 Mg Tab.Er) 128 mg PO BIDMEALS [facility] Last Admin: 03/18/21 07:21 Dose: 128 mg Documented by: Nicotine (Nicotine 14 Mg/24 Hr Patch) 14 mg TRDERM DAILY [facility] Last Admin: 03/18/21 07:20 Dose: 14 mg Documented by: Buprenorphine/Naloxone 8-2mg Sl Tab Pt Own 0 tab SL DAILY [facility] Last Admin: 03/18/21 07:25 Dose: 1 tab Documented by: Ondansetron HCl (Ondansetron 4 Mg Tab.Dis) 8 mg PO TID PRN PRN Reason: Nausea Pantoprazole Sodium (Pantoprazole 40 Mg Vial) 40 mg IVPUSH BID [facility] Last Admin: 03/18/21 07:21 Dose: 40 mg Documented by: Potassium Chloride (Potassium Chloride 10 Meq Tab.Er) 20 meq PO TIDMEALS [facility] Last Admin: 03/18/21 07:20 Dose: 20 meq Documented by: Discontinued Medications Potassium Chloride 40 meq/ (Premix) 100 mls @ 25 mls/hr IV ONETIME ONE Stop: 03/17/21 16:46 Last Admin: 03/17/21 13:13 Dose: 25 mls/hr Documented by: Magnesium Sulfate (Magnesium Sulfate In Water 2 Gm/50 Ml) 2 gm in 50 mls @ 50 mls/hr IV ONETIME ONE Stop: 03/17/21 13:47 Last Admin: 03/17/21 13:37 Dose: Not Given Documented by: Magnesium Sulfate (Magnesium Sulfate In Water 2 Gm/50 Ml) 4 gm in 100 mls @ 50 mls/hr IV ONETIME ONE Stop: 03/17/21 14:48 Last Admin: 03/17/21 13:30 Dose: 50 mls/hr Documented by: - Exam General: Alert, Oriented, Cooperative Lungs: Decreased Breath Sounds, Rhonchi, Wheezing Cardiovascular: Regular Rate, Regular Rhythm, No Murmurs GI/Abdominal Exam: Normal Bowel Sounds, Soft, Non-Tender Extremities: Normal Inspection, No Pedal Edema Peripheral Pulses: 1+: Dorsalis Pedis (L), Dorsalis Pedis (R) Skin: Warm, Dry, Intact Psy/Mental Status: Alert, Normal Affect, Normal Mood - Patient Data Lab Results Last 24 hrs: Laboratory Results - last 24 hr 03/17/21 03/17/21 03/17/21 Range/Units 11:48 11:48 11:48 WBC 9.5 (5.0-10.0) 10^3/uL RBC 3.52 L (4.50-6.00) 10^6/uL Hgb 9.9 L (14.0-18.0) g/dL Hct 30.2 L (40.0-54.0) % MCV 85.8 (82.0-94.0) fL MCH 28.1 (27.0-32.0) pg MCHC 32.8 L (33.0-38.0) g/dL RDW Coeff of Marquis 17.2 H (11.0-15.0) % Plt Count 432 H (150-400) 10^3/uL Neut % (Auto) 85.4 H (35-85) % Lymph % (Auto) 6.8 L (10-55) % [place] % (Auto) 7.4 (0-16) % Eos % (Auto) 0.3 (0-5) % Baso % (Auto) 0.1 (0-3) % Neut # (Auto) 8.11 H (1.80-7.00) 10^3/uL Lymph # (Auto) 0.65 L (1.00-4.80) 10^3/uL [place] # (Auto) 0.70 (0.00-0.80) 10^3/uL Eos # (Auto) 0.03 (0.00-0.45) 10^3/uL Baso # (Auto) 0.01 10^3/uL D-Dimer, Quantitative (0.00-0.50) Sodium 132 L (136-145) mEq/L Potassium 2.7 L* (3.5-5.0) mEq/L Chloride 91 L (98-106) mEq/L Carbon Dioxide 33 H (21-32) mmol/L BUN 8 (7-18) mg/dL Creatinine 0.7 (0.7-1.3) mg/dL Est Cr Clr Drug Dosing TNP Estimated GFR (MDRD) > 60 (>=60) mL/min Glucose 139 H D (75-99) mg/dL POC Glucose (75-105) mg/dL Lactic Acid 1.1 (0.4-2.0) mmol/L Calcium 8.8 (8.4-10.1) mg/dL Magnesium 1.0 L (1.8-2.4) mg/dL Total Bilirubin 1.1 H (0.0-1.0) mg/dL AST 70 H (15-37) U/L ALT 48 (12-78) U/L Alkaline Phosphatase 218 H (46-116) U/L Lactate Dehydrogenase 108 (100-190) U/L Creatine Kinase 6 L (35-232) U/L Troponin I < 0.017 (0.00-0.06) ng/mL Total Protein 6.0 L (6.4-8.2) g/dL Albumin 1.8 L (3.4-5.0) g/dL 03/17/21 03/17/21 03/18/21 Range/Units 11:51 21:16 06:00 WBC 8.8 (5.0-10.0) 10^3/uL RBC 3.18 L (4.50-6.00) 10^6/uL Hgb 8.9 L (14.0-18.0) g/dL Hct 27.8 L (40.0-54.0) % MCV 87.4 (82.0-94.0) fL MCH 28.0 (27.0-32.0) pg MCHC 32.0 L (33.0-38.0) g/dL RDW Coeff of [place] 17.2 H (11.0-15.0) % Plt Count 365 (150-400) 10^3/uL Neut % (Auto) 85.2 H (35-85) % Lymph % (Auto) 8.8 L (10-55) % [place] % (Auto) 5.2 (0-16) % Eos % (Auto) 0.7 (0-5) % Baso % (Auto) 0.1 (0-3) % Neut # (Auto) 7.47 H (1.80-7.00) 10^3/uL Lymph # (Auto) 0.77 L (1.00-4.80) 10^3/uL [place] # (Auto) 0.46 (0.00-0.80) 10^3/uL Eos # (Auto) 0.06 (0.00-0.45) 10^3/uL Baso # (Auto) 0.01 10^3/uL D-Dimer, Quantitative 2.23 H (0.00-0.50) Sodium (136-145) mEq/L Potassium (3.5-5.0) mEq/L Chloride (98-106) mEq/L Carbon Dioxide (21-32) mmol/L BUN (7-18) mg/dL Creatinine (0.7-1.3) mg/dL Est Cr Clr Drug Dosing Estimated GFR (MDRD) (>=60) mL/min Glucose (75-99) mg/dL POC Glucose 177 H (75-105) mg/dL Lactic Acid (0.4-2.0) mmol/L Calcium (8.4-10.1) mg/dL Magnesium (1.8-2.4) mg/dL Total Bilirubin (0.0-1.0) mg/dL AST (15-37) U/L ALT (12-78) U/L Alkaline Phosphatase (46-116) U/L Lactate Dehydrogenase (100-190) U/L Creatine Kinase (35-232) U/L Troponin I (0.00-0.06) ng/mL Total Protein (6.4-8.2) g/dL Albumin (3.4-5.0) g/dL 03/18/21 Range/Units 06:00 WBC (5.0-10.0) 10^3/uL RBC (4.50-6.00) 10^6/uL Hgb (14.0-18.0) g/dL Hct (40.0-54.0) % MCV (82.0-94.0) fL MCH (27.0-32.0) pg MCHC (33.0-38.0) g/dL RDW Coeff of [place]quis (11.0-15.0) % Plt Count (150-400) 10^3/uL Neut % (Auto) (35-85) % Lymph % (Auto) (10-55) % [place] % (Auto) (0-16) % Eos % (Auto) (0-5) % Baso % (Auto) (0-3) % Neut # (Auto) (1.80-7.00) 10^3/uL Lymph # (Auto) (1.00-4.80) 10^3/uL [place] # (Auto) (0.00-0.80) 10^3/uL Eos # (Auto) (0.00-0.45) 10^3/uL Baso # (Auto) 10^3/uL D-Dimer, Quantitative (0.00-0.50) Sodium 136 (136-145) mEq/L Potassium 3.4 L D (3.5-5.0) mEq/L Chloride 96 L (98-106) mEq/L Carbon Dioxide 33 H (21-32) mmol/L BUN 9 (7-18) mg/dL Creatinine 0.7 (0.7-1.3) mg/dL Est Cr Clr Drug Dosing 80.64 Estimated GFR (MDRD) > 60 (>=60) mL/min Glucose 162 H (75-99) mg/dL POC Glucose (75-105) mg/dL Lactic Acid (0.4-2.0) mmol/L Calcium 8.7 (8.4-10.1) mg/dL Magnesium 1.8 (1.8-2.4) mg/dL Total Bilirubin (0.0-1.0) mg/dL AST (15-37) U/L ALT (12-78) U/L Alkaline Phosphatase (46-116) U/L Lactate Dehydrogenase (100-190) U/L Creatine Kinase (35-232) U/L Troponin I (0.00-0.06) ng/mL Total Protein (6.4-8.2) g/dL Albumin (3.4-5.0) g/dL Result Diagrams: 03/18/21 06:00 03/18/21 06:00 Sepsis Event Note - Evaluation Sepsis Screening Result: No Definite Risk - Focused Exam Vital Signs: Vital Signs Temp Pulse Resp BP Pulse Ox 03/18/21 08:05 94 L 03/18/21 08:00 98.9 F 93 22 H 90/46 L 86 L 03/18/21 04:00 98.1 F 91 20 101/51 L 96 03/17/21 23:17 97.6 F 81 20 90/62 99 - Problem List & Annotations (1) Cancer of right lung SNOMED Code(s): 047789672 Code(s): C34.91 - MALIGNANT NEOPLASM OF UNSP PART OF RIGHT BRONCHUS OR LUNG Status: Acute Current Visit: Yes (2) Anemia SNOMED Code(s): 822600414 Code(s): D64.9 - ANEMIA, UNSPECIFIED Status: Acute Current Visit: No Qualifiers: Anemia type: other cause Other causes of anemia: antineoplastic chemotherapy Qualified Code(s): D64.81 - Anemia due to antineoplastic chemotherapy; T45.1X5A - Adverse effect of antineoplastic and immunosuppressive drugs, initial encounter (3) Hypokalemia SNOMED Code(s): 41679503 Code(s): E87.6 - HYPOKALEMIA Status: Acute Priority: High Current Visit: No (4) Hypomagnesemia SNOMED Code(s): 765530476 Code(s): E83.42 - HYPOMAGNESEMIA Status: Acute Current Visit: No - Problem List Review Problem List Initiated/Reviewed/Updated: No - Plan Plan:: On admission potassium was 2.7 and currently 3.4 today. Magnesium has improved from 1.0 to 1.8 today. Will give 2gm of magnesium today and will continue with potassium supplementation. Lana has reached out to Dr. Richmond's office in regards to further treatment. Patient is currently on oxygen and will need evaluation for home oxygen as well.
[2021-03-18] MEDS ORDERED: Magnesium Sulfate/Water 2 GM/50 ML BAG IV ONE (10:30)
[2021-03-18] MEDS: Lactated Ringers 1,000 ML IV SCH ×3 (10:32→20:36)
[2021-03-18] MEDS ORDERED: Potassium Chloride 20 MEQ in Premix Bag 1 BAG IV ONE (12:30)
[2021-03-18] MEDS: Levofloxacin/Dextrose 5%-Water 500 MG in Premix Bag 1 BAG IV SCH (15:47)
[2021-03-18] MEDS: Folic Acid 1 MG Tab PO SCH (15:48)
[2021-03-18] MEDS: Cyanocobalamin (Vitamin B12) 1,000 MCG Tab PO SCH (15:48)
[2021-03-18] MEDS: Acetaminophen 325 MG Tab PO PRN (18:54)
[2021-03-19 07:23] LABS: CHLORIDE,CL 97 mEq/L (98-106); SODIUM,NA 135 mEq/L (136-145)
[2021-03-19] MEDS: Cyanocobalamin (Vitamin B12) 1,000 MCG Tab PO SCH (08:16)
[2021-03-19] MEDS: Apixaban 5 MG Tab PO SCH ×2 (08:16→19:57)
[2021-03-19] MEDS: Magnesium Chloride 64 MG Tab.ER PO SCH ×2 (08:16→16:34)
[2021-03-19] MEDS: Folic Acid 1 MG Tab PO SCH (08:16)
[2021-03-19] MEDS: Nicotine 14 MG/24 Hr Patch TRDERM SCH (08:16)
[2021-03-19] MEDS: Potassium Chloride 10 MEQ Tab.ER PO SCH ×3 (08:16→16:34)
[2021-03-19] MEDS: Pantoprazole 40 MG Vial IVPUSH SCH ×2 (08:24→19:57)
[2021-03-19] MEDS: BUPRENORPHINE SL SCH (08:27)
[2021-03-19] MEDS: NALOXONE SL SCH (08:27)
[2021-03-19] MEDS: Lactated Ringers 1,000 ML IV SCH ×2 (08:37→22:47)
--- NOTE | 2021-03-19 10:08 | PCM.PN ---
- General Info Date of Service: 03/19/21 Subjective Update: Te is a 60 yo male who was admitted from the hospital yesterday d/t weakness, hypokalemia, hypomagnesemia. Patient has metastatic lung cancer and unable to undergo further chemotherapy. Patient is waiting to hear back from Dr. Richmond's office in regards to whether radiation is an option. Patient requests full code and wants to know his options. He states he was gradually getting worse again and not feeling well. Has known history of electrolyte imbalances. Te states he feels about the same today. He denies any chest discomfort. States he would like to be able to get home at some point as his son is there. He hasn't been up ambulating much as he just doesn't feel like it. Admits he isn't drinking much for fluids or really have any appetite. Denies any abdominal pain. No increased shortness of breath. States overall he isn't any worse than on admit. Nursing staff state he did run a low grade temperature last night but declined any Tylenol. Cough has improved with medication. Functional Status: Reports: Urinating. Denies: Tolerating Diet, New Symptoms - Review of Systems General: Reports: Fever, Weakness, Fatigue, Appetite (no) HEENT: Reports: No Symptoms Pulmonary: Reports: Shortness of Breath, Pleuritic Chest Pain, Cough Cardiovascular: Reports: No Symptoms Gastrointestinal: Reports: No Symptoms Genitourinary: Reports: No Symptoms Musculoskeletal: Reports: No Symptoms Neurological: Reports: No Symptoms - Patient Data Vitals - Most Recent: Last Vital Signs Temp 100.1 F 03/19/21 08:00 Pulse 101 H 03/19/21 08:00 Resp 20 03/19/21 08:00 BP 92/52 L 03/19/21 08:00 Pulse Ox 97 03/19/21 08:00 Weight - Most Recent: 112 lb I&O - Last 24 Hours: Intake & Output 03/18/21 03/19/21 03/19/21 22:59 06:59 14:59 Intake Total 874 1000 Balance 874 1000 Lab Results Last 24 Hours: Laboratory Results - last 24 hr 03/18/21 03/19/21 03/19/21 Range/Units 21:36 07:00 07:00 WBC 7.7 (5.0-10.0) 10^3/uL RBC 2.96 L (4.50-6.00) 10^6/uL Hgb 8.2 L (14.0-18.0) g/dL Hct 26.3 L (40.0-54.0) % MCV 88.9 (82.0-94.0) fL MCH 27.7 (27.0-32.0) pg MCHC 31.2 L (33.0-38.0) g/dL RDW Coeff of Marquis 17.3 H (11.0-15.0) % Plt Count 346 (150-400) 10^3/uL Neut % (Auto) 85.3 H (35-85) % Lymph % (Auto) 7.5 L (10-55) % [place] % (Auto) 6.4 (0-16) % Eos % (Auto) 0.7 (0-5) % Baso % (Auto) 0.1 (0-3) % Neut # (Auto) 6.56 (1.80-7.00) 10^3/uL Lymph # (Auto) 0.58 L (1.00-4.80) 10^3/uL [place] # (Auto) 0.49 (0.00-0.80) 10^3/uL Eos # (Auto) 0.05 (0.00-0.45) 10^3/uL Baso # (Auto) 0.01 10^3/uL Sodium 135 L (136-145) mEq/L Potassium 4.2 D (3.5-5.0) mEq/L Chloride 97 L (98-106) mEq/L Carbon Dioxide 30 (21-32) mmol/L BUN 8 (7-18) mg/dL Creatinine 0.6 L (0.7-1.3) mg/dL Est Cr Clr Drug Dosing 94.08 mL/min Estimated GFR (MDRD) > 60 (>=60) mL/min Glucose 142 H (75-99) mg/dL POC Glucose 190 H (75-105) mg/dL Calcium 8.8 (8.4-10.1) mg/dL Magnesium 1.3 L (1.8-2.4) mg/dL Med Orders - Current: Current Medications Acetaminophen (Acetaminophen 325 Mg Tab) 650 mg PO Q4H PRN PRN Reason: Pain (Mild 1-3)/fever Last Admin: 03/18/21 18:54 Dose: 650 mg Documented by: Albuterol (Albuterol 0.083% 2.5 Mg/3 Ml Neb Soln) 2.5 mg NEB Q4H PRN PRN Reason: Dyspnea Last Admin: 03/18/21 08:12 Dose: 2.5 mg Documented by: Apixaban (Apixaban 5 Mg Tab) 5 mg PO BID [facility] Last Admin: 03/19/21 08:16 Dose: 5 mg Documented by: Cyanocobalamin (Cyanocobalamin (Vitamin B12) 1,000 Mcg Tab) 1,000 mcg PO DAILY [facility] Last Admin: 03/19/21 08:16 Dose: 1,000 mcg Documented by: Folic Acid (Folic Acid 1 Mg Tab) 1 mg PO DAILY [facility] Last Admin: 03/19/21 08:16 Dose: 1 mg Documented by: Lactated Ringer's (Ringers, Lactated) 1,000 mls @ 75 mls/hr IV ASDIRECTED [facility] Last Admin: 03/19/21 08:37 Dose: 250 mls/hr Documented by: Levofloxacin/Dextrose 500 mg/ (Premix) 100 mls @ 100 mls/hr IV DAILY@1600 [facility] Last Admin: 03/18/21 15:47 Dose: 100 mls/hr Documented by: Insulin Glargine (Insulin Glarg,Human.Rec.Analog 100 Unit/Ml) 15 unit SUBCUT BEDTIME [facility] Magnesium Chloride (Magnesium Chloride 64 Mg Tab.Er) 128 mg PO BIDMEALS [facility] Last Admin: 03/19/21 08:16 Dose: 128 mg Documented by: Nicotine (Nicotine 14 Mg/24 Hr Patch) 14 mg TRDERM DAILY [facility] Last Admin: 03/19/21 08:16 Dose: 14 mg Documented by: Buprenorphine/Naloxone 8-2mg Sl Tab Pt Own 0 tab SL DAILY [facility] Last Admin: 03/19/21 08:27 Dose: 1 tab Documented by: Ondansetron HCl (Ondansetron 4 Mg Tab.Dis) 8 mg PO TID PRN PRN Reason: Nausea Pantoprazole Sodium (Pantoprazole 40 Mg Vial) 40 mg IVPUSH BID [facility] Last Admin: 03/19/21 08:24 Dose: 40 mg Documented by: Potassium Chloride (Potassium Chloride 10 Meq Tab.Er) 20 meq PO TIDMEALS [facility] Last Admin: 03/19/21 08:16 Dose: 20 meq Documented by: Promethazine HCl/Codeine (Codeine/Promethazine 10-6.25 Mg/5 Ml Syrup 5 Ml Ud Cup) 5 - 10 ml PO Q4H PRN PRN Reason: Cough Discontinued Medications Potassium Chloride 40 meq/ (Premix) 100 mls @ 25 mls/hr IV ONETIME ONE Stop: 03/17/21 16:46 Last Admin: 03/17/21 13:13 Dose: 25 mls/hr Documented by: Magnesium Sulfate (Magnesium Sulfate In Water 2 Gm/50 Ml) 2 gm in 50 mls @ 50 mls/hr IV ONETIME ONE Stop: 03/17/21 13:47 Last Admin: 03/17/21 13:37 Dose: Not Given Documented by: Magnesium Sulfate (Magnesium Sulfate In Water 2 Gm/50 Ml) 4 gm in 100 mls @ 50 mls/hr IV ONETIME ONE Stop: 03/17/21 14:48 Last Admin: 03/17/21 13:30 Dose: 50 mls/hr Documented by: Magnesium Sulfate (Magnesium Sulfate In Water 2 Gm/50 Ml) 2 gm in 50 mls @ 25 mls/hr IV ONETIME ONE Stop: 03/18/21 12:29 Last Admin: 03/18/21 10:32 Dose: 25 mls/hr Documented by: Potassium Chloride 20 meq/ (Premix) 100 mls @ 50 mls/hr IV ONETIME ONE Stop: 03/18/21 14:29 Last Admin: 03/18/21 12:19 Dose: 50 mls/hr Documented by: - Exam General: Alert, Oriented, Cooperative, Other (cachectic) Neck: Supple Lungs: Decreased Breath Sounds, Rhonchi, Wheezing Cardiovascular: Regular Rate, Regular Rhythm, No Murmurs GI/Abdominal Exam: Normal Bowel Sounds, Soft, Non-Tender Extremities: Normal Inspection, No Pedal Edema Skin: Warm, Dry, Intact Neurological: No New Focal Deficit Psy/Mental Status: Alert, Depressed - Patient Data Lab Results Last 24 hrs: Laboratory Results - last 24 hr 03/18/21 03/19/21 03/19/21 Range/Units 21:36 07:00 07:00 WBC 7.7 (5.0-10.0) 10^3/uL RBC 2.96 L (4.50-6.00) 10^6/uL Hgb 8.2 L (14.0-18.0) g/dL Hct 26.3 L (40.0-54.0) % MCV 88.9 (82.0-94.0) fL MCH 27.7 (27.0-32.0) pg MCHC 31.2 L (33.0-38.0) g/dL RDW Coeff of Marquis 17.3 H (11.0-15.0) % Plt Count 346 (150-400) 10^3/uL Neut % (Auto) 85.3 H (35-85) % Lymph % (Auto) 7.5 L (10-55) % [place] % (Auto) 6.4 (0-16) % Eos % (Auto) 0.7 (0-5) % Baso % (Auto) 0.1 (0-3) % Neut # (Auto) 6.56 (1.80-7.00) 10^3/uL Lymph # (Auto) 0.58 L (1.00-4.80) 10^3/uL [place] # (Auto) 0.49 (0.00-0.80) 10^3/uL Eos # (Auto) 0.05 (0.00-0.45) 10^3/uL Baso # (Auto) 0.01 10^3/uL Sodium 135 L (136-145) mEq/L Potassium 4.2 D (3.5-5.0) mEq/L Chloride 97 L (98-106) mEq/L Carbon Dioxide 30 (21-32) mmol/L BUN 8 (7-18) mg/dL Creatinine 0.6 L (0.7-1.3) mg/dL Est Cr Clr Drug Dosing 94.08 mL/min Estimated GFR (MDRD) > 60 (>=60) mL/min Glucose 142 H (75-99) mg/dL POC Glucose 190 H (75-105) mg/dL Calcium 8.8 (8.4-10.1) mg/dL Magnesium 1.3 L (1.8-2.4) mg/dL Result Diagrams: 03/19/21 07:00 03/19/21 07:00 Sepsis Event Note - Evaluation Sepsis Screening Result: No Definite Risk - Focused Exam Vital Signs: Vital Signs Temp Pulse Resp BP Pulse Ox 03/19/21 08:00 100.1 F 101 H 20 92/52 L 97 03/19/21 04:00 99.6 F 94 18 96/61 97 03/19/21 00:00 98.1 F 87 20 82/53 L 96 - Problem List & Annotations (1) Cancer of right lung SNOMED Code(s): 118393633 Code(s): C34.91 - MALIGNANT NEOPLASM OF UNSP PART OF RIGHT BRONCHUS OR LUNG Status: Acute Priority: High Current Visit: Yes Qualifiers: Lung location: unspecified part of lung Qualified Code(s): C34.91 - Malignant neoplasm of unspecified part of right bronchus or lung (2) Anemia SNOMED Code(s): 604873810 Code(s): D64.9 - ANEMIA, UNSPECIFIED Status: Acute Current Visit: No Qualifiers: Anemia type: other cause Other causes of anemia: antineoplastic chemotherapy Qualified Code(s): D64.81 - Anemia due to antineoplastic chemotherapy; T45.1X5A - Adverse effect of antineoplastic and immunosuppressive drugs, initial encounter (3) Hypokalemia SNOMED Code(s): 80588471 Code(s): E87.6 - HYPOKALEMIA Status: Acute Priority: High Current Visit: Yes (4) Hypomagnesemia SNOMED Code(s): 197926740 Code(s): E83.42 - HYPOMAGNESEMIA Status: Acute Priority: High Current Visit: Yes - Problem List Review Problem List Initiated/Reviewed/Updated: Yes - My Orders Last 24 Hours: My Active Orders 03/18/21 09:56 Codeine/Promethazine [Phenergan with Codeine] 5 - 10 ml PO Q4H PRN 03/18/21 15:30 Cyanocobalamin (Vitamin B12) [Vitamin B12] 1,000 mcg PO DAILY Folic Acid 1 mg PO DAILY 03/18/21 16:00 Levofloxacin/Dextrose 5%-Water [Levaquin in D5W 500 MG/100 ML] 500 mg Premix Bag 1 bag IV DAILY@1600 - Plan Plan:: On admission potassium was 2.7 and currently 3.4 today. Magnesium has improved from 1.0 to 1.8 today. Will give 2gm of magnesium today and will continue with potassium supplementation. Lana has reached out to Dr. Richmond's office in regards to further treatment. Patient is currently on oxygen and will need evaluation for home oxygen as well. I spoke with Dr. Richmond yesterday afternoon in regards to Te's current sta tus. She did inform me he is not a candidate for radiation per radiation oncologist. She states he will have to consider a different chemotherapy medication as he didn't do well and significantly declined with prior treatment. I discussed my conversation with Dr. Richmond to Te and he voiced unde rstanding. I also discussed transfer to higher level of care for all possible options, which he declined at this time. Does state his wishes to go home when able. He was started on Folic acid and Vitamin B12 yesterday as he needs to be on for 1 week prior to starting new chemotherapy. Hgb has gradually declined and will type and cross with holding 2 units. If Hgb and electrolytes are stable in the am may discharge home so he can be with his family. Potassium is normal today. Magnesium continues to be chronically low. Will give 4gm magnesium IV today. Will continue IV fluids as he isn't drinking much. Discussed he needs to ambulate and show he can care for himself at home. Will evaluate for home oxygen today as well, which discussed he may need to be on chronically at this time.
[2021-03-19] MEDS: Magnesium Sulfate/Water 2 GM/50 ML BAG IV SCH ×2 (11:01→12:30)
[2021-03-19] MEDS: Levofloxacin/Dextrose 5%-Water 500 MG in Premix Bag 1 BAG IV SCH (16:35)
[2021-03-19] MEDS: Acetaminophen 325 MG Tab PO PRN (18:41)
[2021-03-19] MEDS: Codeine/Promethazine 10-6.25 MG/5 ML Syrup 5 ML UD Cup PO PRN (22:46)
[2021-03-20 07:38] LABS: CHLORIDE,CL 100 mEq/L (98-106); SODIUM,NA 137 mEq/L (136-145)
[2021-03-20] MEDS: Magnesium Chloride 64 MG Tab.ER PO SCH ×2 (08:03→17:07)
[2021-03-20] MEDS: Pantoprazole 40 MG Vial IVPUSH SCH ×2 (08:04→19:29)
[2021-03-20] MEDS: Cyanocobalamin (Vitamin B12) 1,000 MCG Tab PO SCH (08:05)
[2021-03-20] MEDS: Folic Acid 1 MG Tab PO SCH (08:06)
[2021-03-20] MEDS: Apixaban 5 MG Tab PO SCH ×2 (08:06→19:29)
[2021-03-20] MEDS: Nicotine 14 MG/24 Hr Patch TRDERM SCH (08:06)
[2021-03-20] MEDS: Potassium Chloride 10 MEQ Tab.ER PO SCH ×3 (08:06→17:07)
[2021-03-20] MEDS: NALOXONE SL SCH (08:08)
[2021-03-20] MEDS: BUPRENORPHINE SL SCH (08:08)
[2021-03-20] MEDS: Acetaminophen 325 MG Tab PO PRN (08:19)
--- NOTE | 2021-03-20 08:45 | PCM.PN ---
- General Info Date of Service: 03/20/21 Subjective Update: Te is a 60 yo male who was admitted from the hospital yesterday d/t weakness, hypokalemia, hypomagnesemia. Patient has metastatic lung cancer and unable to undergo further chemotherapy. Patient is waiting to hear back from Dr. Richmond's office in regards to whether radiation is an option. Patient requests full code and wants to know his options. He states he was gradually getting worse again and not feeling well. Has known history of electrolyte imbalances. Te states he feels about the same today. He denies any chest discomfort. States he would like to be able to get home at some point as his son is there. He hasn't been up ambulating much as he just doesn't feel like it. Admits he isn't drinking much for fluids or really have any appetite. Denies any abdominal pain. No increased shortness of breath. States overall he isn't any worse than on admit. Nursing staff state he did run a low grade temperature last night but declined any Tylenol. Cough has improved with medication. Te states he slept well last night. Admits the cough syrup did help with his cough and allowed him to get a good nights rest. He is voicing his frustration with his cancer treatment and states he isn't ready to stop. Wants to know what is next for him. States he is ready to try the next chemotherapy medication but hasn't heard from his oncologist. He states physical therapy did work with him last night and made him walk quite a ways. He hasn't been very keen on walking a lot. He denies any new onset of symptoms. Yesterday he was hoping to get home today but did speak with his son and family about it. They want to continue to fight and try everything before giving up, states he has nothing to lose. Functional Status: Reports: Pain Controlled. Denies: Tolerating Diet - Review of Systems General: Reports: Fever, Weakness HEENT: Reports: No Symptoms Pulmonary: Reports: Shortness of Breath, Pleuritic Chest Pain, Cough Cardiovascular: Reports: No Symptoms Gastrointestinal: Denies: Abdominal Pain, Diarrhea, Nausea, Vomiting Genitourinary: Reports: No Symptoms Musculoskeletal: Reports: No Symptoms Neurological: Reports: No Symptoms Psychiatric: Reports: No Symptoms - Patient Data Vitals - Most Recent: Last Vital Signs Temp 101.0 F H 03/20/21 08:00 Pulse 114 H 03/20/21 08:00 Resp 20 03/20/21 08:00 BP 105/59 L 03/20/21 08:00 Pulse Ox 94 L 03/20/21 08:00 Weight - Most Recent: 112 lb Lab Results Last 24 Hours: Laboratory Results - last 24 hr 03/19/21 03/19/21 03/19/21 Range/Units 10:14 14:06 23:06 WBC (5.0-10.0) 10^3/uL RBC (4.50-6.00) 10^6/uL Hgb 8.2 L (14.0-18.0) g/dL Hct (40.0-54.0) % MCV (82.0-94.0) fL MCH (27.0-32.0) pg MCHC (33.0-38.0) g/dL RDW Coeff of Marquis (11.0-15.0) % Plt Count (150-400) 10^3/uL Neut % (Auto) (35-85) % Lymph % (Auto) (10-55) % Dickson % (Auto) (0-16) % Eos % (Auto) (0-5) % Baso % (Auto) (0-3) % Neut # (Auto) (1.80-7.00) 10^3/uL Lymph # (Auto) (1.00-4.80) 10^3/uL Dickson # (Auto) (0.00-0.80) 10^3/uL Eos # (Auto) (0.00-0.45) 10^3/uL Baso # (Auto) 10^3/uL Sodium (136-145) mEq/L Potassium (3.5-5.0) mEq/L Chloride (98-106) mEq/L Carbon Dioxide (21-32) mmol/L BUN (7-18) mg/dL Creatinine (0.7-1.3) mg/dL Est Cr Clr Drug Dosing mL/min Estimated GFR (MDRD) (>=60) mL/min Glucose (75-99) mg/dL POC Glucose 203 H (75-105) mg/dL Calcium (8.4-10.1) mg/dL Magnesium (1.8-2.4) mg/dL Blood Type O NEGATIVE Gel Antibody Screen Negative Crossmatch See Detail 03/20/21 03/20/21 Range/Units 06:00 06:00 WBC 7.8 (5.0-10.0) 10^3/uL RBC 3.17 L (4.50-6.00) 10^6/uL Hgb 8.8 L (14.0-18.0) g/dL Hct 28.0 L (40.0-54.0) % MCV 88.3 (82.0-94.0) fL MCH 27.8 (27.0-32.0) pg MCHC 31.4 L (33.0-38.0) g/dL RDW Coeff of Marquis 17.7 H (11.0-15.0) % Plt Count 366 (150-400) 10^3/uL Neut % (Auto) 81.2 (35-85) % Lymph % (Auto) 12.3 (10-55) % Dickson % (Auto) 5.8 (0-16) % Eos % (Auto) 0.6 (0-5) % Baso % (Auto) 0.1 (0-3) % Neut # (Auto) 6.34 (1.80-7.00) 10^3/uL Lymph # (Auto) 0.96 L (1.00-4.80) 10^3/uL Dickson # (Auto) 0.45 (0.00-0.80) 10^3/uL Eos # (Auto) 0.05 (0.00-0.45) 10^3/uL Baso # (Auto) 0.01 10^3/uL Sodium 137 (136-145) mEq/L Potassium 4.2 (3.5-5.0) mEq/L Chloride 100 (98-106) mEq/L Carbon Dioxide 29 (21-32) mmol/L BUN 8 (7-18) mg/dL Creatinine 0.7 (0.7-1.3) mg/dL Est Cr Clr Drug Dosing 80.64 mL/min Estimated GFR (MDRD) > 60 (>=60) mL/min Glucose 153 H (75-99) mg/dL POC Glucose (75-105) mg/dL Calcium 9.1 (8.4-10.1) mg/dL Magnesium 1.4 L (1.8-2.4) mg/dL Blood Type Gel Antibody Screen Crossmatch Med Orders - Current: Current Medications Acetaminophen (Acetaminophen 325 Mg Tab) 650 mg PO Q4H PRN PRN Reason: Pain (Mild 1-3)/fever Last Admin: 03/20/21 08:19 Dose: 650 mg Documented by: Albuterol (Albuterol 0.083% 2.5 Mg/3 Ml Neb Soln) 2.5 mg NEB Q4H PRN PRN Reason: Dyspnea Last Admin: 03/18/21 08:12 Dose: 2.5 mg Documented by: Apixaban (Apixaban 5 Mg Tab) 5 mg PO BID [facility] Last Admin: 03/20/21 08:06 Dose: 5 mg Documented by: Cyanocobalamin (Cyanocobalamin (Vitamin B12) 1,000 Mcg Tab) 1,000 mcg PO DAILY [facility] Last Admin: 03/20/21 08:05 Dose: 1,000 mcg Documented by: Folic Acid (Folic Acid 1 Mg Tab) 1 mg PO DAILY [facility] Last Admin: 03/20/21 08:06 Dose: 1 mg Documented by: Lactated Ringer's (Ringers, Lactated) 1,000 mls @ 75 mls/hr IV ASDIRECTED [facility] Last Admin: 03/19/21 22:47 Dose: 250 mls/hr Documented by: Levofloxacin/Dextrose 500 mg/ (Premix) 100 mls @ 100 mls/hr IV DAILY@1600 [facility] Last Admin: 03/19/21 16:35 Dose: 100 mls/hr Documented by: Insulin Glargine (Insulin Glarg,Human.Rec.Analog 100 Unit/Ml) 15 unit SUBCUT BEDTIME [facility] Magnesium Chloride (Magnesium Chloride 64 Mg Tab.Er) 128 mg PO BIDMEALS [facility] Last Admin: 03/20/21 08:03 Dose: 128 mg Documented by: Nicotine (Nicotine 14 Mg/24 Hr Patch) 14 mg TRDERM DAILY [facility] Last Admin: 03/20/21 08:06 Dose: 14 mg Documented by: Buprenorphine/Naloxone 8-2mg Sl Tab Pt Own 0 tab SL DAILY [facility] Last Admin: 03/20/21 08:08 Dose: 1 tab Documented by: Ondansetron HCl (Ondansetron 4 Mg Tab.Dis) 8 mg PO TID PRN PRN Reason: Nausea Pantoprazole Sodium (Pantoprazole 40 Mg Vial) 40 mg IVPUSH BID [facility] Last Admin: 03/20/21 08:04 Dose: 40 mg Documented by: Potassium Chloride (Potassium Chloride 10 Meq Tab.Er) 20 meq PO TIDMEALS [facility] Last Admin: 03/20/21 08:06 Dose: 20 meq Documented by: Promethazine HCl/Codeine (Codeine/Promethazine 10-6.25 Mg/5 Ml Syrup 5 Ml Ud C up) 5 - 10 ml PO Q4H PRN PRN Reason: Cough Last Admin: 03/19/21 22:46 Dose: 10 ml Documented by: Discontinued Medications Potassium Chloride 40 meq/ (Premix) 100 mls @ 25 mls/hr IV ONETIME ONE Stop: 03/17/21 16:46 Last Admin: 03/17/21 13:13 Dose: 25 mls/hr Documented by: Magnesium Sulfate (Magnesium Sulfate In Water 2 Gm/50 Ml) 2 gm in 50 mls @ 50 mls/hr IV ONETIME ONE Stop: 03/17/21 13:47 Last Admin: 03/17/21 13:37 Dose: Not Given Documented by: Magnesium Sulfate (Magnesium Sulfate In Water 2 Gm/50 Ml) 4 gm in 100 mls @ 50 mls/hr IV ONETIME ONE Stop: 03/17/21 14:48 Last Admin: 03/17/21 13:30 Dose: 50 mls/hr Documented by: Magnesium Sulfate (Magnesium Sulfate In Water 2 Gm/50 Ml) 2 gm in 50 mls @ 25 mls/hr IV ONETIME ONE Stop: 03/18/21 12:29 Last Admin: 03/18/21 10:32 Dose: 25 mls/hr Documented by: Potassium Chloride 20 meq/ (Premix) 100 mls @ 50 mls/hr IV ONETIME ONE Stop: 03/18/21 14:29 Last Admin: 03/18/21 12:19 Dose: 50 mls/hr Documented by: Magnesium Sulfate (Magnesium Sulfate In Water 2 Gm/50 Ml) 2 gm in 50 mls @ 25 mls/hr IV Q2H [facility] Stop: 03/19/21 14:29 Last Admin: 03/19/21 12:30 Dose: 25 mls/hr Documented by: - Exam General: Alert, Oriented, Cooperative, Other (cachectic) Neck: Supple Lungs: Decreased Breath Sounds, Rhonchi, Wheezing Cardiovascular: Regular Rhythm, No Murmurs GI/Abdominal Exam: Normal Bowel Sounds, Soft, Non-Tender, No Distention Extremities: Normal Inspection, No Pedal Edema Skin: Warm, Dry, Intact Psy/Mental Status: Alert, Depressed - Patient Data Lab Results Last 24 hrs: Laboratory Results - last 24 hr 03/19/21 03/19/21 03/19/21 Range/Units 10:14 14:06 23:06 WBC (5.0-10.0) 10^3/uL RBC (4.50-6.00) 10^6/uL Hgb 8.2 L (14.0-18.0) g/dL Hct (40.0-54.0) % MCV (82.0-94.0) fL MCH (27.0-32.0) pg MCHC (33.0-38.0) g/dL RDW Coeff of Marquis (11.0-15.0) % Plt Count (150-400) 10^3/uL Neut % (Auto) (35-85) % Lymph % (Auto) (10-55) % Dickson % (Auto) (0-16) % Eos % (Auto) (0-5) % Baso % (Auto) (0-3) % Neut # (Auto) (1.80-7.00) 10^3/uL Lymph # (Auto) (1.00-4.80) 10^3/uL Dickson # (Auto) (0.00-0.80) 10^3/uL Eos # (Auto) (0.00-0.45) 10^3/uL Baso # (Auto) 10^3/uL Sodium (136-145) mEq/L Potassium (3.5-5.0) mEq/L Chloride (98-106) mEq/L Carbon Dioxide (21-32) mmol/L BUN (7-18) mg/dL Creatinine (0.7-1.3) mg/dL Est Cr Clr Drug Dosing mL/min Estimated GFR (MDRD) (>=60) mL/min Glucose (75-99) mg/dL POC Glucose 203 H (75-105) mg/dL Calcium (8.4-10.1) mg/dL Magnesium (1.8-2.4) mg/dL Blood Type O NEGATIVE Gel Antibody Screen Negative Crossmatch See Detail 03/20/21 03/20/21 Range/Units 06:00 06:00 WBC 7.8 (5.0-10.0) 10^3/uL RBC 3.17 L (4.50-6.00) 10^6/uL Hgb 8.8 L (14.0-18.0) g/dL Hct 28.0 L (40.0-54.0) % MCV 88.3 (82.0-94.0) fL MCH 27.8 (27.0-32.0) pg MCHC 31.4 L (33.0-38.0) g/dL RDW Coeff of Marquis 17.7 H (11.0-15.0) % Plt Count 366 (150-400) 10^3/uL Neut % (Auto) 81.2 (35-85) % Lymph % (Auto) 12.3 (10-55) % Dickson % (Auto) 5.8 (0-16) % Eos % (Auto) 0.6 (0-5) % Baso % (Auto) 0.1 (0-3) % Neut # (Auto) 6.34 (1.80-7.00) 10^3/uL Lymph # (Auto) 0.96 L (1.00-4.80) 10^3/uL Dickson # (Auto) 0.45 (0.00-0.80) 10^3/uL Eos # (Auto) 0.05 (0.00-0.45) 10^3/uL Baso # (Auto) 0.01 10^3/uL Sodium 137 (136-145) mEq/L Potassium 4.2 (3.5-5.0) mEq/L Chloride 100 (98-106) mEq/L Carbon Dioxide 29 (21-32) mmol/L BUN 8 (7-18) mg/dL Creatinine 0.7 (0.7-1.3) mg/dL Est Cr Clr Drug Dosing 80.64 mL/min Estimated GFR (MDRD) > 60 (>=60) mL/min Glucose 153 H (75-99) mg/dL POC Glucose (75-105) mg/dL Calcium 9.1 (8.4-10.1) mg/dL Magnesium 1.4 L (1.8-2.4) mg/dL Blood Type Gel Antibody Screen Crossmatch Result Diagrams: 03/20/21 06:00 03/20/21 06:00 Sepsis Event Note - Evaluation Sepsis Screening Result: No Definite Risk - Focused Exam Vital Signs: Vital Signs Temp Temp Pulse Resp BP Pulse Ox 03/20/21 08:00 101.0 F H 114 H 20 105/59 L 94 L 03/20/21 00:00 97.7 F 93 20 88/56 L 95 - Problem List & Annotations (1) Cancer of right lung SNOMED Code(s): 284885953 Code(s): C34.91 - MALIGNANT NEOPLASM OF UNSP PART OF RIGHT BRONCHUS OR LUNG Status: Acute Priority: High Current Visit: Yes Qualifiers: Lung location: unspecified part of lung Qualified Code(s): C34.91 - Malignant neoplasm of unspecified part of right bronchus or lung (2) Anemia SNOMED Code(s): 436367179 Code(s): D64.9 - ANEMIA, UNSPECIFIED Status: Acute Current Visit: No Qualifiers: Anemia type: other cause Other causes of anemia: antineoplastic chemotherapy Qualified Code(s): D64.81 - Anemia due to antineoplastic chemotherapy; T45.1X5A - Adverse effect of antineoplastic and immunosuppressive drugs, initial encounter (3) Hypokalemia SNOMED Code(s): 80642956 Code(s): E87.6 - HYPOKALEMIA Status: Acute Priority: High Current Visit: Yes (4) Hypomagnesemia SNOMED Code(s): 302490058 Code(s): E83.42 - HYPOMAGNESEMIA Status: Acute Priority: High Current Visit: Yes - Problem List Review Problem List Initiated/Reviewed/Updated: Yes - My Orders Last 24 Hours: My Active Orders 03/19/21 10:14 RED BLOOD CELLS LP [BBK] Routine TYPE AND SCREEN [BBK] Routine - Plan Plan:: On admission potassium was 2.7 and currently 3.4 today. Magnesium has improved from 1.0 to 1.8 today. Will give 2gm of magnesium today and will continue with p otassium supplementation. Lana has reached out to Dr. Richmond's office in regards to further treatment. Patient is currently on oxygen and will need evaluation for home oxygen as well. I spoke with Dr. Rihcmond yesterday afternoon in regards to Te's current status. She did inform me he is not a candidate for radiation per radiation oncologist. She states he will have to consider a different chemotherapy medication as he didn't do well and significantly declined with prior treatment. I discussed my conversation with Dr. Richmond to Te and he voiced understanding. I also discussed transfer to higher level of care for all possible options, which he declined at this time. Does state his wishes to go home when able. He was started on Folic acid and Vitamin B12 yesterday as he needs to be on for 1 week prior to starting new chemotherapy. Hgb has gradually declined and will type and cross with holding 2 units. If Hgb and electrolytes are stable in the am may discharge home so he can be with his family. Potassium is normal today. Magnesium continues to be chronically low. Will give 4gm magnesium IV today. Will continue IV fluids as he isn't drinking much. Discussed he needs to ambulate and show he can care for himself at home. Will evaluate for home oxygen today as well, which discussed he may need to be on chronically at this time. 03/20/2021 Discussed treatment options with Te and continuing treatment at this time. Patient wants to continue all available treatment options. I discussed with Te he has to be strong enough and stable to undergo further treatment. Advised we need him to eat well and work with physical therapy to continue getting stronger. I did discuss with Lana Bush having virtual appointment with Dr. Richmond as patient wants to know his options. I feel this is acceptable as I am unable to give him his options. We will continue to closely monitor as patient did spike a fever last night. Will continue IV antibiotics. Magnesium is low and will correct today. Potassium stable.
[2021-03-20] MEDS ORDERED: Magnesium Sulfate/Water 4 GM/100 ML BAG IV ONE (08:59)
[2021-03-20] MEDS: Magnesium Sulfate/Water 2 GM/50 ML BAG IV SCH ×2 (10:31→12:53)
[2021-03-20] MEDS: Lactated Ringers 1,000 ML IV SCH (13:26)
[2021-03-20] MEDS: Levofloxacin/Dextrose 5%-Water 500 MG in Premix Bag 1 BAG IV SCH (16:11)
[2021-03-21] MEDS: Lactated Ringers 1,000 ML IV SCH ×2 (03:53→20:28)
[2021-03-21 07:23] LABS: CHLORIDE,CL 99 mEq/L (98-106); SODIUM,NA 136 mEq/L (136-145)
[2021-03-21] MEDS: Potassium Chloride 10 MEQ Tab.ER PO SCH ×3 (07:34→17:05)
[2021-03-21] MEDS: Folic Acid 1 MG Tab PO SCH (07:34)
[2021-03-21] MEDS: Magnesium Chloride 64 MG Tab.ER PO SCH ×2 (07:34→17:05)
[2021-03-21] MEDS: Nicotine 14 MG/24 Hr Patch TRDERM SCH (07:34)
[2021-03-21] MEDS: Cyanocobalamin (Vitamin B12) 1,000 MCG Tab PO SCH (07:35)
[2021-03-21] MEDS: Apixaban 5 MG Tab PO SCH ×2 (07:35→19:35)
[2021-03-21] MEDS: Pantoprazole 40 MG Vial IVPUSH SCH ×2 (07:35→19:35)
[2021-03-21] MEDS: BUPRENORPHINE SL SCH (09:20)
[2021-03-21] MEDS: NALOXONE SL SCH (09:20)
[2021-03-21] MEDS ORDERED: Sodium Chloride 0.9% 250 ML IV SCH (14:00)
[2021-03-21] MEDS: Levofloxacin/Dextrose 5%-Water 500 MG in Premix Bag 1 BAG IV SCH (17:05)
--- NOTE | 2021-03-22 00:21 | PCM.PN ---
- General Info Date of Service: 03/21/21 Subjective Update: Te is a 60 yo male who was admitted from the hospital yesterday d/t weakness, hypokalemia, hypomagnesemia. Patient has metastatic lung cancer and unable to undergo further chemotherapy. Patient is waiting to hear back from Dr. Richmond's office in regards to whether radiation is an option. Patient requests full code and wants to know his options. He states he was gradually getting worse again and not feeling well. Has known history of electrolyte imbalances. 03/19/2021 Te states he feels about the same today. He denies any chest discomfort. States he would like to be able to get home at some point as his son is there. He hasn't been up ambulating much as he just doesn't feel like it. Admits he isn't drinking much for fluids or really have any appetite. Denies any abdominal pain. No increased shortness of breath. States overall he isn't any worse than on admit. Nursing staff state he did run a low grade temperature last night but declined any Tylenol. Cough has improved with medication. 03/20/2021 Te states he slept well last night. Admits the cough syrup did help with his cough and allowed him to get a good nights rest. He is voicing his frustration with his cancer treatment and states he isn't ready to stop. Wants to know what is next for him. States he is ready to try the next chemotherapy medication but hasn't heard from his oncologist. He states physical therapy did work with him last night and made him walk quite a ways. He hasn't been very keen on walking a lot. He denies any new onset of symptoms. Yesterday he was hoping to get home today but did speak with his son and family about it. They want to continue to fight and try everything before giving up, states he has nothing to lose. 03/21/2021 Te has been in poor spirits and short with nursing staff per report. States he continues to have low grade fevers in the night. He states this morning he has been lightheaded with ambulation but denies any sense of falling or concerns with syncope. He admits to right sided chest pain, worse with cough. Hasn't had any cough medication since yesterday. States he isn't a morning person and doesn't feel like eating in the morning or taking his medications. He denies any new onset of shortness of breath. States he did try walking yesterday down the green and didn't have any complications. Admits PT wants to walk him all the way to physical therapy today, which he said he will give a try. Functional Status: Reports: Ambulating, Urinating. Denies: Tolerating Diet - Review of Systems General: Reports: Weakness, Fatigue, Malaise, Appetite (No) HEENT: Reports: No Symptoms Pulmonary: Reports: Pleuritic Chest Pain, Cough Cardiovascular: Reports: Lightheadedness Gastrointestinal: Reports: No Symptoms Genitourinary: Reports: No Symptoms Musculoskeletal: Reports: No Symptoms Skin: Reports: No Symptoms Neurological: Reports: No Symptoms Psychiatric: Reports: Depression - Patient Data Vitals - Most Recent: Last Vital Signs Temp 98.4 F 03/21/21 23:56 Pulse 107 H 03/21/21 23:56 Resp 18 03/21/21 23:56 BP 112/68 03/21/21 23:56 Pulse Ox 97 03/21/21 23:56 Weight - Most Recent: 112 lb I&O - Last 24 Hours: Intake & Output 03/21/21 03/21/21 03/22/21 14:59 22:59 06:59 Intake Total 1390 Balance 1390 Lab Results Last 24 Hours: Laboratory Results - last 24 hr 03/19/21 03/21/21 03/21/21 Range/Units 10:14 07:15 07:15 WBC 7.0 (5.0-10.0) 10^3/uL RBC 2.89 L (4.50-6.00) 10^6/uL Hgb 7.8 L* (14.0-18.0) g/dL Hct 25.3 L (40.0-54.0) % MCV 87.5 (82.0-94.0) fL MCH 27.0 (27.0-32.0) pg MCHC 30.8 L (33.0-38.0) g/dL RDW Coeff of Marquis 17.8 H (11.0-15.0) % Plt Count 325 (150-400) 10^3/uL Neut % (Auto) 77.5 (35-85) % Lymph % (Auto) 15.1 (10-55) % Craig % (Auto) 6.7 (0-16) % Eos % (Auto) 0.6 (0-5) % Baso % (Auto) 0.1 (0-3) % Neut # (Auto) 5.46 (1.80-7.00) 10^3/uL Lymph # (Auto) 1.06 (1.00-4.80) 10^3/uL Craig # (Auto) 0.47 (0.00-0.80) 10^3/uL Eos # (Auto) 0.04 (0.00-0.45) 10^3/uL Baso # (Auto) 0.01 10^3/uL Sodium 136 (136-145) mEq/L Potassium 4.0 (3.5-5.0) mEq/L Chloride 99 (98-106) mEq/L Carbon Dioxide 29 (21-32) mmol/L BUN 8 (7-18) mg/dL Creatinine 0.6 L (0.7-1.3) mg/dL Est Cr Clr Drug Dosing 94.08 mL/min Estimated GFR (MDRD) > 60 (>=60) mL/min Glucose 135 H (75-99) mg/dL POC Glucose (75-105) mg/dL Calcium 9.0 (8.4-10.1) mg/dL Magnesium 1.3 L (1.8-2.4) mg/dL Blood Type O NEGATIVE Gel Antibody Screen Negative Crossmatch See Detail 03/21/21 Range/Units 19:46 WBC (5.0-10.0) 10^3/uL RBC (4.50-6.00) 10^6/uL Hgb (14.0-18.0) g/dL Hct (40.0-54.0) % MCV (82.0-94.0) fL MCH (27.0-32.0) pg MCHC (33.0-38.0) g/dL RDW Coeff of Marquis (11.0-15.0) % Plt Count (150-400) 10^3/uL Neut % (Auto) (35-85) % Lymph % (Auto) (10-55) % Craig % (Auto) (0-16) % Eos % (Auto) (0-5) % Baso % (Auto) (0-3) % Neut # (Auto) (1.80-7.00) 10^3/uL Lymph # (Auto) (1.00-4.80) 10^3/uL Craig # (Auto) (0.00-0.80) 10^3/uL Eos # (Auto) (0.00-0.45) 10^3/uL Baso # (Auto) 10^3/uL Sodium (136-145) mEq/L Potassium (3.5-5.0) mEq/L Chloride (98-106) mEq/L Carbon Dioxide (21-32) mmol/L BUN (7-18) mg/dL Creatinine (0.7-1.3) mg/dL Est Cr Clr Drug Dosing mL/min Estimated GFR (MDRD) (>=60) mL/min Glucose (75-99) mg/dL POC Glucose 162 H (75-105) mg/dL Calcium (8.4-10.1) mg/dL Magnesium (1.8-2.4) mg/dL Blood Type Gel Antibody Screen Crossmatch Med Orders - Current: Current Medications Acetaminophen (Acetaminophen 325 Mg Tab) 650 mg PO Q4H PRN PRN Reason: Pain (Mild 1-3)/fever Last Admin: 03/20/21 08:19 Dose: 650 mg Documented by: Albuterol (Albuterol 0.083% 2.5 Mg/3 Ml Neb Soln) 2.5 mg NEB Q4H PRN PRN Reason: Dyspnea Last Admin: 03/18/21 08:12 Dose: 2.5 mg Documented by: Apixaban (Apixaban 5 Mg Tab) 5 mg PO BID [facility] Last Admin: 03/21/21 19:35 Dose: 5 mg Documented by: Cyanocobalamin (Cyanocobalamin (Vitamin B12) 1,000 Mcg Tab) 1,000 mcg PO DAILY [facility] Last Admin: 03/21/21 07:35 Dose: 1,000 mcg Documented by: Folic Acid (Folic Acid 1 Mg Tab) 1 mg PO DAILY [facility] Last Admin: 03/21/21 07:34 Dose: 1 mg Documented by: Lactated Ringer's (Ringers, Lactated) 1,000 mls @ 75 mls/hr IV ASDIRECTED [facility] Last Admin: 03/21/21 20:28 Dose: 75 mls/hr Documented by: Levofloxacin/Dextrose 500 mg/ (Premix) 100 mls @ 100 mls/hr IV DAILY@1600 [facility] Last Admin: 03/21/21 17:05 Dose: 100 mls/hr Documented by: Insulin Glargine (Insulin Glarg,Human.Rec.Analog 100 Unit/Ml) 15 unit SUBCUT BEDTIME [facility] Magnesium Chloride (Magnesium Chloride 64 Mg Tab.Er) 128 mg PO BIDMEALS [facility] Last Admin: 03/21/21 17:05 Dose: 128 mg Documented by: Nicotine (Nicotine 14 Mg/24 Hr Patch) 14 mg TRDERM DAILY [facility] Last Admin: 03/21/21 07:34 Dose: 14 mg Documented by: Buprenorphine/Naloxone 8-2mg Sl Tab Pt Own 0 tab SL DAILY [facility] Last Admin: 03/21/21 09:20 Dose: 1 tab Documented by: Ondansetron HCl (Ondansetron 4 Mg Tab.Dis) 8 mg PO TID PRN PRN Reason: Nausea Pantoprazole Sodium (Pantoprazole 40 Mg Vial) 40 mg IVPUSH BID [facility] Last Admin: 03/21/21 19:35 Dose: 40 mg Documented by: Potassium Chloride (Potassium Chloride 10 Meq Tab.Er) 20 meq PO TIDMEALS [facility] Last Admin: 03/21/21 17:05 Dose: 20 meq Documented by: Promethazine HCl/Codeine (Codeine/Promethazine 10-6.25 Mg/5 Ml Syrup 5 Ml Ud Cup) 5 - 10 ml PO Q4H PRN PRN Reason: Cough Last Admin: 03/19/21 22:46 Dose: 10 ml Documented by: Discontinued Medications Potassium Chloride 40 meq/ (Premix) 100 mls @ 25 mls/hr IV ONETIME ONE Stop: 03/17/21 16:46 Last Admin: 03/17/21 13:13 Dose: 25 mls/hr Documented by: Magnesium Sulfate (Magnesium Sulfate In Water 2 Gm/50 Ml) 2 gm in 50 mls @ 50 mls/hr IV ONETIME ONE Stop: 03/17/21 13:47 Last Admin: 03/17/21 13:37 Dose: Not Given Documented by: Magnesium Sulfate (Magnesium Sulfate In Water 2 Gm/50 Ml) 4 gm in 100 mls @ 50 mls/hr IV ONETIME ONE Stop: 03/17/21 14:48 Last Admin: 03/17/21 13:30 Dose: 50 mls/hr Documented by: Magnesium Sulfate (Magnesium Sulfate In Water 2 Gm/50 Ml) 2 gm in 50 mls @ 25 mls/hr IV ONETIME ONE Stop: 03/18/21 12:29 Last Admin: 03/18/21 10:32 Dose: 25 mls/hr Documented by: Potassium Chloride 20 meq/ (Premix) 100 mls @ 50 mls/hr IV ONETIME ONE Stop: 03/18/21 14:29 Last Admin: 03/18/21 12:19 Dose: 50 mls/hr Documented by: Magnesium Sulfate (Magnesium Sulfate In Water 2 Gm/50 Ml) 2 gm in 50 mls @ 25 mls/hr IV Q2H [facility] Stop: 03/19/21 14:29 Last Admin: 03/19/21 12:30 Dose: 25 mls/hr Documented by: Magnesium Sulfate (Magnesium Sulfate In Water 2 Gm/50 Ml) 4 gm in 100 mls @ 50 mls/hr IV ONETIME ONE Stop: 03/20/21 10:58 Last Admin: 03/20/21 10:24 Dose: Not Given Documented by: Magnesium Sulfate (Magnesium Sulfate In Water 2 Gm/50 Ml) 2 gm in 50 mls @ 25 mls/hr IV Q2H [facility] Stop: 03/20/21 13:29 Last Admin: 03/20/21 12:53 Dose: 25 mls/hr Documented by: Sodium Chloride (Normal Saline) 250 mls @ 50 mls/hr IV ASDIRECTED [facility] Last Admin: 03/21/21 15:10 Dose: 50 mls/hr Documented by: - Exam General: Alert, Oriented, No Acute Distress Lungs: Normal Respiratory Effort, Decreased Breath Sounds. No: Wheezing Cardiovascular: Regular Rhythm, Tachycardia GI/Abdominal Exam: Normal Bowel Sounds, Soft, Non-Tender, No Distention Extremities: Normal Inspection, No Pedal Edema Skin: Warm, Dry, Intact Psy/Mental Status: Alert, Normal Affect, Normal Mood - Patient Data Lab Results Last 24 hrs: Laboratory Results - last 24 hr 03/19/21 03/21/21 03/21/21 Range/Units 10:14 07:15 07:15 WBC 7.0 (5.0-10.0) 10^3/uL RBC 2.89 L (4.50-6.00) 10^6/uL Hgb 7.8 L* (14.0-18.0) g/dL Hct 25.3 L (40.0-54.0) % MCV 87.5 (82.0-94.0) fL MCH 27.0 (27.0-32.0) pg MCHC 30.8 L (33.0-38.0) g/dL RDW Coeff of Marquis 17.8 H (11.0-15.0) % Plt Count 325 (150-400) 10^3/uL Neut % (Auto) 77.5 (35-85) % Lymph % (Auto) 15.1 (10-55) % Craig % (Auto) 6.7 (0-16) % Eos % (Auto) 0.6 (0-5) % Baso % (Auto) 0.1 (0-3) % Neut # (Auto) 5.46 (1.80-7.00) 10^3/uL Lymph # (Auto) 1.06 (1.00-4.80) 10^3/uL Craig # (Auto) 0.47 (0.00-0.80) 10^3/uL Eos # (Auto) 0.04 (0.00-0.45) 10^3/uL Baso # (Auto) 0.01 10^3/uL Sodium 136 (136-145) mEq/L Potassium 4.0 (3.5-5.0) mEq/L Chloride 99 (98-106) mEq/L Carbon Dioxide 29 (21-32) mmol/L BUN 8 (7-18) mg/dL Creatinine 0.6 L (0.7-1.3) mg/dL Est Cr Clr Drug Dosing 94.08 mL/min Estimated GFR (MDRD) > 60 (>=60) mL/min Glucose 135 H (75-99) mg/dL POC Glucose (75-105) mg/dL Calcium 9.0 (8.4-10.1) mg/dL Magnesium 1.3 L (1.8-2.4) mg/dL Blood Type O NEGATIVE Gel Antibody Screen Negative Crossmatch See Detail 03/21/21 Range/Units 19:46 WBC (5.0-10.0) 10^3/uL RBC (4.50-6.00) 10^6/uL Hgb (14.0-18.0) g/dL Hct (40.0-54.0) % MCV (82.0-94.0) fL MCH (27.0-32.0) pg MCHC (33.0-38.0) g/dL RDW Coeff of Marquis (11.0-15.0) % Plt Count (150-400) 10^3/uL Neut % (Auto) (35-85) % Lymph % (Auto) (10-55) % Craig % (Auto) (0-16) % Eos % (Auto) (0-5) % Baso % (Auto) (0-3) % Neut # (Auto) (1.80-7.00) 10^3/uL Lymph # (Auto) (1.00-4.80) 10^3/uL Craig # (Auto) (0.00-0.80) 10^3/uL Eos # (Auto) (0.00-0.45) 10^3/uL Baso # (Auto) 10^3/uL Sodium (136-145) mEq/L Potassium (3.5-5.0) mEq/L Chloride (98-106) mEq/L Carbon Dioxide (21-32) mmol/L BUN (7-18) mg/dL Creatinine (0.7-1.3) mg/dL Est Cr Clr Drug Dosing mL/min Estimated GFR (MDRD) (>=60) mL/min Glucose (75-99) mg/dL POC Glucose 162 H (75-105) mg/dL Calcium (8.4-10.1) mg/dL Magnesium (1.8-2.4) mg/dL Blood Type Gel Antibody Screen Crossmatch Result Diagrams: 03/21/21 07:15 03/21/21 07:15 Sepsis Event Note - Evaluation Sepsis Screening Result: No Definite Risk - Focused Exam Vital Signs: Vital Signs Temp Temp Temp Pulse Resp BP Pulse Ox 03/21/21 23:56 98.4 F 107 H 18 112/68 97 03/21/21 20:00 98.3 F 89 16 99/56 L 97 03/21/21 17:00 99.0 F 100 18 90/62 03/21/21 16:10 98.9 F 105 H 18 101/55 L 03/21/21 16:00 98.9 F 105 H 18 101/55 L 96 03/21/21 15:40 98.7 F 95 18 86/55 L 03/21/21 15:25 98.2 F 106 H 18 95/46 L 03/21/21 15:07 97.7 F 111 H 18 86/55 L - Problem List & Annotations (1) Cancer of right lung SNOMED Code(s): 810013491 Code(s): C34.91 - MALIGNANT NEOPLASM OF UNSP PART OF RIGHT BRONCHUS OR LUNG Status: Acute Priority: High Current Visit: Yes Qualifiers: Lung location: unspecified part of lung Qualified Code(s): C34.91 - Malignant neoplasm of unspecified part of right bronchus or lung (2) Anemia SNOMED Code(s): 524155617 Code(s): D64.9 - ANEMIA, UNSPECIFIED Status: Acute Current Visit: No Qualifiers: Anemia type: other cause Other causes of anemia: chronic disease, neoplastic Qualified Code(s): D63.0 - Anemia in neoplastic disease (3) Hypokalemia SNOMED Code(s): 15078166 Code(s): E87.6 - HYPOKALEMIA Status: Acute Priority: High Current Visit: Yes (4) Hypomagnesemia SNOMED Code(s): 537692885 Code(s): E83.42 - HYPOMAGNESEMIA Status: Acute Priority: High Current Visit: Yes - Problem List Review Problem List Initiated/Reviewed/Updated: Yes - My Orders Last 24 Hours: My Active Orders 03/21/21 13:45 Transfuse PRBC [Transfuse Red Blood Cells] [COMM] Stat 03/21/21 17:00 HGB [HEMOGLOBIN] [HEME] Routine 03/22/21 07:00 BASIC METABOLIC PANEL,BMP [CHEM] DAILY CBC WITH AUTO DIFF [HEME] DAILY 03/23/21 07:00 BASIC METABOLIC PANEL,BMP [CHEM] DAILY CBC WITH AUTO DIFF [HEME] DAILY 03/24/21 07:00 BASIC METABOLIC PANEL,BMP [CHEM] DAILY CBC WITH AUTO DIFF [HEME] DAILY - Plan Plan:: On admission potassium was 2.7 and currently 3.4 today. Magnesium has improved from 1.0 to 1.8 today. Will give 2gm of magnesium today and will continue with potassium supplementation. Lana has reached out to Dr. Richmond's office in regards to further treatment. Patient is currently on oxygen and will need evaluation for home oxygen as well. I spoke with Dr. Richmond yesterday afternoon in regards to Te's current status. She did inform me he is not a candidate for radiation per radiation oncologist. She states he will have to consider a different chemotherapy medication as he didn't do well and significantly declined with prior treatment. I discussed my conversation with Dr. Richmond to Te and he voiced understanding. I also discussed transfer to higher level of care for all possible options, which he declined at this time. Does state his wishes to go home when able. He was started on Folic acid and Vitamin B12 yesterday as he needs to be on for 1 week prior to starting new chemotherapy. Hgb has gradually declined and will type and cross with holding 2 units. If Hgb and electrolytes are stable in the am may discharge home so he can be with his family. Potassium is normal today. Magnesium continues to be chronically low. Will give 4gm magnesium IV today. Will continue IV fluids as he isn't drinking much. Discussed he needs to ambulate and show he can care for himself at home. Will evaluate for home oxygen today as well, which discussed he may need to be on chronically at this time. 03/20/2021 Discussed treatment options with Te and continuing treatment at this time. Patient wants to continue all available treatment options. I discussed with Te he has to be strong enough and stable to undergo further treatment. Advised we need him to eat well and work with physical therapy to continue getting stronger. I did discuss with Lana Bush having virtual appointment with Dr. Richmond as patient wants to know his options. I feel this is acceptable as I am unable to give him his options. We will continue to closely monitor as patient did spike a fever last night. Will continue IV antibiotics. Magnesium is low and will correct today. Potassium stable. 03/21/2021 Te continues to state he wants to do everything he can and explore all options in regards to treatment. Dr. Richmond consulted today and did have Zoom visit with Te and his daughter. Discussed with Te he needs to get stronger before starting chemotherapy. Chemotherapy is palliative. Patient has been tachycardic and hypotensive and discussed patient's Hgb with Dr. Richmond as well. Advised giving 1 unit of pRBC's today. Discussed risks and benefits of transfusion with Te and he wished to proceed. Potassium has remained normal today. Magnesium has continued to be chronically low.
[2021-03-22 07:19] LABS: CHLORIDE,CL 98 mEq/L (98-106); SODIUM,NA 135 mEq/L (136-145)
[2021-03-22] MEDS: Pantoprazole 40 MG Vial IVPUSH SCH ×2 (07:20→19:25)
[2021-03-22] MEDS: Nicotine 14 MG/24 Hr Patch TRDERM SCH (07:20)
[2021-03-22] MEDS: Cyanocobalamin (Vitamin B12) 1,000 MCG Tab PO SCH (07:20)
[2021-03-22] MEDS: Folic Acid 1 MG Tab PO SCH (07:21)
[2021-03-22] MEDS: Apixaban 5 MG Tab PO SCH ×2 (07:21→19:25)
[2021-03-22] MEDS: Potassium Chloride 10 MEQ Tab.ER PO SCH ×3 (07:21→16:35)
[2021-03-22] MEDS: Magnesium Chloride 64 MG Tab.ER PO SCH ×2 (07:21→16:35)
[2021-03-22] MEDS: NALOXONE SL SCH (07:23)
[2021-03-22] MEDS: BUPRENORPHINE SL SCH (07:23)
[2021-03-22] MEDS: Lactated Ringers 1,000 ML IV SCH (09:47)
--- NOTE | 2021-03-22 11:11 | PCM.PN ---
- General Info Date of Service: 03/22/21 Functional Status: Reports: Pain Controlled - Review of Systems General: Reports: Weakness, Fatigue (but improved today) HEENT: Reports: No Symptoms Pulmonary: Reports: No Symptoms Cardiovascular: Reports: No Symptoms Gastrointestinal: Reports: No Symptoms Genitourinary: Reports: No Symptoms Musculoskeletal: Reports: No Symptoms Skin: Reports: No Symptoms Neurological: Reports: No Symptoms Psychiatric: Reports: No Symptoms - Patient Data Vitals - Most Recent: Last Vital Signs Temp 100.2 F 03/22/21 08:00 Pulse 109 H 03/22/21 08:00 Resp 18 03/22/21 08:00 BP 79/48 L 03/22/21 08:00 Pulse Ox 92 L 03/22/21 08:00 Weight - Most Recent: 112 lb I&O - Last 24 Hours: Intake & Output 03/21/21 03/22/21 03/22/21 22:59 06:59 14:59 Intake Total 1390 999 Balance 1390 999 Lab Results Last 24 Hours: Laboratory Results - last 24 hr 03/19/21 03/21/21 03/22/21 Range/Units 10:14 19:46 06:55 WBC 7.5 (5.0-10.0) 10^3/uL RBC 3.39 L (4.50-6.00) 10^6/uL Hgb 9.5 L (14.0-18.0) g/dL Hct 29.4 L (40.0-54.0) % MCV 86.7 (82.0-94.0) fL MCH 28.0 (27.0-32.0) pg MCHC 32.3 L (33.0-38.0) g/dL RDW Coeff of Marquis 17.6 H (11.0-15.0) % Plt Count 323 (150-400) 10^3/uL Neut % (Auto) 78.0 (35-85) % Lymph % (Auto) 14.6 (10-55) % Jess[place] % (Auto) 6.9 (0-16) % Eos % (Auto) 0.4 (0-5) % Baso % (Auto) 0.1 (0-3) % Neut # (Auto) 5.87 (1.80-7.00) 10^3/uL Lymph # (Auto) 1.10 (1.00-4.80) 10^3/uL Jess[place] # (Auto) 0.52 (0.00-0.80) 10^3/uL Eos # (Auto) 0.03 (0.00-0.45) 10^3/uL Baso # (Auto) 0.01 10^3/uL Sodium (136-145) mEq/L Potassium (3.5-5.0) mEq/L Chloride (98-106) mEq/L Carbon Dioxide (21-32) mmol/L BUN (7-18) mg/dL Creatinine (0.7-1.3) mg/dL Est Cr Clr Drug Dosing mL/min Estimated GFR (MDRD) (>=60) mL/min Glucose (75-99) mg/dL POC Glucose 162 H (75-105) mg/dL Calcium (8.4-10.1) mg/dL Blood Type O NEGATIVE Gel Antibody Screen Negative Crossmatch See Detail 03/22/21 Range/Units 06:55 WBC (5.0-10.0) 10^3/uL RBC (4.50-6.00) 10^6/uL Hgb (14.0-18.0) g/dL Hct (40.0-54.0) % MCV (82.0-94.0) fL MCH (27.0-32.0) pg MCHC (33.0-38.0) g/dL RDW Coeff of Marquis (11.0-15.0) % Plt Count (150-400) 10^3/uL Neut % (Auto) (35-85) % Lymph % (Auto) (10-55) % Jess[place] % (Auto) (0-16) % Eos % (Auto) (0-5) % Baso % (Auto) (0-3) % Neut # (Auto) (1.80-7.00) 10^3/uL Lymph # (Auto) (1.00-4.80) 10^3/uL Jess[place] # (Auto) (0.00-0.80) 10^3/uL Eos # (Auto) (0.00-0.45) 10^3/uL Baso # (Auto) 10^3/uL Sodium 135 L (136-145) mEq/L Potassium 4.2 (3.5-5.0) mEq/L Chloride 98 (98-106) mEq/L Carbon Dioxide 28 (21-32) mmol/L BUN 8 (7-18) mg/dL Creatinine 0.7 (0.7-1.3) mg/dL Est Cr Clr Drug Dosing 80.64 mL/min Estimated GFR (MDRD) > 60 (>=60) mL/min Glucose 136 H (75-99) mg/dL POC Glucose (75-105) mg/dL Calcium 9.1 (8.4-10.1) mg/dL Blood Type Gel Antibody Screen Crossmatch Med Orders - Current: Current Medications Acetaminophen (Acetaminophen 325 Mg Tab) 650 mg PO Q4H PRN PRN Reason: Pain (Mild 1-3)/fever Last Admin: 03/20/21 08:19 Dose: 650 mg Documented by: Albuterol (Albuterol 0.083% 2.5 Mg/3 Ml Neb Soln) 2.5 mg NEB Q4H PRN PRN Reason: Dyspnea Last Admin: 03/18/21 08:12 Dose: 2.5 mg Documented by: Apixaban (Apixaban 5 Mg Tab) 5 mg PO BID [facility] Last Admin: 03/22/21 07:21 Dose: 5 mg Documented by: Cyanocobalamin (Cyanocobalamin (Vitamin B12) 1,000 Mcg Tab) 1,000 mcg PO DAILY [facility] Last Admin: 03/22/21 07:20 Dose: 1,000 mcg Documented by: Folic Acid (Folic Acid 1 Mg Tab) 1 mg PO DAILY [facility] Last Admin: 03/22/21 07:21 Dose: 1 mg Documented by: Lactated Ringer's (Ringers, Lactated) 1,000 mls @ 75 mls/hr IV ASDIRECTED [facility] Last Admin: 03/22/21 09:47 Dose: 75 mls/hr Documented by: Levofloxacin/Dextrose 500 mg/ (Premix) 100 mls @ 100 mls/hr IV DAILY@1600 [facility] Last Admin: 03/21/21 17:05 Dose: 100 mls/hr Documented by: Insulin Glargine (Insulin Glarg,Human.Rec.Analog 100 Unit/Ml) 15 unit SUBCUT BEDTIME [facility] Magnesium Chloride (Magnesium Chloride 64 Mg Tab.Er) 128 mg PO BIDMEALS [facility] Last Admin: 03/22/21 07:21 Dose: 128 mg Documented by: Nicotine (Nicotine 14 Mg/24 Hr Patch) 14 mg TRDERM DAILY [facility] Last Admin: 03/22/21 07:20 Dose: 14 mg Documented by: Buprenorphine/Naloxone 8-2mg Sl Tab Pt Own 0 tab SL DAILY [facility] Last Admin: 03/22/21 07:23 Dose: 1 tab Documented by: Ondansetron HCl (Ondansetron 4 Mg Tab.Dis) 8 mg PO TID PRN PRN Reason: Nausea Pantoprazole Sodium (Pantoprazole 40 Mg Vial) 40 mg IVPUSH BID [facility] Last Admin: 03/22/21 07:20 Dose: 40 mg Documented by: Potassium Chloride (Potassium Chloride 10 Meq Tab.Er) 20 meq PO TIDMEALS [facility] Last Admin: 03/22/21 07:21 Dose: 20 meq Documented by: Promethazine HCl/Codeine (Codeine/Promethazine 10-6.25 Mg/5 Ml Syrup 5 Ml Ud Cup) 5 - 10 ml PO Q4H PRN PRN Reason: Cough Last Admin: 03/19/21 22:46 Dose: 10 ml Documented by: Discontinued Medications Potassium Chloride 40 meq/ (Premix) 100 mls @ 25 mls/hr IV ONETIME ONE Stop: 03/17/21 16:46 Last Admin: 03/17/21 13:13 Dose: 25 mls/hr Documented by: Magnesium Sulfate (Magnesium Sulfate In Water 2 Gm/50 Ml) 2 gm in 50 mls @ 50 mls/hr IV ONETIME ONE Stop: 03/17/21 13:47 Last Admin: 03/17/21 13:37 Dose: Not Given Documented by: Magnesium Sulfate (Magnesium Sulfate In Water 2 Gm/50 Ml) 4 gm in 100 mls @ 50 mls/hr IV ONETIME ONE Stop: 03/17/21 14:48 Last Admin: 03/17/21 13:30 Dose: 50 mls/hr Documented by: Magnesium Sulfate (Magnesium Sulfate In Water 2 Gm/50 Ml) 2 gm in 50 mls @ 25 mls/hr IV ONETIME ONE Stop: 03/18/21 12:29 Last Admin: 03/18/21 10:32 Dose: 25 mls/hr Documented by: Potassium Chloride 20 meq/ (Premix) 100 mls @ 50 mls/hr IV ONETIME ONE Stop: 03/18/21 14:29 Last Admin: 03/18/21 12:19 Dose: 50 mls/hr Documented by: Magnesium Sulfate (Magnesium Sulfate In Water 2 Gm/50 Ml) 2 gm in 50 mls @ 25 mls/hr IV Q2H [facility] Stop: 03/19/21 14:29 Last Admin: 03/19/21 12:30 Dose: 25 mls/hr Documented by: Magnesium Sulfate (Magnesium Sulfate In Water 2 Gm/50 Ml) 4 gm in 100 mls @ 50 mls/hr IV ONETIME ONE Stop: 03/20/21 10:58 Last Admin: 03/20/21 10:24 Dose: Not Given Documented by: Magnesium Sulfate (Magnesium Sulfate In Water 2 Gm/50 Ml) 2 gm in 50 mls @ 25 mls/hr IV Q2H [facility] Stop: 03/20/21 13:29 Last Admin: 03/20/21 12:53 Dose: 25 mls/hr Documented by: Sodium Chloride (Normal Saline) 250 mls @ 50 mls/hr IV ASDIRECTED [facility] Last Admin: 03/21/21 15:10 Dose: 50 mls/hr Documented by: - Exam General: Alert, Oriented Lungs: Normal Respiratory Effort, Decreased Breath Sounds (moderately throughout) Cardiovascular: Regular Rate, Regular Rhythm GI/Abdominal Exam: Soft, Non-Tender Back Exam: Normal Inspection Extremities: Normal Inspection, No Pedal Edema Peripheral Pulses: 2+: Radial (L), Radial (R), Posterior Tibial (L), Posterior Tibial (R) Skin: Warm, Dry, Intact Neurological: No New Focal Deficit Psy/Mental Status: Alert, Normal Affect, Normal Mood - Patient Data Lab Results Last 24 hrs: Laboratory Results - last 24 hr 03/19/21 03/21/21 03/22/21 Range/Units 10:14 19:46 06:55 WBC 7.5 (5.0-10.0) 10^3/uL RBC 3.39 L (4.50-6.00) 10^6/uL Hgb 9.5 L (14.0-18.0) g/dL Hct 29.4 L (40.0-54.0) % MCV 86.7 (82.0-94.0) fL MCH 28.0 (27.0-32.0) pg MCHC 32.3 L (33.0-38.0) g/dL RDW Coeff of Marquis 17.6 H (11.0-15.0) % Plt Count 323 (150-400) 10^3/uL Neut % (Auto) 78.0 (35-85) % Lymph % (Auto) 14.6 (10-55) % [place] % (Auto) 6.9 (0-16) % Eos % (Auto) 0.4 (0-5) % Baso % (Auto) 0.1 (0-3) % Neut # (Auto) 5.87 (1.80-7.00) 10^3/uL Lymph # (Auto) 1.10 (1.00-4.80) 10^3/uL [place] # (Auto) 0.52 (0.00-0.80) 10^3/uL Eos # (Auto) 0.03 (0.00-0.45) 10^3/uL Baso # (Auto) 0.01 10^3/uL Sodium (136-145) mEq/L Potassium (3.5-5.0) mEq/L Chloride (98-106) mEq/L Carbon Dioxide (21-32) mmol/L BUN (7-18) mg/dL Creatinine (0.7-1.3) mg/dL Est Cr Clr Drug Dosing mL/min Estimated GFR (MDRD) (>=60) mL/min Glucose (75-99) mg/dL POC Glucose 162 H (75-105) mg/dL Calcium (8.4-10.1) mg/dL Blood Type O NEGATIVE Gel Antibody Screen Negative Crossmatch See Detail 03/22/21 Range/Units 06:55 WBC (5.0-10.0) 10^3/uL RBC (4.50-6.00) 10^6/uL Hgb (14.0-18.0) g/dL Hct (40.0-54.0) % MCV (82.0-94.0) fL MCH (27.0-32.0) pg MCHC (33.0-38.0) g/dL RDW Coeff of Marquis (11.0-15.0) % Plt Count (150-400) 10^3/uL Neut % (Auto) (35-85) % Lymph % (Auto) (10-55) % [place] % (Auto) (0-16) % Eos % (Auto) (0-5) % Baso % (Auto) (0-3) % Neut # (Auto) (1.80-7.00) 10^3/uL Lymph # (Auto) (1.00-4.80) 10^3/uL [place] # (Auto) (0.00-0.80) 10^3/uL Eos # (Auto) (0.00-0.45) 10^3/uL Baso # (Auto) 10^3/uL Sodium 135 L (136-145) mEq/L Potassium 4.2 (3.5-5.0) mEq/L Chloride 98 (98-106) mEq/L Carbon Dioxide 28 (21-32) mmol/L BUN 8 (7-18) mg/dL Creatinine 0.7 (0.7-1.3) mg/dL Est Cr Clr Drug Dosing 80.64 mL/min Estimated GFR (MDRD) > 60 (>=60) mL/min Glucose 136 H (75-99) mg/dL POC Glucose (75-105) mg/dL Calcium 9.1 (8.4-10.1) mg/dL Blood Type Gel Antibody Screen Crossmatch Result Diagrams: 03/23/21 06:50 03/23/21 06:50 Sepsis Event Note - Evaluation Sepsis Screening Result: No Definite Risk - Focused Exam Vital Signs: Vital Signs Temp Temp Pulse Resp BP Pulse Ox 03/22/21 08:00 100.2 F 109 H 18 79/48 L 92 L 03/22/21 04:00 99.1 F 102 H 20 125/68 94 L 03/21/21 23:56 98.4 F 107 H 18 112/68 97 - Problem List Review Problem List Initiated/Reviewed/Updated: Yes - Plan Plan:: On admission potassium was 2.7 and currently 3.4 today. Magnesium has improved from 1.0 to 1.8 today. Will give 2gm of magnesium today and will continue with potassium supplementation. Lana has reached out to Dr. Richmond's office in regards to further treatment. Patient is currently on oxygen and will need evaluation for home oxygen as well. I spoke with Dr. Richmond yesterday afternoon in regards to Bill's current status. She did inform me he is not a candidate for radiation per radiation oncologist. She states he will have to consider a different chemotherapy medication as he didn't do well and significantly declined with prior treatment. I discussed my conversation with Dr. Richmond to Te and he voiced understanding. I also discussed transfer to higher level of care for all possible options, which he declined at this time. Does state his wishes to go home when able. He was started on Folic acid and Vitamin B12 yesterday as he needs to be on for 1 week prior to starting new chemotherapy. Hgb has gradually declined and will type and cross with holding 2 units. If Hgb and electrolytes are stable in the am may discharge home so he can be with his family. Potassium is normal today. Magnesium continues to be chronically low. Will give 4gm magnesium IV today. Will continue IV fluids as he isn't drinking much. Discussed he needs to ambulate and show he can care for himself at home. Will evaluate for home oxygen today as well, which discussed he may need to be on chronically at this time. 03/20/2021 Discussed treatment options with Te and continuing treatment at this time. Patient wants to continue all available treatment options. I discussed with Te he has to be strong enough and stable to undergo further treatment. Advised we need him to eat well and work with physical therapy to continue getting stronger. I did discuss with Lana Bush having virtual appointment with Dr. Richmond as patient wants to know his options. I feel this is acceptable as I am unable to give him his options. We will continue to closely monitor as patient did spike a fever last night. Will continue IV antibiotics. Magnesium is low and will correct today. Potassium stable. 03/21/2021 Te continues to state he wants to do everything he can and explore all options in regards to treatment. Dr. Richmond consulted today and did have Zoom visit with Te and his daughter. Discussed with Te he needs to get stronger before starting chemotherapy. Chemotherapy is palliative. Patient has been tachycardic and hypotensive and discussed patient's Hgb with Dr. Richmond as well. Advised giving 1 unit of pRBC's today. Discussed risks and benefits of transfusion with Te and he wished to proceed. Potassium has remained normal today. Magnesium has continued to be chronically low. 03/22/2021 1000am Patient reports today that he feels generally weak, but reports better with more energy than yesterday. The patient reports that this afternoon he is going to get up and walk. Patient has not eaten his breakfast this morning. Hgb yesterday was 7.8, got 1 unit PRBCs. Today his hgb is 9.5. Will continue admit, approved for acute status until Wednesday. Will attempt to get patient up and active today. Will repeat labs tomorrow and evaluate.
[2021-03-22] MEDS: Codeine/Promethazine 10-6.25 MG/5 ML Syrup 5 ML UD Cup PO PRN (12:07)
[2021-03-22] MEDS: Levofloxacin/Dextrose 5%-Water 500 MG in Premix Bag 1 BAG IV SCH (16:34)
--- NOTE | 2021-03-22 18:27 | PCM.SN.2 ---
- Free Text/Narrative Note: 03/22/21 1815pm RN has reported to me this evening about the patient behavior. The Patient is Alert and Oriented and is able to make his own decision. He is of sound body and mind. The patient did not eat his breakfast. He did not eat his lunch. He has also not eaten any supper. The patient with each meal has said his kids will be bringing him good food later today. The patient also did not take his morning medications. They were still sitting at bedside when RN went to give Noon medications. At noon, he did not take those medications. Then, at 5pm, he only took some medications, picked out what he wanted to take per RN. The patient is not taking his medications as prescribed and is choosing his own times and medications to take that are prescribed. The patient has also laid in bed all day. He refused his shower today. He reported to the RN he did not feel like getting one and would get later. This morning I discussed with him the importance to get up and ambulate and be mobile. The RN has attempted to get the patient up and walk around today multiple times, but the patient has refused every time. He reported to her that he would do it later. 03/22/21 18:27pm Son has arrived and brought him food to eat. Son reports that the patient was this way at home. He reports that he just laid in bed at home and would not eat either. He reports this is the same behavior that he had at home.
[2021-03-23] MEDS: Lactated Ringers 1,000 ML IV SCH ×2 (00:05→13:10)
[2021-03-23 07:23] LABS: CHLORIDE,CL 96 mEq/L (98-106); SODIUM,NA 134 mEq/L (136-145)
[2021-03-23] MEDS: Magnesium Chloride 64 MG Tab.ER PO SCH ×2 (07:40→17:13)
[2021-03-23] MEDS: Potassium Chloride 10 MEQ Tab.ER PO SCH ×3 (07:40→17:13)
[2021-03-23] MEDS: Folic Acid 1 MG Tab PO SCH (07:41)
[2021-03-23] MEDS: Nicotine 14 MG/24 Hr Patch TRDERM SCH (07:41)
[2021-03-23] MEDS: Pantoprazole 40 MG Vial IVPUSH SCH ×2 (07:41→19:14)
[2021-03-23] MEDS: Apixaban 5 MG Tab PO SCH ×2 (07:41→19:14)
[2021-03-23] MEDS: Cyanocobalamin (Vitamin B12) 1,000 MCG Tab PO SCH (07:41)
[2021-03-23] MEDS: NALOXONE SL SCH (07:44)
[2021-03-23] MEDS: BUPRENORPHINE SL SCH (07:44)
[2021-03-23] MEDS: Albuterol 0.083% 2.5 MG/3 ML Neb Soln NEB PRN (10:21)
--- NOTE | 2021-03-23 10:45 | PCM.PN ---
- General Info Date of Service: 03/23/21 Functional Status: Reports: Ambulating (to and from bathroom), Urinating. Denies: Pain Controlled (Right sided chest pain "cancer pain"), Tolerating Diet (not eating well) - Review of Systems General: Reports: Weakness, Fatigue, Malaise, Appetite (decreased) HEENT: Reports: No Symptoms Pulmonary: Reports: Shortness of Breath, Pleuritic Chest Pain (Right sided), Cough. Denies: Sputum Cardiovascular: Reports: Dyspnea on Exertion. Denies: Palpitations, Edema, Ligh theadedness Gastrointestinal: Reports: Decreased Appetite. Denies: Abdominal Pain, Diarrhea, Hematochezia, Nausea, Vomiting Genitourinary: Reports: No Symptoms Musculoskeletal: Reports: No Symptoms Skin: Reports: No Symptoms Neurological: Reports: No Symptoms Psychiatric: Reports: No Symptoms - Patient Data Vitals - Most Recent: Last Vital Signs Temp 99 F 03/23/21 07:52 Pulse 98 03/23/21 07:52 Resp 18 03/23/21 07:52 BP 81/55 L 03/23/21 07:52 Pulse Ox 97 03/23/21 07:52 Weight - Most Recent: 112 lb I&O - Last 24 Hours: Intake & Output 03/22/21 03/23/21 03/23/21 22:59 06:59 14:59 Intake Total 1000 Balance 1000 Lab Results Last 24 Hours: Laboratory Results - last 24 hr 03/22/21 03/22/21 03/23/21 Range/Units 17:32 19:24 06:50 WBC 6.4 (5.0-10.0) 10^3/uL RBC 3.09 L (4.50-6.00) 10^6/uL Hgb 8.5 L (14.0-18.0) g/dL Hct 26.9 L (40.0-54.0) % MCV 87.1 (82.0-94.0) fL MCH 27.5 (27.0-32.0) pg MCHC 31.6 L (33.0-38.0) g/dL RDW Coeff of [place] 17.5 H (11.0-15.0) % Plt Count 256 (150-400) 10^3/uL Neut % (Auto) 79.8 (35-85) % Lymph % (Auto) 13.6 (10-55) % [place] % (Auto) 5.9 (0-16) % Eos % (Auto) 0.5 (0-5) % Baso % (Auto) 0.2 (0-3) % Neut # (Auto) 5.13 (1.80-7.00) 10^3/uL Lymph # (Auto) 0.87 L (1.00-4.80) 10^3/uL [place] # (Auto) 0.38 (0.00-0.80) 10^3/uL Eos # (Auto) 0.03 (0.00-0.45) 10^3/uL Baso # (Auto) 0.01 10^3/uL Sodium (136-145) mEq/L Potassium (3.5-5.0) mEq/L Chloride (98-106) mEq/L Carbon Dioxide (21-32) mmol/L BUN (7-18) mg/dL Creatinine (0.7-1.3) mg/dL Est Cr Clr Drug Dosing mL/min Estimated GFR (MDRD) (>=60) mL/min Glucose (75-99) mg/dL POC Glucose 131 H (75-105) mg/dL Calcium (8.4-10.1) mg/dL NT-Pro-B Natriuret Pep 1303 H (0-1000) pg/mL 03/23/21 Range/Units 06:50 WBC (5.0-10.0) 10^3/uL RBC (4.50-6.00) 10^6/uL Hgb (14.0-18.0) g/dL Hct (40.0-54.0) % MCV (82.0-94.0) fL MCH (27.0-32.0) pg MCHC (33.0-38.0) g/dL RDW Coeff of [place] (11.0-15.0) % Plt Count (150-400) 10^3/uL Neut % (Auto) (35-85) % Lymph % (Auto) (10-55) % [place] % (Auto) (0-16) % Eos % (Auto) (0-5) % Baso % (Auto) (0-3) % Neut # (Auto) (1.80-7.00) 10^3/uL Lymph # (Auto) (1.00-4.80) 10^3/uL [place] # (Auto) (0.00-0.80) 10^3/uL Eos # (Auto) (0.00-0.45) 10^3/uL Baso # (Auto) 10^3/uL Sodium 134 L (136-145) mEq/L Potassium 3.7 (3.5-5.0) mEq/L Chloride 96 L (98-106) mEq/L Carbon Dioxide 29 (21-32) mmol/L BUN 9 (7-18) mg/dL Creatinine 0.7 (0.7-1.3) mg/dL Est Cr Clr Drug Dosing 80.64 mL/min Estimated GFR (MDRD) > 60 (>=60) mL/min Glucose 178 H D (75-99) mg/dL POC Glucose (75-105) mg/dL Calcium 8.7 (8.4-10.1) mg/dL NT-Pro-B Natriuret Pep (0-1000) pg/mL Med Orders - Current: Current Medications Acetaminophen (Acetaminophen 325 Mg Tab) 650 mg PO Q4H PRN PRN Reason: Pain (Mild 1-3)/fever Last Admin: 03/20/21 08:19 Dose: 650 mg Documented by: Albuterol (Albuterol 0.083% 2.5 Mg/3 Ml Neb Soln) 2.5 mg NEB Q4H PRN PRN Reason: Dyspnea Last Admin: 03/23/21 10:21 Dose: 2.5 mg Documented by: Apixaban (Apixaban 5 Mg Tab) 5 mg PO BID [facility] Last Admin: 03/23/21 07:41 Dose: 5 mg Documented by: Cyanocobalamin (Cyanocobalamin (Vitamin B12) 1,000 Mcg Tab) 1,000 mcg PO DAILY [facility] Last Admin: 03/23/21 07:41 Dose: 1,000 mcg Documented by: Folic Acid (Folic Acid 1 Mg Tab) 1 mg PO DAILY [facility] Last Admin: 03/23/21 07:41 Dose: 1 mg Documented by: Lactated Ringer's (Ringers, Lactated) 1,000 mls @ 75 mls/hr IV ASDIRECTED [facility] Last Admin: 03/23/21 00:05 Dose: 75 mls/hr Documented by: Levofloxacin/Dextrose 500 mg/ (Premix) 100 mls @ 100 mls/hr IV DAILY@1600 [facility] Last Admin: 03/22/21 16:34 Dose: 100 mls/hr Documented by: Insulin Glargine (Insulin Glarg,Human.Rec.Analog 100 Unit/Ml) 15 unit SUBCUT BEDTIME [facility] Magnesium Chloride (Magnesium Chloride 64 Mg Tab.Er) 128 mg PO BIDMEALS [facility] Last Admin: 03/23/21 07:40 Dose: 128 mg Documented by: Nicotine (Nicotine 14 Mg/24 Hr Patch) 14 mg TRDERM DAILY [facility] Last Admin: 03/23/21 07:41 Dose: 14 mg Documented by: Buprenorphine/Naloxone 8-2mg Sl Tab Pt Own 0 tab SL DAILY [facility] Last Admin: 03/23/21 07:44 Dose: 1 tab Documented by: Ondansetron HCl (Ondansetron 4 Mg Tab.Dis) 8 mg PO TID PRN PRN Reason: Nausea Pantoprazole Sodium (Pantoprazole 40 Mg Vial) 40 mg IVPUSH BID [facility] Last Admin: 03/23/21 07:41 Dose: 40 mg Documented by: Potassium Chloride (Potassium Chloride 10 Meq Tab.Er) 20 meq PO TIDMEALS [facility] Last Admin: 03/23/21 07:40 Dose: 20 meq Documented by: Promethazine HCl/Codeine (Codeine/Promethazine 10-6.25 Mg/5 Ml Syrup 5 Ml Ud Cup) 5 - 10 ml PO Q4H PRN PRN Reason: Cough Last Admin: 03/22/21 12:07 Dose: 10 ml Documented by: Discontinued Medications Potassium Chloride 40 meq/ (Premix) 100 mls @ 25 mls/hr IV ONETIME ONE Stop: 03/17/21 16:46 Last Admin: 03/17/21 13:13 Dose: 25 mls/hr Documented by: Magnesium Sulfate (Magnesium Sulfate In Water 2 Gm/50 Ml) 2 gm in 50 mls @ 50 mls/hr IV ONETIME ONE Stop: 03/17/21 13:47 Last Admin: 03/17/21 13:37 Dose: Not Given Documented by: Magnesium Sulfate (Magnesium Sulfate In Water 2 Gm/50 Ml) 4 gm in 100 mls @ 50 mls/hr IV ONETIME ONE Stop: 03/17/21 14:48 Last Admin: 03/17/21 13:30 Dose: 50 mls/hr Documented by: Magnesium Sulfate (Magnesium Sulfate In Water 2 Gm/50 Ml) 2 gm in 50 mls @ 25 mls/hr IV ONETIME ONE Stop: 03/18/21 12:29 Last Admin: 03/18/21 10:32 Dose: 25 mls/hr Documented by: Potassium Chloride 20 meq/ (Premix) 100 mls @ 50 mls/hr IV ONETIME ONE Stop: 03/18/21 14:29 Last Admin: 03/18/21 12:19 Dose: 50 mls/hr Documented by: Magnesium Sulfate (Magnesium Sulfate In Water 2 Gm/50 Ml) 2 gm in 50 mls @ 25 mls/hr IV Q2H [facility] Stop: 03/19/21 14:29 Last Admin: 03/19/21 12:30 Dose: 25 mls/hr Documented by: Magnesium Sulfate (Magnesium Sulfate In Water 2 Gm/50 Ml) 4 gm in 100 mls @ 50 mls/hr IV ONETIME ONE Stop: 03/20/21 10:58 Last Admin: 03/20/21 10:24 Dose: Not Given Documented by: Magnesium Sulfate (Magnesium Sulfate In Water 2 Gm/50 Ml) 2 gm in 50 mls @ 25 mls/hr IV Q2H [facility] Stop: 03/20/21 13:29 Last Admin: 03/20/21 12:53 Dose: 25 mls/hr Documented by: Sodium Chloride (Normal Saline) 250 mls @ 50 mls/hr IV ASDIRECTED [facility] Last Admin: 03/21/21 15:10 Dose: 50 mls/hr Documented by: - Exam General: Alert, Oriented, Cooperative, Other (Thin, chronically ill appearing) Neck: Supple, Trachea Midline Lungs: Decreased Breath Sounds (moderately throughout) Cardiovascular: Regular Rate, Regular Rhythm GI/Abdominal Exam: Soft, Non-Tender Back Exam: Normal Inspection, Full Range of Motion Extremities: Normal Inspection, Normal Range of Motion, Non-Tender, No Pedal Edema, Normal Capillary Refill Peripheral Pulses: 2+: Radial (L), Radial (R), Posterior Tibial (L), Posterior Tibial (R) Skin: Warm, Dry, Intact Neurological: No New Focal Deficit Psy/Mental Status: Alert, Depressed - Patient Data Lab Results Last 24 hrs: Laboratory Results - last 24 hr 0403/22/21 03/23/21 Range/Units 17:32 19:24 06:50 WBC 6.4 (5.0-10.0) 10^3/uL RBC 3.09 L (4.50-6.00) 10^6/uL Hgb 8.5 L (14.0-18.0) g/dL Hct 26.9 L (40.0-54.0) % MCV 87.1 (82.0-94.0) fL MCH 27.5 (27.0-32.0) pg MCHC 31.6 L (33.0-38.0) g/dL RDW Coeff of [place] 17.5 H (11.0-15.0) % Plt Count 256 (150-400) 10^3/uL Neut % (Auto) 79.8 (35-85) % Lymph % (Auto) 13.6 (10-55) % [place] % (Auto) 5.9 (0-16) % Eos % (Auto) 0.5 (0-5) % Baso % (Auto) 0.2 (0-3) % Neut # (Auto) 5.13 (1.80-7.00) 10^3/uL Lymph # (Auto) 0.87 L (1.00-4.80) 10^3/uL [place] # (Auto) 0.38 (0.00-0.80) 10^3/uL Eos # (Auto) 0.03 (0.00-0.45) 10^3/uL Baso # (Auto) 0.01 10^3/uL Sodium (136-145) mEq/L Potassium (3.5-5.0) mEq/L Chloride (98-106) mEq/L Carbon Dioxide (21-32) mmol/L BUN (7-18) mg/dL Creatinine (0.7-1.3) mg/dL Est Cr Clr Drug Dosing mL/min Estimated GFR (MDRD) (>=60) mL/min Glucose (75-99) mg/dL POC Glucose 131 H (75-105) mg/dL Calcium (8.4-10.1) mg/dL NT-Pro-B Natriuret Pep 1303 H (0-1000) pg/mL 03/23/21 Range/Units 06:50 WBC (5.0-10.0) 10^3/uL RBC (4.50-6.00) 10^6/uL Hgb (14.0-18.0) g/dL Hct (40.0-54.0) % MCV (82.0-94.0) fL MCH (27.0-32.0) pg MCHC (33.0-38.0) g/dL RDW Coeff of [place] (11.0-15.0) % Plt Count (150-400) 10^3/uL Neut % (Auto) (35-85) % Lymph % (Auto) (10-55) % [place] % (Auto) (0-16) % Eos % (Auto) (0-5) % Baso % (Auto) (0-3) % Neut # (Auto) (1.80-7.00) 10^3/uL Lymph # (Auto) (1.00-4.80) 10^3/uL [place] # (Auto) (0.00-0.80) 10^3/uL Eos # (Auto) (0.00-0.45) 10^3/uL Baso # (Auto) 10^3/uL Sodium 134 L (136-145) mEq/L Potassium 3.7 (3.5-5.0) mEq/L Chloride 96 L (98-106) mEq/L Carbon Dioxide 29 (21-32) mmol/L BUN 9 (7-18) mg/dL Creatinine 0.7 (0.7-1.3) mg/dL Est Cr Clr Drug Dosing 80.64 mL/min Estimated GFR (MDRD) > 60 (>=60) mL/min Glucose 178 H D (75-99) mg/dL POC Glucose (75-105) mg/dL Calcium 8.7 (8.4-10.1) mg/dL NT-Pro-B Natriuret Pep (0-1000) pg/mL Result Diagrams: 03/23/21 06:50 03/23/21 06:50 Sepsis Event Note - Evaluation Sepsis Screening Result: No Definite Risk - Focused Exam Vital Signs: Vital Signs Temp Temp Pulse Resp BP Pulse Ox 03/23/21 07:52 99 F 98 18 81/55 L 97 03/23/21 03:30 98.7 F 106 H 18 138/70 97 03/23/21 00:00 98.5 F 96 16 95/52 L 97 - Problem List Review Problem List Initiated/Reviewed/Updated: Yes - Plan Plan:: On admission potassium was 2.7 and currently 3.4 today. Magnesium has improved from 1.0 to 1.8 today. Will give 2gm of magnesium today and will continue with potassium supplementation. Lana has reached out to Dr. Richmond's office in regards to further treatment. Patient is currently on oxygen and will need evaluation for home oxygen as well. I spoke with Dr. Richmond yesterday afternoon in regards to Te's current status. She did inform me he is not a candidate for radiation per radiation oncologist. She states he will have to consider a different chemotherapy medication as he didn't do well and significantly declined with prior treatment. I discussed my conversation with Dr. Richmond to Te and he voiced understanding. I also discussed transfer to higher level of care for all possible options, which he declined at this time. Does state his wishes to go home when able. He was started on Folic acid and Vitamin B12 yesterday as he needs to be on for 1 week prior to starting new chemotherapy. Hgb has gradually declined and will type and cross with holding 2 units. If Hgb and electrolytes are stable in the am may discharge home so he can be with his family. Potassium is normal today. Magnesium continues to be chronically low. Will give 4gm magnesium IV today. Will continue IV fluids as he isn't drinking much. Discussed he needs to ambulate and show he can care for himself at home. Will evaluate for home oxygen today as well, which discussed he may need to be on chronically at this time. 03/20/2021 Discussed treatment options with Te and continuing treatment at this time. Patient wants to continue all available treatment options. I discussed with Te he has to be strong enough and stable to undergo further treatment. Advised we need him to eat well and work with physical therapy to continue getting stronger. I did discuss with Lana Bush having virtual appointment with Dr. Richmond as patient wants to know his options. I feel this is acceptable as I am unable to give him his options. We will continue to closely monitor as patient did spike a fever last night. Will continue IV antibiotics. Magnesium is low and will correct today. Potassium stable. 03/21/2021 Te continues to state he wants to do everything he can and explore all options in regards to treatment. Dr. Richmond consulted today and did have Zoom visit with Te and his daughter. Discussed with Te he needs to get stronger before starting chemotherapy. Chemotherapy is palliative. Patient has been tachycardic and hypotensive and discussed patient's Hgb with Dr. Richmond as well. Advised giving 1 unit of pRBC's today. Discussed risks and benefits of transfusion with Te and he wished to proceed. Potassium has remained normal today. Magnesium has continued to be chronically low. 03/22/2021 1000am Patient reports today that he feels generally weak, but reports better with more energy than yesterday. The patient reports that this afternoon he is going to get up and walk. Patient has not eaten his breakfast this morning. Hgb yesterday was 7.8, got 1 unit PRBCs. Today his hgb is 9.5. Will continue admit, approved for acute status until Wednesday. Will attempt to get patient up and active today. Will repeat labs tomorrow and evaluate. 03/23/2021 1005am The patient today reports that he is having right sided chest pain. He reports the pain is worse when he coughs or takes big deep breaths. Patient reports it feels like his cancer pain. Patient again this morning has not eaten his breakfast. He also has not taken his morning medications. The patient requested to the RN to be taken off his NS fluids. I discussed these fluids with the patient and how he is not eating or drinking. He has elected to continue them after our conversation. I also discussed with him how he is not eating, not drinking, lack of caloric intake, he will not get up and ambulate, his refusal to take his medications. I discussed with him his motivation to continue treatments vs changing his code status. He reports to me that he is "staying here", "I'm trying". The patient does not want his code status changed. He wants to continue treatment. He reports "you just need to give me some time, I'll do those things later." This is also what he keeps reporting to the RNs, but has not changed the behavior. Continues to not eat or drink much, or be mobile. The son brought the patient some food last night, a meatball sub, the patient took 3 bites. I asked the patient if he would like some ensure shakes or if there is anything that I can get him that he would eat or drink. He reports his kids sometimes bring him shakes from the drive in, but he doesnt want one now. The patient labs today are hgb 8.5, yesterday was 9.5. Will continue patient admit. Plan for this patient would be for PCP to see tomorrow and discuss patient options again. No changes at this time.
[2021-03-23] MEDS: Levofloxacin/Dextrose 5%-Water 500 MG in Premix Bag 1 BAG IV SCH (15:31)
[2021-03-23] MEDS: Insulin Glarg,Human.Rec.Analog 100 Unit/ML SUBCUT SCH (20:30)
[2021-03-24] MEDS: Lactated Ringers 1,000 ML IV SCH ×2 (03:31→17:41)
[2021-03-24 07:25] LABS: CHLORIDE,CL 96 mEq/L (98-106); SODIUM,NA 134 mEq/L (136-145)
[2021-03-24] MEDS: BUPRENORPHINE SL SCH (08:02)
[2021-03-24] MEDS: NALOXONE SL SCH (08:02)
[2021-03-24] MEDS: Nicotine 14 MG/24 Hr Patch TRDERM SCH (08:03)
[2021-03-24] MEDS: Potassium Chloride 10 MEQ Tab.ER PO SCH ×3 (08:03→17:20)
[2021-03-24] MEDS: Folic Acid 1 MG Tab PO SCH (08:03)
[2021-03-24] MEDS: Cyanocobalamin (Vitamin B12) 1,000 MCG Tab PO SCH (08:03)
[2021-03-24] MEDS: Apixaban 5 MG Tab PO SCH ×2 (08:03→19:25)
[2021-03-24] MEDS: Magnesium Chloride 64 MG Tab.ER PO SCH ×2 (08:03→17:20)
[2021-03-24] MEDS: Pantoprazole 40 MG Vial IVPUSH SCH ×2 (08:04→19:25)
[2021-03-24] MEDS: Levofloxacin/Dextrose 5%-Water 500 MG in Premix Bag 1 BAG IV SCH (15:42)
[2021-03-24] MEDS: Insulin Glarg,Human.Rec.Analog 100 Unit/ML SUBCUT SCH (20:02)
--- NOTE | 2021-03-24 21:03 | PCM.PN ---
- General Info Date of Service: 03/24/21 Subjective Update: Te is a 60 yo male who was admitted from the hospital yesterday d/t weakness, hypokalemia, hypomagnesemia. Patient has metastatic lung cancer and unable to undergo further chemotherapy. Patient is waiting to hear back from Dr. Richmond's office in regards to whether radiation is an option. Patient requests full code and wants to know his options. He states he was gradually getting worse again and not feeling well. Has known history of electrolyte imbalances. 03/19/2021 Te states he feels about the same today. He denies any chest discomfort. States he would like to be able to get home at some point as his son is there. He hasn't been up ambulating much as he just doesn't feel like it. Admits he isn't drinking much for fluids or really have any appetite. Denies any abdominal pain. No increased shortness of breath. States overall he isn't any worse than on admit. Nursing staff state he did run a low grade temperature last night but declined any Tylenol. Cough has improved with medication. 03/20/2021 Te states he slept well last night. Admits the cough syrup did help with his cough and allowed him to get a good nights rest. He is voicing his frustration with his cancer treatment and states he isn't ready to stop. Wants to know what is next for him. States he is ready to try the next chemotherapy medication but hasn't heard from his oncologist. He states physical therapy did work with him last night and made him walk quite a ways. He hasn't been very keen on walking a lot. He denies any new onset of symptoms. Yesterday he was hoping to get home today but did speak with his son and family about it. They want to continue to fight and try everything before giving up, states he has nothing to lose. 03/21/2021 Te has been in poor spirits and short with nursing staff per report. States he continues to have low grade fevers in the night. He states this morning he has been lightheaded with ambulation but denies any sense of falling or concerns with syncope. He admits to right sided chest pain, worse with cough. Hasn't had any cough medication since yesterday. States he isn't a morning person and doesn't feel like eating in the morning or taking his medications. He denies any new onset of shortness of breath. States he did try walking yesterday down the green and didn't have any complications. Admits PT wants to walk him all the way to physical therapy today, which he said he will give a try. 03/24/2021 Te continues to have poor appetite; however, states he likes cymraes toast and wants to eat his breakfast this morning. He states he was okay over the weekend. Admits to continuing with his cough. Nursing staff report he hasn't been taking all his medications and continues to be short with them. He has been short of b reath with ambulation, being very winded when getting up to the bathroom. States he wants to continue to fight and get better so he can start new chemotherapy. Functional Status: Reports: Ambulating (mostly only to bathroom), Urinating. Denies: Tolerating Diet - Review of Systems General: Reports: Weakness, Fatigue, Malaise. Denies: Appetite HEENT: Reports: No Symptoms Pulmonary: Reports: Shortness of Breath, Cough, Sputum Cardiovascular: Reports: No Symptoms Gastrointestinal: Reports: No Symptoms Genitourinary: Reports: No Symptoms Musculoskeletal: Reports: No Symptoms Skin: Reports: No Symptoms Neurological: Reports: No Symptoms Psychiatric: Reports: No Symptoms - Patient Data Vitals - Most Recent: Last Vital Signs Temp 98.1 F 03/24/21 20:00 Pulse 96 03/24/21 20:00 Resp 18 03/24/21 20:00 BP 98/63 03/24/21 20:00 Pulse Ox 98 03/24/21 20:00 Weight - Most Recent: 112 lb I&O - Last 24 Hours: Intake & Output 03/24/21 03/24/21 03/24/21 06:59 14:59 22:59 Intake Total 1000 1000 Balance 1000 1000 Lab Results Last 24 Hours: Laboratory Results - last 24 hr 03/24/21 03/24/21 03/24/21 Range/Units 06:55 06:55 07:56 WBC 8.1 (5.0-10.0) 10^3/uL RBC 3.23 L (4.50-6.00) 10^6/uL Hgb 8.8 L (14.0-18.0) g/dL Hct 27.8 L (40.0-54.0) % MCV 86.1 (82.0-94.0) fL MCH 27.2 (27.0-32.0) pg MCHC 31.7 L (33.0-38.0) g/dL RDW Coeff of Marquis 17.7 H (11.0-15.0) % Plt Count 256 (150-400) 10^3/uL Neut % (Auto) 77.1 (35-85) % Lymph % (Auto) 16.0 (10-55) % Mckinley % (Auto) 6.4 (0-16) % Eos % (Auto) 0.4 (0-5) % Baso % (Auto) 0.1 (0-3) % Neut # (Auto) 6.24 (1.80-7.00) 10^3/uL Lymph # (Auto) 1.30 (1.00-4.80) 10^3/uL Mckinley # (Auto) 0.52 (0.00-0.80) 10^3/uL Eos # (Auto) 0.03 (0.00-0.45) 10^3/uL Baso # (Auto) 0.01 10^3/uL Sodium 134 L (136-145) mEq/L Potassium 3.7 (3.5-5.0) mEq/L Chloride 96 L (98-106) mEq/L Carbon Dioxide 28 (21-32) mmol/L BUN 8 (7-18) mg/dL Creatinine 0.7 (0.7-1.3) mg/dL Est Cr Clr Drug Dosing 80.64 mL/min Estimated GFR (MDRD) > 60 (>=60) mL/min Glucose 149 H (75-99) mg/dL POC Glucose 151 H (75-105) mg/dL Calcium 8.7 (8.4-10.1) mg/dL 03/24/21 Range/Units 19:42 WBC (5.0-10.0) 10^3/uL RBC (4.50-6.00) 10^6/uL Hgb (14.0-18.0) g/dL Hct (40.0-54.0) % MCV (82.0-94.0) fL MCH (27.0-32.0) pg MCHC (33.0-38.0) g/dL RDW Coeff of Marquis (11.0-15.0) % Plt Count (150-400) 10^3/uL Neut % (Auto) (35-85) % Lymph % (Auto) (10-55) % Mckinley % (Auto) (0-16) % Eos % (Auto) (0-5) % Baso % (Auto) (0-3) % Neut # (Auto) (1.80-7.00) 10^3/uL Lymph # (Auto) (1.00-4.80) 10^3/uL Mckinley # (Auto) (0.00-0.80) 10^3/uL Eos # (Auto) (0.00-0.45) 10^3/uL Baso # (Auto) 10^3/uL Sodium (136-145) mEq/L Potassium (3.5-5.0) mEq/L Chloride (98-106) mEq/L Carbon Dioxide (21-32) mmol/L BUN (7-18) mg/dL Creatinine (0.7-1.3) mg/dL Est Cr Clr Drug Dosing mL/min Estimated GFR (MDRD) (>=60) mL/min Glucose (75-99) mg/dL POC Glucose 126 H (75-105) mg/dL Calcium (8.4-10.1) mg/dL Med Orders - Current: Current Medications Acetaminophen (Acetaminophen 325 Mg Tab) 650 mg PO Q4H PRN PRN Reason: Pain (Mild 1-3)/fever Last Admin: 03/20/21 08:19 Dose: 650 mg Documented by: Albuterol (Albuterol 0.083% 2.5 Mg/3 Ml Neb Soln) 2.5 mg NEB Q4H PRN PRN Reason: Dyspnea Last Admin: 03/23/21 10:21 Dose: 2.5 mg Documented by: Apixaban (Apixaban 5 Mg Tab) 5 mg PO BID [facility] Last Admin: 03/24/21 19:25 Dose: 5 mg Documented by: Cyanocobalamin (Cyanocobalamin (Vitamin B12) 1,000 Mcg Tab) 1,000 mcg PO DAILY [facility] Last Admin: 03/24/21 08:03 Dose: 1,000 mcg Documented by: Folic Acid (Folic Acid 1 Mg Tab) 1 mg PO DAILY [facility] Last Admin: 03/24/21 08:03 Dose: 1 mg Documented by: Lactated Ringer's (Ringers, Lactated) 1,000 mls @ 75 mls/hr IV ASDIRECTED [facility] Last Admin: 03/24/21 17:41 Dose: 75 mls/hr Documented by: Levofloxacin/Dextrose 500 mg/ (Premix) 100 mls @ 100 mls/hr IV DAILY@1600 [facility] Last Admin: 03/24/21 15:42 Dose: 100 mls/hr Documented by: Insulin Glargine (Insulin Glarg,Human.Rec.Analog 100 Unit/Ml) 15 unit SUBCUT BEDTIME [facility] Last Admin: 03/24/21 20:02 Dose: Not Given Documented by: Magnesium Chloride (Magnesium Chloride 64 Mg Tab.Er) 128 mg PO BIDMEALS [facility] Last Admin: 03/24/21 17:20 Dose: 128 mg Documented by: Nicotine (Nicotine 14 Mg/24 Hr Patch) 14 mg TRDERM DAILY [facility] Last Admin: 03/24/21 08:03 Dose: 14 mg Documented by: Buprenorphine/Naloxone 8-2mg Sl Tab Pt Own 0 tab SL DAILY [facility] Last Admin: 03/24/21 08:02 Dose: 1 tab Documented by: Ondansetron HCl (Ondansetron 4 Mg Tab.Dis) 8 mg PO TID PRN PRN Reason: Nausea Pantoprazole Sodium (Pantoprazole 40 Mg Vial) 40 mg IVPUSH BID [facility] Last Admin: 03/24/21 19:25 Dose: 40 mg Documented by: Potassium Chloride (Potassium Chloride 10 Meq Tab.Er) 20 meq PO TIDMEALS [facility] Last Admin: 03/24/21 17:20 Dose: 20 meq Documented by: Promethazine HCl/Codeine (Codeine/Promethazine 10-6.25 Mg/5 Ml Syrup 5 Ml Ud Cup) 5 - 10 ml PO Q4H PRN PRN Reason: Cough Last Admin: 03/22/21 12:07 Dose: 10 ml Documented by: Discontinued Medications Potassium Chloride 40 meq/ (Premix) 100 mls @ 25 mls/hr IV ONETIME ONE Stop: 03/17/21 16:46 Last Admin: 03/17/21 13:13 Dose: 25 mls/hr Documented by: Magnesium Sulfate (Magnesium Sulfate In Water 2 Gm/50 Ml) 2 gm in 50 mls @ 50 m ls/hr IV ONETIME ONE Stop: 03/17/21 13:47 Last Admin: 03/17/21 13:37 Dose: Not Given Documented by: Magnesium Sulfate (Magnesium Sulfate In Water 2 Gm/50 Ml) 4 gm in 100 mls @ 50 mls/hr IV ONETIME ONE Stop: 03/17/21 14:48 Last Admin: 03/17/21 13:30 Dose: 50 mls/hr Documented by: Magnesium Sulfate (Magnesium Sulfate In Water 2 Gm/50 Ml) 2 gm in 50 mls @ 25 mls/hr IV ONETIME ONE Stop: 03/18/21 12:29 Last Admin: 03/18/21 10:32 Dose: 25 mls/hr Documented by: Potassium Chloride 20 meq/ (Premix) 100 mls @ 50 mls/hr IV ONETIME ONE Stop: 03/18/21 14:29 Last Admin: 03/18/21 12:19 Dose: 50 mls/hr Documented by: Magnesium Sulfate (Magnesium Sulfate In Water 2 Gm/50 Ml) 2 gm in 50 mls @ 25 mls/hr IV Q2H [facility] Stop: 03/19/21 14:29 Last Admin: 03/19/21 12:30 Dose: 25 mls/hr Documented by: Magnesium Sulfate (Magnesium Sulfate In Water 2 Gm/50 Ml) 4 gm in 100 mls @ 50 mls/hr IV ONETIME ONE Stop: 03/20/21 10:58 Last Admin: 03/20/21 10:24 Dose: Not Given Documented by: Magnesium Sulfate (Magnesium Sulfate In Water 2 Gm/50 Ml) 2 gm in 50 mls @ 25 mls/hr IV Q2H [facility] Stop: 03/20/21 13:29 Last Admin: 03/20/21 12:53 Dose: 25 mls/hr Documented by: Sodium Chloride (Normal Saline) 250 mls @ 50 mls/hr IV ASDIRECTED [facility] Last Admin: 03/21/21 15:10 Dose: 50 mls/hr Documented by: - Exam General: Alert, Oriented, Cooperative Lungs: Decreased Breath Sounds, Crackles Cardiovascular: Regular Rate, Regular Rhythm, No Murmurs Extremities: Normal Inspection, No Pedal Edema Skin: Warm, Dry, Intact Psy/Mental Status: Alert, Normal Affect, Normal Mood - Patient Data Lab Results Last 24 hrs: Laboratory Results - last 24 hr 03/24/21 03/24/21 03/24/21 Range/Units 06:55 06:55 07:56 WBC 8.1 (5.0-10.0) 10^3/uL RBC 3.23 L (4.50-6.00) 10^6/uL Hgb 8.8 L (14.0-18.0) g/dL Hct 27.8 L (40.0-54.0) % MCV 86.1 (82.0-94.0) fL MCH 27.2 (27.0-32.0) pg MCHC 31.7 L (33.0-38.0) g/dL RDW Coeff of Marquis 17.7 H (11.0-15.0) % Plt Count 256 (150-400) 10^3/uL Neut % (Auto) 77.1 (35-85) % Lymph % (Auto) 16.0 (10-55) % Mckinley % (Auto) 6.4 (0-16) % Eos % (Auto) 0.4 (0-5) % Baso % (Auto) 0.1 (0-3) % Neut # (Auto) 6.24 (1.80-7.00) 10^3/uL Lymph # (Auto) 1.30 (1.00-4.80) 10^3/uL Mckinley # (Auto) 0.52 (0.00-0.80) 10^3/uL Eos # (Auto) 0.03 (0.00-0.45) 10^3/uL Baso # (Auto) 0.01 10^3/uL Sodium 134 L (136-145) mEq/L Potassium 3.7 (3.5-5.0) mEq/L Chloride 96 L (98-106) mEq/L Carbon Dioxide 28 (21-32) mmol/L BUN 8 (7-18) mg/dL Creatinine 0.7 (0.7-1.3) mg/dL Est Cr Clr Drug Dosing 80.64 mL/min Estimated GFR (MDRD) > 60 (>=60) mL/min Glucose 149 H (75-99) mg/dL POC Glucose 151 H (75-105) mg/dL Calcium 8.7 (8.4-10.1) mg/dL 03/24/21 Range/Units 19:42 WBC (5.0-10.0) 10^3/uL RBC (4.50-6.00) 10^6/uL Hgb (14.0-18.0) g/dL Hct (40.0-54.0) % MCV (82.0-94.0) fL MCH (27.0-32.0) pg MCHC (33.0-38.0) g/dL RDW Coeff of Marquis (11.0-15.0) % Plt Count (150-400) 10^3/uL Neut % (Auto) (35-85) % Lymph % (Auto) (10-55) % Mckinley % (Auto) (0-16) % Eos % (Auto) (0-5) % Baso % (Auto) (0-3) % Neut # (Auto) (1.80-7.00) 10^3/uL Lymph # (Auto) (1.00-4.80) 10^3/uL Mckinley # (Auto) (0.00-0.80) 10^3/uL Eos # (Auto) (0.00-0.45) 10^3/uL Baso # (Auto) 10^3/uL Sodium (136-145) mEq/L Potassium (3.5-5.0) mEq/L Chloride (98-106) mEq/L Carbon Dioxide (21-32) mmol/L BUN (7-18) mg/dL Creatinine (0.7-1.3) mg/dL Est Cr Clr Drug Dosing mL/min Estimated GFR (MDRD) (>=60) mL/min Glucose (75-99) mg/dL POC Glucose 126 H (75-105) mg/dL Calcium (8.4-10.1) mg/dL Result Diagrams: 03/24/21 06:55 03/24/21 06:55 Sepsis Event Note - Evaluation Sepsis Screening Result: No Definite Risk - Focused Exam Vital Signs: Vital Signs Temp Temp Pulse Resp BP Pulse Ox 03/24/21 20:00 98.1 F 96 18 98/63 98 03/24/21 15:53 98.3 F 95 18 86/66 L 99 03/24/21 12:00 98.3 F 88 18 88/54 L 97 - Problem List & Annotations (1) Cancer of right lung SNOMED Code(s): 045535613 Code(s): C34.91 - MALIGNANT NEOPLASM OF UNSP PART OF RIGHT BRONCHUS OR LUNG Status: Acute Priority: High Current Visit: Yes Qualifiers: Lung location: unspecified part of lung Qualified Code(s): C34.91 - Malignant neoplasm of unspecified part of right bronchus or lung (2) Anemia SNOMED Code(s): 199534159 Code(s): D64.9 - ANEMIA, UNSPECIFIED Status: Acute Current Visit: No Qualifiers: Anemia type: other cause Other causes of anemia: chronic disease, neoplastic Qualified Code(s): D63.0 - Anemia in neoplastic disease (3) Hypokalemia SNOMED Code(s): 69535126 Code(s): E87.6 - HYPOKALEMIA Status: Resolved Priority: High Current Visit: Yes (4) Hypomagnesemia SNOMED Code(s): 596041084 Code(s): E83.42 - HYPOMAGNESEMIA Status: Acute Priority: High Current Visit: Yes (5) Failure to thrive SNOMED Code(s): 70056969 Code(s): VNY2958 - Status: Acute Current Visit: Yes Qualifiers: Failure to thrive age range: in adult Qualified Code(s): R62.7 - Adult failure to thrive - Problem List Review Problem List Initiated/Reviewed/Updated: Yes - My Orders Last 24 Hours: My Active Orders 03/25/21 05:11 BASIC METABOLIC PANEL,BMP [CHEM] AM CBC WITH AUTO DIFF [HEME] AM 03/26/21 05:11 BASIC METABOLIC PANEL,BMP [CHEM] AM CBC WITH AUTO DIFF [HEME] AM - Plan Plan:: On admission potassium was 2.7 and currently 3.4 today. Magnesium has improved from 1.0 to 1.8 today. Will give 2gm of magnesium today and will continue with potassium supplementation. Lana has reached out to Dr. Richmond's office in regards to further treatment. Patient is currently on oxygen and will need evaluation for home oxygen as well. I spoke with Dr. Richmond yesterday afternoon in regards to Bill's current status. She did inform me he is not a candidate for radiation per radiation oncologist. She states he will have to consider a different chemotherapy medication as he didn't do well and significantly declined with prior treatment. I discussed my conversation with Dr. Richmond to Te and he voiced understanding. I also discussed transfer to higher level of care for all possible options, which he declined at this time. Does state his wishes to go home when able. He was started on Folic acid and Vitamin B12 yesterday as he needs to be on for 1 week prior to starting new chemotherapy. Hgb has gradually declined and will type and cross with holding 2 units. If Hgb and electrolytes are stable in the am may discharge home so he can be with his family. Potassium is normal today. Magnesium continues to be chronically low. Will give 4gm magnesium IV today. Will continue IV fluids as he isn't drinking much. Discussed he needs to ambulate and show he can care for himself at home. Will evaluate for home oxygen today as well, which discussed he may need to be on chronically at this time. 03/20/2021 Discussed treatment options with Te and continuing treatment at this time. Patient wants to continue all available treatment options. I discussed with Te he has to be strong enough and stable to undergo further treatment. Advised we need him to eat well and work with physical therapy to continue getting stronger. I did discuss with Lana Bush having virtual appointment with Dr. Richmond as patient wants to know his options. I feel this is acceptable as I am unable to give him his options. We will continue to closely monitor as patient did spike a fever last night. Will continue IV antibiotics. Magnesium is low and will correct today. Potassium stable. 03/21/2021 Te continues to state he wants to do everything he can and explore all options in regards to treatment. Dr. Richmond consulted today and did have Zoom visit with Te and his daughter. Discussed with Te he needs to get stronger before starting chemotherapy. Chemotherapy is palliative. Patient has been tachycardic and hypotensive and discussed patient's Hgb with Dr. Richmond as well. Advised giving 1 unit of pRBC's today. Discussed risks and benefits of transfusion with Te and he wished to proceed. Potassium has remained normal today. Magnesium has continued to be chronically low. 03/22/2021 1000am Patient reports today that he feels generally weak, but reports better with more energy than yesterday. The patient reports that this afternoon he is going to get up and walk. Patient has not eaten his breakfast this morning. Hgb yesterday was 7.8, got 1 unit PRBCs. Today his hgb is 9.5. Will continue admit, approved for acute status until Wednesday. Will attempt to get patient up and active today. Will repeat labs tomorrow and evaluate. 03/23/2021 1005am The patient today reports that he is having right sided chest pain. He reports the pain is worse when he coughs or takes big deep breaths. Patient reports it feels like his cancer pain. Patient again this morning has not eaten his breakf ast. He also has not taken his morning medications. The patient requested to the RN to be taken off his NS fluids. I discussed these fluids with the patient and how he is not eating or drinking. He has elected to continue them after our conversation. I also discussed with him how he is not eating, not drinking, lack of caloric intake, he will not get up and ambulate, his refusal to take his medications. I discussed with him his motivation to continue treatments vs changing his code status. He reports to me that he is "staying here", "I'm trying". The patient does not want his code status changed. He wants to continue treatment. He reports "you just need to give me some time, I'll do those things later." This is also what he keeps reporting to the RNs, but has not changed the behavior. Continues to not eat or drink much, or be mobile. The son brought the patient some food last night, a meatball sub, the patient took 3 bites. I asked the patient if he would like some ensure shakes or if there is anything that I can get him that he would eat or drink. He reports his kids sometimes bring him shakes from the drive in, but he doesnt want one now. The patient labs today are hgb 8.5, yesterday was 9.5. Will continue patient admit. Plan for this patient would be for PCP to see tomorrow and discuss patient options again. No changes at this time. 03/23/2021 Bill has not made a lot of progress at this time. He has continued to lay in bed most of the day. We will d/c fluids today but he will have to start drinking fluids and eating as discussed with patient. He hasn't wanted to eat as he states the food isn't any good but is willing to eat his breakfast since he likes cymraes toast. Family continue to bring him food daily. Hgb is 8.8 today, stable. I discussed with Bill the need to continue with physical therapy and work on getting stronger or he will be unable to start chemotherapy again. Patient will continue in acute care at this time and will plan for discharge tomorrow or Wednesday.
[2021-03-25] MEDS: Lactated Ringers 1,000 ML IV SCH ×2 (07:02→20:15)
[2021-03-25 07:15] LABS: CHLORIDE,CL 97 mEq/L (98-106); SODIUM,NA 135 mEq/L (136-145)
[2021-03-25] MEDS: Pantoprazole 40 MG Vial IVPUSH SCH ×2 (08:25→19:58)
[2021-03-25] MEDS: Magnesium Chloride 64 MG Tab.ER PO SCH ×2 (08:26→17:13)
[2021-03-25] MEDS: Potassium Chloride 10 MEQ Tab.ER PO SCH ×3 (08:26→17:13)
[2021-03-25] MEDS: Apixaban 5 MG Tab PO SCH ×2 (08:26→19:55)
[2021-03-25] MEDS: Nicotine 14 MG/24 Hr Patch TRDERM SCH (08:26)
[2021-03-25] MEDS: Cyanocobalamin (Vitamin B12) 1,000 MCG Tab PO SCH (08:26)
[2021-03-25] MEDS: Folic Acid 1 MG Tab PO SCH (08:26)
[2021-03-25] MEDS: BUPRENORPHINE SL SCH (08:31)
[2021-03-25] MEDS: NALOXONE SL SCH (08:31)
--- NOTE | 2021-03-25 11:23 | PCM.PN ---
- General Info Date of Service: 03/25/21 Subjective Update: Te is a 60 yo male who was admitted from the hospital yesterday d/t weakness, hypokalemia, hypomagnesemia. Patient has metastatic lung cancer and unable to undergo further chemotherapy. Patient is waiting to hear back from Dr. Richmond's office in regards to whether radiation is an option. Patient requests full code and wants to know his options. He states he was gradually getting worse again and not feeling well. Has known history of electrolyte imbalances. 03/19/2021 Te states he feels about the same today. He denies any chest discomfort. States he would like to be able to get home at some point as his son is there. He hasn't been up ambulating much as he just doesn't feel like it. Admits he isn't drinking much for fluids or really have any appetite. Denies any abdominal pain. No increased shortness of breath. States overall he isn't any worse than on admit. Nursing staff state he did run a low grade temperature last night but declined any Tylenol. Cough has improved with medication. 03/20/2021 Te states he slept well last night. Admits the cough syrup did help with his cough and allowed him to get a good nights rest. He is voicing his frustration with his cancer treatment and states he isn't ready to stop. Wants to know what is next for him. States he is ready to try the next chemotherapy medication but hasn't heard from his oncologist. He states physical therapy did work with him last night and made him walk quite a ways. He hasn't been very keen on walking a lot. He denies any new onset of symptoms. Yesterday he was hoping to get home today but did speak with his son and family about it. They want to continue to fight and try everything before giving up, states he has nothing to lose. 03/21/2021 Te has been in poor spirits and short with nursing staff per report. States he continues to have low grade fevers in the night. He states this morning he has been lightheaded with ambulation but denies any sense of falling or concerns with syncope. He admits to right sided chest pain, worse with cough. Hasn't had any cough medication since yesterday. States he isn't a morning person and doesn't feel like eating in the morning or taking his medications. He denies any new onset of shortness of breath. States he did try walking yesterday down the green and didn't have any complications. Admits PT wants to walk him all the way to physical therapy today, which he said he will give a try. 03/24/2021 Te continues to have poor appetite; however, states he likes cypriot toast and wants to eat his breakfast this morning. He states he was okay over the weekend. Admits to continuing with his cough. Nursing staff report he hasn't been taking all his medications and continues to be short with them. He has been short of b reath with ambulation, being very winded when getting up to the bathroom. States he wants to continue to fight and get better so he can start new chemotherapy. Te worked with physical therapy this morning and didn't have a lot of strength. Unable to ambulate for any long distance. He hasn't ate breakfast yet but does state he is hungry. PT did state he did well in the afternoon and seems to do better as the day goes on. Te states he doesn't want us giving up on him. He is talking about moving to [place] soon as this may be best for him with his family mostly from their. He denies any set backs today, has no complaints. HE states he understands he needs to eat. Family continues to bring him meals, which he has been eating some of. Functional Status: Reports: Pain Controlled (has chronic right sided chest pain), Ambulating, Urinating. Denies: Tolerating Diet - Review of Systems General: Reports: Weakness, Fatigue. Denies: Appetite HEENT: Reports: No Symptoms Pulmonary: Reports: Pleuritic Chest Pain, Cough Cardiovascular: Reports: No Symptoms Gastrointestinal: Reports: No Symptoms Genitourinary: Reports: No Symptoms Skin: Reports: No Symptoms Neurological: Reports: No Symptoms Psychiatric: Reports: No Symptoms - Patient Data Vitals - Most Recent: Last Vital Signs Temp 98.2 F 03/25/21 03:12 Pulse 97 03/25/21 03:12 Resp 20 03/25/21 03:12 BP 104/64 03/25/21 03:12 Pulse Ox 97 03/25/21 03:12 Weight - Most Recent: 112 lb I&O - Last 24 Hours: Intake & Output 03/24/21 03/25/21 03/25/21 22:59 06:59 14:59 Intake Total 1000 1000 Balance 1000 1000 Lab Results Last 24 Hours: Laboratory Results - last 24 hr 03/24/21 03/25/21 03/25/21 Range/Units 19:42 06:55 06:55 WBC 6.3 (5.0-10.0) 10^3/uL RBC 3.11 L (4.50-6.00) 10^6/uL Hgb 8.5 L (14.0-18.0) g/dL Hct 26.8 L (40.0-54.0) % MCV 86.2 (82.0-94.0) fL MCH 27.3 (27.0-32.0) pg MCHC 31.7 L (33.0-38.0) g/dL RDW Coeff of Marquis 17.5 H (11.0-15.0) % Plt Count 230 (150-400) 10^3/uL Neut % (Auto) 77.7 (35-85) % Lymph % (Auto) 15.3 (10-55) % Briscoe % (Auto) 6.2 (0-16) % Eos % (Auto) 0.6 (0-5) % Baso % (Auto) 0.2 (0-3) % Neut # (Auto) 4.89 (1.80-7.00) 10^3/uL Lymph # (Auto) 0.96 L (1.00-4.80) 10^3/uL Briscoe # (Auto) 0.39 (0.00-0.80) 10^3/uL Eos # (Auto) 0.04 (0.00-0.45) 10^3/uL Baso # (Auto) 0.01 10^3/uL Sodium 135 L (136-145) mEq/L Potassium 3.9 (3.5-5.0) mEq/L Chloride 97 L (98-106) mEq/L Carbon Dioxide 29 (21-32) mmol/L BUN 8 (7-18) mg/dL Creatinine 0.6 L (0.7-1.3) mg/dL Est Cr Clr Drug Dosing 94.08 mL/min Estimated GFR (MDRD) > 60 (>=60) mL/min Glucose 117 H (75-99) mg/dL POC Glucose 126 H (75-105) mg/dL Calcium 9.0 (8.4-10.1) mg/dL Med Orders - Current: Current Medications Acetaminophen (Acetaminophen 325 Mg Tab) 650 mg PO Q4H PRN PRN Reason: Pain (Mild 1-3)/fever Last Admin: 03/20/21 08:19 Dose: 650 mg Documented by: Albuterol (Albuterol 0.083% 2.5 Mg/3 Ml Neb Soln) 2.5 mg NEB Q4H PRN PRN Reason: Dyspnea Last Admin: 03/23/21 10:21 Dose: 2.5 mg Documented by: Apixaban (Apixaban 5 Mg Tab) 5 mg PO BID [facility] Last Admin: 03/25/21 08:26 Dose: 5 mg Documented by: Cyanocobalamin (Cyanocobalamin (Vitamin B12) 1,000 Mcg Tab) 1,000 mcg PO DAILY [facility] Last Admin: 03/25/21 08:26 Dose: 1,000 mcg Documented by: Folic Acid (Folic Acid 1 Mg Tab) 1 mg PO DAILY [facility] Last Admin: 03/25/21 08:26 Dose: 1 mg Documented by: Lactated Ringer's (Ringers, Lactated) 1,000 mls @ 75 mls/hr IV ASDIRECTED [facility] Last Admin: 03/25/21 07:02 Dose: 75 mls/hr Documented by: Levofloxacin/Dextrose 500 mg/ (Premix) 100 mls @ 100 mls/hr IV DAILY@1600 [facility] Last Admin: 03/24/21 15:42 Dose: 100 mls/hr Documented by: Insulin Glargine (Insulin Glarg,Human.Rec.Analog 100 Unit/Ml) 15 unit SUBCUT BEDTIME [facility] Last Admin: 03/24/21 20:02 Dose: Not Given Documented by: Magnesium Chloride (Magnesium Chloride 64 Mg Tab.Er) 128 mg PO BIDMEALS [facility] Last Admin: 03/25/21 08:26 Dose: 128 mg Documented by: Nicotine (Nicotine 14 Mg/24 Hr Patch) 14 mg TRDERM DAILY [facility] Last Admin: 03/25/21 08:26 Dose: 14 mg Documented by: Buprenorphine/Naloxone 8-2mg Sl Tab Pt Own 0 tab SL DAILY [facility] Last Admin: 03/25/21 08:31 Dose: 1 tab Documented by: Ondansetron HCl (Ondansetron 4 Mg Tab.Dis) 8 mg PO TID PRN PRN Reason: Nausea Pantoprazole Sodium (Pantoprazole 40 Mg Vial) 40 mg IVPUSH BID [facility] Last Admin: 03/25/21 08:25 Dose: 40 mg Documented by: Potassium Chloride (Potassium Chloride 10 Meq Tab.Er) 20 meq PO TIDMEALS [facility] Last Admin: 03/25/21 08:26 Dose: 20 meq Documented by: Promethazine HCl/Codeine (Codeine/Promethazine 10-6.25 Mg/5 Ml Syrup 5 Ml Ud Cup) 5 - 10 ml PO Q4H PRN PRN Reason: Cough Last Admin: 03/22/21 12:07 Dose: 10 ml Documented by: Discontinued Medications Potassium Chloride 40 meq/ (Premix) 100 mls @ 25 mls/hr IV ONETIME ONE Stop: 03/17/21 16:46 Last Admin: 03/17/21 13:13 Dose: 25 mls/hr Documented by: Magnesium Sulfate (Magnesium Sulfate In Water 2 Gm/50 Ml) 2 gm in 50 mls @ 50 mls/hr IV ONETIME ONE Stop: 03/17/21 13:47 Last Admin: 03/17/21 13:37 Dose: Not Given Documented by: Magnesium Sulfate (Magnesium Sulfate In Water 2 Gm/50 Ml) 4 gm in 100 mls @ 50 mls/hr IV ONETIME ONE Stop: 03/17/21 14:48 Last Admin: 03/17/21 13:30 Dose: 50 mls/hr Documented by: Magnesium Sulfate (Magnesium Sulfate In Water 2 Gm/50 Ml) 2 gm in 50 mls @ 25 mls/hr IV ONETIME ONE Stop: 03/18/21 12:29 Last Admin: 03/18/21 10:32 Dose: 25 mls/hr Documented by: Potassium Chloride 20 meq/ (Premix) 100 mls @ 50 mls/hr IV ONETIME ONE Stop: 03/18/21 14:29 Last Admin: 03/18/21 12:19 Dose: 50 mls/hr Documented by: Magnesium Sulfate (Magnesium Sulfate In Water 2 Gm/50 Ml) 2 gm in 50 mls @ 25 mls/hr IV Q2H [facility] Stop: 03/19/21 14:29 Last Admin: 03/19/21 12:30 Dose: 25 mls/hr Documented by: Magnesium Sulfate (Magnesium Sulfate In Water 2 Gm/50 Ml) 4 gm in 100 mls @ 50 mls/hr IV ONETIME ONE Stop: 03/20/21 10:58 Last Admin: 03/20/21 10:24 Dose: Not Given Documented by: Magnesium Sulfate (Magnesium Sulfate In Water 2 Gm/50 Ml) 2 gm in 50 mls @ 25 mls/hr IV Q2H [facility] Stop: 03/20/21 13:29 Last Admin: 03/20/21 12:53 Dose: 25 mls/hr Documented by: Sodium Chloride (Normal Saline) 250 mls @ 50 mls/hr IV ASDIRECTED [facility] Last Admin: 03/21/21 15:10 Dose: 50 mls/hr Documented by: - Exam General: Alert, Oriented, Other (cachectic) Lungs: Normal Respiratory Effort, Decreased Breath Sounds. No: Wheezing Cardiovascular: Regular Rate, Regular Rhythm, No Murmurs Extremities: Normal Inspection, No Pedal Edema Skin: Warm, Dry, Intact Psy/Mental Status: Alert - Patient Data Lab Results Last 24 hrs: Laboratory Results - last 24 hr 03/24/21 03/25/21 03/25/21 Range/Units 19:42 06:55 06:55 WBC 6.3 (5.0-10.0) 10^3/uL RBC 3.11 L (4.50-6.00) 10^6/uL Hgb 8.5 L (14.0-18.0) g/dL Hct 26.8 L (40.0-54.0) % MCV 86.2 (82.0-94.0) fL MCH 27.3 (27.0-32.0) pg MCHC 31.7 L (33.0-38.0) g/dL RDW Coeff of Marquis 17.5 H (11.0-15.0) % Plt Count 230 (150-400) 10^3/uL Neut % (Auto) 77.7 (35-85) % Lymph % (Auto) 15.3 (10-55) % Briscoe % (Auto) 6.2 (0-16) % Eos % (Auto) 0.6 (0-5) % Baso % (Auto) 0.2 (0-3) % Neut # (Auto) 4.89 (1.80-7.00) 10^3/uL Lymph # (Auto) 0.96 L (1.00-4.80) 10^3/uL [place]iscoe # (Auto) 0.39 (0.00-0.80) 10^3/uL Eos # (Auto) 0.04 (0.00-0.45) 10^3/uL Baso # (Auto) 0.01 10^3/uL Sodium 135 L (136-145) mEq/L Potassium 3.9 (3.5-5.0) mEq/L Chloride 97 L (98-106) mEq/L Carbon Dioxide 29 (21-32) mmol/L BUN 8 (7-18) mg/dL Creatinine 0.6 L (0.7-1.3) mg/dL Est Cr Clr Drug Dosing 94.08 mL/min Estimated GFR (MDRD) > 60 (>=60) mL/min Glucose 117 H (75-99) mg/dL POC Glucose 126 H (75-105) mg/dL Calcium 9.0 (8.4-10.1) mg/dL Result Diagrams: 03/25/21 06:55 03/25/21 06:55 Sepsis Event Note - Evaluation Sepsis Screening Result: No Definite Risk - Focused Exam Vital Signs: Vital Signs Temp Pulse Resp BP Pulse Ox 03/25/21 03:12 98.2 F 97 20 104/64 97 03/24/21 23:48 98.3 F 105 H 18 95/51 L 97 - Problem List & Annotations (1) Cancer of right lung SNOMED Code(s): 618302268 Code(s): C34.91 - MALIGNANT NEOPLASM OF UNSP PART OF RIGHT BRONCHUS OR LUNG Status: Acute Priority: High Current Visit: Yes Qualifiers: Lung location: unspecified part of lung Qualified Code(s): C34.91 - Malignant neoplasm of unspecified part of right bronchus or lung (2) Anemia SNOMED Code(s): 007514168 Code(s): D64.9 - ANEMIA, UNSPECIFIED Status: Acute Current Visit: No Qualifiers: Anemia type: other cause Other causes of anemia: chronic disease, neoplastic Qualified Code(s): D63.0 - Anemia in neoplastic disease (3) Hypokalemia SNOMED Code(s): 06007469 Code(s): E87.6 - HYPOKALEMIA Status: Resolved Priority: High Current Visit: Yes (4) Hypomagnesemia SNOMED Code(s): 772678517 Code(s): E83.42 - HYPOMAGNESEMIA Status: Chronic Priority: High Current Visit: Yes (5) Failure to thrive SNOMED Code(s): 04024511 Code(s): OGF7379 - Status: Acute Current Visit: Yes Qualifiers: Failure to thrive age range: in adult Qualified Code(s): R62.7 - Adult failure to thrive - Problem List Review Problem List Initiated/Reviewed/Updated: Yes - My Orders Last 24 Hours: My Active Orders 03/26/21 05:11 BASIC METABOLIC PANEL,BMP [CHEM] AM CBC WITH AUTO DIFF [HEME] AM - Plan Plan:: On admission potassium was 2.7 and currently 3.4 today. Magnesium has improved from 1.0 to 1.8 today. Will give 2gm of magnesium today and will continue with potassium supplementation. Lana has reached out to Dr. Richmond's office in regards to further treatment. Patient is currently on oxygen and will need evaluation for home oxygen as well. I spoke with Dr. Richmond yesterday afternoon in regards to Te's current status. She did inform me he is not a candidate for radiation per radiation oncologist. She states he will have to consider a different chemotherapy medication as he didn't do well and significantly declined with prior treatment. I discussed my conversation with Dr. Richmond to Te and he voiced understanding. I also discussed transfer to higher level of care for all pos sible options, which he declined at this time. Does state his wishes to go home when able. He was started on Folic acid and Vitamin B12 yesterday as he needs to be on for 1 week prior to starting new chemotherapy. Hgb has gradually declined and will type and cross with holding 2 units. If Hgb and electrolytes are stable in the am may discharge home so he can be with his family. Potassium is normal today. Magnesium continues to be chronically low. Will give 4gm magnesium IV today. Will continue IV fluids as he isn't drinking much. Discussed he needs to ambulate and show he can care for himself at home. Will evaluate for home oxygen today as well, which discussed he may need to be on chronically at this time. 03/20/2021 Discussed treatment options with Te and continuing treatment at this time. Patient wants to continue all available treatment options. I discussed with Te he has to be strong enough and stable to undergo further treatment. Advised we need him to eat well and work with physical therapy to continue getting stronger. I did discuss with Lana Bush having virtual appointment with Dr. Richmond as patient wants to know his options. I feel this is acceptable as I am unable to give him his options. We will continue to closely monitor as patient did spike a fever last night. Will continue IV antibiotics. Magnesium is low and will correct today. Potassium stable. 03/21/2021 Te continues to state he wants to do everything he can and explore all options in regards to treatment. Dr. Richmond consulted today and did have Zoom visit with Te and his daughter. Discussed with Te he needs to get stronger before starting chemotherapy. Chemotherapy is palliative. Patient has been tachycardic and hypotensive and discussed patient's Hgb with Dr. Richmond as well. Advised giving 1 unit of pRBC's today. Discussed risks and benefits of transfusion with Te and he wished to proceed. Potassium has remained normal today. Magnesium has continued to be chronically low. 03/22/2021 1000am Patient reports today that he feels generally weak, but reports better with more energy than yesterday. The patient reports that this afternoon he is going to get up and walk. Patient has not eaten his breakfast this morning. Hgb yesterday was 7.8, got 1 unit PRBCs. Today his hgb is 9.5. Will continue admit, approved for acute status until Wednesday. Will attempt to get patient up and active today. Will repeat labs tomorrow and evaluate. 03/23/2021 1005am The patient today reports that he is having right sided chest pain. He reports the pain is worse when he coughs or takes big deep breaths. Patient reports it feels like his cancer pain. Patient again this morning has not eaten his breakfast. He also has not taken his morning medications. The patient requested to the RN to be taken off his NS fluids. I discussed these fluids with the patient and how he is not eating or drinking. He has elected to continue them after our conversation. I also discussed with him how he is not eating, not drinking, lack of caloric intake, he will not get up and ambulate, his refusal to take his medications. I discussed with him his motivation to continue treatments vs changing his code status. He reports to me that he is "staying here", "I'm trying". The patient does not want his code status changed. He wants to continue treatment. He reports "you just need to give me some time, I'll do those things later." This is also what he keeps reporting to the RNs, but has not changed the behavior. Continues to not eat or drink much, or be mobile. The son brought the patient some food last night, a meatball sub, the patient took 3 bites. I asked the patient if he would like some ensure shakes or if there is anything that I can get him that he would eat or drink. He reports his kids sometimes bring him shakes from the drive in, but he doesnt want one now. The patient labs today are hgb 8.5, yesterday was 9.5. Will continue patient admit. Plan for this patient would be for PCP to see tomorrow and discuss patient options again. No changes at this time. 03/24/2021 Te has not made a lot of progress at this time. He has continued to lay in bed most of the day. We will d/c fluids today but he will have to start drinking fluids and eating as discussed with patient. He hasn't wanted to eat as he states the food isn't any good but is willing to eat his breakfast since he likes cypriot toast. Family continue to bring him food daily. Hgb is 8.8 today, stable. I discussed with Te the need to continue with physical therapy and work on getting stronger or he will be unable to start chemotherapy again. Patient will continue in acute care at this time and will plan for discharge tomorrow or Wednesday. 03/25/2021 Bill continues to be about the same as yesterday. I again reassured Te we are not giving up on him and that he needs to really work on getting himself better. He needs to eat as if he doesn't eat he will continue to get weaker. Hgb is stable today at 8.5. Physical therapy will continue to work with Te. He will discuss moving to [place] with his sister and ex- today. Declines mcc and does not want to discuss Hospice at this time.
[2021-03-25] MEDS: Levofloxacin/Dextrose 5%-Water 500 MG in Premix Bag 1 BAG IV SCH (17:12)
[2021-03-25] MEDS: Mirtazapine 15 MG Tab PO SCH (19:55)
[2021-03-25] MEDS: Insulin Glarg,Human.Rec.Analog 100 Unit/ML SUBCUT SCH (19:59)
[2021-03-26] MEDS: Acetaminophen 325 MG Tab PO PRN ×2 (05:49→13:50)
[2021-03-26 07:33] LABS: CHLORIDE,CL 98 mEq/L (98-106); SODIUM,NA 136 mEq/L (136-145)
[2021-03-26] MEDS: Apixaban 5 MG Tab PO SCH ×2 (08:18→19:41)
[2021-03-26] MEDS: Cyanocobalamin (Vitamin B12) 1,000 MCG Tab PO SCH (08:18)
[2021-03-26] MEDS: Magnesium Chloride 64 MG Tab.ER PO SCH ×2 (08:18→18:18)
[2021-03-26] MEDS: Folic Acid 1 MG Tab PO SCH (08:19)
[2021-03-26] MEDS: Pantoprazole 40 MG Vial IVPUSH SCH ×2 (08:19→19:41)
[2021-03-26] MEDS: Potassium Chloride 10 MEQ Tab.ER PO SCH ×3 (08:19→18:18)
[2021-03-26] MEDS: Nicotine 14 MG/24 Hr Patch TRDERM SCH (08:19)
[2021-03-26] MEDS: NALOXONE SL SCH (08:28)
[2021-03-26] MEDS: BUPRENORPHINE SL SCH (08:28)
--- NOTE | 2021-03-26 09:11 | PCM.PN ---
- General Info Date of Service: 03/26/21 Subjective Update: Te is a 60 yo male who was admitted from the hospital yesterday d/t weakness, hypokalemia, hypomagnesemia. Patient has metastatic lung cancer and unable to undergo further chemotherapy. Patient is waiting to hear back from Dr. Richmond's office in regards to whether radiation is an option. Patient requests full code and wants to know his options. He states he was gradually getting worse again and not feeling well. Has known history of electrolyte imbalances. 03/19/2021 Te states he feels about the same today. He denies any chest discomfort. States he would like to be able to get home at some point as his son is there. He hasn't been up ambulating much as he just doesn't feel like it. Admits he isn't drinking much for fluids or really have any appetite. Denies any abdominal pain. No increased shortness of breath. States overall he isn't any worse than on admit. Nursing staff state he did run a low grade temperature last night but declined any Tylenol. Cough has improved with medication. 03/20/2021 eT states he slept well last night. Admits the cough syrup did help with his cough and allowed him to get a good nights rest. He is voicing his frustration with his cancer treatment and states he isn't ready to stop. Wants to know what is next for him. States he is ready to try the next chemotherapy medication but hasn't heard from his oncologist. He states physical therapy did work with him last night and made him walk quite a ways. He hasn't been very keen on walking a lot. He denies any new onset of symptoms. Yesterday he was hoping to get home today but did speak with his son and family about it. They want to continue to fight and try everything before giving up, states he has nothing to lose. 03/21/2021 Te has been in poor spirits and short with nursing staff per report. States he continues to have low grade fevers in the night. He states this morning he has been lightheaded with ambulation but denies any sense of falling or concerns with syncope. He admits to right sided chest pain, worse with cough. Hasn't had any cough medication since yesterday. States he isn't a morning person and doesn't feel like eating in the morning or taking his medications. He denies any new onset of shortness of breath. States he did try walking yesterday down [place] and didn't have any complications. Admits PT wants to walk him all the way to physical therapy today, which he said he will give a try. 03/24/2021 Te continues to have poor appetite; however, states he likes malaysian toast and wants to eat his breakfast this morning. He states he was okay over the weekend. Admits to continuing with his cough. Nursing staff report he hasn't been taking all his medications and continues to be short with them. He has been short of b reath with ambulation, being very winded when getting up to the bathroom. States he wants to continue to fight and get better so he can start new chemotherapy. Te worked with physical therapy this morning and didn't have a lot of strength. Unable to ambulate for any long distance. He hasn't ate breakfast yet but does state he is hungry. PT did state he did well in the afternoon and seems to do better as the day goes on. Te states he doesn't want us giving up on him. He is talking about moving to [place] soon as this may be best for him with his family mostly from their. He denies any set backs today, has no complaints. HE states he understands he needs to eat. Family continues to bring him meals, which he has been eating some of. 03/26/2021 Patient states he ran a fever this morning but is now feeling better after getting Tylenol. He admits to continuing to feel weak. Doesn't feel he will do well at home. States he wants to get to his appointment on Wednesday with oncbandar carmona to know where and what to do from here. He admits after asking about some depression and states who wouldn't be with what he is going through. He doesn't feel it is any worse or better. States when he was on medication for depression it didn't really make any difference "so why take something if it doesn't help". Denies any coughing this morning. States he has been up and to the bathroom which nurse state does require some assistance. Functional Status: Reports: Ambulating. Denies: Tolerating Diet - Review of Systems General: Reports: Fever HEENT: Reports: No Symptoms Pulmonary: Reports: Shortness of Breath, Pleuritic Chest Pain (pain tolerable this morning) Cardiovascular: Reports: Dyspnea on Exertion. Denies: Chest Pain Gastrointestinal: Reports: No Symptoms Genitourinary: Reports: No Symptoms Musculoskeletal: Reports: No Symptoms Skin: Reports: No Symptoms Neurological: Reports: No Symptoms - Patient Data Vitals - Most Recent: Last Vital Signs Temp 96.8 F L 03/26/21 08:00 Pulse 98 03/26/21 08:00 Resp 18 03/26/21 08:00 BP 80/50 L 03/26/21 08:00 Pulse Ox 98 03/26/21 08:00 Weight - Most Recent: 112 lb I&O - Last 24 Hours: Intake & Output 03/25/21 03/26/21 03/26/21 22:59 06:59 14:59 Intake Total 991 Balance 991 Lab Results Last 24 Hours: Laboratory Results - last 24 hr 03/25/21 03/25/21 03/26/21 Range/Units 11:21 19:17 07:20 WBC 6.3 (5.0-10.0) 10^3/uL RBC 3.20 L (4.50-6.00) 10^6/uL Hgb 8.7 L (14.0-18.0) g/dL Hct 27.4 L (40.0-54.0) % MCV 85.6 (82.0-94.0) fL MCH 27.2 (27.0-32.0) pg MCHC 31.8 L (33.0-38.0) g/dL RDW Coeff of Marquis 17.9 H (11.0-15.0) % Plt Count 232 (150-400) 10^3/uL Neut % (Auto) 80.1 (35-85) % Lymph % (Auto) 13.5 (10-55) % [place] % (Auto) 5.9 (0-16) % Eos % (Auto) 0.3 (0-5) % Baso % (Auto) 0.2 (0-3) % Neut # (Auto) 5.04 (1.80-7.00) 10^3/uL Lymph # (Auto) 0.85 L (1.00-4.80) 10^3/uL [place] # (Auto) 0.37 (0.00-0.80) 10^3/uL Eos # (Auto) 0.02 (0.00-0.45) 10^3/uL Baso # (Auto) 0.01 10^3/uL Sodium (136-145) mEq/L Potassium (3.5-5.0) mEq/L Chloride (98-106) mEq/L Carbon Dioxide (21-32) mmol/L BUN (7-18) mg/dL Creatinine (0.7-1.3) mg/dL Est Cr Clr Drug Dosing mL/min Estimated GFR (MDRD) (>=60) mL/min Glucose (75-99) mg/dL POC Glucose 122 H 150 H (75-105) mg/dL Calcium (8.4-10.1) mg/dL 03/26/21 Range/Units 07:20 WBC (5.0-10.0) 10^3/uL RBC (4.50-6.00) 10^6/uL Hgb (14.0-18.0) g/dL Hct (40.0-54.0) % MCV (82.0-94.0) fL MCH (27.0-32.0) pg MCHC (33.0-38.0) g/dL RDW Coeff of Marquis (11.0-15.0) % Plt Count (150-400) 10^3/uL Neut % (Auto) (35-85) % Lymph % (Auto) (10-55) % [place] % (Auto) (0-16) % Eos % (Auto) (0-5) % Baso % (Auto) (0-3) % Neut # (Auto) (1.80-7.00) 10^3/uL Lymph # (Auto) (1.00-4.80) 10^3/uL [place] # (Auto) (0.00-0.80) 10^3/uL Eos # (Auto) (0.00-0.45) 10^3/uL Baso # (Auto) 10^3/uL Sodium 136 (136-145) mEq/L Potassium 3.9 (3.5-5.0) mEq/L Chloride 98 (98-106) mEq/L Carbon Dioxide 28 (21-32) mmol/L BUN 8 (7-18) mg/dL Creatinine 0.7 (0.7-1.3) mg/dL Est Cr Clr Drug Dosing 80.64 mL/min Estimated GFR (MDRD) > 60 (>=60) mL/min Glucose 142 H (75-99) mg/dL POC Glucose (75-105) mg/dL Calcium 8.9 (8.4-10.1) mg/dL Med Orders - Current: Current Medications Acetaminophen (Acetaminophen 325 Mg Tab) 650 mg PO Q4H PRN PRN Reason: Pain (Mild 1-3)/fever Last Admin: 03/26/21 05:49 Dose: 650 mg Documented by: Albuterol (Albuterol 0.083% 2.5 Mg/3 Ml Neb Soln) 2.5 mg NEB Q4H PRN PRN Reason: Dyspnea Last Admin: 03/23/21 10:21 Dose: 2.5 mg Documented by: Apixaban (Apixaban 5 Mg Tab) 5 mg PO BID [facility] Last Admin: 03/26/21 08:18 Dose: 5 mg Documented by: Cyanocobalamin (Cyanocobalamin (Vitamin B12) 1,000 Mcg Tab) 1,000 mcg PO DAILY [facility] Last Admin: 03/26/21 08:18 Dose: 1,000 mcg Documented by: Folic Acid (Folic Acid 1 Mg Tab) 1 mg PO DAILY [facility] Last Admin: 03/26/21 08:19 Dose: 1 mg Documented by: Lactated Ringer's (Ringers, Lactated) 1,000 mls @ 75 mls/hr IV ASDIRECTED [facility] Last Admin: 03/25/21 20:15 Dose: 75 mls/hr Documented by: Levofloxacin/Dextrose 500 mg/ (Premix) 100 mls @ 100 mls/hr IV DAILY@1600 [facility] Last Admin: 03/25/21 17:12 Dose: 100 mls/hr Documented by: Insulin Glargine (Insulin Glarg,Human.Rec.Analog 100 Unit/Ml) 15 unit SUBCUT BEDTIME [facility] Last Admin: 03/25/21 19:59 Dose: Not Given Documented by: Magnesium Chloride (Magnesium Chloride 64 Mg Tab.Er) 128 mg PO BIDMEALS [facility] Last Admin: 03/26/21 08:18 Dose: 128 mg Documented by: Mirtazapine (Mirtazapine 15 Mg Tab) 15 mg PO BEDTIME [facility] Last Admin: 03/25/21 19:55 Dose: 15 mg Documented by: Nicotine (Nicotine 14 Mg/24 Hr Patch) 14 mg TRDERM DAILY [facility] Last Admin: 03/26/21 08:19 Dose: 14 mg Documented by: Buprenorphine/Naloxone 8-2mg Sl Tab Pt Own 0 tab SL DAILY [facility] Last Admin: 03/26/21 08:28 Dose: 1 tab Documented by: Ondansetron HCl (Ondansetron 4 Mg Tab.Dis) 8 mg PO TID PRN PRN Reason: Nausea Pantoprazole Sodium (Pantoprazole 40 Mg Vial) 40 mg IVPUSH BID [facility] Last Admin: 03/26/21 08:19 Dose: 40 mg Documented by: Potassium Chloride (Potassium Chloride 10 Meq Tab.Er) 20 meq PO TIDMEALS [facility] Last Admin: 03/26/21 08:19 Dose: 20 meq Documented by: Promethazine HCl/Codeine (Codeine/Promethazine 10-6.25 Mg/5 Ml Syrup 5 Ml Ud Cup) 5 - 10 ml PO Q4H PRN PRN Reason: Cough Last Admin: 03/22/21 12:07 Dose: 10 ml Documented by: Discontinued Medications Potassium Chloride 40 meq/ (Premix) 100 mls @ 25 mls/hr IV ONETIME ONE Stop: 03/17/21 16:46 Last Admin: 03/17/21 13:13 Dose: 25 mls/hr Documented by: Magnesium Sulfate (Magnesium Sulfate In Water 2 Gm/50 Ml) 2 gm in 50 mls @ 50 mls/hr IV ONETIME ONE Stop: 03/17/21 13:47 Last Admin: 03/17/21 13:37 Dose: Not Given Documented by: Magnesium Sulfate (Magnesium Sulfate In Water 2 Gm/50 Ml) 4 gm in 100 mls @ 50 mls/hr IV ONETIME ONE Stop: 03/17/21 14:48 Last Admin: 03/17/21 13:30 Dose: 50 mls/hr Documented by: Magnesium Sulfate (Magnesium Sulfate In Water 2 Gm/50 Ml) 2 gm in 50 mls @ 25 mls/hr IV ONETIME ONE Stop: 03/18/21 12:29 Last Admin: 03/18/21 10:32 Dose: 25 mls/hr Documented by: Potassium Chloride 20 meq/ (Premix) 100 mls @ 50 mls/hr IV ONETIME ONE Stop: 03/18/21 14:29 Last Admin: 03/18/21 12:19 Dose: 50 mls/hr Documented by: Magnesium Sulfate (Magnesium Sulfate In Water 2 Gm/50 Ml) 2 gm in 50 mls @ 25 mls/hr IV Q2H [facility] Stop: 03/19/21 14:29 Last Admin: 03/19/21 12:30 Dose: 25 mls/hr Documented by: Magnesium Sulfate (Magnesium Sulfate In Water 2 Gm/50 Ml) 4 gm in 100 mls @ 50 mls/hr IV ONETIME ONE Stop: 03/20/21 10:58 Last Admin: 03/20/21 10:24 Dose: Not Given Documented by: Magnesium Sulfate (Magnesium Sulfate In Water 2 Gm/50 Ml) 2 gm in 50 mls @ 25 mls/hr IV Q2H [facility] Stop: 03/20/21 13:29 Last Admin: 03/20/21 12:53 Dose: 25 mls/hr Documented by: Sodium Chloride (Normal Saline) 250 mls @ 50 mls/hr IV ASDIRECTED [facility] Last Admin: 03/21/21 15:10 Dose: 50 mls/hr Documented by: - Exam General: Alert, Oriented, Cooperative, Other (cachectic) Lungs: Normal Respiratory Effort, Decreased Breath Sounds, Crackles Cardiovascular: Regular Rate, Regular Rhythm, No Murmurs GI/Abdominal Exam: Normal Bowel Sounds, Soft, Non-Tender, No Organomegaly, No Distention Extremities: Normal Inspection, No Pedal Edema Skin: Warm, Dry, Intact Psy/Mental Status: Alert, Normal Affect, Normal Mood - Patient Data Lab Results Last 24 hrs: Laboratory Results - last 24 hr 03/25/21 03/25/21 03/26/21 Range/Units 11:21 19:17 07:20 WBC 6.3 (5.0-10.0) 10^3/uL RBC 3.20 L (4.50-6.00) 10^6/uL Hgb 8.7 L (14.0-18.0) g/dL Hct 27.4 L (40.0-54.0) % MCV 85.6 (82.0-94.0) fL MCH 27.2 (27.0-32.0) pg MCHC 31.8 L (33.0-38.0) g/dL RDW Coeff of Marquis 17.9 H (11.0-15.0) % Plt Count 232 (150-400) 10^3/uL Neut % (Auto) 80.1 (35-85) % Lymph % (Auto) 13.5 (10-55) % [place] % (Auto) 5.9 (0-16) % Eos % (Auto) 0.3 (0-5) % Baso % (Auto) 0.2 (0-3) % Neut # (Auto) 5.04 (1.80-7.00) 10^3/uL Lymph # (Auto) 0.85 L (1.00-4.80) 10^3/uL [place] # (Auto) 0.37 (0.00-0.80) 10^3/uL Eos # (Auto) 0.02 (0.00-0.45) 10^3/uL Baso # (Auto) 0.01 10^3/uL Sodium (136-145) mEq/L Potassium (3.5-5.0) mEq/L Chloride (98-106) mEq/L Carbon Dioxide (21-32) mmol/L BUN (7-18) mg/dL Creatinine (0.7-1.3) mg/dL Est Cr Clr Drug Dosing mL/min Estimated GFR (MDRD) (>=60) mL/min Glucose (75-99) mg/dL POC Glucose 122 H 150 H (75-105) mg/dL Calcium (8.4-10.1) mg/dL 03/26/21 Range/Units 07:20 WBC (5.0-10.0) 10^3/uL RBC (4.50-6.00) 10^6/uL Hgb (14.0-18.0) g/dL Hct (40.0-54.0) % MCV (82.0-94.0) fL MCH (27.0-32.0) pg MCHC (33.0-38.0) g/dL RDW Coeff of Marquis (11.0-15.0) % Plt Count (150-400) 10^3/uL Neut % (Auto) (35-85) % Lymph % (Auto) (10-55) % [place] % (Auto) (0-16) % Eos % (Auto) (0-5) % Baso % (Auto) (0-3) % Neut # (Auto) (1.80-7.00) 10^3/uL Lymph # (Auto) (1.00-4.80) 10^3/uL [place] # (Auto) (0.00-0.80) 10^3/uL Eos # (Auto) (0.00-0.45) 10^3/uL Baso # (Auto) 10^3/uL Sodium 136 (136-145) mEq/L Potassium 3.9 (3.5-5.0) mEq/L Chloride 98 (98-106) mEq/L Carbon Dioxide 28 (21-32) mmol/L BUN 8 (7-18) mg/dL Creatinine 0.7 (0.7-1.3) mg/dL Est Cr Clr Drug Dosing 80.64 mL/min Estimated GFR (MDRD) > 60 (>=60) mL/min Glucose 142 H (75-99) mg/dL POC Glucose (75-105) mg/dL Calcium 8.9 (8.4-10.1) mg/dL Result Diagrams: 03/26/21 07:20 03/26/21 07:20 Sepsis Event Note - Evaluation Sepsis Screening Result: Sepsis Risk - Focused Exam Vital Signs: Vital Signs Temp Temp Pulse Resp BP Pulse Ox 03/26/21 08:00 96.8 F L 98 18 80/50 L 98 03/26/21 06:51 100.4 F 98 03/26/21 05:45 101.5 F H 110 H 24 H 80/51 L 93 L 03/26/21 00:00 98.3 F 86 16 91/57 L 98 - Problem List & Annotations (1) Cancer of right lung SNOMED Code(s): 709730290 Code(s): C34.91 - MALIGNANT NEOPLASM OF UNSP PART OF RIGHT BRONCHUS OR LUNG Status: Acute Priority: High Current Visit: Yes Qualifiers: Lung location: unspecified part of lung Qualified Code(s): C34.91 - Malignant neoplasm of unspecified part of right bronchus or lung (2) Anemia SNOMED Code(s): 506780615 Code(s): D64.9 - ANEMIA, UNSPECIFIED Status: Acute Current Visit: No Qualifiers: Anemia type: other cause Other causes of anemia: chronic disease, neoplastic Qualified Code(s): D63.0 - Anemia in neoplastic disease (3) Hypokalemia SNOMED Code(s): 17819203 Code(s): E87.6 - HYPOKALEMIA Status: Resolved Priority: High Current Visit: Yes (4) Hypomagnesemia SNOMED Code(s): 696396730 Code(s): E83.42 - HYPOMAGNESEMIA Status: Chronic Priority: High Current Visit: Yes (5) Failure to thrive SNOMED Code(s): 11588248 Code(s): FZX3969 - Status: Acute Current Visit: Yes Qualifiers: Failure to thrive age range: in adult Qualified Code(s): R62.7 - Adult failure to thrive - Problem List Review Problem List Initiated/Reviewed/Updated: Yes - My Orders Last 24 Hours: My Active Orders 03/25/21 20:00 Mirtazapine [Remeron] 15 mg PO BEDTIME - Plan Plan:: On admission potassium was 2.7 and currently 3.4 today. Magnesium has improved from 1.0 to 1.8 today. Will give 2gm of magnesium today and will continue with potassium supplementation. Lana has reached out to Dr. Richmond's office in regards to further treatment. Patient is currently on oxygen and will need evaluation for home oxygen as well. I spoke with Dr. Richmond yesterday afternoon in regards to Te's current status. She did inform me he is not a candidate for radiation per radiation oncologist. She states he will have to consider a different chemotherapy medication as he didn't do well and significantly declined with prior treatment. I discussed my conversation with Dr. Richmond to Te and he voiced understanding. I also discussed transfer to higher level of care for all possible options, which he declined at this time. Does state his wishes to go home when able. He was started on Folic acid and Vitamin B12 yesterday as he needs to be on for 1 week prior to starting new chemotherapy. Hgb has gradually declined and will type and cross with holding 2 units. If Hgb and electrolytes are stable in the am may discharge home so he can be with his family. Potassium is normal today. Magnesium continues to be chronically low. Will give 4gm magnesium IV today. Will continue IV fluids as he isn't drinking much. Discussed he needs to ambulate and show he can care for himself at home. Will evaluate for home oxygen today as well, which discussed he may need to be on chronically at this time. 03/20/2021 Discussed treatment options with Te and continuing treatment at this time. Rupert patrick wants to continue all available treatment options. I discussed with Te he has to be strong enough and stable to undergo further treatment. Advised we need him to eat well and work with physical therapy to continue getting stronger. I did discuss with Lana Bush having virtual appointment with Dr. Richmond as patient wants to know his options. I feel this is acceptable as I am unable to give him his options. We will continue to closely monitor as patient did spike a fever last night. Will continue IV antibiotics. Magnesium is low and will correct today. Potassium stable. 03/21/2021 Te continues to state he wants to do everything he can and explore all options in regards to treatment. Dr. Richmond consulted today and did have Zoom visit with Te and his daughter. Discussed with Te he needs to get stronger before starting chemotherapy. Chemotherapy is palliative. Patient has been tachycardic and hypotensive and discussed patient's Hgb with Dr. Richmond as well. Advised giving 1 unit of pRBC's today. Discussed risks and benefits of transfusion with Te and he wished to proceed. Potassium has remained normal today. Magnesium has continued to be chronically low. 03/22/2021 1000am Patient reports today that he feels generally weak, but reports better with more energy than yesterday. The patient reports that this afternoon he is going to get up and walk. Patient has not eaten his breakfast this morning. Hgb yesterday was 7.8, got 1 unit PRBCs. Today his hgb is 9.5. Will continue admit, approved for acute status until Wednesday. Will attempt to get patient up and active today. Will repeat labs tomorrow and evaluate. 03/23/2021 1005am The patient today reports that he is having right sided chest pain. He reports the pain is worse when he coughs or takes big deep breaths. Patient reports it feels like his cancer pain. Patient again this morning has not eaten his breakfast. He also has not taken his morning medications. The patient requested to the RN to be taken off his NS fluids. I discussed these fluids with the patient and how he is not eating or drinking. He has elected to continue them after our conversation. I also discussed with him how he is not eating, not drinking, lack of caloric intake, he will not get up and ambulate, his refusal to take his medications. I discussed with him his motivation to continue treatments vs changing his code status. He reports to me that he is "staying here", "I'm trying". The patient does not want his code status changed. He wants to continue treatment. He reports "you just need to give me some time, I'll do those things later." This is also what he keeps reporting to the RNs, but has not changed the behavior. Continues to not eat or drink much, or be mobile. The son brought the patient some food last night, a meatball sub, the patient took 3 bites. I asked the patient if he would like some ensure shakes or if there is anything that I can get him that he would eat or drink. He reports his kids s ometimes bring him shakes from the drive in, but he doesnt want one now. The patient labs today are hgb 8.5, yesterday was 9.5. Will continue patient admit. Plan for this patient would be for PCP to see tomorrow and discuss patient options again. No changes at this time. 03/24/2021 Te has not made a lot of progress at this time. He has continued to lay in bed most of the day. We will d/c fluids today but he will have to start drinking fluids and eating as discussed with patient. He hasn't wanted to eat as he states the food isn't any good but is willing to eat his breakfast since he likes malaysian toast. Family continue to bring him food daily. Hgb is 8.8 today, stable. I discussed with Te the need to continue with physical therapy and work on getting stronger or he will be unable to start chemotherapy again. Patient will continue in acute care at this time and will plan for discharge tomorrow or Wednesday. 03/25/2021 Bill continues to be about the same as yesterday. I again reassured Te we are not giving up on him and that he needs to really work on getting himself better. He needs to eat as if he doesn't eat he will continue to get weaker. Hgb is stable today at 8.5. Physical therapy will continue to work with Te. He will discuss moving to [place] with his sister and ex- today. Declines jail and does not want to discuss Hospice at this time. 03/26/2021 Te hasn't shown any significant improvement. Had family consult yesterday and daughter would like to see Te on anti-depressant. Patient had been on Mirtazapine prior which he had stopped after being discharged from the hospital. She did question whether Citalopram would be of benefit. D/t patient not eating well, consulted with Dr. Scott, and restarted Remeron. Patient's laboratory work is stable this morning. Hgb is 8.7 slightly improved from 8.5 yesterday. Potassium is normal today. With fever this morning will get chest x-ray today. Will work on extending care at this time d/t patient's weakness and failure to thrive.
[2021-03-26] MEDS: Lactated Ringers 1,000 ML IV SCH ×2 (09:26→23:36)
[2021-03-26] MEDS: Levofloxacin/Dextrose 5%-Water 500 MG in Premix Bag 1 BAG IV SCH (15:07)
[2021-03-26] MEDS: Mirtazapine 15 MG Tab PO SCH (19:41)
[2021-03-26] MEDS: Insulin Glarg,Human.Rec.Analog 100 Unit/ML SUBCUT SCH (20:56)
[2021-03-27] MEDS: Acetaminophen 325 MG Tab PO PRN ×2 (02:38→20:01)
[2021-03-27] MEDS: Pantoprazole 40 MG Vial IVPUSH SCH ×2 (08:28→20:00)
[2021-03-27] MEDS: Magnesium Chloride 64 MG Tab.ER PO SCH ×2 (08:30→17:07)
[2021-03-27] MEDS: Cyanocobalamin (Vitamin B12) 1,000 MCG Tab PO SCH (08:30)
[2021-03-27] MEDS: Apixaban 5 MG Tab PO SCH ×2 (08:31→20:01)
[2021-03-27] MEDS: Potassium Chloride 10 MEQ Tab.ER PO SCH ×3 (08:31→17:07)
[2021-03-27] MEDS: Folic Acid 1 MG Tab PO SCH (08:31)
[2021-03-27] MEDS: BUPRENORPHINE SL SCH (08:42)
[2021-03-27] MEDS: NALOXONE SL SCH (08:42)
[2021-03-27] MEDS: Nicotine 14 MG/24 Hr Patch TRDERM SCH (08:45)
[2021-03-27 09:12] LABS: CHLORIDE,CL 102 mEq/L (98-106); SODIUM,NA 139 mEq/L (136-145)
[2021-03-27] MEDS: Lactated Ringers 1,000 ML IV SCH (12:52)
--- NOTE | 2021-03-27 13:26 | PCM.PN ---
- General Info Date of Service: 03/27/21 Subjective Update: Te is a 60 yo male who was admitted from the hospital yesterday d/t weakness, hypokalemia, hypomagnesemia. Patient has metastatic lung cancer and unable to undergo further chemotherapy. Patient is waiting to hear back from Dr. Richmond's office in regards to whether radiation is an option. Patient requests full code and wants to know his options. He states he was gradually getting worse again and not feeling well. Has known history of electrolyte imbalances. 03/19/2021 Te states he feels about the same today. He denies any chest discomfort. States he would like to be able to get home at some point as his son is there. He hasn't been up ambulating much as he just doesn't feel like it. Admits he isn't drinking much for fluids or really have any appetite. Denies any abdominal pain. No increased shortness of breath. States overall he isn't any worse than on admit. Nursing staff state he did run a low grade temperature last night but declined any Tylenol. Cough has improved with medication. 03/20/2021 Te states he slept well last night. Admits the cough syrup did help with his cough and allowed him to get a good nights rest. He is voicing his frustration with his cancer treatment and states he isn't ready to stop. Wants to know what is next for him. States he is ready to try the next chemotherapy medication but hasn't heard from his oncologist. He states physical therapy did work with him last night and made him walk quite a ways. He hasn't been very keen on walking a lot. He denies any new onset of symptoms. Yesterday he was hoping to get home today but did speak with his son and family about it. They want to continue to fight and try everything before giving up, states he has nothing to lose. 03/21/2021 Te has been in poor spirits and short with nursing staff per report. States he continues to have low grade fevers in the night. He states this morning he has been lightheaded with ambulation but denies any sense of falling or concerns with syncope. He admits to right sided chest pain, worse with cough. Hasn't had any cough medication since yesterday. States he isn't a morning person and doesn't feel like eating in the morning or taking his medications. He denies any new onset of shortness of breath. States he did try walking yesterday down [place] and didn't have any complications. Admits PT wants to walk him all the way to physical therapy today, which he said he will give a try. 03/24/2021 Te continues to have poor appetite; however, states he likes slovenian toast and wants to eat his breakfast this morning. He states he was okay over the weekend. Admits to continuing with his cough. Nursing staff report he hasn't been taking all his medications and continues to be short with them. He has been short of b reath with ambulation, being very winded when getting up to the bathroom. States he wants to continue to fight and get better so he can start new chemotherapy. Te worked with physical therapy this morning and didn't have a lot of strength. Unable to ambulate for any long distance. He hasn't ate breakfast yet but does state he is hungry. PT did state he did well in the afternoon and seems to do better as the day goes on. Bill states he doesn't want us giving up on him. He is talking about moving to [place] soon as this may be best for him with his family mostly from their. He denies any set backs today, has no complaints. HE states he understands he needs to eat. Family continues to bring him meals, which he has been eating some of. 03/26/2021 Patient states he ran a fever this morning but is now feeling better after getting Tylenol. He admits to continuing to feel weak. Doesn't feel he will do well at home. States he wants to get to his appointment on Wednesday with oncbandar carmona to know where and what to do from here. He admits after asking about some depression and states who wouldn't be with what he is going through. He doesn't feel it is any worse or better. States when he was on medication for depression it didn't really make any difference "so why take something if it doesn't help". Denies any coughing this morning. States he has been up and to the bathroom which nurse state does require some assistance. 03/27/2021 Bill appears to be in better spirits this morning. States he had a good appetite last night and enjoyed the hot dish. Admits he was able to eat a majority of the hot dish. Patient is in agreement for [facility] for ongoing strengthening. He continues to run low grade fevers at night. However, states this morning he is feeling a lot better than he has been. Is concerned of coughing with increased blood tinged sputum. Declines follow up chest x-ray. - Review of Systems General: Reports: Fever, Weakness, Fatigue. Denies: Appetite HEENT: Reports: No Symptoms Pulmonary: Reports: Pleuritic Chest Pain, Cough, Sputum Cardiovascular: Reports: No Symptoms Genitourinary: Reports: No Symptoms Neurological: Reports: No Symptoms Psychiatric: Reports: No Symptoms - Patient Data Vitals - Most Recent: Last Vital Signs Temp 98.0 F 03/27/21 08:00 Pulse 73 03/27/21 08:00 Resp 18 03/27/21 08:00 BP 80/51 L 03/27/21 08:00 Pulse Ox 98 03/27/21 08:00 Weight - Most Recent: 112 lb I&O - Last 24 Hours: Intake & Output 03/26/21 03/27/21 03/27/21 22:59 06:59 14:59 Intake Total 1000 995 Balance 1000 995 Lab Results Last 24 Hours: Laboratory Results - last 24 hr 03/26/21 03/27/21 03/27/21 Range/Units 19:43 08:49 08:49 WBC 6.1 (5.0-10.0) 10^3/uL RBC 3.35 L (4.50-6.00) 10^6/uL Hgb 9.2 L (14.0-18.0) g/dL Hct 29.0 L (40.0-54.0) % MCV 86.6 (82.0-94.0) fL MCH 27.5 (27.0-32.0) pg MCHC 31.7 L (33.0-38.0) g/dL RDW Coeff of Marquis 18.2 H (11.0-15.0) % Plt Count 214 (150-400) 10^3/uL Neut % (Auto) 77.6 (35-85) % Lymph % (Auto) 16.1 (10-55) % [place] % (Auto) 5.8 (0-16) % Eos % (Auto) 0.3 (0-5) % Baso % (Auto) 0.2 (0-3) % Neut # (Auto) 4.72 (1.80-7.00) 10^3/uL Lymph # (Auto) 0.98 L (1.00-4.80) 10^3/uL [place] # (Auto) 0.35 (0.00-0.80) 10^3/uL Eos # (Auto) 0.02 (0.00-0.45) 10^3/uL Baso # (Auto) 0.01 10^3/uL Sodium 139 (136-145) mEq/L Potassium 4.0 (3.5-5.0) mEq/L Chloride 102 (98-106) mEq/L Carbon Dioxide 31 (21-32) mmol/L BUN 9 (7-18) mg/dL Creatinine 0.9 (0.7-1.3) mg/dL Est Cr Clr Drug Dosing 62.72 mL/min Estimated GFR (MDRD) > 60 (>=60) mL/min Glucose 145 H (75-99) mg/dL POC Glucose 159 H (75-105) mg/dL Calcium 8.6 (8.4-10.1) mg/dL C-Reactive Protein 16.5 H (0.2-0.8) mg/dL Med Orders - Current: Current Medications Acetaminophen (Acetaminophen 325 Mg Tab) 650 mg PO Q4H PRN PRN Reason: Pain (Mild 1-3)/fever Last Admin: 03/27/21 02:38 Dose: 650 mg Documented by: Albuterol (Albuterol 0.083% 2.5 Mg/3 Ml Neb Soln) 2.5 mg NEB Q4H PRN PRN Reason: Dyspnea Last Admin: 03/23/21 10:21 Dose: 2.5 mg Documented by: Apixaban (Apixaban 5 Mg Tab) 5 mg PO BID [facility] Last Admin: 03/27/21 08:31 Dose: 5 mg Documented by: Cyanocobalamin (Cyanocobalamin (Vitamin B12) 1,000 Mcg Tab) 1,000 mcg PO DAILY [facility] Last Admin: 03/27/21 08:30 Dose: 1,000 mcg Documented by: Folic Acid (Folic Acid 1 Mg Tab) 1 mg PO DAILY [facility] Last Admin: 03/27/21 08:31 Dose: 1 mg Documented by: Lactated Ringer's (Ringers, Lactated) 1,000 mls @ 75 mls/hr IV ASDIRECTED [facility] Last Admin: 03/27/21 12:52 Dose: 75 mls/hr Documented by: Levofloxacin/Dextrose 500 mg/ (Premix) 100 mls @ 100 mls/hr IV DAILY@1600 [facility] Last Admin: 03/26/21 15:07 Dose: 100 mls/hr Documented by: Insulin Glargine (Insulin Glarg,Human.Rec.Analog 100 Unit/Ml) 15 unit SUBCUT BEDTIME [facility] Last Admin: 03/26/21 20:56 Dose: Not Given Documented by: Magnesium Chloride (Magnesium Chloride 64 Mg Tab.Er) 128 mg PO BIDMEALS [facility] Last Admin: 03/27/21 08:30 Dose: 128 mg Documented by: Mirtazapine (Mirtazapine 15 Mg Tab) 15 mg PO BEDTIME [facility] Last Admin: 03/26/21 19:41 Dose: 15 mg Documented by: Nicotine (Nicotine 14 Mg/24 Hr Patch) 14 mg TRDERM DAILY [facility] Last Admin: 03/27/21 08:45 Dose: 14 mg Documented by: Buprenorphine/Naloxone 8-2mg Sl Tab Pt Own 0 tab SL DAILY [facility] Last Admin: 03/27/21 08:42 Dose: 1 tab Documented by: Ondansetron HCl (Ondansetron 4 Mg Tab.Dis) 8 mg PO TID PRN PRN Reason: Nausea Pantoprazole Sodium (Pantoprazole 40 Mg Vial) 40 mg IVPUSH BID [facility] Last Admin: 03/27/21 08:28 Dose: 40 mg Documented by: Potassium Chloride (Potassium Chloride 10 Meq Tab.Er) 20 meq PO TIDMEALS [facility] Last Admin: 03/27/21 12:10 Dose: 20 meq Documented by: Promethazine HCl/Codeine (Codeine/Promethazine 10-6.25 Mg/5 Ml Syrup 5 Ml Ud Cup) 5 - 10 ml PO Q4H PRN PRN Reason: Cough Last Admin: 03/22/21 12:07 Dose: 10 ml Documented by: Discontinued Medications Potassium Chloride 40 meq/ (Premix) 100 mls @ 25 mls/hr IV ONETIME ONE Stop: 03/17/21 16:46 Last Admin: 03/17/21 13:13 Dose: 25 mls/hr Documented by: Magnesium Sulfate (Magnesium Sulfate In Water 2 Gm/50 Ml) 2 gm in 50 mls @ 50 mls/hr IV ONETIME ONE Stop: 03/17/21 13:47 Last Admin: 03/17/21 13:37 Dose: Not Given Documented by: Magnesium Sulfate (Magnesium Sulfate In Water 2 Gm/50 Ml) 4 gm in 100 mls @ 50 mls/hr IV ONETIME ONE Stop: 03/17/21 14:48 Last Admin: 03/17/21 13:30 Dose: 50 mls/hr Documented by: Magnesium Sulfate (Magnesium Sulfate In Water 2 Gm/50 Ml) 2 gm in 50 mls @ 25 mls/hr IV ONETIME ONE Stop: 03/18/21 12:29 Last Admin: 03/18/21 10:32 Dose: 25 mls/hr Documented by: Potassium Chloride 20 meq/ (Premix) 100 mls @ 50 mls/hr IV ONETIME ONE Stop: 03/18/21 14:29 Last Admin: 03/18/21 12:19 Dose: 50 mls/hr Documented by: Magnesium Sulfate (Magnesium Sulfate In Water 2 Gm/50 Ml) 2 gm in 50 mls @ 25 mls/hr IV Q2H [facility] Stop: 03/19/21 14:29 Last Admin: 03/19/21 12:30 Dose: 25 mls/hr Documented by: Magnesium Sulfate (Magnesium Sulfate In Water 2 Gm/50 Ml) 4 gm in 100 mls @ 50 mls/hr IV ONETIME ONE Stop: 03/20/21 10:58 Last Admin: 03/20/21 10:24 Dose: Not Given Documented by: Magnesium Sulfate (Magnesium Sulfate In Water 2 Gm/50 Ml) 2 gm in 50 mls @ 25 mls/hr IV Q2H [facility] Stop: 03/20/21 13:29 Last Admin: 03/20/21 12:53 Dose: 25 mls/hr Documented by: Sodium Chloride (Normal Saline) 250 mls @ 50 mls/hr IV ASDIRECTED [facility] Last Admin: 03/21/21 15:10 Dose: 50 mls/hr Documented by: - Exam General: Alert, Oriented, Cooperative Lungs: Normal Respiratory Effort, Decreased Breath Sounds, Crackles. No: Wheezing Cardiovascular: Regular Rate, Regular Rhythm GI/Abdominal Exam: Normal Bowel Sounds, Soft, Non-Tender Skin: Warm, Dry Neurological: No New Focal Deficit Psy/Mental Status: Alert, Normal Affect, Depressed - Patient Data Lab Results Last 24 hrs: Laboratory Results - last 24 hr 03/26/21 03/27/21 03/27/21 Range/Units 19:43 08:49 08:49 WBC 6.1 (5.0-10.0) 10^3/uL RBC 3.35 L (4.50-6.00) 10^6/uL Hgb 9.2 L (14.0-18.0) g/dL Hct 29.0 L (40.0-54.0) % MCV 86.6 (82.0-94.0) fL MCH 27.5 (27.0-32.0) pg MCHC 31.7 L (33.0-38.0) g/dL RDW Coeff of Marquis 18.2 H (11.0-15.0) % Plt Count 214 (150-400) 10^3/uL Neut % (Auto) 77.6 (35-85) % Lymph % (Auto) 16.1 (10-55) % [place] % (Auto) 5.8 (0-16) % Eos % (Auto) 0.3 (0-5) % Baso % (Auto) 0.2 (0-3) % Neut # (Auto) 4.72 (1.80-7.00) 10^3/uL Lymph # (Auto) 0.98 L (1.00-4.80) 10^3/uL [place] # (Auto) 0.35 (0.00-0.80) 10^3/uL Eos # (Auto) 0.02 (0.00-0.45) 10^3/uL Baso # (Auto) 0.01 10^3/uL Sodium 139 (136-145) mEq/L Potassium 4.0 (3.5-5.0) mEq/L Chloride 102 (98-106) mEq/L Carbon Dioxide 31 (21-32) mmol/L BUN 9 (7-18) mg/dL Creatinine 0.9 (0.7-1.3) mg/dL Est Cr Clr Drug Dosing 62.72 mL/min Estimated GFR (MDRD) > 60 (>=60) mL/min Glucose 145 H (75-99) mg/dL POC Glucose 159 H (75-105) mg/dL Calcium 8.6 (8.4-10.1) mg/dL C-Reactive Protein 16.5 H (0.2-0.8) mg/dL Result Diagrams: 03/27/21 08:49 03/27/21 08:49 Sepsis Event Note - Evaluation Sepsis Screening Result: No Definite Risk - Focused Exam Vital Signs: Vital Signs Temp Pulse Resp BP Pulse Ox 03/27/21 08:00 98.0 F 73 18 80/51 L 98 03/27/21 03:55 101.4 F H 99 20 109/55 L 96 03/27/21 02:38 102.8 F H - Problem List & Annotations (1) Cancer of right lung SNOMED Code(s): 341939463 Code(s): C34.91 - MALIGNANT NEOPLASM OF UNSP PART OF RIGHT BRONCHUS OR LUNG Status: Acute Priority: High Current Visit: Yes Qualifiers: Lung location: unspecified part of lung Qualified Code(s): C34.91 - Malignant neoplasm of unspecified part of right bronchus or lung (2) Anemia SNOMED Code(s): 589390074 Code(s): D64.9 - ANEMIA, UNSPECIFIED Status: Acute Current Visit: No Qualifiers: Anemia type: other cause Other causes of anemia: chronic disease, neoplastic Qualified Code(s): D63.0 - Anemia in neoplastic disease (3) Hypokalemia SNOMED Code(s): 02696407 Code(s): E87.6 - HYPOKALEMIA Status: Resolved Priority: High Current Visit: Yes (4) Hypomagnesemia SNOMED Code(s): 027866167 Code(s): E83.42 - HYPOMAGNESEMIA Status: Chronic Priority: High Current Visit: Yes (5) Failure to thrive SNOMED Code(s): 01945223 Code(s): NLL3575 - Status: Acute Current Visit: Yes Qualifiers: Failure to thrive age range: in adult Qualified Code(s): R62.7 - Adult failure to thrive - Problem List Review Problem List Initiated/Reviewed/Updated: Yes - Plan Plan:: On admission potassium was 2.7 and currently 3.4 today. Magnesium has improved from 1.0 to 1.8 today. Will give 2gm of magnesium today and will continue with potassium supplementation. Lana has reached out to Dr. Richmond's office in regards to further treatment. Patient is currently on oxygen and will need evaluation for home oxygen as well. I spoke with Dr. Richmond yesterday afternoon in regards to Te's current status. She did inform me he is not a candidate for radiation per radiation oncologist. She states he will have to consider a different chemotherapy medication as he didn't do well and significantly declined with prior treatment. I discussed my conversation with Dr. Richmond to Te and he voiced understanding. I also discussed transfer to higher level of care for all possible options, which he declined at this time. Does state his wishes to go home when able. He was started on Folic acid and Vitamin B12 yesterday as he needs to be on for 1 week prior to starting new chemotherapy. Hgb has gradually declined and will type and cross with holding 2 units. If Hgb and electrolytes are stable in the am may discharge home so he can be with his family. Potassium is normal today. Magnesium continues to be chronically low. Will give 4gm magnesium IV today. Will continue IV fluids as he isn't drinking much. Discussed he needs to ambulate and show he can care for himself at home. Will evaluate for home oxygen today as well, which discussed he may need to be on chronically at this time. 03/20/2021 Discussed treatment options with Te and continuing treatment at this time. Patient wants to continue all available treatment options. I discussed with Te he has to be strong enough and stable to undergo further treatment. Advised we need him to eat well and work with physical therapy to continue getting strong er. I did discuss with Lana Bush having virtual appointment with Dr. Richmond as patient wants to know his options. I feel this is acceptable as I am unable to give him his options. We will continue to closely monitor as patient did spike a fever last night. Will continue IV antibiotics. Magnesium is low and will correct today. Potassium stable. 03/21/2021 Te continues to state he wants to do everything he can and explore all options in regards to treatment. Dr. Richmond consulted today and did have Zoom visit with Te and his daughter. Discussed with Te he needs to get stronger before starting chemotherapy. Chemotherapy is palliative. Patient has been tachycardic and hypotensive and discussed patient's Hgb with Dr. Richmond as well. Advised giving 1 unit of pRBC's today. Discussed risks and benefits of transfusion with Te and he wished to proceed. Potassium has remained normal today. Magnesium has continued to be chronically low. 03/22/2021 1000am Patient reports today that he feels generally weak, but reports better with more energy than yesterday. The patient reports that this afternoon he is going to get up and walk. Patient has not eaten his breakfast this morning. Hgb yesterday was 7.8, got 1 unit PRBCs. Today his hgb is 9.5. Will continue admit, approved for acute status until Wednesday. Will attempt to get patient up and active today. Will repeat labs tomorrow and evaluate. 03/23/2021 1005am The patient today reports that he is having right sided chest pain. He reports the pain is worse when he coughs or takes big deep breaths. Patient reports it feels like his cancer pain. Patient again this morning has not eaten his breakfast. He also has not taken his morning medications. The patient requested to the RN to be taken off his NS fluids. I discussed these fluids with the patient and how he is not eating or drinking. He has elected to continue them after our conversation. I also discussed with him how he is not eating, not drinking, lack of caloric intake, he will not get up and ambulate, his refusal to take his medications. I discussed with him his motivation to continue treatments vs changing his code status. He reports to me that he is "staying here", "I'm trying". The patient does not want his code status changed. He wants to continue treatment. He reports "you just need to give me some time, I'll do those things later." This is also what he keeps reporting to the RNs, but has not changed the behavior. Continues to not eat or drink much, or be mobile. The son brought the patient some food last night, a meatball sub, the patient took 3 bites. I asked the patient if he would like some ensure shakes or if there is anything that I can get him that he would eat or drink. He reports his kids sometimes bring him shakes from the drive in, but he doesnt want one now. The patient labs today are hgb 8.5, yesterday was 9.5. Will continue patient admit. Plan for this patient would be for PCP to see tomorrow and discuss patient optio ns again. No changes at this time. 03/24/2021 Te has not made a lot of progress at this time. He has continued to lay in bed most of the day. We will d/c fluids today but he will have to start drinking fluids and eating as discussed with patient. He hasn't wanted to eat as he states the food isn't any good but is willing to eat his breakfast since he likes slovenian toast. Family continue to bring him food daily. Hgb is 8.8 today, stable. I discussed with Te the need to continue with physical therapy and work on getting stronger or he will be unable to start chemotherapy again. Patient will continue in acute care at this time and will plan for discharge tomorrow or Wednesday. 03/25/2021 Bill continues to be about the same as yesterday. I again reassured Te we are not giving up on him and that he needs to really work on getting himself better. He needs to eat as if he doesn't eat he will continue to get weaker. Hgb is stable today at 8.5. Physical therapy will continue to work with Te. He will discuss moving to [place] with his sister and ex- today. Declines penitentiary and does not want to discuss Hospice at this time. 03/26/2021 Te hasn't shown any significant improvement. Had family consult yesterday and daughter would like to see Te on anti-depressant. Patient had been on Mirtazapine prior which he had stopped after being discharged from the hospital. She did question whether Citalopram would be of benefit. D/t patient not eating well, consulted with Dr. Scott, and restarted Remeron. Patient's laboratory work is stable this morning. Hgb is 8.7 slightly improved from 8.5 yesterday. Potassium is normal today. With fever this morning will get chest x-ray today. Will work on extending care at this time d/t patient's weakness and failure to thrive. 03/27/2021 Family to include sister and x- have been present daily. Te is in agreement with penitentiary for short term and willing to change code level status to a 2 at this time. He wants to try a short term stay to continue with getting stronger. He wishes to have chemotherapy when he is healthy enough. He admits he needs to continue eating and gaining strength. Laboratory work is stable today with Hgb of 9.2. Potassium of 4. Will arrange for penitentiary placement.
[2021-03-27] MEDS: Levofloxacin/Dextrose 5%-Water 500 MG in Premix Bag 1 BAG IV SCH (17:08)
[2021-03-27] MEDS: Mirtazapine 15 MG Tab PO SCH (20:01)
[2021-03-27] MEDS: Insulin Glarg,Human.Rec.Analog 100 Unit/ML SUBCUT SCH (23:28)
[2021-03-28] MEDS: Codeine/Promethazine 10-6.25 MG/5 ML Syrup 5 ML UD Cup PO PRN (01:48)
[2021-03-28] MEDS: Lactated Ringers 1,000 ML IV SCH (03:19)
[2021-03-28] MEDS: NALOXONE SL SCH (08:00)
[2021-03-28] MEDS: BUPRENORPHINE SL SCH (08:00)
[2021-03-28] MEDS: Folic Acid 1 MG Tab PO SCH (08:15)
[2021-03-28] MEDS: Cyanocobalamin (Vitamin B12) 1,000 MCG Tab PO SCH (08:15)
[2021-03-28] MEDS: Nicotine 14 MG/24 Hr Patch TRDERM SCH (08:15)
[2021-03-28] MEDS: Magnesium Chloride 64 MG Tab.ER PO SCH (08:15)
[2021-03-28] MEDS: Apixaban 5 MG Tab PO SCH (08:15)
[2021-03-28] MEDS: Potassium Chloride 10 MEQ Tab.ER PO SCH ×2 (08:15→12:29)
[2021-03-28] MEDS: Pantoprazole 40 MG Vial IVPUSH SCH (08:15)
[2021-03-28 09:31] LABS: CHLORIDE,CL 100 mEq/L (98-106); SODIUM,NA 139 mEq/L (136-145)
[2021-03-28 12:31] VITALS: BP 87/52; PULSE 100
--- NOTE | 2021-03-28 18:05 | PCM.DCSUM1 ---
Discharge Summary - Hospital Course HPI Initial Comments: See subjective update for complete details. Diagnosis: Stroke: No - Discharge Data Discharge Date: 03/28/21 Discharge Disposition: DC/Tfer W/I Hosp To Swing 61 Condition: Poor - Referral to Home Health Primary Care Physician: Indy Sidhu PA-C - Discharge Diagnosis/Problem(s) (1) Cancer of right lung SNOMED Code(s): 560280110 ICD Code: C34.91 - MALIGNANT NEOPLASM OF UNSP PART OF RIGHT BRONCHUS OR LUNG Status: Acute Priority: High Qualifiers: Lung location: unspecified part of lung Qualified Code(s): C34.91 - Malignant neoplasm of unspecified part of right bronchus or lung (2) Anemia SNOMED Code(s): 568263862 ICD Code: D64.9 - ANEMIA, UNSPECIFIED Status: Acute Qualifiers: Anemia type: other cause Other causes of anemia: chronic disease, neoplasti c Qualified Code(s): D63.0 - Anemia in neoplastic disease (3) Hypokalemia SNOMED Code(s): 68455419 ICD Code: E87.6 - HYPOKALEMIA Status: Resolved Priority: High (4) Hypomagnesemia SNOMED Code(s): 833052331 ICD Code: E83.42 - HYPOMAGNESEMIA Status: Chronic Priority: High (5) Failure to thrive SNOMED Code(s): 07963321 ICD Code: [id number] - Status: Acute Qualifiers: Failure to thrive age range: in adult Qualified Code(s): R62.7 - Adult failure to thrive - Patient Summary/Data Consults: Consultations 03/17/21 13:41 PT Evaluation and Treatment [CONS] Routine - Discharge Plan *PRESCRIPTION DRUG MONITORING PROGRAM REVIEWED*: Not Applicable *COPY OF PRESCRIPTION DRUG MONITORING REPORT IN PATIENT REEMA: Not Applicable Home Medications: Home Meds Tamsulosin HCl 0.4 mg PO DAILY PRN 06/07/15 [History] Buprenorphine HCl/Naloxone HCl [Buprenorphine-Nalox 8-2 mg Tab] 1 tab PO DAILY 02/19/20 [History] Apixaban [Eliquis] 5 mg PO BID 01/01/21 [History] Magnesium Chloride [Mag-64] 128 mg PO BIDMEALS #60 tab.er 01/11/21 [Rx] Nicotine [Habitrol] 14 mg TRDERM DAILY #30 patch 01/11/21 [Rx] Insulin Glargine,Hum.Rec.Anlog [Lantus Solostar] 15 units SQ BEDTIME 02/24/21 [History] ondansetron HCL [Ondansetron HCl] 8 mg PO TID PRN 02/24/21 [History] Potassium Chloride [Klor-Con M10] 20 meq PO TID #90 tab 02/27/21 [Rx] Forms: ED Department Discharge - Discharge Summary/Plan Comment DC Time >30 min.: Yes Discharge Summary/Plan Comment: Patient discharged from acute care and admitted to swing bed status. Will continue to closely monitor. Hgb has dropped to 8.3 today. Potassium has remained stable. Patient continues to show signs of deterioration. Discussed oncology visit via zoom instead of traveling to [place], which he wants to go to the appointment. Encourage Te to keep working on eating and drinking over the weekend. Will follow labs over the weekend. Discussed patient with Gabby Mixon, who is familiar with Te, and current treatment plan. Patient to be discharged to long term next Wednesday. Please use discharge summary for Swing Bed H&P. - General Info Subjective Update: Te is a 60 yo male who was admitted from the hospital yesterday d/t weakness, hypokalemia, hypomagnesemia. Patient has metastatic lung cancer and unable to undergo further chemotherapy. Patient is waiting to hear back from Dr. Richmond's office in regards to whether radiation is an option. Patient requests full code and wants to know his options. He states he was gradually getting worse again and not feeling well. Has known history of electrolyte imbalances. 03/19/2021 Te states he feels about the same today. He denies any chest discomfort. States he would like to be able to get home at some point as his son is there. He hasn't been up ambulating much as he just doesn't feel like it. Admits he isn't drinking much for fluids or really have any appetite. Denies any abdominal pain. No increased shortness of breath. States overall he isn't any worse than on admit. Nursing staff state he did run a low grade temperature last night but declined any Tylenol. Cough has improved with medication. 03/20/2021 Te states he slept well last night. Admits the cough syrup did help with his cough and allowed him to get a good nights rest. He is voicing his frustration with his cancer treatment and states he isn't ready to stop. Wants to know what is next for him. States he is ready to try the next chemotherapy medication but hasn't heard from his oncologist. He states physical therapy did work with him last night and made him walk quite a ways. He hasn't been very keen on walking a lot. He denies any new onset of symptoms. Yesterday he was hoping to get home today but did speak with his son and family about it. They want to continue to fight and try everything before giving up, states he has nothing to lose. 03/21/2021 Te has been in poor spirits and short with nursing staff per report. States he continues to have low grade fevers in the night. He states this morning he has been lightheaded with ambulation but denies any sense of falling or concerns with syncope. He admits to right sided chest pain, worse with cough. Hasn't had any cough medication since yesterday. States he isn't a morning person and doesn't feel like eating in the morning or taking his medications. He denies any new onset of shortness of breath. States he did try walking yesterday down the green and didn't have any complications. Admits PT wants to walk him all the way to physical therapy today, which he said he will give a try. 03/24/2021 Te continues to have poor appetite; however, states he likes chinese toast and wants to eat his breakfast this morning. He states he was okay over the weekend. Admits to continuing with his cough. Nursing staff report he hasn't been taking all his medications and continues to be short with them. He has been short of breath with ambulation, being very winded when getting up to the bathroom. States he wants to continue to fight and get better so he can start new chemotherapy. Te worked with physical therapy this morning and didn't have a lot of s trength. Unable to ambulate for any long distance. He hasn't ate breakfast yet but does state he is hungry. PT did state he did well in the afternoon and seems to do better as the day goes on. Te states he doesn't want us giving up on him. He is talking about moving to [place] soon as this may be best for him with his family mostly from their. He denies any set backs today, has no complaints. HE states he understands he needs to eat. Family continues to bring him meals, which he has been eating some of. 03/26/2021 Patient states he ran a fever this morning but is now feeling better after ge tting Tylenol. He admits to continuing to feel weak. Doesn't feel he will do well at home. States he wants to get to his appointment on Wednesday with oncologist to know where and what to do from here. He admits after asking about some depression and states who wouldn't be with what he is going through. He doesn't feel it is any worse or better. States when he was on medication for depression it didn't really make any difference "so why take something if it doesn't help". Denies any coughing this morning. States he has been up and to the bathroom which nurse state does require some assistance. 03/27/2021 Bill appears to be in better spirits this morning. States he had a good appetite last night and enjoyed the hot dish. Admits he was able to eat a majority of the hot dish. Patient is in agreement for transfer to long term for ongoing strengthening. He continues to run low grade fevers at night. However, states this morning he is feeling a lot better than he has been. Is concerned of c oughing with increased blood tinged sputum. Declines follow up chest x-ray. 03/28/2021 Bill denies having a fever last night. States he continues to get up and use the restroom frequently d/t IV fluids. States he had worked with PT again yesterday and was able to walk up the green quite a ways. He states he doesn't have an appetite this morning but admits to not being a morning person. States he will eat more this evening. Son will be taking patient to oncology appointment on Wednesday. Functional Status: Reports: Pain Controlled, Ambulating, Urinating. Denies: Tolerating Diet - Review of Systems General: Reports: Weakness, Fatigue, Malaise HEENT: Reports: No Symptoms Pulmonary: Reports: Shortness of Breath, Pleuritic Chest Pain, Cough, Sputum Cardiovascular: Reports: No Symptoms Gastrointestinal: Reports: No Symptoms Genitourinary: Reports: No Symptoms Musculoskeletal: Reports: No Symptoms Skin: Reports: No Symptoms Neurological: Reports: No Symptoms - Patient Data Vitals - Most Recent: Last Vital Signs Temp 98.9 F 03/28/21 12:00 Pulse 100 03/28/21 12:00 Resp 16 03/28/21 12:00 BP 87/52 L 03/28/21 12:00 Pulse Ox 96 03/28/21 12:00 Weight - Most Recent: 112 lb I&O - Last 24 hours: Intake & Output 03/28/21 03/28/21 03/28/21 06:59 14:59 22:59 Intake Total 1000 Balance 1000 Lab Results - Last 24 hrs: Laboratory Results - last 24 hr 03/27/21 03/28/21 03/28/21 Range/Units 21:19 08:04 08:57 WBC 5.5 (5.0-10.0) 10^3/uL RBC 3.08 L (4.50-6.00) 10^6/uL Hgb 8.3 L (14.0-18.0) g/dL Hct 26.2 L (40.0-54.0) % MCV 85.1 (82.0-94.0) fL MCH 26.9 L (27.0-32.0) pg MCHC 31.7 L (33.0-38.0) g/dL RDW Coeff of Marquis 18.0 H (11.0-15.0) % Plt Count 204 (150-400) 10^3/uL Neut % (Auto) 75.0 (35-85) % Lymph % (Auto) 18.3 (10-55) % [place]estone % (Auto) 6.0 (0-16) % Eos % (Auto) 0.5 (0-5) % Baso % (Auto) 0.2 (0-3) % Neut # (Auto) 4.14 (1.80-7.00) 10^3/uL Lymph # (Auto) 1.01 (1.00-4.80) 10^3/uL [place] # (Auto) 0.33 (0.00-0.80) 10^3/uL Eos # (Auto) 0.03 (0.00-0.45) 10^3/uL Baso # (Auto) 0.01 10^3/uL Sodium (136-145) mEq/L Potassium (3.5-5.0) mEq/L Chloride (98-106) mEq/L Carbon Dioxide (21-32) mmol/L BUN (7-18) mg/dL Creatinine (0.7-1.3) mg/dL Est Cr Clr Drug Dosing mL/min Estimated GFR (MDRD) (>=60) mL/min Glucose (75-99) mg/dL POC Glucose 142 H 142 H (75-105) mg/dL Calcium (8.4-10.1) mg/dL 03/28/21 Range/Units 09:09 WBC (5.0-10.0) 10^3/uL RBC (4.50-6.00) 10^6/uL Hgb (14.0-18.0) g/dL Hct (40.0-54.0) % MCV (82.0-94.0) fL MCH (27.0-32.0) pg MCHC (33.0-38.0) g/dL RDW Coeff of Marquis (11.0-15.0) % Plt Count (150-400) 10^3/uL Neut % (Auto) (35-85) % Lymph % (Auto) (10-55) % [place]estone % (Auto) (0-16) % Eos % (Auto) (0-5) % Baso % (Auto) (0-3) % Neut # (Auto) (1.80-7.00) 10^3/uL Lymph # (Auto) (1.00-4.80) 10^3/uL [place] # (Auto) (0.00-0.80) 10^3/uL Eos # (Auto) (0.00-0.45) 10^3/uL Baso # (Auto) 10^3/uL Sodium 139 (136-145) mEq/L Potassium 4.0 (3.5-5.0) mEq/L Chloride 100 (98-106) mEq/L Carbon Dioxide 31 (21-32) mmol/L BUN 9 (7-18) mg/dL Creatinine 0.8 (0.7-1.3) mg/dL Est Cr Clr Drug Dosing 70.56 mL/min Estimated GFR (MDRD) > 60 (>=60) mL/min Glucose 181 H (75-99) mg/dL POC Glucose (75-105) mg/dL Calcium 8.8 (8.4-10.1) mg/dL Med Orders - Current: Current Medications Discontinued Medications Acetaminophen (Acetaminophen 325 Mg Tab) 650 mg PO Q4H PRN PRN Reason: Pain (Mild 1-3)/fever Last Admin: 03/27/21 20:01 Dose: 650 mg Documented by: Albuterol (Albuterol 0.083% 2.5 Mg/3 Ml Neb Soln) 2.5 mg NEB Q4H PRN PRN Reason: Dyspnea Last Admin: 03/23/21 10:21 Dose: 2.5 mg Documented by: Apixaban (Apixaban 5 Mg Tab) 5 mg PO BID [facility] Last Admin: 03/28/21 08:15 Dose: 5 mg Documented by: Cyanocobalamin (Cyanocobalamin (Vitamin B12) 1,000 Mcg Tab) 1,000 mcg PO DAILY [facility] Last Admin: 03/28/21 08:15 Dose: 1,000 mcg Documented by: Folic Acid (Folic Acid 1 Mg Tab) 1 mg PO DAILY [facility] Last Admin: 03/28/21 08:15 Dose: 1 mg Documented by: Potassium Chloride 40 meq/ (Premix) 100 mls @ 25 mls/hr IV ONETIME ONE Stop: 03/17/21 16:46 Last Admin: 03/17/21 13:13 Dose: 25 mls/hr Documented by: Magnesium Sulfate (Magnesium Sulfate In Water 2 Gm/50 Ml) 2 gm in 50 mls @ 50 mls/hr IV ONETIME ONE Stop: 03/17/21 13:47 Last Admin: 03/17/21 13:37 Dose: Not Given Documented by: Lactated Ringer's (Ringers, Lactated) 1,000 mls @ 75 mls/hr IV ASDIRECTED [facility] Last Admin: 03/28/21 03:19 Dose: 75 mls/hr Documented by: Magnesium Sulfate (Magnesium Sulfate In Water 2 Gm/50 Ml) 4 gm in 100 mls @ 50 mls/hr IV ONETIME ONE Stop: 03/17/21 14:48 Last Admin: 03/17/21 13:30 Dose: 50 mls/hr Documented by: Magnesium Sulfate (Magnesium Sulfate In Water 2 Gm/50 Ml) 2 gm in 50 mls @ 25 mls/hr IV ONETIME ONE Stop: 03/18/21 12:29 Last Admin: 03/18/21 10:32 Dose: 25 mls/hr Documented by: Potassium Chloride 20 meq/ (Premix) 100 mls @ 50 mls/hr IV ONETIME ONE Stop: 03/18/21 14:29 Last Admin: 03/18/21 12:19 Dose: 50 mls/hr Documented by: Levofloxacin/Dextrose 500 mg/ (Premix) 100 mls @ 100 mls/hr IV DAILY@1600 [facility] Last Admin: 03/27/21 17:08 Dose: 100 mls/hr Documented by: Magnesium Sulfate (Magnesium Sulfate In Water 2 Gm/50 Ml) 2 gm in 50 mls @ 25 mls/hr IV Q2H [facility] Stop: 03/19/21 14:29 Last Admin: 03/19/21 12:30 Dose: 25 mls/hr Documented by: Magnesium Sulfate (Magnesium Sulfate In Water 2 Gm/50 Ml) 4 gm in 100 mls @ 50 mls/hr IV ONETIME ONE Stop: 03/20/21 10:58 Last Admin: 03/20/21 10:24 Dose: Not Given Documented by: Magnesium Sulfate (Magnesium Sulfate In Water 2 Gm/50 Ml) 2 gm in 50 mls @ 25 mls/hr IV Q2H [facility] Stop: 03/20/21 13:29 Last Admin: 03/20/21 12:53 Dose: 25 mls/hr Documented by: Sodium Chloride (Normal Saline) 250 mls @ 50 mls/hr IV ASDIRECTED [facility] Last Admin: 03/21/21 15:10 Dose: 50 mls/hr Documented by: Insulin Glargine (Insulin Glarg,Human.Rec.Analog 100 Unit/Ml) 15 unit SUBCUT BEDTIME [facility] Last Admin: 03/27/21 23:28 Dose: Not Given Documented by: Magnesium Chloride (Magnesium Chloride 64 Mg Tab.Er) 128 mg PO BIDMEALS [facility] Last Admin: 03/28/21 08:15 Dose: 128 mg Documented by: Mirtazapine (Mirtazapine 15 Mg Tab) 15 mg PO BEDTIME [facility] Last Admin: 03/27/21 20:01 Dose: 15 mg Documented by: Nicotine (Nicotine 14 Mg/24 Hr Patch) 14 mg TRDERM DAILY [facility] Last Admin: 03/28/21 08:15 Dose: 14 mg Documented by: Buprenorphine/Naloxone 8-2mg Sl Tab Pt Own 0 tab SL DAILY [facility] Last Admin: 03/28/21 08:00 Dose: 1 tab Documented by: Ondansetron HCl (Ondansetron 4 Mg Tab.Dis) 8 mg PO TID PRN PRN Reason: Nausea Pantoprazole Sodium (Pantoprazole 40 Mg Vial) 40 mg IVPUSH BID [facility] Last Admin: 03/28/21 08:15 Dose: 40 mg Documented by: Potassium Chloride (Potassium Chloride 10 Meq Tab.Er) 20 meq PO TIDMEALS [facility] Last Admin: 03/28/21 12:29 Dose: 20 meq Documented by: Promethazine HCl/Codeine (Codeine/Promethazine 10-6.25 Mg/5 Ml Syrup 5 Ml Ud Cup) 5 - 10 ml PO Q4H PRN PRN Reason: Cough Last Admin: 03/28/21 01:48 Dose: 10 ml Documented by: - Exam Quality Assessment: Reports: Supplemental Oxygen General: Reports: Alert, Oriented Neck: Reports: Supple Lungs: Reports: Decreased Breath Sounds, Crackles Cardiovascular: Reports: Regular Rate, Regular Rhythm, No Murmurs GI/Abdominal Exam: Normal Bowel Sounds, Soft, Non-Tender Skin: Reports: Warm, Dry, Intact Neurological: Reports: No New Focal Deficit Psy/Mental Status: Reports: Alert, Normal Affect, Normal Mood
== END 2021-03-28 13:51 | disposition swing bed (61) | DRG 948 ==
LOC: CC.ED 11:20 → UNDOADMIN 13:05 → CC.MS 13:05
PROVIDERS: ADMIT Physician Assistant Medical; ATTEND Family Medicine
PROC: 30233N1 Transfusion of Nonautologous Red Blood Cells into Peripheral Vein, Percutaneous Approach (ICD-10-PCS; principal; 2021-03-17)
DX: R53.1 Weakness (principal); C34.91 Malignant neoplasm of unspecified part of right bronchus or lung; E87.6 Hypokalemia; D63.0 Anemia in neoplastic disease; E83.42 Hypomagnesemia; G89.29 Other chronic pain; M54.9 Dorsalgia, unspecified; G62.9 Polyneuropathy, unspecified; I95.9 Hypotension, unspecified; R07.89 Other chest pain; Z79.4 Long term (current) use of insulin; Z79.01 Long term (current) use of anticoagulants; Z90.49 Acquired absence of other specified parts of digestive tract; Z90.89 Acquired absence of other organs; Z98.1 Arthrodesis status; Z79.899 Other long term (current) drug therapy; Z91.013 Allergy to seafood; Z88.0 Allergy status to penicillin; Z87.01 Personal history of pneumonia (recurrent)
CPT/HCPCS: 36415; 36430; 71045; 80048; 80053; 82550; 82947; 83605; 83615; 83735; 83880; 84484; 85018; 85025; 85379; 86140; 86850; 86900; 86901; 86920; 86922; 93005; 96365; 96375; 97110-GP; 97161-GP; 97530-GP; 99285-25; A9270-GY; C9113; J1956; J3475; J3480; J7050; J7120; J7613-GY; P9016

== ENCOUNTER 2021-03-28 13:55 | Inpatient (IN) | payer OTHER ==
[~2021-03-28 13:55] MED LIST: 50% Dextrose in Water 50 ML Syringe IV PRN; Acetaminophen 325 MG Tab PO PRN; Albuterol 0.083% 2.5 MG/3 ML Neb Soln NEB PRN; Codeine/Promethazine 10-6.25 MG/5 ML Syrup 5 ML UD Cup PO PRN; Glucagon,Human Recombinant 1 MG Vial IM PRN; Ondansetron 4 MG Tab.DIS PO PRN
[2021-03-28] MEDS: Levofloxacin/Dextrose 5%-Water 500 MG in Premix Bag 1 BAG IV SCH (16:18)
[2021-03-28] MEDS: Lactated Ringers 1,000 ML IV SCH (16:35)
[2021-03-28] MEDS: Magnesium Chloride 64 MG Tab.ER PO SCH (16:36)
[2021-03-28] MEDS: Potassium Chloride 10 MEQ Tab.ER PO SCH (16:36)
[2021-03-28] MEDS: Pantoprazole 40 MG Vial IVPUSH SCH (19:52)
[2021-03-28] MEDS: Apixaban 5 MG Tab PO SCH (19:54)
[2021-03-28] MEDS: Mirtazapine 15 MG Tab PO SCH (19:56)
[2021-03-29] MEDS: Insulin Glarg,Human.Rec.Analog 100 Unit/ML SUBCUT SCH ×2 (01:18→21:48)
[2021-03-29] MEDS: Lactated Ringers 1,000 ML IV SCH ×2 (07:17→21:46)
[2021-03-29 07:46] LABS: CHLORIDE,CL 102 mEq/L (98-106); SODIUM,NA 139 mEq/L (136-145)
[2021-03-29] MEDS: BUPRENORPHINE SL SCH (08:14)
[2021-03-29] MEDS: Apixaban 5 MG Tab PO SCH ×2 (08:14→20:10)
[2021-03-29] MEDS: NALOXONE SL SCH (08:14)
[2021-03-29] MEDS: Nicotine 14 MG/24 Hr Patch TRDERM SCH (08:15)
[2021-03-29] MEDS: Folic Acid 1 MG Tab PO SCH (08:15)
[2021-03-29] MEDS: Cyanocobalamin (Vitamin B12) 1,000 MCG Tab PO SCH (08:16)
[2021-03-29] MEDS: Potassium Chloride 10 MEQ Tab.ER PO SCH ×3 (08:16→17:04)
[2021-03-29] MEDS: Magnesium Chloride 64 MG Tab.ER PO SCH ×2 (08:16→17:04)
[2021-03-29] MEDS: Pantoprazole 40 MG Vial IVPUSH SCH ×2 (08:18→20:10)
[2021-03-29] MEDS: Levofloxacin/Dextrose 5%-Water 500 MG in Premix Bag 1 BAG IV SCH (17:04)
[2021-03-29] MEDS: Mirtazapine 15 MG Tab PO SCH (20:10)
[2021-03-30] MEDS: NALOXONE SL SCH (08:26)
[2021-03-30] MEDS: BUPRENORPHINE SL SCH (08:26)
[2021-03-30] MEDS: Apixaban 5 MG Tab PO SCH ×2 (08:27→19:56)
[2021-03-30] MEDS: Potassium Chloride 10 MEQ Tab.ER PO SCH ×3 (08:27→16:48)
[2021-03-30] MEDS: Cyanocobalamin (Vitamin B12) 1,000 MCG Tab PO SCH (08:27)
[2021-03-30] MEDS: Folic Acid 1 MG Tab PO SCH (08:28)
[2021-03-30] MEDS: Nicotine 14 MG/24 Hr Patch TRDERM SCH (08:28)
[2021-03-30] MEDS: Magnesium Chloride 64 MG Tab.ER PO SCH ×2 (08:28→16:48)
[2021-03-30] MEDS: Pantoprazole 40 MG Vial IVPUSH SCH ×2 (08:29→19:59)
[2021-03-30] MEDS: Lactated Ringers 1,000 ML IV SCH (10:47)
[2021-03-30] MEDS: Levofloxacin/Dextrose 5%-Water 500 MG in Premix Bag 1 BAG IV SCH (16:48)
[2021-03-30] MEDS: Mirtazapine 15 MG Tab PO SCH (19:56)
[2021-03-30] MEDS: Insulin Glarg,Human.Rec.Analog 100 Unit/ML SUBCUT SCH (19:58)
[2021-03-31] MEDS: Lactated Ringers 1,000 ML IV SCH ×2 (01:07→16:06)
[2021-03-31] MEDS: Apixaban 5 MG Tab PO SCH (07:40)
[2021-03-31] MEDS: BUPRENORPHINE SL SCH (07:40)
[2021-03-31] MEDS: NALOXONE SL SCH (07:40)
[2021-03-31] MEDS: Potassium Chloride 10 MEQ Tab.ER PO SCH ×2 (07:40→12:23)
[2021-03-31] MEDS: Magnesium Chloride 64 MG Tab.ER PO SCH (07:40)
[2021-03-31] MEDS: Nicotine 14 MG/24 Hr Patch TRDERM SCH (07:40)
[2021-03-31] MEDS: Folic Acid 1 MG Tab PO SCH (07:40)
[2021-03-31] MEDS: Pantoprazole 40 MG Vial IVPUSH SCH (07:40)
[2021-03-31] MEDS: Cyanocobalamin (Vitamin B12) 1,000 MCG Tab PO SCH (07:40)
[2021-03-31 09:26] VITALS: BP 95/64; PULSE 100
[2021-03-31] MEDS ORDERED: Iopamidol 755 Mg/ML 100 ML Bottle IVPUSH ONE (10:50)
[2021-03-31 13:06] LABS: CHLORIDE,CL 98 mEq/L (98-106); SODIUM,NA 133 mEq/L (136-145)
[2021-03-31] MEDS: Levofloxacin/Dextrose 5%-Water 500 MG in Premix Bag 1 BAG IV SCH (16:16)
--- NOTE | 2021-03-31 20:50 | PCM.DCSUM1 ---
Discharge Summary - Hospital Course HPI Initial Comments: Te is a 60 yo male who was admitted from the hospital on the 17 of March d/t weakness, hypokalemia and hypomagnesemia. Patient hadn't ate for a few days prior to presenting to the ED. Patient has known metastatic lung cancer and unable to undergo further chemotherapy as he didn't tolerate current chemotherapy. Te is not a candidate for radiation. Dr. Richmond, oncologist, has been in contact during Te's hospital stay. Te has been working with ph ysical therapy in regards to strength and ambulation. Appetite has been poor during his stay. He had been dealing with anemia, hypokalemia, hypomagnesemia during his stay. Potassium has been stable as of recently. He did have chest x- ray on admission which did show cavitary lesion which appeared to be unchanged since prior CT of the chest on March 03. Patient was started on IV Levaquin on admission with concerns of infiltrate, which he is still currently getting daily. Diagnosis: Stroke: No - Discharge Data Discharge Date: 03/31/21 Discharge Disposition: DC/Tfer to Acute Hospital 02 Condition: Good - Referral to Home Health Primary Care Physician: Petr Scott MD - Discharge Diagnosis/Problem(s) (1) Pneumonia of both lower lobes SNOMED Code(s): 510137373, 872417400 ICD Code: J18.9 - PNEUMONIA, UNSPECIFIED ORGANISM Status: Acute Qualifiers: Pneumonia type: due to unspecified organism Qualified Code(s): J18.9 - Pneumonia, unspecified organism (2) Anemia SNOMED Code(s): 689071800 ICD Code: D64.9 - ANEMIA, UNSPECIFIED Status: Acute Qualifiers: Other causes of anemia: chronic disease, neoplastic (3) Cancer of right lung SNOMED Code(s): 752782007 ICD Code: C34.91 - MALIGNANT NEOPLASM OF UNSP PART OF RIGHT BRONCHUS OR LUNG Status: Acute Priority: High Qualifiers: Lung location: upper lobe of lung Qualified Code(s): C34.11 - Malignant neoplasm of upper lobe, right bronchus or lung - Patient Summary/Data Consults: Consultations 03/28/21 13:55 PT Evaluation and Treatment [CONS] Routine - Discharge Plan *PRESCRIPTION DRUG MONITORING PROGRAM REVIEWED*: No *COPY OF PRESCRIPTION DRUG MONITORING REPORT IN PATIENT REEMA: No Home Medications: Home Meds Tamsulosin HCl 0.4 mg PO DAILY PRN 06/07/15 [History] Buprenorphine HCl/Naloxone HCl [Buprenorphine-Nalox 8-2 mg Tab] 1 tab PO DAILY 02/19/20 [History] Apixaban [Eliquis] 5 mg PO BID 01/01/21 [History] Magnesium Chloride [Mag-64] 128 mg PO BIDMEALS #60 tab.er 01/11/21 [Rx] Nicotine [Habitrol] 14 mg TRDERM DAILY #30 patch 01/11/21 [Rx] Insulin Glargine,Hum.Rec.Anlog [Lantus Solostar] 15 units SQ BEDTIME 02/24/21 [History] ondansetron HCL [Ondansetron HCl] 8 mg PO TID PRN 02/24/21 [History] Potassium Chloride [Klor-Con M10] 20 meq PO TID #90 tab 02/27/21 [Rx] Oxygen Therapy Mode: Nasal Cannula Oxygen Flow Rate (L/min): 4 Maintain SpO2% greater than: 90 - Discharge Summary/Plan Comment DC Time >30 min.: Yes Discharge Summary/Plan Comment: CT chest did show bilateral pneumonia with worsening cavitary lesion of the right lower lobe. Concerning for infectious bleb vs abscess. Consulted with Dr. Richmond and she recommended transferring to [place] for further evaluation via infectious disease and thoracentesis. Discussed with Te transfer which he was in agreement to at this time. Patient has been on IV Levaquin. BLS transfer to [facility] for further evaluation/treatment. Dr. Iqbal, hospitalist, accepting physician. Risks and benefits of transfer discussed with Te. Risks of transfer included worsening pain/condition, MVA, . Benefits of transfer included appropriate specialty care/procedures/treatment. Risks of non transfer included worsening of condition, . Benefits of non transfer included being close to home, familiar environment. Te in agreement with transfer as he feels the benefits outweigh the risks at this time. - General Info Date of Service: 03/31/21 Subjective Update: Te has been in swing bed care since the 28 of March. Patient had appointment with Dr. Richmond (oncology) in [place] this morning, which his son did pick him up and take him to his appointment. Dr. Wiley requested repeat CT scan of the chest, which was completed upon returning from [place] today. He states today he is feeling okay and was able to eat his lunch. He admits he hasn't been coughing as much. States when he does cough he will get up some darker colored sputum. Functional Status: Reports: Pain Controlled, Tolerating Diet - Review of Systems General: Reports: Weakness, Fatigue. Denies: Fever HEENT: Reports: No Symptoms Pulmonary: Reports: Pleuritic Chest Pain, Cough, Sputum Cardiovascular: Denies: Chest Pain, Palpitations, Edema, Lightheadedness Gastrointestinal: Reports: No Symptoms. Denies: Nausea, Vomiting Genitourinary: Reports: No Symptoms Musculoskeletal: Reports: No Symptoms Skin: Reports: No Symptoms Neurological: Reports: No Symptoms Psychiatric: Reports: No Symptoms - Patient Data Vitals - Most Recent: Last Vital Signs Temp 97.3 F 03/31/21 08:00 Pulse 100 03/31/21 08:00 Resp 18 03/31/21 08:00 BP 95/64 03/31/21 08:00 Pulse Ox 94 L 03/31/21 08:00 Weight - Most Recent: 112 lb I&O - Last 24 hours: Intake & Output 03/31/21 03/31/21 03/31/21 06:59 14:59 22:59 Intake Total 1000 1000 Balance 1000 1000 Lab Results - Last 24 hrs: Laboratory Results - last 24 hr 03/31/21 03/31/21 03/31/21 Range/Units 07:34 12:38 12:38 WBC 6.1 (5.0-10.0) 10^3/uL RBC 3.18 L (4.50-6.00) 10^6/uL Hgb 8.5 L (14.0-18.0) g/dL Hct 26.7 L (40.0-54.0) % MCV 84.0 (82.0-94.0) fL MCH 26.7 L (27.0-32.0) pg MCHC 31.8 L (33.0-38.0) g/dL RDW Coeff of Marquis 18.2 H (11.0-15.0) % Plt Count 183 (150-400) 10^3/uL Neut % (Auto) 72.9 (35-85) % Lymph % (Auto) 20.3 (10-55) % [place] % (Auto) 6.4 (0-16) % Eos % (Auto) 0.2 (0-5) % Baso % (Auto) 0.2 (0-3) % Neut # (Auto) 4.41 (1.80-7.00) 10^3/uL Lymph # (Auto) 1.23 (1.00-4.80) 10^3/uL [place] # (Auto) 0.39 (0.00-0.80) 10^3/uL Eos # (Auto) 0.01 (0.00-0.45) 10^3/uL Baso # (Auto) 0.01 10^3/uL Sodium 133 L (136-145) mEq/L Potassium 4.3 (3.5-5.0) mEq/L Chloride 98 (98-106) mEq/L Carbon Dioxide 29 (21-32) mmol/L BUN 11 (7-18) mg/dL Creatinine 1.0 (0.7-1.3) mg/dL Est Cr Clr Drug Dosing 56.45 mL/min Estimated GFR (MDRD) > 60 (>=60) mL/min Glucose 113 H (75-99) mg/dL POC Glucose 104 (75-105) mg/dL Lactic Acid (0.4-2.0) mmol/L Calcium 9.0 (8.4-10.1) mg/dL Total Bilirubin 0.5 (0.0-1.0) mg/dL AST 39 H (15-37) U/L ALT 25 (12-78) U/L Alkaline Phosphatase 163 H (46-116) U/L C-Reactive Protein 14.6 H (0.2-0.8) mg/dL Total Protein 5.3 L (6.4-8.2) g/dL Albumin 1.6 L (3.4-5.0) g/dL SARS CoV-2 RNA Rapid SHUN (NEGATIVE) 03/31/21 03/31/21 Range/Units 12:38 13:16 WBC (5.0-10.0) 10^3/uL RBC (4.50-6.00) 10^6/uL Hgb (14.0-18.0) g/dL Hct (40.0-54.0) % MCV (82.0-94.0) fL MCH (27.0-32.0) pg MCHC (33.0-38.0) g/dL RDW Coeff of [place]quis (11.0-15.0) % Plt Count (150-400) 10^3/uL Neut % (Auto) (35-85) % Lymph % (Auto) (10-55) % [place] % (Auto) (0-16) % Eos % (Auto) (0-5) % Baso % (Auto) (0-3) % Neut # (Auto) (1.80-7.00) 10^3/uL Lymph # (Auto) (1.00-4.80) 10^3/uL [place] # (Auto) (0.00-0.80) 10^3/uL Eos # (Auto) (0.00-0.45) 10^3/uL Baso # (Auto) 10^3/uL Sodium (136-145) mEq/L Potassium (3.5-5.0) mEq/L Chloride (98-106) mEq/L Carbon Dioxide (21-32) mmol/L BUN (7-18) mg/dL Creatinine (0.7-1.3) mg/dL Est Cr Clr Drug Dosing mL/min Estimated GFR (MDRD) (>=60) mL/min Glucose (75-99) mg/dL POC Glucose (75-105) mg/dL Lactic Acid 2.1 H (0.4-2.0) mmol/L Calcium (8.4-10.1) mg/dL Total Bilirubin (0.0-1.0) mg/dL AST (15-37) U/L ALT (12-78) U/L Alkaline Phosphatase (46-116) U/L C-Reactive Protein (0.2-0.8) mg/dL Total Protein (6.4-8.2) g/dL Albumin (3.4-5.0) g/dL SARS CoV-2 RNA Rapid SHUN Negative (NEGATIVE) Med Orders - Current: Current Medications Discontinued Medications Acetaminophen (Acetaminophen 325 Mg Tab) 650 mg PO Q4H PRN PRN Reason: Pain (Mild 1-3)/fever Last Admin: 03/31/21 16:10 Dose: 650 mg Documented by: Albuterol (Albuterol 0.083% 2.5 Mg/3 Ml Neb Soln) 2.5 mg NEB Q4H PRN PRN Reason: Dyspnea Last Admin: 03/28/21 18:05 Dose: 2.5 mg Documented by: Apixaban (Apixaban 5 Mg Tab) 5 mg PO BID [facility] Last Admin: 03/31/21 07:40 Dose: 5 mg Documented by: Cyanocobalamin (Cyanocobalamin (Vitamin B12) 1,000 Mcg Tab) 1,000 mcg PO DAILY [facility] Last Admin: 03/31/21 07:40 Dose: 1,000 mcg Documented by: Dextrose/Water (50% Dextrose In Water 50 Ml Syringe) 50 ml IV ASDIRECTED PRN PRN Reason: Hypoglycemia Folic Acid (Folic Acid 1 Mg Tab) 1 mg PO DAILY [facility] Last Admin: 03/31/21 07:40 Dose: 1 mg Documented by: Glucagon (Glucagon,Human Recombinant 1 Mg Vial) 1 mg IM ASDIRECTED PRN PRN Reason: Hypoglycemia Lactated Ringer's (Ringers, Lactated) 1,000 mls @ 75 mls/hr IV ASDIRECTED [facility] Last Admin: 03/31/21 16:06 Dose: 75 mls/hr Documented by: Levofloxacin/Dextrose 500 mg/ (Premix) 100 mls @ 100 mls/hr IV DAILY@1600 [facility] Last Admin: 03/31/21 16:16 Dose: Not Given Documented by: Insulin Glargine (Insulin Glarg,Human.Rec.Analog 100 Unit/Ml) 15 unit SUBCUT BEDTIME [facility] Last Admin: 03/30/21 19:58 Dose: Not Given Documented by: Iopamidol (Iopamidol 755 Mg/Ml 100 Ml Bottle) 100 ml IVPUSH ONETIME ONE Stop: 03/31/21 10:51 Last Admin: 03/31/21 11:24 Dose: 100 ml Documented by: Magnesium Chloride (Magnesium Chloride 64 Mg Tab.Er) 128 mg PO BIDMEALS [facility] Last Admin: 03/31/21 07:40 Dose: 128 mg Documented by: Mirtazapine (Mirtazapine 15 Mg Tab) 15 mg PO BEDTIME [facility] Last Admin: 03/30/21 19:56 Dose: 15 mg Documented by: Nicotine (Nicotine 14 Mg/24 Hr Patch) 14 mg TRDERM DAILY [facility] Last Admin: 03/31/21 07:40 Dose: 14 mg Documented by: Buprenorphine/Naloxone 8mg/2mg Tabs Own Med 0 tab SL DAILY [facility] Last Admin: 03/31/21 07:40 Dose: 1 tab Documented by: Ondansetron HCl (Ondansetron 4 Mg Tab.Dis) 8 mg PO TID PRN PRN Reason: Nausea Pantoprazole Sodium (Pantoprazole 40 Mg Vial) 40 mg IVPUSH BID [facility] Last Admin: 03/31/21 07:40 Dose: 40 mg Documented by: Potassium Chloride (Potassium Chloride 10 Meq Tab.Er) 20 meq PO TIDMEALS [facility] Last Admin: 03/31/21 12:23 Dose: 20 meq Documented by: Promethazine HCl/Codeine (Codeine/Promethazine 10-6.25 Mg/5 Ml Syrup 5 Ml Ud Cup) 5 - 10 ml PO Q4H PRN PRN Reason: Cough Last Admin: 03/30/21 00:09 Dose: 5 ml Documented by: - Exam General: Reports: Alert, Oriented, Cooperative Neck: Reports: Supple Lungs: Reports: Normal Respiratory Effort, Decreased Breath Sounds, Crackles Cardiovascular: Reports: Regular Rate, Regular Rhythm, No Murmurs GI/Abdominal Exam: Normal Bowel Sounds, Soft, Non-Tender Extremities: Normal Inspection, No Pedal Edema Skin: Reports: Warm, Dry, Intact Neurological: Reports: No New Focal Deficit Psy/Mental Status: Reports: Alert, Normal Affect, Normal Mood
== END 2021-03-31 16:15 | DRG 947 ==
LOC: CC.MS 13:55
PROVIDERS: ADMIT Physician Assistant Medical; ATTEND Family Medicine
DX: R53.1 Weakness (principal); J18.9 Pneumonia, unspecified organism; C34.11 Malignant neoplasm of upper lobe, right bronchus or lung; Z68.1 Body mass index [BMI] 19.9 or less, adult; D63.0 Anemia in neoplastic disease; E87.6 Hypokalemia; E83.42 Hypomagnesemia; R62.7 Adult failure to thrive; Z20.822 Contact with and (suspected) exposure to COVID-19
CPT/HCPCS: 36415; 71260; 80048; 80053; 82947; 83605; 85025; 86140; A9270-GY; C9113; J1956; J7120; J7613-GY; Q9967; U0002